=== PATIENT | male | born 1955 | race Caucasian/White ===

== ENCOUNTER → 2016-08-31 | Outpatient (CLI) | payer BC ==
[~2016-08-31] MED LIST: ACT15 PO; ASPEC81 PO; FLM4 PO; FLUO20CA35 PO; GLC850 PO; LISI40TA PO; SIMV40TA2 PO
[2016-08-31 13:03] LABS: ALT/SGPT 42 U/L (12-78); BLOOD UREA NITROGEN 18 mg/dl (7-18); CALCIUM 9.5 mg/dl (8.5-10.1); CARBON DIOXIDE 30 mmol/L (21-32); CHLORIDE 103 mmol/L (98-107); GLUCOSE 135 mg/dl (70-99); POTASSIUM 4.4 mmol/L (3.5-5.1); SODIUM 139 mmol/L (136-145)
[2016-08-31 13:05] LABS: ESTIMATED AVERAGE GLUCOSE 223 mg/dl; HA1C FLAG Normal (Normal)
[2016-08-31 13:06] LABS: ALB/GLOB RATIO 0.7 (0.9-2); ALKALINE PHOSPHATASE 69 U/L (45-117); AST/SGOT 23 U/L (15-37); CHOLESTEROL 158 mg/dl (0-200); CHOLESTEROL/HDL RATIO 3.7; HDL CHOLESTEROL 43 mg/dl; TRIGLYCERIDES 167 mg/dl (0-150); VERY LOW DENSITY LIPOPROT CALC 33 mg/dl
== END | disposition home or self-care (01) ==
LOC: C.LABSPEC 12:13
PROVIDERS: ATTEND Internal Medicine
DX: E66.09 Other obesity due to excess calories (principal); E11.65 Type 2 diabetes mellitus with hyperglycemia; I10 Essential (primary) hypertension; E78.5 Hyperlipidemia, unspecified

== ENCOUNTER → 2017-02-26 | Outpatient (CLI) | payer BC | END | disposition home or self-care (01) | LOC: C.LABSPEC 12:32 | PROVIDERS: ATTEND Internal Medicine | DX: Z12.11 Encounter for screening for malignant neoplasm of colon (principal) ==

== ENCOUNTER 2018-06-30 12:56 | Observation (INO) ==
[2018-06-30 15:01] LABS: Albumin Level 3.2 gm/dl (3.4-5.0); BUN Creatinine Ratio 12.8 (10-20); Creatinine Clr Calc Pharmacy 86.1 ml/min; Est GFR (African American) 74.1; Potassium 4.2 mmol/L (3.5-5.1)
[2018-06-30 15:04] LABS: Albumin Globulin Ratio 0.7 (0.9-2); Bilirubin,Total 0.5 mg/dl (0.2-1); Globulin 4.4 gm/dl (2.5-4.0); Total Protein 7.6 gm/dl (6.4-8.2)
--- NOTE | 2018-06-30 15:04 | XRay Report ---
XR chest 1V portable HISTORY: 62 years-old Male Chest Pain acute atypical chest pain COMPARISON: Chest radiograph 02/17/2018 TECHNIQUE: Portable AP view of the chest FINDINGS: Cardiac silhouette is mildly enlarged, unchanged. Mild right hemidiaphragm elevation. There is no pne umothorax, pleural effusion, focal airspace consolidation or overt pulmonary edema. The bones of the chest appear grossly intact. IMPRESSION: Cardiomegaly without acute process. The above report was generated using voice recognition software. It may contain grammatical, syntax o r spelling errors. Electronically signed by: Miko Cramer M.D. 06/30/2018 3:03 PM
[2018-06-30] MEDS ORDERED: TRIAMTERENE/HCTZ 37.5/25MG CAP PO STA (15:10)
[2018-06-30 15:19] LABS: Basophils # (auto) 0.08 K/uL (0-0.2); Basophils % (auto) 0.6 %; Eosinophils # (auto) 0.34 K/uL (0-0.5); Eosinophils % (auto) 2.6 %; Hematocrit (blood only) 36.5 % (42-52); Hemoglobin 11.5 g/dL (14.0-18.0); Immature Granulocytes # (auto) 0.06 K/uL (0.00-0.02); Immature Granulocytes % (auto) 0.5 %; Lymphocytes # (auto) 2.53 K/uL (1.2-3.4); Lymphocytes % (auto) 19.4 %; Mean Corpuscular Hgb Conc 31.5 g/dL (32-36); Mean Corpuscular Volume 82.2 fL (80-100); Mean Platelet Volume 9.5 fL (7.4-10.4); Monocytes # (auto) 0.81 K/uL (0.11-0.59); Monocytes % (auto) 6.2 %; Neutrophils # (auto) 9.24 K/uL (1.4-6.5); Neutrophils % (auto) 70.7 %; Platelet Count 353 K/uL (130-400); RDW Coefficient of Variation 14.8 % (11.5-14.5); RDW Standard Deviation 44.3 fL (36.4-46.3); Red Blood Count 4.44 M/uL (4.7-6.1); White Blood Count 13.06 K/uL (4.8-10.8)
--- NOTE | 2018-06-30 16:32 | History & Physical Report ---
Date of Service June 30, 2018 Assessment & Plan (1) Exertional chest pain: - Admit to tele for observation for r/o - Trend cardiac biomarkers, initial set was negative - EKG reviewed as above - Check 2 D echo - If negative enzymes can consider a stress test tomorrow morning. Pt will likely need a dobutamine stress test due to inability to walk as fast to reach max HR. - PT/OT consulted (2) Benign essential HTN: - Elevated upon admission at 192/85 - Continue metoprolol succ 50 mg daily, lisinopril 40 mg daily - Continue triamterene HCTZ 37.5/25 mg daily -- pt has been out of this x 3 weeks, given dose in the ER. - Will order lasix IV x 1 - for fluid retention in BLE and shortness of breath. 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 (6) History of radiofrequency ablation procedure for cardiac arrhythmia: - As above (7) HLD (hyperlipidemia): - Cont statin therapy (8) Cough: - Possibly secondary to touch of pulmonary edema or secondary to CRISTY- inhibitor? Pt reports sx started same time as exertional chest pain, no other viral like symptoms, lungs sound clear on exam. (9) DVT prophylaxis: - lovenox subq History of Present Illness Chief Complaint: Shortness of breath with exertion Primary Care Provider: Jeet Chapman MD This is a 62 yo M with PMHx of DM II on insulin therapy, HTN, HLD, obesity with BMI of 49.2, BPH, who presents with exertional chest pain. Pt notes this started about 5 days ago when he was shoveling snow. His chest pain is substernal, nonradiating, and "carson" when it is at it's worst during activity. He notes a dry cough within the past 5 days as well and thought this was due to the cold air. He has had smaller episodes of chest pain with walking about his house which are still substernal but not as severe. Pt notes he has been out of triamterene/HCTZ and atorvastatin for 3 weeks due to pharmacy not sending it/ the mail lost the Rx. He has been taking his other antihypertensives including lisinopril and metoprolol as directed. Pt reports swelling in the left leg more recently, where he normally does not have this. Pt denies lightheadedness, dizziness, palpitations, flutter or syncopal episodes. Initial troponin is negative. EKG is negative for acute ischemia. Allergies Allergy/AdvReac Type Severity Reaction Status Date / Time No Known Allergies Allergy Unverified 06/30/18 14:17 Home Medications Home Medications Medication Instructions Recorded Confirmed Type aspirin 325 mg PO DAILY 06/30/18 06/30/18 History atorvastatin 0 mg PO DAILY 06/30/18 06/30/18 History finasteride 5 mg PO DAILY 06/30/18 06/30/18 History insulin NPH and regular human 95 unit SUBCUT QPM 06/30/18 06/30/18 History [Novolin 70/30 U-100 Insulin] insulin NPH and regular human 120 unit SUBCUT QAM 06/30/18 06/30/18 History [Novolin 70/30 U-100 Insulin] liraglutide [Victoza 2-Edil] 1.2 mg SUBCUT DAILY 06/30/18 06/30/18 History lisinopril 0 mg PO DAILY 06/30/18 06/30/18 History metformin 1,700 mg PO DAILY 06/30/18 06/30/18 History metoprolol succinate 50 mg PO DAILY 06/30/18 06/30/18 History mirabegron [Myrbetriq] 25 mg PO DAILY 06/30/18 06/30/18 History triamterene-hydrochlorothiazid 0 tab PO DAILY 06/30/18 06/30/18 History Past Med/Surg History Medical History HLD (hyperlipidemia) History of Xrsqc-Oyatfflpf-Ydkvr (WPW) syndrome Morbid obesity DM II (diabetes mellitus, type II), controlled Benign essential HTN Exertional chest pain Surgical History History of radiofrequency ablation procedure for cardiac arrhythmia Social History Current Living Situation: Spouse and Family Other Information That Helps Us Care for You: No Feels Safe at Home: Yes Safety Concerns: Feels Safe At This Time Smoking Status: Never smoker Do You Dip or Chew Tobacco: No Hx Alcohol Use: No Hx Substance Use: No Beliefs That Will Affect Care: None Preferred Language: Italian Communication Ability: Effective Flight Manager Required: No Review of Systems Constitutional: no fever, no chills, no sweats and no fatigue Eyes: no diplopia and no worsening vision Ear, Nose, Mouth, Throat: no dizziness, no nasal discharge, no facial pain and no sore throat Respiratory: + cough; no dyspnea, no hemoptysis, no sputum production and no wheezing Cardiovascular: as per Subjective / HPI Gastrointestinal: no nausea, no vomiting and no constipation no diarrhea Genitourinary (Male): no dysuria, no urinary frequency, no urinary hesitancy and no hematuria Musculoskeletal: no back pain, no joint pain, no swelling and no muscle weakness Integumentary: no rash, no lesions and no wounds Neurologic: no gait abnormality, no falls, no numbness, no dizziness and no syncope Psychiatric: no depression and no anxiety Endocrine: no fatigue Physical Exam 2 Vital Signs (Past 24 Hours): Last Vital Signs Temp 36.7 C 06/30/18 13:08 Pulse 69 06/30/18 15:57 Resp 17 06/30/18 15:57 BP 181/96 H 06/30/18 15:57 Pulse Ox 95 06/30/18 15:57 Physical Exam: General: awake, alert, no apparent distress, + morbidly obese Head: Normocephalic, atraumatic ENT: PERRL, EOMI, no pharyngeal exudate, mucous membranes moist Chest: nontender to palpation, Clear to auscultation, on room air, no adventitious breath sounds Cardiac: Regular rate and rhythm, no murmur, no JVD, normal peripheral pulses, good capillary refill Abdominal: NABS x 4 quadrants, +small midline abdominal hernia, soft, nontender to palpation, no rebound, guarding or tenderness Extremities: Normal inspection, + 1+ pitting peripheral edema bilaterally, no erythema, calfs nontender to palpation Psych: Normal mood and affect Neuro: AAO x 3, strength intact bilaterally and related 5/5, no motor deficits, speech is clear, no peripheral sensory deficits Results & Data Diagnostic Findings XR chest 1V portable HISTORY: 62 years-old Male Chest Pain acute atypical chest pain COMPARISON: Chest radiograph 02/17/2018 TECHNIQUE: Portable AP view of the chest FINDINGS: Cardiac silhouette is mildly enlarged, unchanged. Mild right hemidiaphragm elevation. There is no pneumothorax, pleural effusion, focal airspace consolidation or overt pulmonary edema. The bones of the chest appear grossly intact. IMPRESSION: Cardiomegaly without acute process. ECG Additional Comments: 30-JUN-2018 13:08:02 [facility] Normal sinus rhythm Left axis deviation Abnormal ECG When compared with ECG of 02-FEB-2011 23:13, No significant change was found Vent. rate 85 BPM CA interval 150 ms QRS duration 94 ms QT/QTc 380/452 ms P-R-T axes 66 -37 72 Code Status & VTE Plan Code Status FULL Supervising Physician Co-Signing Physician Notes PA Physician Supervision Note: I interviewed and examined the patient. Discussed with Мария BULLOCK and agree with findings and plan as documented in the note. Any exceptions or clarifications are listed here: None And apparently is on exam the patient in the ER in the presence of his family. The patient has no distress at this current time. He notes that he has been having exertional chest pain for some time. Patient also has a significant weight gain over the last 6 or 7 years. Patient cannot recall the reason he had his last stress test or heart catheterization whether that he had similar symptoms to now. Vitals are noted his cardiac exam is distant but regular there are no rubs or murmurs his lungs are diminished but with air movement equal bilaterally he is 1 + edema bilateral legs Patient be brought in our facility serial troponins and EKGs be undertaken consideration for stress testing. At least an echocardiogram to evaluate for pulmonary hypertension. I did discuss reinforcement of use of CPAP. Documented By: David Jenknis
[2018-06-30] MEDS ORDERED: ACETAMINOPHEN 325 MG TAB PO PRN (17:51)
[2018-06-30] MEDS ORDERED: CARBOHYDRATES FOR HYPOGLYCEMIA PO PRN (17:51)
[2018-06-30] MEDS ORDERED: ONDANSETRON INJ 2 MG/ML 2 ML VIAL IV PRN (17:51)
[2018-06-30] MEDS ORDERED: DEXTROSE 50% 50 ML SYRINGE IV PRN (17:51)
[2018-06-30] MEDS ORDERED: GLUCOSE 10 TABS/TUBE PO PRN (17:51)
[2018-06-30] MEDS ORDERED: FUROSEMIDE 40 MG/4 ML VIAL IV STA (17:51)
[2018-06-30] MEDS ORDERED: GLUCOSE 40% GEL 15 GM TUBE PO PRN (17:51)
[2018-06-30] MEDS ORDERED: GLUCAGON FOR INJ 1 MG VIAL SQ PRN (17:51)
[2018-06-30] MEDS ORDERED: FUROSEMIDE 40 MG/4 ML VIAL IV ONE (17:58)
[2018-06-30] MEDS ORDERED: HydrALAZINE HCL 20 MG/ML VIAL IV STA (18:44)
[2018-06-30] MEDS ORDERED: HydrALAZINE HCL 20 MG/ML VIAL IV PRN (18:44)
[2018-06-30] MEDS ORDERED: METOPROLOL TARTRATE 1 MG/ML VIAL IV PRN (18:44)
[2018-06-30] MEDS ORDERED: HydrALAZINE HCL 20 MG/ML VIAL ONE (18:45)
--- NOTE | 2018-06-30 19:49 | Emergency Department Note ---
Entered by [place] Funez acting as a scribe for History of Present Illness General Chief complaint: Chest Pain Stated complaint: CHEST PAIN,SOB,HTN Source: patient and family () History of Present Illness Provider complaint: chest pain Onset (ago): day(s) 5 Location: chest Pain Consistency: + other (sudden) Maximum Pain Intensity: 2 Quality: + burning and + other (tightness) Exacerbated By: + movement and + other (cold air) Associated symptoms: + cough (clear sputum) and + shortness of breath; no fever/ chills (- fevers) Treatments prior to arrival: aspirin The patient is a 62 year old male who presents to the Emergency Room with complaints of chest pain that started suddenly about 5 days ago when he was shoveling snow. The patient reports he typically experiences chest tightness and a burning sensation upon exertion as well as while in the cold. He admits to also experiencing shortness of breath and having a chronic cough with clear sputum. The patient states the last time he experienced his pain was when he was walking back to his room in the emergency department. He denies any recent fevers. He reports a history of a cardiac catheterization in 2010 and reports that he gained approximately 40 to 50 pounds since then. The patient reports a history of heart problems and states that he is on three different medications for his blood pressure. He states he ran out of his prescription of Triamterene HCTZ for about 3 weeks. He reports to taking aspirin today. The patient denies any tobacco use. states: cant lay flat down. Home Medications Home Medications Medication Instructions Recorded Confirmed Type aspirin 325 mg PO DAILY 06/30/18 06/30/18 History atorvastatin 0 mg PO DAILY 06/30/18 06/30/18 History finasteride 5 mg PO DAILY 06/30/18 06/30/18 History insulin NPH and regular human 95 unit SUBCUT QPM 06/30/18 06/30/18 History [Novolin 70/30 U-100 Insulin] insulin NPH and regular human 120 unit SUBCUT QAM 06/30/18 06/30/18 History [Novolin 70/30 U-100 Insulin] liraglutide [Victoza 2-Edil] 1.2 mg SUBCUT DAILY 06/30/18 06/30/18 History lisinopril 0 mg PO DAILY 06/30/18 06/30/18 History metformin 1,700 mg PO DAILY 06/30/18 06/30/18 History metoprolol succinate 50 mg PO DAILY 06/30/18 06/30/18 History mirabegron [Myrbetriq] 25 mg PO DAILY 06/30/18 06/30/18 History triamterene-hydrochlorothiazid 0 tab PO DAILY 06/30/18 06/30/18 History Allergies Allergy/AdvReac Type Severity Reaction Status Date / Time No Known Allergies Allergy Unverified 06/30/18 14:17 Past Med/Surg History Medical History HLD (hyperlipidemia) History of Nxiyf-Esagnbapv-Kknzl (WPW) syndrome Morbid obesity DM II (diabetes mellitus, type II), controlled Benign essential HTN Exertional chest pain (Acute) Surgical History History of radiofrequency ablation procedure for cardiac arrhythmia Social History Current Living Situation: Spouse and Family Other Information That Helps Us Care for You: No Feels Safe at Home: Yes Safety Concerns: Feels Safe At This Time Smoking Status: Never smoker Do You Dip or Chew Tobacco: No Hx Alcohol Use: No Hx Substance Use: No Beliefs That Will Affect Care: None Preferred Language: Nicaraguan Communication Ability: Effective Cyber Security Instructor Required: No Review of Systems See HPI for pertinent positives & negatives. and A total of 10 systems reviewed and were otherwise negative Physical Exam Vital Signs Vital Signs - 24 hr 06/30/18 13:08 06/30/18 14:52 06/30/18 15:01 Temperature 36.7 C Temperature Source Oral Sepsis Recent Fever Within 48 Hours No Sepsis New/Unexplained Change in Mental Status No Sepsis Action Taken by Nursing No Action Required Pulse Rate 83 74 Pulse Rate [Apical] 75 Pulse Rhythm Regular Pulse Rhythm [Apical] Pulse Strength Normal Pulse Strength [Apical] Respiratory Rate 20 14 19 Respiratory Effort / Characteristics Non-Labored Spontaneous Respiratory Depth Normal Respiratory Pattern Regular Blood Pressure 190/102 H 193/87 H Blood Pressure [Left Arm] Blood Pressure [Right Arm] 204/90 H Blood Pressure Mean 131 122 Blood Pressure Mean [Left Arm] Blood Pressure Mean [Right Arm] 128 Blood Pressure Position Sitting Blood Pressure Position [Left Arm] Pulse Oximetry 95 94 93 Oxygen Delivery Method Room Air Room Air 06/30/18 15:15 06/30/18 15:30 06/30/18 15:31 Temperature Temperature Source Sepsis Recent Fever Within 48 Hours Sepsis New/Unexplained Change in Mental Status Sepsis Action Taken by Nursing Pulse Rate 71 65 70 Pulse Rate [Apical] Pulse Rhythm Pulse Rhythm [Apical] Pulse Strength Pulse Strength [Apical] Respiratory Rate 20 15 Respiratory Effort / Characteristics Respiratory Depth Respiratory Pattern Blood Pressure 181/96 H Blood Pressure [Left Arm] Blood Pressure [Right Arm] Blood Pressure Mean 124 Blood Pressure Mean [Left Arm] Blood Pressure Mean [Right Arm] Blood Pressure Position Blood Pressure Position [Left Arm] Pulse Oximetry 95 96 95 Oxygen Delivery Method 06/30/18 15:57 06/30/18 16:00 06/30/18 16:01 Temperature Temperature Source Sepsis Recent Fever Within 48 Hours Sepsis New/Unexplained Change in Mental Status Sepsis Action Taken by Nursing Pulse Rate 63 63 Pulse Rate [Apical] 69 Pulse Rhythm Pulse Rhythm [Apical] Pulse Strength Pulse Strength [Apical] Respiratory Rate 17 19 18 Respiratory Effort / Characteristics Respiratory Depth Respiratory Pattern Blood Pressure 197/81 H Blood Pressure [Left Arm] Blood Pressure [Right Arm] 181/96 H Blood Pressure Mean 119 Blood Pressure Mean [Left Arm] Blood Pressure Mean [Right Arm] 124 Blood Pressure Position Blood Pressure Position [Left Arm] Pulse Oximetry 95 95 94 Oxygen Delivery Method Room Air 06/30/18 16:30 06/30/18 16:31 06/30/18 17:00 Temperature Temperature Source Sepsis Recent Fever Within 48 Hours Sepsis New/Unexplained Change in Mental Status Sepsis Action Taken by Nursing Pulse Rate 61 64 64 Pulse Rate [Apical] Pulse Rhythm Pulse Rhythm [Apical] Pulse Strength Pulse Strength [Apical] Respiratory Rate 14 17 20 Respiratory Effort / Characteristics Respiratory Depth Respiratory Pattern Blood Pressure 192/85 H Blood Pressure [Left Arm] Blood Pressure [Right Arm] Blood Pressure Mean 120 Blood Pressure Mean [Left Arm] Blood Pressure Mean [Right Arm] Blood Pressure Position Blood Pressure Position [Left Arm] Pulse Oximetry 94 95 95 Oxygen Delivery Method 06/30/18 17:01 06/30/18 17:31 06/30/18 18:36 Temperature 36.8 C Temperature Source Oral Sepsis Recent Fever Within 48 Hours Sepsis New/Unexplained Change in Mental Status Sepsis Action Taken by Nursing Pulse Rate 68 Pulse Rate [Apical] 73 Pulse Rhythm Pulse Rhythm [Apical] Regular Pulse Strength Pulse Strength [Apical] Normal Respiratory Rate 19 18 Respiratory Effort / Characteristics Non-Labored Spontaneous Respiratory Depth Normal Respiratory Pattern Blood Pressure 196/96 H Blood Pressure [Left Arm] 222/101 H Blood Pressure [Right Arm] Blood Pressure Mean 129 Blood Pressure Mean [Left Arm] 141 Blood Pressure Mean [Right Arm] Blood Pressure Position Blood Pressure Position [Left Arm] Sitting Pulse Oximetry 96 94 Oxygen Delivery Method Room Air Room Air 06/30/18 19:10 Temperature Temperature Source Sepsis Recent Fever Within 48 Hours Sepsis New/Unexplained Change in Mental Status Sepsis Action Taken by Nursing Pulse Rate Pulse Rate [Apical] 80 Pulse Rhythm Pulse Rhythm [Apical] Pulse Strength Pulse Strength [Apical] Respiratory Rate 18 Respiratory Effort / Characteristics Respiratory Depth Respiratory Pattern Blood Pressure Blood Pressure [Left Arm] 165/82 H Blood Pressure [Right Arm] Blood Pressure Mean Blood Pressure Mean [Left Arm] 109 Blood Pressure Mean [Right Arm] Blood Pressure Position Blood Pressure Position [Left Arm] Pulse Oximetry 94 Oxygen Delivery Method Room Air Constitutional: Vital signs reviewed. Eyes: Pupils are equal round reactive to light. Conjunctiva are noninjected. ENT: Pharynx is clear without erythema or exudate. Mucous membranes are moist. Neck supple without meningeal signs. Respiratory: Clear to auscultation bilaterally. Breath sounds are equal bilaterally. Cardiovascular: Regular rate and rhythm. No rubs or gallops. GI: Soft, nondistended and nontender. Bowel sounds are present. Musculoskeletal: Mild pitting edema to the bilateral lower extremities. No lower extremity tenderness. Integumentary: No cyanosis. Neurological: The patient is awake and alert. No focal deficits. Psychiatric: Normal affect. Course 1413: Past medical records reviewed. The patient was evaluated in room B11, and a complete history and physical examination were performed. 1546: I reviewed the patient's case with Facundo Neri. He will evaluate the patient for further management. 1547: I spoke with the patient and discussed his test results. He denies any current chest pain. He is agreeable with the treatment plan. Consultations Consultation #1: Facundo Neri Time: 15:46 Administered Medications Discontinued Medications Furosemide (Lasix) 40 mg IV NOW STA Stop: 06/30/18 17:52 Last Admin: 06/30/18 18:18 Dose: Not Given Furosemide (Lasix) Confirm Administered Dose 40 mg IV .STK-MED ONE Stop: 06/30/18 17:59 Last Admin: 06/30/18 17:59 Dose: 40 mg Hydralazine HCl (Hydralazine Hcl) 10 mg IV NOW STA Stop: 06/30/18 18:45 Last Admin: 06/30/18 19:09 Dose: Not Given Hydralazine HCl (Hydralazine Hcl) Confirm Administered Dose 20 mg .ROUTE .STK- MED ONE Stop: 06/30/18 18:46 Last Increment: 06/30/18 18:47 Dose: 10 mg Triamterene/HCTZ (Dyazide 37.5/25mg) 1 cap PO NOW STA Stop: 06/30/18 15:11 Last Admin: 06/30/18 15:55 Dose: 1 cap Medical Decision Making Differential Diagnosis Differential: Unstable angina, CO, GERD, pneumonia, pleurisy Medical Records Attestation: I reviewed the patient's medical records. Home Medications Current Medication List: was personally reviewed by me Laboratory Data Attestation: I reviewed the patient's lab results. Result diagrams: 06/30/18 14:30 06/30/18 14:30 Lab Results 06/30/18 06/30/18 06/30/18 Range/Units 14:30 14:30 14:53 WBC 13.06 H (4.8-10.8) K/uL RBC 4.44 L (4.7-6.1) M/uL Hgb 11.5 L (14.0-18.0) g/dL Hct 36.5 L (42-52) % MCV 82.2 (80-100) fL MCH 25.9 (25-34) pg MCHC 31.5 L (32-36) g/dL RDW Std Deviation 44.3 (36.4-46.3) fL RDW Coeff of Henrry 14.8 H (11.5-14.5) % Plt Count 353 (130-400) K/uL MPV 9.5 (7.4-10.4) fL Immature Gran % (Auto) 0.5 % Neut % (Auto) 70.7 % Lymph % (Auto) 19.4 % [place] % (Auto) 6.2 % Eos % (Auto) 2.6 % Baso % (Auto) 0.6 % Immature Gran # (Auto) 0.06 H (0.00-0.02) K/uL Neut # (Auto) 9.24 H (1.4-6.5) K/uL Lymph # (Auto) 2.53 (1.2-3.4) K/uL [place] # (Auto) 0.81 H (0.11-0.59) K/uL Eos # (Auto) 0.34 (0-0.5) K/uL Baso # (Auto) 0.08 (0-0.2) K/uL Sodium 136 (136-145) mmol/L Potassium 4.2 (3.5-5.1) mmol/L Chloride 106 (98-107) mmol/L Carbon Dioxide 25 (21-32) mmol/L Anion Gap 5.0 (3-11) BUN 15 (7-18) mg/dl Creatinine 1.20 (0.6-1.4) mg/dl Est Cr Clr Drug Dosing 86.1 ml/min Est GFR ( Amer) 74.1 Est GFR (Non-Af Amer) 64.0 BUN/Creatinine Ratio 12.8 (10-20) Glucose 173 H (70-99) mg/dl Calcium 9.0 (8.5-10.1) mg/dl Total Bilirubin 0.5 (0.2-1) mg/dl AST 26 (15-37) U/L ALT 41 (12-78) U/L Alkaline Phosphatase 62 (45-117) U/L POC Troponin I < 0.03 (0-0.045) ng/ml Total Protein 7.6 (6.4-8.2) gm/dl Albumin 3.2 L (3.4-5.0) gm/dl Globulin 4.4 H (2.5-4.0) gm/dl Albumin/Globulin Ratio 0.7 L (0.9-2) Imaging Data Radiologist's Impression: Radiology results as stated below per my review and the radiologist's interpretation: XR chest 1V portable HISTORY: 62 years-old Male Chest Pain acute atypical chest pain COMPARISON: Chest radiograph 02/17/2018 TECHNIQUE: Portable AP view of the chest FINDINGS: Cardiac silhouette is mildly enlarged, unchanged. Mild right hemidiaphragm elevation. There is no pneumothorax, pleural effusion, focal airspace consolidation or overt pulmonary edema. The bones of the chest appear grossly intact. IMPRESSION: Cardiomegaly without acute process. The above report was generated using voice recognition software. It may contain grammatical, syntax or spelling errors. Electronically signed by: Miko Cramer M.D. 06/30/2018 3:03 PM ECG Data Attestation: I personally reviewed and interpreted this ECG as follows: Indication: chest pain Rate (beats per minute): 85 Rhythm: normal sinus Findings: no PVC and no ST elevation Blood Pressure Blood Pressure Findings: Elevated blood pressure Blood Pressure Disposition: Referred to patients primary care provider MDM Narrative I did perform a limited focused review of portions of the patient's old chart on the electronic medical record. The patient has had a cardiac catheterization in 2010 which showed no significant atherosclerosis lesion requiring intervention or revascularization. I did evaluate the patient as noted above. The patient is presenting with exertional chest pain. He also had an episode at rest today and while walking from the waiting room to his ED bed he became short of breath and developed some chest tightness. He denies having any chest tightness at this time. He did have an aspirin today. He does state that he has not been taking his high blood pressure medicine and so he was given a dose here. IV access was established. The patient was placed on a continuous threat monitoring analyst. I did order and personally review the patient's 12-lead EKG and chest x-ray as described above. Twelve-lead EKG does not show any acute ischemia. Chest x- ray is unremarkable. I did order and review the patient's blood work as noted in the electronic medical record. Troponin is negative. I did discuss the test results with the patient. He is not having any chest pain currently. His blood pressure did improve. I did recommend hospitalization for further evaluation of his exertional chest pain. He was agreeable with this plan. I did discuss the case with the hospitalist and child support case officer. Impression & Plan Exertional chest pain, Noncompliance with medication regimen Discharge Plan Visit Data *Final* Discharge Date/Time: 06/30/18 17:22 Chief Complaint: Chest Pain Stated Complaint: CHEST PAIN,SOB,HTN ED Provider: David Castro Discharge Problem: Exertional chest pain, Noncompliance with medication regimen Patient Disposition: Admitted As Inpatient Discharge Instructions Interventions: ED Discharge Assessment Last Done: 06/30/18 17:22 The scribe's documentation has been prepared under my direction and personally reviewed by me in its entirety. I confirm that the note above accurately reflects all work, treatment, procedures, and medical decision making performed by me.
[2018-06-30] MEDS: INSULIN ASPART 100 UNITS/ML 3 ML PEN SC SCH (21:00)
[2018-06-30] MEDS: INSULIN HUMAN 70% NPH/30% REGULAR SQ SCH (21:00)
[2018-07-01 04:18] LABS: Hematocrit (blood only) 36.2 % (42-52); Hemoglobin 11.6 g/dL (14.0-18.0); Mean Corpuscular Volume 81.5 fL (80-100); Mean Platelet Volume 9.5 fL (7.4-10.4); Platelet Count 347 K/uL (130-400); RDW Coefficient of Variation 14.7 % (11.5-14.5); RDW Standard Deviation 43.1 fL (36.4-46.3); Red Blood Count 4.44 M/uL (4.7-6.1); White Blood Count 10.43 K/uL (4.8-10.8)
[2018-07-01 04:36] LABS: Albumin Level 3.2 gm/dl (3.4-5.0); BUN Creatinine Ratio 13.5 (10-20); Calcium 9.5 mg/dl (8.5-10.1); Est GFR (Non-African American) 62.1; Magnesium 1.9 mg/dl (1.8-2.4); Potassium 3.9 mmol/L (3.5-5.1)
[2018-07-01 04:38] LABS: Albumin Globulin Ratio 0.7 (0.9-2); Bilirubin,Total 0.6 mg/dl (0.2-1); Globulin 4.6 gm/dl (2.5-4.0); Phosphorus 4.3 mg/dl (2.5-4.9); Total Protein 7.8 gm/dl (6.4-8.2); Troponin I 0.04 ng/ml (0-0.045)
[2018-07-01 05:43] LABS: Estimated Average Glucose 217 mg/dl; Hemoglobin A1C 9.2 % (4.5-5.6)
[2018-07-01] MEDS ORDERED: INSULIN HUMAN 70% NPH/30% REGULAR SQ SCH (07:30)
[2018-07-01 07:36] VITALS: TEMP 97.9
[2018-07-01] MEDS: INSULIN ASPART 100 UNITS/ML 3 ML PEN SC SCH ×3 (08:32→16:53)
[2018-07-01] MEDS ORDERED: ATORVASTATIN 40 MG TAB PO SCH (09:00)
[2018-07-01] MEDS ORDERED: MIRABEGRON ER 25 MG TAB PO SCH (09:00)
[2018-07-01] MEDS ORDERED: TRIAMTERENE/HCTZ 37.5/25MG TAB PO SCH (09:00)
[2018-07-01] MEDS ORDERED: FINASTERIDE 5 MG TAB PO SCH (09:00)
[2018-07-01] MEDS ORDERED: METOPROLOL SUCC 50MG EXT REL TAB PO SCH (09:00)
[2018-07-01] MEDS ORDERED: LISINOPRIL 40 MG TAB PO SCH (09:00)
[2018-07-01] MEDS ORDERED: ASPIRIN 325 MG ECTAB PO SCH (09:00)
[2018-07-01] MEDS ORDERED: ATROPINE SULFATE 0.1 MG/ML 10ML SYR IV ONE ×2 (14:26→14:27)
[2018-07-01] MEDS ORDERED: METOPROLOL TARTRATE 1 MG/ML VIAL IV ONE (14:26)
[2018-07-01] MEDS ORDERED: DOBUTamine HCL 12.5 MG/ML 20 ML VIAL IV ONE (14:26)
[2018-07-01] MEDS ORDERED: PERFLUTREN LIPID MICROSPHERE (DEFINITY) IV ONE (14:57)
[2018-07-01 16:01] VITALS: O2SAT 96
[2018-07-01 16:40] VITALS: BP 199/101; PULSE 83
[2018-07-01] MEDS: INSULIN HUMAN 70% NPH/30% REGULAR SQ SCH (16:55)
--- NOTE | 2018-07-01 18:28 | Discharge Summary ---
Date of Service July 01, 2018 Admission HPI Per Admitting Provider This is a 62 yo M with PMHx of DM II on insulin therapy, HTN, HLD, obesity with BMI of 49.2, BPH, who presents with exertional chest pain. Pt notes this started about 5 days ago when he was shoveling snow. His chest pain is substernal, nonradiating, and "carson" when it is at it's worst during activity. He notes a dry cough within the past 5 days as well and thought this was due to the cold air. He has had smaller episodes of chest pain with walking about his house which are still substernal but not as severe. Pt notes he has been out of triamterene/HCTZ and atorvastatin for 3 weeks due to pharmacy not sending it/ the mail lost the Rx. He has been taking his other antihypertensives including lisinopril and metoprolol as directed. Pt reports swelling in the left leg more recently, where he normally does not have this. Pt denies lightheadedness, dizziness, palpitations, flutter or syncopal episodes. Initial troponin is negative. EKG is negative for acute ischemia. Principal Diagnosis Atypical chest pain hypertensive urgency Discharge Exam Constitutional well developed and + obese Eyes no conjunctival abnormality and no scleral abnormality Neck normal visual inspection and trachea midline Respiratory normal respiratory effort; no respiratory distress Auscultation: lungs clear to auscultation bilaterally Cardiovascular Rate/Rhythm: regular rate and regular rhythm Extremities: + edema Gastrointestinal (Abdomen) normal bowel sounds, soft, nontender, no hepatosplenomegaly Musculoskeletal no cyanosis or clubbing, extremities motor strength 5/5 Discharge Data Allergies Allergy/AdvReac Type Severity Reaction Status Date / Time No Known Allergies Allergy Unverified 06/30/18 14:17 Consultations 06/30/18 15:49 ED Decision to Admit Stat 06/30/18 17:51 Consult Case Management - Discharge Planning Routine Hospital Course (1) Exertional chest pain: cardiac biomarkers negative -Patient had a to be mean stress test which was unremarkable according to Dr. Sabillon. He did have good diuresis with a dose of Lasix he feels some of his problems are related to medical indiscretion from delivery of his medicines being delayed by the [place] mail. The patient wishes to return his primary care provider to discuss his health care with him, I phoned his primary care doctor' s office and they will see him for blood pressure check this week and a follow- up visit on Saturday (2) Benign essential HTN: Likely had hypertensive urgency on presentation we will return to his metoprolol succ 50 mg daily, lisinopril 40 mg daily triamterene HCTZ 37.5/25 mg daily (3) DM II (diabetes mellitus, type II), controlled: - Continue insulin NPH 70/30 120 U subcu QAM, and 95 U QPM His A1c is elevated and he does have some challenges paying for his medications Case management is working for more affordable solutions (4) Morbid obesity: - BMI of 49.2, diet and exercise encouraged - DM type II/heart healthy diet cost adherence to CPAP (5) History of Nwpvk-Zzgpfshat-Hzzbk (WPW) syndrome: - S/p ablation 24 years ago which was completed at [facility]. (6) History of radiofrequency ablation procedure for cardiac arrhythmia: - As above (7) HLD (hyperlipidemia): - Cont statin therapy (8) Cough: Improved 1 dose diuretics Total Time Total Time Spent Total Time Spent (In Minutes): greater than 30 minutes were required to prepare discharge Discharge Plan Discharge Items Patient Disposition: Home - Self-Care Reason For Visit: EXERTIONAL CHEST PAIN Discharge Diagnosis: chest pain-- negative stress test Discharge Goals: Decrease discomfort Activity: Resume your previous activity Non-emergency contact: Primary Care Provider Call non-emergency contact if: you have any medication questions Follow-up/Referrals: Jeet Chapman MD [Primary Care Provider] - 07/07/18 3:00 pm (Please, follow up with Dr. Alisha Schmidt on SaturdayJuly 07 at 3:00 pm. *If you need to change this appointment, call the office at [phone].) Diet: Carb Consistent or DM2 Addtl Provider Instructions: Please stop in Dr Ailsha schmidt office for blood pressure check this saturday any time please see Dr Alisha Schmidt for follow up on saturday Prescriptions: Continue atorvastatin 40 mg Tablet PO DAILY RF: 0 aspirin 325 mg Tablet 325 mg PO DAILY RF: 0 metoprolol succinate 50 mg Tablet Extended Release 24 Hr 50 mg PO DAILY RF: 0 metformin 850 mg Tablet 1,700 mg PO DAILY RF: 0 insulin NPH and regular human [Novolin 70/30 U-100 Insulin] 100 unit/mL (70-30 ) Suspension 120 unit SUBCUT QAM RF: 0 insulin NPH and regular human [Novolin 70/30 U-100 Insulin] 100 unit/mL (70-30 ) Suspension 95 unit SUBCUT QPM RF: 0 triamterene-hydrochlorothiazid 37.5-25 mg Tablet PO DAILY RF: 0 lisinopril 40 mg Tablet PO DAILY RF: 0 finasteride 5 mg Tablet 5 mg PO DAILY RF: 0 liraglutide 0.6 mg/0.1 mL (18 mg/3 mL) pen injector 1.2 mg subcut DAILY RF: 0 mirabegron [Myrbetriq] 25 mg Tablet Extended Release 24 Hr 25 mg PO DAILY RF: 0 Stand-Alone Forms: [facility] Discharge Orders: Discharge Order (Routine); Ordered 07/01/18 Ordered By: David Jenkins Admission Data Admit Date/Time: 06/30/18 16:39 Attending Provider: David Jenkins Admit Provider: Elder Hernandez Primary Care Provider: Jeet Chapman Other Providers: Elder Hernandez Service: Telemetry Other Interventions: Discharge Summary Assessment (RN) Last Done: 07/01/18 16:38 Pending Studies at Discharge: No DC Date/Time DO NOT enter until pt leaves facility: 07/01/18 17:31
== END 2018-07-01 17:31 | disposition home or self-care (01) ==
LOC: ED 12:56 → 2E 12:56 → SUATTDRO 16:39 → 2E 17:22

== ENCOUNTER 2021-04-13 12:37 | Observation (INO) ==
[2021-04-13 13:21] LABS: Basophils # (auto) 0.06 K/uL (0-0.2); Basophils % (auto) 0.5 %; Eosinophils # (auto) 0.22 K/uL (0-0.5); Eosinophils % (auto) 1.8 %; Immature Granulocytes # (auto) 0.05 K/uL (0.00-0.02); Immature Granulocytes % (auto) 0.4 %; Lymphocytes # (auto) 2.06 K/uL (1.2-3.4); Lymphocytes % (auto) 16.9 %; Mean Corpuscular Hemoglobin 26.7 pg (25-34); Mean Corpuscular Hgb Conc 32.4 g/dL (32-36); Mean Corpuscular Volume 82.4 fL (80-100); Mean Platelet Volume 9.8 fL (7.4-10.4); Monocytes # (auto) 0.83 K/uL (0.11-0.59); Monocytes % (auto) 6.8 %; Neutrophils # (auto) 8.98 K/uL (1.4-6.5); Neutrophils % (auto) 73.6 %; Platelet Count 387 K/uL (130-400); RDW Coefficient of Variation 14.3 % (11.5-14.5); Red Blood Count 4.49 M/uL (4.7-6.1)
[2021-04-13 13:31] LABS: INR 1.1 (0.9-1.1); Partial Thromboplastin Time 25.6 Seconds (21.0-31.0); Prothrombin Time 10.7 Seconds (9.0-12.0)
[2021-04-13 13:35] LABS: Alanine Aminotransferase 28 U/L (12-78); Albumin Level 3.1 gm/dl (3.4-5.0); Aspartate Aminotransferase 15 U/L (15-37); BUN Creatinine Ratio 18.1 (10-20); Blood Urea Nitrogen 22 mg/dl (7-18); Calcium 9.5 mg/dl (8.5-10.1); Carbon Dioxide 24 mmol/L (21-32); Chloride 105 mmol/L (98-107); Est GFR (African American) 73.3 ml/min; Est GFR (Non-African American) 63.3 ml/min; Glucose 238 mg/dl (70-99); Sodium 135 mmol/L (136-145)
[2021-04-13 13:40] LABS: Albumin Globulin Ratio 0.7 (0.9-2); Alkaline Phosphatase 77 U/L (45-117); Bilirubin,Total 0.4 mg/dl (0.2-1); Globulin 4.4 gm/dl (2.5-4.0); Total Protein 7.5 gm/dl (6.4-8.2); Troponin I < 0.015 ng/ml (0-0.045)
--- NOTE | 2021-04-13 14:03 | XRay Report ---
XR chest 2V PA/lateral CLINICAL HISTORY: chest pain. COMPARISON STUDY: 01/04/2021 TECHNIQUE: 2 views of the chest FINDINGS: Frontal and lateral radiographs of the chest demonstrate the cardiomediastinal silhouette to be withi n normal limits. The lungs are clear of alveolar opacities. There is no evidence for effusion bilater ally. There is no evidence for vascular congestion. There is no acute osseous pathology. IMPRESSION: No acute cardiopulmonary disease. ACT 112: Negative or not required by law. Electronically signed by: Justin Sanchez M.D. 04/13/2021 2:02 PM
--- NOTE | 2021-04-13 14:34 | Electrocardiogram Report ---
Test Reason : Blood Pressure : / mmHG Vent. Rate : 073 BPM Atrial Rate : 073 BPM P-R Int : 162 ms QRS Dur : 092 ms QT Int : 370 ms P-R-T Axes : 049 -45 062 degrees QTc Int : 407 ms Normal sinus rhythm with sinus arrhythmia Left axis deviation Poor R wave progression, consider anterior NM vs. lead placement vs. LVH Abnormal ECG When compared with ECG of 04-JAN-2021 11:51, QT has shortened Confirmed by Jigar Jackson ([id number]) on 04/13/2021 2:33:27 PM Referred By: Confirmed By:Adán Jackson
[2021-04-13] MEDS ORDERED: ASPIRIN 81 MG CHEW PO STA (20:40)
--- NOTE | 2021-04-13 21:32 | History & Physical Report ---
Date of Service April 13, 2021 Assessment & Plan (1) Substernal chest pain: Plan: 65yo male with history of DM, HTN, HLP presenting with 4-5 days of intermittent substernal chest discomfort. Troponin x 2 negative. EKG with no acute ischemic findings. Do not strongly suspect cardiac origin at this time. Patient, however is high risk due to underlying medical comorbidities -Observation to medical with telemetry -Trend troponin x 3 -EKG PRN chest pain -Recent dobutamine stress echo from 06/2020 unremarkable for inducible ischemia -Continue ASA, Atorvastatin, Lisinopril -Reports of palpitations with occasional dizziness. Ventricular ectopy noted on Dobutamine stress test from 06/2020 - may consider outpatient cardiac monitoring (2) DMII (diabetes mellitus, type 2): Plan: Elevated blood sugar. Last PsdN1u=3.6 in December 2020. Patient is on Metformin, Liraglutide as well as Novolin 70/30. He reports feeling symptomatic when his sugar gets below 80 -Glycemic management consultation appreciated -YOUNG Santiago. Will set target blood sugar slightly higher to avoid symptoms of hypoglycemia -Continue Lisinopril -Check HgbA1C (3) Hypertension: Plan: Blood pressure mildly elevated, 177/83 -Continue Triamterine/HCTZ as well as Lisinopril (4) Dyslipidemia: Plan: Chronic -Continue Atorvastatin (5) BPH (benign prostatic hyperplasia): Plan: Chronic -Continue Flomax Plan: F/E/N - Heplock. Electrolytes WNL. AHA/CC diet as tolerated Ppx - Lovenox Code - Full per discussion with patient Dispo - Observation to medical with telemetry for CP rule out NE History of Present Illness Chief Complaint: chest pain Primary Care Provider: Jeet Chapman MD Sang Guevara is a pleasant 65yo male with history of DM, HTN and HLP presenting with episodic substernal chest discomfort. Patient has been having intermittent discomfort over the last 4-5 days -substernal pressure, 6/10 in severity. Discomfort typically lasts several minutes then resolves on its own. He can get several episodes over the course of an hour. Can occur with exertion or at rest. He reports sharp discomfort in his head on occasion that occurs with the chest discomfort. Denies SOB, abdominal pain, nausea, vomiting He has occasional palpitations and lightheadedness Has remote history of WPW s/p ablation Dobutamine Stress Echo performed on 06/22/20 which was normal with no ec hocardiographic or EKG evidence of myocardial ischemia. Study was technically difficult with suboptimal imaging. Frequent ventricular ectopy noted - had 5 beat run of VT during peak pharmacologic stress. Presently without chest discomfort. In the ER patient remained afebrile, HD stable, chest pain free. Patients Covid-19 test NEGATIVE. Patient is vaccinated + booster 10 days ago. Allergies Allergy/AdvReac Type Severity Reaction Status Date / Time No Known Allergies Allergy Verified 04/13/21 21:25 Home Medications Medication Instructions Recorded Confirmed Type atorvastatin 40 mg tablet 40 mg PO HS 06/30/18 04/13/21 History insulin human U-100 NPH-regulr 0 unit SUBCUT QPM PRN 06/30/18 04/13/21 History 70-30 mix 100 unit/mL subcutaneous susp (Novolin 70/30 U-100 Insulin) insulin human U-100 NPH-regulr 125 unit SUBCUT QAM 06/30/18 04/13/21 History 70-30 mix 100 unit/mL subcutaneous susp (Novolin 70/30 U-100 Insulin) liraglutide 0.6 mg/0.1 mL (18 mg/3 1.8 mg SUBCUT QAM 06/30/18 04/13/21 History mL) subcutaneous pen injector metformin 850 mg tablet 850 mg PO BID 06/30/18 04/13/21 History triamterene 37.5 1 tab PO HS 06/30/18 04/13/21 History mg-hydrochlorothiazide 25 mg tablet metoprolol succinate 50 mg 50 mg PO QAM 01/22/20 04/13/21 History tablet,extended release 24 hr ibuprofen 200 mg capsule 800 mg PO Q6H PRN 12/29/20 04/13/21 History tamsulosin 0.4 mg capsule 0.4 mg PO HS #30 cap 03/15/21 04/13/21 Rx aspirin 81 mg capsule 81 mg PO QAM 03/29/21 04/13/21 History finasteride 5 mg tablet 5 mg PO QAM 04/13/21 04/13/21 History lisinopril 40 mg tablet 20 mg PO QDL 04/13/21 04/13/21 History Past Med/Surg History Medical History (Updated 12/02/21 @ 22:41 by Gab Castellanos MD) Abdominal hernia Stable Arthritis BPH (benign prostatic hyperplasia) Chronic back pain Claustrophobia "DOESN'T LIKE SLEEPING ON HIS BACK" DM II (diabetes mellitus, type II), controlled Glucose fluctuates Dry mouth Chronic Gallstones Found incidentally - no current issues GERD (gastroesophageal reflux disease) UNDER CONTROL History of asthma A CHILD History of Judtt-Eekhxjrso-Nvkpa (WPW) syndrome S/p ablation- no issues Follows with cardio PRN HLD (hyperlipidemia) Hypertension Lumbar spinal stenosis Morbid obesity with BMI of 45.0-49.9, adult IGOR (obstructive sleep apnea) Cannot tolerate device SOB (shortness of breath) on exertion OVERWEIGHT- CHRONIC AND STABLE Surgical History History of cataract surgery RT History of colonoscopy 2020 History of radiofrequency ablation procedure for cardiac arrhythmia AT AGE 29 History of tonsillectomy History of tooth extraction S/P TURP Family History Other No family history of adverse response to anesthesia Social History Smoking Status: Former smoker Second Hand Exposure: No; Hx Alcohol Use: No Hx Substance Use: No Preferred Language: Tanzanian Communication Ability: Effective Dry Chain Operator Required: No Beliefs That Will Affect Care: None Current Living Situation: Spouse Current Living Situation Comment: and youngest daughter current occupational status: retired Feels Safe at Home: Yes Safety Concerns: Feels Safe At This Time Assistive Devices: Cane and Glasses Review of Systems Review of Systems: All systems reviewed & are unremarkable except as noted in HPI & below Physical Exam Physical Exam: General: patient resting comfortably, NAD, non-toxic in appearance, AA&O x 4 Skin: warm, dry, intact, no rashes or lesions HEENT: NC/AT, PERRL, EOMI, anicteric sclera, conjunctiva without injection, external ear normal to inspection and nontender, nares patent, moist mucus membranes, dentition intact, no oropharyngeal lesions, neck supple, trachea midline, no LAD, no thyromegaly, no JVD Heart: +S1/S2, regular, no m/r/g Lungs: equal air entry bilaterally, no rales/rhonchi/wheezes Abd: +BS, soft, NT/ND, no masses/organomegaly/ascites Ext: warm, 2+ pulses in UE/LE bilaterally, no clubbing/cyanosis or edema Neuro: nonfocal, patient AA&O x 4, speech intact, no facial droop, moving all extremities on command with equal strength 5/5 Results & Data Results & Data ([facility]) Vital Signs (Past 12 Hours) Vital Signs Temp Pulse Resp BP Pulse Ox 04/13/21 12:40 37.1 C 81 18 197/93 H 95 Laboratory Results Laboratory Results WBC 12.20 K/uL (4.8-10.8) H 04/13/21 13:00 RBC 4.49 M/uL (4.7-6.1) L 04/13/21 13:00 Hgb 12.0 g/dL (14.0-18.0) L 04/13/21 13:00 Hct 37.0 % (42-52) L 04/13/21 13:00 MCV 82.4 fL (80-100) 04/13/21 13:00 MCH 26.7 pg (25-34) 04/13/21 13:00 MCHC 32.4 g/dL (32-36) 04/13/21 13:00 RDW Std Deviation 43.0 fL (36.4-46.3) 04/13/21 13:00 RDW Coeff of Henrry 14.3 % (11.5-14.5) 04/13/21 13:00 Plt Count 387 K/uL (130-400) 04/13/21 13:00 MPV 9.8 fL (7.4-10.4) 04/13/21 13:00 Immature Gran % (Auto) 0.4 % 04/13/21 13:00 Neut % (Auto) 73.6 % 04/13/21 13:00 Lymph % (Auto) 16.9 % 04/13/21 13:00 [place] % (Auto) 6.8 % 04/13/21 13:00 Eos % (Auto) 1.8 % 04/13/21 13:00 Baso % (Auto) 0.5 % 04/13/21 13:00 Neut # (Auto) 8.98 K/uL (1.4-6.5) H 04/13/21 13:00 Lymph # (Auto) 2.06 K/uL (1.2-3.4) 04/13/21 13:00 [place] # (Auto) 0.83 K/uL (0.11-0.59) H 04/13/21 13:00 Eos # (Auto) 0.22 K/uL (0-0.5) 04/13/21 13:00 Baso # (Auto) 0.06 K/uL (0-0.2) 04/13/21 13:00 Immature Gran # (Auto) 0.05 K/uL (0.00-0.02) H 04/13/21 13:00 PT 10.7 Seconds (9.0-12.0) 04/13/21 13:00 INR 1.1 (0.9-1.1) 04/13/21 13:00 APTT 25.6 Seconds (21.0-31.0) 04/13/21 13:00 PTT Ratio 1.0 04/13/21 13:00 Sodium 135 mmol/L (136-145) L 04/13/21 13:00 Potassium 4.0 mmol/L (3.5-5.1) 04/13/21 13:00 Chloride 105 mmol/L (98-107) 04/13/21 13:00 Carbon Dioxide 24 mmol/L (21-32) 04/13/21 13:00 Anion Gap 6.0 (3-11) 04/13/21 13:00 BUN 22 mg/dl (7-18) H 04/13/21 13:00 Creatinine 1.19 mg/dl (0.6-1.4) 04/13/21 13:00 Est Cr Clr Drug Dosing 79.0 ml/min 04/13/21 13:00 Est GFR ( Amer) 73.3 ml/min 04/13/21 13:00 Est GFR (Non-Af Amer) 63.3 ml/min 04/13/21 13:00 BUN/Creatinine Ratio 18.1 (10-20) 04/13/21 13:00 Glucose 238 mg/dl (70-99) H 04/13/21 13:00 POC Glucose 143 mg/dl (70-99) H 04/14/21 01:19 Calcium 9.5 mg/dl (8.5-10.1) 04/13/21 13:00 Phosphorus 3.1 mg/dl (2.5-4.9) 04/13/21 22:25 Magnesium 1.9 mg/dl (1.8-2.4) 04/13/21 22:25 Total Bilirubin 0.4 mg/dl (0.2-1) 04/13/21 13:00 AST 15 U/L (15-37) 04/13/21 13:00 ALT 28 U/L (12-78) 04/13/21 13:00 Alkaline Phosphatase 77 U/L (45-117) 04/13/21 13:00 Troponin I < 0.015 ng/ml (0-0.045) 04/13/21 22:25 Total Protein 7.5 gm/dl (6.4-8.2) 04/13/21 13:00 Albumin 3.1 gm/dl (3.4-5.0) L 04/13/21 13:00 Globulin 4.4 gm/dl (2.5-4.0) H 04/13/21 13:00 Albumin/Globulin Ratio 0.7 (0.9-2) L 04/13/21 13:00 Hepatitis C Ab Screen Neg (Neg) 04/14/21 00:17 SARS-CoV-2, RNA, NAAT NEGATIVE (NEGATIVE) 04/13/21 22:20 Impressions Chest X-Ray 04/13/21 13:36 XR chest 2V PA/lateral CLINICAL HISTORY: chest pain. COMPARISON STUDY: 01/04/2021 TECHNIQUE: 2 views of the chest FINDINGS: Frontal and lateral radiographs of the chest demonstrate the cardiomediastinal silhouette to be within normal limits. The lungs are clear of alveolar opacities. There is no evidence for effusion bilaterally. There is no evidence for vascular congestion. There is no acute osseous pathology. IMPRESSION: No acute cardiopulmonary disease. ACT 112: Negative or not required by law. Electronically signed by: Justin Sanchez M.D. 04/13/2021 2:02 PM ECG Additional Comments: DICTATED BY:Jigar Jackson MD Test Reason : Blood Pressure : / mmHG Vent. Rate : 073 BPM Atrial Rate : 073 BPM P-R Int : 162 ms QRS Dur : 092 ms QT Int : 370 ms P-R-T Axes : 049 -45 062 degrees QTc Int : 407 ms Normal sinus rhythm with sinus arrhythmia Left axis deviation Poor R wave progression, consider anterior NE vs. lead placement vs. LVH Abnormal ECG When compared with ECG of 04-JAN-2021 11:51, QT has shortened Confirmed by Jigar Jackson ([id number]) on 04/13/2021 2:33:27 PM Referred By: Confirmed By:Adán Jackson Code Status & VTE Plan VTE Prophylaxis Plan VTE Prophylaxis will be ordered: Yes PG Care Time/CCT Total # of Minutes Spent Total Time Spent with Patient: Total time spent is greater than 50% in coordination of care (as documented) at patient's floor/unit and/or counseling patient: Coding Level of Care Code INT OBSERVATION CARE 49M LVL 2 Diagnoses Substernal chest pain R07.2 DMII (diabetes mellitus, type 2) E11.9; Z79.4 Diabetes mellitus complication status: without complication Diabetes mellitus termite treater insulin use: with senior care use Hypertension I10 Hypertension type: primary hypertension Dyslipidemia E78.5 BPH (benign prostatic hyperplasia) N40.0 (1) DMII (diabetes mellitus, type 2) Diabetes mellitus complication status: without complication Diabetes mellitus senior care insulin use: with termite treater use Qualified Code(s): E11.9 - Type 2 diabetes mellitus without complications; Z79.4 - manager long term care (current) use of insulin (2) Hypertension Hypertension type: primary hypertension Qualified Code(s): I10 - Essential (primary) hypertension
--- NOTE | 2021-04-13 22:41 | Emergency Department Note ---
Impression & Plan Substernal chest pain, DMII (diabetes mellitus, type 2), Hypertension, Dyslipidemia ED Provider Note Name: OMI MILAN Age: 65 Sex: M Arrives Via: Walk-In Informant: Patient ED Provider: Gab Castellanos MD Chief Complaint: Chest pain Impression: As per impressions above Medical Decision Making: This is a 65-year-old gentleman with a history of hypertension dyslipidemia type 2 diabetes on insulin. Patient arrives for evaluation of substernal chest pain. Of note patient arrived during the pandemic and this critical pathways were started by nursing staff patient was placed in waiting room. By my evaluation of patient labs have already been obtained and returned. Patient evaluated in waiting room with understanding that there were multiple other patients around him and he agreed to allow examination to continue. He was aware this was being done because there were no available beds or rooms anywhere in the ER for evaluation at that time. I discussed the case with Dr. Jackson of cardiology who agrees with the need for hospitalization given the patient's multiple risk factors and symptoms. Currently patient has negative troponin of the concern is he may be having unstable angina. Patient was given 324 mg p.o. aspirin and is agreeable to monitoring in the hospital overnight. Unfortunately this does mean he continued to be in the waiting room for several more hours before a bed in the ER was available. I do not believe patient has PE dissection nor intra- abdominal issue at this time given his history and evaluation. Prior Medical Record and Triage/Nursing Notes reviewed by Me Additional history obtained from chart Differentials:Cardiac ischemia, aortic dissection, pulmonary embolism, pneumothorax, pneumonia, pericarditis, myocarditis, esophageal rupture, GERD, cholecystitis, pancreatitis, musculoskeletal, as well as other pathologies. Vital Signs: reviewed and remarkable for HTN Interventions: Asa 324mg PO Labs:Reviewed and remarkable for no significant abnormalities Imaging:X ray results are stated below per my interpretation: Chest: 1 view: No infiltrate, no effusion, normal cardiac border. EKG:Per My Interpretation: Indication chest pain: Sinus with sinus arrhythmia 73 bpm, qtc 407. No Ectopy. No Ischemia. Compared to EKG 01/04/21, no significant changes. Consults:Dr Jackson Cardiology, Dr Phan [place] Hospitalist Plan: Disposition:Hospitalization. Condition: Good History of Present Illness:65-year-old gentleman arrives for evaluation of chest pains. Patient notes for the last 4 to 5 days he has been having increasing substernal chest pressure. Primarily symptoms are with exertion and can last several minutes. However at times he notes shorter sharper substernal chest pains while even at rest. He admits that he has had several episodes while waiting in the waiting room. He denies current chest pain. He does not have any shortness of breath, palpitations, nausea, vomiting, syncope, and lightheaded, fevers, chills, headache, neck pain, leg swelling, calf pain, back pain, abdominal pain or other symptoms. He has taken no medications for this. Exertion makes worse. Rest does seem to make symptoms slightly better. Patient has no CAD history. 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 Patient states he had a stress test roughly 4 years ago. Patient notes a history of hypertension dyslipidemia diabetes with family history of CAD and heart failure. ROS: See above HPI for pertinent positives & negatives. A total of 10 systems reviewed and were otherwise negative. Past Medical History:Hypertension, dyslipidemia, diabetes, BPH Past Surgical History:Heart catheterization with ablation Family History:See Below Social History:See Below Home Medications:See Below Allergies:No known allergy Vitals:Blood Pressure: 197/93, Pulse 57, RR 14, T 37.1C, O2 98% on RA Physical Exam: GENERAL: Patient is tired appearing and in minimal distress. EYES: No scleral icterus, unremarkable pupils. ENT: Mucous membranes moist, no nasal congestion. NECK: No masses appreciated, nomeningismus, trachea is midline. RESPIRATORY: No dyspnea. Clear to auscultation and equal bilaterally. No wheeze, no rhonchi. CARDIOVASCULAR: Regular rate and rhythm.No murmurs, rubs, gallops appreciated. GASTROINTESTINAL: Abdomen soft, non-tender, no peritonitis.Bowel sounds positive.No masses appreciated. BACK: No midline tenderness, no CVA tenderness EXTREMITIES: Normal motion all extremities, no cyanosis, no edema. NEUROLOGIC: Alert and oriented, no acute motor or sensory deficits, no focal weakness, cranial nerves grossly intact. SKIN: No rash, no jaundice, no diaphoresis. PSYCH: Appropriate GCS: 15 ED Course: Times/Reassessments: Stable, no discomfort Gab Castellanos MD Past Med/Surg History Medical History (Updated 04/13/21 @ 22:41 by Gab Castellanos MD) Abdominal hernia Stable Arthritis BPH (benign prostatic hyperplasia) Chronic back pain Claustrophobia "DOESN'T LIKE SLEEPING ON HIS BACK" DM II (diabetes mellitus, type II), controlled Glucose fluctuates Dry mouth Chronic Gallstones Found incidentally - no current issues GERD (gastroesophageal reflux disease) UNDER CONTROL History of asthma A CHILD History of Jkqct-Yccihuwyk-Obqsi (WPW) syndrome S/p ablation- no issues Follows with cardio PRN HLD (hyperlipidemia) Hypertension Lumbar spinal stenosis Morbid obesity with BMI of 45.0-49.9, adult IGOR (obstructive sleep apnea) Cannot tolerate device SOB (shortness of breath) on exertion OVERWEIGHT- CHRONIC AND STABLE Surgical History History of cataract surgery RT History of colonoscopy 2020 History of radiofrequency ablation procedure for cardiac arrhythmia AT AGE 29 History of tonsillectomy History of tooth extraction S/P TURP Family History Other No family history of adverse response to anesthesia Social History Smoking Status: Never smoker Second Hand Exposure: No; Hx Alcohol Use: No Hx Substance Use: No Preferred Language: Slovenian Communication Ability: Effective Division 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 [employer]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 [employer] Required: No Beliefs That Will Affect Care: None Current Living Situation: Spouse and Family Current Living Situation Comment: AND DAUGHTER current occupational status: retired Feels Safe at Home: Yes Assistive Devices: Cane and Glasses Allergies Allergies Allergy/AdvReac Type Severity Reaction Status Date / Time No Known Allergies Allergy Verified 04/13/21 21:25 Home Meds Home Medications Medication Instructions Recorded Confirmed atorvastatin 40 mg tablet 40 mg PO HS 06/30/18 04/13/21 insulin human U-100 NPH-regulr 0 unit SUBCUT QPM PRN 06/30/18 04/13/21 70-30 mix 100 unit/mL subcutaneous susp (Novolin 70/30 U-100 Insulin) insulin human U-100 NPH-regulr 125 unit SUBCUT QAM 06/30/18 04/13/21 70-30 mix 100 unit/mL subcutaneous susp (Novolin 70/30 U-100 Insulin) liraglutide 0.6 mg/0.1 mL (18 mg/3 1.8 mg SUBCUT QAM 06/30/18 04/13/21 mL) subcutaneous pen injector metformin 850 mg tablet 850 mg PO BID 06/30/18 04/13/21 triamterene 37.5 1 tab PO HS 06/30/18 04/13/21 mg-hydrochlorothiazide 25 mg tablet metoprolol succinate 50 mg 50 mg PO QAM 01/22/20 04/13/21 tablet,extended release 24 hr ibuprofen 200 mg capsule 800 mg PO Q6H PRN 12/29/20 04/13/21 aspirin 81 mg capsule 81 mg PO QAM 03/29/21 04/13/21 finasteride 5 mg tablet 5 mg PO QAM 04/13/21 04/13/21 lisinopril 40 mg tablet 20 mg PO QDL 04/13/21 04/13/21 Previous Rx's Medication Instructions Recorded tamsulosin 0.4 mg capsule 0.4 mg PO HS #30 cap 03/15/21 Results & Data (ED) Vital Signs Vital Signs - 24 hr 04/13/21 12:40 04/13/21 22:14 Temperature 37.1 C Temperature Source Oral Pulse Rate 81 60 Pulse Rate [Radial] 57 L Pulse Rhythm Regular Pulse Rhythm [Radial] Regular Respiratory Rate 18 14 Respiratory Effort / Characteristics Non-Labored Respiratory Depth Normal Blood Pressure 197/93 H Blood Pressure Mean 127 Pulse Oximetry 95 98 Oxygen Delivery Method Room Air Room Air Sepsis Recent Fever Within 48 Hours No Sepsis New/Unexplained Change in Mental Status No Sepsis Action Taken by Nursing No Action Required Laboratory Data Result diagrams: 04/13/21 13:00 04/13/21 13:00 Lab Results 04/13/21 04/13/21 04/13/21 Range/Units 13:00 13:00 13:00 WBC 12.20 H (4.8-10.8) K/uL RBC 4.49 L (4.7-6.1) M/uL Hgb 12.0 L (14.0-18.0) g/dL Hct 37.0 L (42-52) % MCV 82.4 (80-100) fL MCH 26.7 (25-34) pg MCHC 32.4 (32-36) g/dL RDW Std Deviation 43.0 (36.4-46.3) fL RDW Coeff of Henrry 14.3 (11.5-14.5) % Plt Count 387 (130-400) K/uL MPV 9.8 (7.4-10.4) fL Immature Gran % (Auto) 0.4 % Neut % (Auto) 73.6 % Lymph % (Auto) 16.9 % [place] % (Auto) 6.8 % Eos % (Auto) 1.8 % Baso % (Auto) 0.5 % Neut # (Auto) 8.98 H (1.4-6.5) K/uL Lymph # (Auto) 2.06 (1.2-3.4) K/uL [place] # (Auto) 0.83 H (0.11-0.59) K/uL Eos # (Auto) 0.22 (0-0.5) K/uL Baso # (Auto) 0.06 (0-0.2) K/uL Immature Gran # (Auto) 0.05 H (0.00-0.02) K/uL PT 10.7 (9.0-12.0) Seconds INR 1.1 (0.9-1.1) APTT 25.6 (21.0-31.0) Seconds PTT Ratio 1.0 Sodium 135 L (136-145) mmol/L Potassium 4.0 (3.5-5.1) mmol/L Chloride 105 (98-107) mmol/L Carbon Dioxide 24 (21-32) mmol/L Anion Gap 6.0 (3-11) BUN 22 H (7-18) mg/dl Creatinine 1.19 (0.6-1.4) mg/dl Est Cr Clr Drug Dosing 79.0 ml/min Est GFR ( Amer) 73.3 ml/min Est GFR (Non-Af Amer) 63.3 ml/min BUN/Creatinine Ratio 18.1 (10-20) Glucose 238 H (70-99) mg/dl Calcium 9.5 (8.5-10.1) mg/dl Total Bilirubin 0.4 (0.2-1) mg/dl AST 15 (15-37) U/L ALT 28 (12-78) U/L Alkaline Phosphatase 77 (45-117) U/L Troponin I < 0.015 (0-0.045) ng/ml Total Protein 7.5 (6.4-8.2) gm/dl Albumin 3.1 L (3.4-5.0) gm/dl Globulin 4.4 H (2.5-4.0) gm/dl Albumin/Globulin Ratio 0.7 L (0.9-2) Administered Medications Discontinued Medications Aspirin (Aspirin 81 Mg Chew) 324 mg PO NOW STA Stop: 04/13/21 20:41 Last Admin: 04/13/21 22:18 Dose: 324 mg Documented by: [id number] Imaging Data Radiologist's Impression: Chest X-Ray 04/13/21 13:36 XR chest 2V PA/lateral CLINICAL HISTORY: chest pain. COMPARISON STUDY: 01/04/2021 TECHNIQUE: 2 views of the chest FINDINGS: Frontal and lateral radiographs of the chest demonstrate the cardiomediastinal silhouette to be within normal limits. The lungs are clear of alveolar opacitie s. There is no evidence for effusion bilaterally. There is no evidence for vascular congestion. There is no acute osseous pathology. IMPRESSION: No acute cardiopulmonary disease. ACT 112: Negative or not required by law. Electronically signed by: Justin Sanchez M.D. 04/13/2021 2:02 PM Discharge Plan Visit Data Chief Complaint: Chest Pain Stated Complaint: CHEST PAIN ED Provider: Gab Castellanos Discharge Problem: Substernal chest pain, DMII (diabetes mellitus, type 2), Hypertension, Dyslipidemia Forms Stand Alone Forms: My [facility] [employer] [facility] Prescriptions Prescriptions: No Action tamsulosin 0.4 mg capsule 0.4 mg PO HS Qty: 30 RF: 2 atorvastatin 40 mg Tablet 40 mg PO HS RF: 0 metformin 850 mg Tablet 850 mg PO BID RF: 0 Novolin 70/30 U-100 Insulin 100 unit/mL (70-30) Suspension 125 unit SUBCUT QAM RF: 0 Novolin 70/30 U-100 Insulin 100 unit/mL (70-30) Suspension 0 unit SUBCUT QPM PRN (Reason: DEPENDS ON BSG.) RF: 0 triamterene-hydrochlorothiazid 37.5-25 mg Tablet 1 tab PO HS RF: 0 liraglutide 0.6 mg/0.1 mL (18 mg/3 mL) pen injector 1.8 mg subcut QAM RF: 0 metoprolol succinate 50 mg Tablet Extended Release 24 Hr 50 mg PO QAM RF: 0 ibuprofen 200 mg Capsule 800 mg PO Q6H PRN (Reason: Pain) RF: 0 lisinopril 40 mg Tablet 20 mg PO QDL RF: 0 finasteride 5 mg Tablet 5 mg PO QAM RF: 0 aspirin 81 mg Capsule 81 mg PO QAM RF: 0 Referrals Referrals: Jeet Chapman MD [Primary Care Provider] - Discharge Problem: DMII (diabetes mellitus, type 2) Qualifiers: 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
[2021-04-13 22:56] LABS: Troponin I < 0.015 ng/ml (0-0.045)
[2021-04-13] MEDS ORDERED: GLUCOSE 10 TABS/TUBE PO PRN (23:41)
[2021-04-13] MEDS ORDERED: DEXTROSE 50% 50 ML SYRINGE IV PRN (23:41)
[2021-04-13] MEDS ORDERED: CARBOHYDRATES FOR HYPOGLYCEMIA PO PRN (23:41)
[2021-04-13] MEDS ORDERED: GLUCOSE 40% GEL 15 GM TUBE PO PRN (23:41)
[2021-04-13] MEDS ORDERED: PHARMACY GLYCEMIC MGMT CONSULT SCH (23:41)
[2021-04-13] MEDS ORDERED: GLUCAGON FOR INJ 1 MG VIAL SQ PRN (23:41)
[2021-04-14 00:05] LABS: Magnesium 1.9 mg/dl (1.8-2.4); Phosphorus 3.1 mg/dl (2.5-4.9)
[2021-04-14] MEDS ORDERED: PNEUMOCOCCAL POLYSACCHARIDES 25 MCG/0.5 ML VIAL/SYR IM ONE (00:13)
[2021-04-14] MEDS ORDERED: INSULIN ASPART 100 UNITS/ML 3 ML PEN SC SCH ×3 (00:15→06:00)
[2021-04-14] MEDS ORDERED: INSULIN GLARGINE SOLOSTAR 100 UNITS/ML 3 ML PEN SC ONE ×2 (01:15→01:30)
[2021-04-14] MEDS: ENOXAPARIN INJ 40 MG/0.4 ML SYR SQ SCH ×2 (01:30→10:49)
[2021-04-14] MEDS: ACETAMINOPHEN 325 MG TAB PO PRN ×2 (01:38→12:21)
[2021-04-14] MEDS ORDERED: Nursing to Pharmacy Communication SCH (06:30)
[2021-04-14 08:17] LABS: Basophils # (auto) 0.06 K/uL (0-0.2); Basophils % (auto) 0.5 %; Eosinophils # (auto) 0.27 K/uL (0-0.5); Eosinophils % (auto) 2.4 %; Hematocrit (blood only) 38.3 % (42-52); Hemoglobin 12.3 g/dL (14.0-18.0); Immature Granulocytes # (auto) 0.03 K/uL (0.00-0.02); Immature Granulocytes % (auto) 0.3 %; Lymphocytes # (auto) 2.35 K/uL (1.2-3.4); Lymphocytes % (auto) 20.9 %; Mean Corpuscular Hemoglobin 26.5 pg (25-34); Mean Corpuscular Hgb Conc 32.1 g/dL (32-36); Mean Corpuscular Volume 82.4 fL (80-100); Mean Platelet Volume 9.9 fL (7.4-10.4); Monocytes # (auto) 0.77 K/uL (0.11-0.59); Monocytes % (auto) 6.8 %; Neutrophils # (auto) 7.77 K/uL (1.4-6.5); Neutrophils % (auto) 69.1 %; Platelet Count 356 K/uL (130-400); RDW Coefficient of Variation 14.4 % (11.5-14.5); RDW Standard Deviation 43.5 fL (36.4-46.3); Red Blood Count 4.65 M/uL (4.7-6.1); White Blood Count 11.25 K/uL (4.8-10.8)
[2021-04-14 08:27] LABS: Estimated Average Glucose 192 mg/dl; Hemoglobin A1C 8.3 % (4.5-5.6)
[2021-04-14] MEDS: INSULIN ASPART 100 UNITS/ML 3 ML PEN SC SCH ×2 (08:27→12:22)
[2021-04-14] MEDS ORDERED: NON-FORMULARY MEDICATION (Liraglutide 0.6 mg/0.1 mL (18 mg/3 mL) pen injector) SQ SCH (09:00)
[2021-04-14] MEDS ORDERED: FINASTERIDE 5 MG TAB PO SCH (09:00)
[2021-04-14] MEDS ORDERED: ASPIRIN 81 MG ECTAB PO SCH (09:00)
[2021-04-14 09:16] LABS: BUN Creatinine Ratio 18.6 (10-20); Blood Urea Nitrogen 16 mg/dl (7-18); Calcium 9.6 mg/dl (8.5-10.1); Carbon Dioxide 25 mmol/L (21-32); Chloride 107 mmol/L (98-107); Creatinine Clr Calc Pharmacy 106.3 ml/min; Est GFR (African American) 103.7 ml/min; Est GFR (Non-African American) 89.5 ml/min; Glucose 112 mg/dl (70-99); Sodium 139 mmol/L (136-145); Troponin I < 0.015 ng/ml (0-0.045)
--- NOTE | 2021-04-14 10:00 | Hospitalist Progress Note ---
Date of Service April 14, 2021 Assessment & Plan Admission and Anticipated Discharge Date Admission Date: April 13, 2021 Results & Data Results & Data ([place]) Vital Signs (Past 12 Hours) Vital Signs Temp Pulse Pulse Resp BP Pulse Ox 04/14/21 07:58 36.3 C L 56 L 20 152/68 H 95 04/14/21 04:08 36.8 C 57 L 18 125/56 L 93 04/14/21 04:05 51 L 04/13/21 23:53 36.5 C 60 20 177/83 H 97 04/13/21 23:24 96 04/13/21 23:10 94 04/13/21 22:14 60 57 L 14 98 Laboratory Results 04/14/21 04/14/21 04/14/21 Range/Units 07:57 07:57 07:57 WBC 11.25 H (4.8-10.8) K/uL RBC 4.65 L (4.7-6.1) M/uL Hgb 12.3 L (14.0-18.0) g/dL Hct 38.3 L (42-52) % MCV 82.4 (80-100) fL MCH 26.5 (25-34) pg MCHC 32.1 (32-36) g/dL RDW Std Deviation 43.5 (36.4-46.3) fL RDW Coeff of Henrry 14.4 (11.5-14.5) % Plt Count 356 (130-400) K/uL MPV 9.9 (7.4-10.4) fL Immature Gran % (Auto) 0.3 % Neut % (Auto) 69.1 % Lymph % (Auto) 20.9 % [place] % (Auto) 6.8 % Eos % (Auto) 2.4 % Baso % (Auto) 0.5 % Neut # (Auto) 7.77 H (1.4-6.5) K/uL Lymph # (Auto) 2.35 (1.2-3.4) K/uL [place] # (Auto) 0.77 H (0.11-0.59) K/uL Eos # (Auto) 0.27 (0-0.5) K/uL Baso # (Auto) 0.06 (0-0.2) K/uL Immature Gran # (Auto) 0.03 H (0.00-0.02) K/uL PT (9.0-12.0) Seconds INR (0.9-1.1) APTT (21.0-31.0) Seconds PTT Ratio Sodium 139 (136-145) mmol/L Potassium 4.0 (3.5-5.1) mmol/L Chloride 107 (98-107) mmol/L Carbon Dioxide 25 (21-32) mmol/L Anion Gap 7.0 (3-11) BUN 16 (7-18) mg/dl Creatinine 0.88 D (0.6-1.4) mg/dl Est Cr Clr Drug Dosing 106.3 ml/min Est GFR ( Amer) 103.7 ml/min Est GFR (Non-Af Amer) 89.5 ml/min BUN/Creatinine Ratio 18.6 (10-20) Glucose 112 H (70-99) mg/dl POC Glucose (70-99) mg/dl Estimat Average Glucose 192 mg/dl Hemoglobin A1c 8.3 H (4.5-5.6) % Calcium 9.6 (8.5-10.1) mg/dl Phosphorus (2.5-4.9) mg/dl Magnesium (1.8-2.4) mg/dl Total Bilirubin (0.2-1) mg/dl AST (15-37) U/L ALT (12-78) U/L Alkaline Phosphatase (45-117) U/L Troponin I < 0.015 (0-0.045) ng/ml Total Protein (6.4-8.2) gm/dl Albumin (3.4-5.0) gm/dl Globulin (2.5-4.0) gm/dl Albumin/Globulin Ratio (0.9-2) Hepatitis C Ab Screen (Neg) SARS-CoV-2, RNA, NAAT (NEGATIVE) 04/14/21 04/14/21 04/14/21 Range/Units 07:29 06:13 02:59 WBC (4.8-10.8) K/uL RBC (4.7-6.1) M/uL Hgb (14.0-18.0) g/dL Hct (42-52) % MCV (80-100) fL MCH (25-34) pg MCHC (32-36) g/dL RDW Std Deviation (36.4-46.3) fL RDW Coeff of Henrry (11.5-14.5) % Plt Count (130-400) K/uL MPV (7.4-10.4) fL Immature Gran % (Auto) % Neut % (Auto) % Lymph % (Auto) % [place] % (Auto) % Eos % (Auto) % Baso % (Auto) % Neut # (Auto) (1.4-6.5) K/uL Lymph # (Auto) (1.2-3.4) K/uL [place] # (Auto) (0.11-0.59) K/uL Eos # (Auto) (0-0.5) K/uL Baso # (Auto) (0-0.2) K/uL Immature Gran # (Auto) (0.00-0.02) K/uL PT (9.0-12.0) Seconds INR (0.9-1.1) APTT (21.0-31.0) Seconds PTT Ratio Sodium (136-145) mmol/L Potassium (3.5-5.1) mmol/L Chloride (98-107) mmol/L Carbon Dioxide (21-32) mmol/L Anion Gap (3-11) BUN (7-18) mg/dl Creatinine (0.6-1.4) mg/dl Est Cr Clr Drug Dosing ml/min Est GFR ( Amer) ml/min Est GFR (Non-Af Amer) ml/min BUN/Creatinine Ratio (10-20) Glucose (70-99) mg/dl POC Glucose 105 H 112 H 133 H (70-99) mg/dl Estimat Average Glucose mg/dl Hemoglobin A1c (4.5-5.6) % Calcium (8.5-10.1) mg/dl Phosphorus (2.5-4.9) mg/dl Magnesium (1.8-2.4) mg/dl Total Bilirubin (0.2-1) mg/dl AST (15-37) U/L ALT (12-78) U/L Alkaline Phosphatase (45-117) U/L Troponin I (0-0.045) ng/ml Total Protein (6.4-8.2) gm/dl Albumin (3.4-5.0) gm/dl Globulin (2.5-4.0) gm/dl Albumin/Globulin Ratio (0.9-2) Hepatitis C Ab Screen (Neg) SARS-CoV-2, RNA, NAAT (NEGATIVE) 04/14/21 04/14/21 04/14/21 Range/Units 01:19 00:22 00:17 WBC (4.8-10.8) K/uL RBC (4.7-6.1) M/uL Hgb (14.0-18.0) g/dL Hct (42-52) % MCV (80-100) fL MCH (25-34) pg MCHC (32-36) g/dL RDW Std Deviation (36.4-46.3) fL RDW Coeff of Henrry (11.5-14.5) % Plt Count (130-400) K/uL MPV (7.4-10.4) fL Immature Gran % (Auto) % Neut % (Auto) % Lymph % (Auto) % [place] % (Auto) % Eos % (Auto) % Baso % (Auto) % Neut # (Auto) (1.4-6.5) K/uL Lymph # (Auto) (1.2-3.4) K/uL [place] # (Auto) (0.11-0.59) K/uL Eos # (Auto) (0-0.5) K/uL Baso # (Auto) (0-0.2) K/uL Immature Gran # (Auto) (0.00-0.02) K/uL PT (9.0-12.0) Seconds INR (0.9-1.1) APTT (21.0-31.0) Seconds PTT Ratio Sodium (136-145) mmol/L Potassium (3.5-5.1) mmol/L Chloride (98-107) mmol/L Carbon Dioxide (21-32) mmol/L Anion Gap (3-11) BUN (7-18) mg/dl Creatinine (0.6-1.4) mg/dl Est Cr Clr Drug Dosing ml/min Est GFR ( Amer) ml/min Est GFR (Non-Af Amer) ml/min BUN/Creatinine Ratio (10-20) Glucose (70-99) mg/dl POC Glucose 143 H 142 H (70-99) mg/dl Estimat Average Glucose mg/dl Hemoglobin A1c (4.5-5.6) % Calcium (8.5-10.1) mg/dl Phosphorus (2.5-4.9) mg/dl Magnesium (1.8-2.4) mg/dl Total Bilirubin (0.2-1) mg/dl AST (15-37) U/L ALT (12-78) U/L Alkaline Phosphatase (45-117) U/L Troponin I (0-0.045) ng/ml Total Protein (6.4-8.2) gm/dl Albumin (3.4-5.0) gm/dl Globulin (2.5-4.0) gm/dl Albumin/Globulin Ratio (0.9-2) Hepatitis C Ab Screen Neg (Neg) SARS-CoV-2, RNA, NAAT (NEGATIVE) 04/13/21 04/13/21 04/13/21 Range/Units 22:25 22:20 13:00 WBC (4.8-10.8) K/uL RBC (4.7-6.1) M/uL Hgb (14.0-18.0) g/dL Hct (42-52) % MCV (80-100) fL MCH (25-34) pg MCHC (32-36) g/dL RDW Std Deviation (36.4-46.3) fL RDW Coeff of Henrry (11.5-14.5) % Plt Count (130-400) K/uL MPV (7.4-10.4) fL Immature Gran % (Auto) % Neut % (Auto) % Lymph % (Auto) % [place] % (Auto) % Eos % (Auto) % Baso % (Auto) % Neut # (Auto) (1.4-6.5) K/uL Lymph # (Auto) (1.2-3.4) K/uL [place] # (Auto) (0.11-0.59) K/uL Eos # (Auto) (0-0.5) K/uL Baso # (Auto) (0-0.2) K/uL Immature Gran # (Auto) (0.00-0.02) K/uL PT (9.0-12.0) Seconds INR (0.9-1.1) APTT (21.0-31.0) Seconds PTT Ratio Sodium 135 L (136-145) mmol/L Potassium 4.0 (3.5-5.1) mmol/L Chloride 105 (98-107) mmol/L Carbon Dioxide 24 (21-32) mmol/L Anion Gap 6.0 (3-11) BUN 22 H (7-18) mg/dl Creatinine 1.19 (0.6-1.4) mg/dl Est Cr Clr Drug Dosing 79.0 ml/min Est GFR ( Amer) 73.3 ml/min Est GFR (Non-Af Amer) 63.3 ml/min BUN/Creatinine Ratio 18.1 (10-20) Glucose 238 H (70-99) mg/dl POC Glucose (70-99) mg/dl Estimat Average Glucose mg/dl Hemoglobin A1c (4.5-5.6) % Calcium 9.5 (8.5-10.1) mg/dl Phosphorus 3.1 (2.5-4.9) mg/dl Magnesium 1.9 (1.8-2.4) mg/dl Total Bilirubin 0.4 (0.2-1) mg/dl AST 15 (15-37) U/L ALT 28 (12-78) U/L Alkaline Phosphatase 77 (45-117) U/L Troponin I < 0.015 < 0.015 (0-0.045) ng/ml Total Protein 7.5 (6.4-8.2) gm/dl Albumin 3.1 L (3.4-5.0) gm/dl Globulin 4.4 H (2.5-4.0) gm/dl Albumin/Globulin Ratio 0.7 L (0.9-2) Hepatitis C Ab Screen (Neg) SARS-CoV-2, RNA, NAAT NEGATIVE (NEGATIVE) 04/13/21 04/13/21 Range/Units 13:00 13:00 WBC 12.20 H (4.8-10.8) K/uL RBC 4.49 L (4.7-6.1) M/uL Hgb 12.0 L (14.0-18.0) g/dL Hct 37.0 L (42-52) % MCV 82.4 (80-100) fL MCH 26.7 (25-34) pg MCHC 32.4 (32-36) g/dL RDW Std Deviation 43.0 (36.4-46.3) fL RDW Coeff of Henrry 14.3 (11.5-14.5) % Plt Count 387 (130-400) K/uL MPV 9.8 (7.4-10.4) fL Immature Gran % (Auto) 0.4 % Neut % (Auto) 73.6 % Lymph % (Auto) 16.9 % [place] % (Auto) 6.8 % Eos % (Auto) 1.8 % Baso % (Auto) 0.5 % Neut # (Auto) 8.98 H (1.4-6.5) K/uL Lymph # (Auto) 2.06 (1.2-3.4) K/uL [place] # (Auto) 0.83 H (0.11-0.59) K/uL Eos # (Auto) 0.22 (0-0.5) K/uL Baso # (Auto) 0.06 (0-0.2) K/uL Immature Gran # (Auto) 0.05 H (0.00-0.02) K/uL PT 10.7 (9.0-12.0) Seconds INR 1.1 (0.9-1.1) APTT 25.6 (21.0-31.0) Seconds PTT Ratio 1.0 Sodium (136-145) mmol/L Potassium (3.5-5.1) mmol/L Chloride (98-107) mmol/L Carbon Dioxide (21-32) mmol/L Anion Gap (3-11) BUN (7-18) mg/dl Creatinine (0.6-1.4) mg/dl Est Cr Clr Drug Dosing ml/min Est GFR ( Amer) ml/min Est GFR (Non-Af Amer) ml/min BUN/Creatinine Ratio (10-20) Glucose (70-99) mg/dl POC Glucose (70-99) mg/dl Estimat Average Glucose mg/dl Hemoglobin A1c (4.5-5.6) % Calcium (8.5-10.1) mg/dl Phosphorus (2.5-4.9) mg/dl Magnesium (1.8-2.4) mg/dl Total Bilirubin (0.2-1) mg/dl AST (15-37) U/L ALT (12-78) U/L Alkaline Phosphatase (45-117) U/L Troponin I (0-0.045) ng/ml Total Protein (6.4-8.2) gm/dl Albumin (3.4-5.0) gm/dl Globulin (2.5-4.0) gm/dl Albumin/Globulin Ratio (0.9-2) Hepatitis C Ab Screen (Neg) SARS-CoV-2, RNA, NAAT (NEGATIVE) PG Care Time/CCT Total # of Minutes Spent Total Time Spent with Patient: Total time spent is greater than 50% in coordination of care (as documented) at patient's floor/unit and/or counseling patient: Coding
[2021-04-14] MEDS ORDERED: PANTOprazole 40 MG TAB PO SCH (10:15)
[2021-04-14 10:53] LABS: Ferritin 38.7 ng/ml (8-388)
[2021-04-14] MEDS ORDERED: FERROUS SULFATE 325 MG TAB PO SCH (11:15)
[2021-04-14] MEDS ORDERED: lisinopril 20 MG TAB PO SCH (11:30)
--- NOTE | 2021-04-14 12:49 | Cardiology Consultation ---
Date of Consultation April 14, 2021 Assessment & Plan (1) Atypical chest pain: 1. Chest pain: I do not believe his chest pain is suggestive of coronary disease. The symptoms are fairly fleeting and not exertional. He also had a noninvasive coronary evaluation done earlier in the year for similar symptoms. That did not demonstrate any significant abnormality. No biomarker elevation. If there is a cardiac etiology for symptoms that could be fleeting a arrhythmias. He does have some ventricular and atrial ectopy on his telemetry. Perhaps a better understanding of the relationship between his symptoms and arrhythmia could be obtained with outpatient monitoring. He has had to dobutamine echocardiogram performed over the past 2 years. Neither demonstrated significant ischemia. On 1 study there was a suggestion that his chest pain correlated with PVCs. I do not believe he requires any additional coronary evaluation. 2. WPW: Status post ablation. No pre-excitation on current EKG. No symptoms suggestive of sustained tachycardia. History of Present Illness Reason for Consultation: chest pain Requesting Physician: Piper Attending Physician: Elise Harden MD History of Present Illness the patient is a 65-year-old gentleman without any known history of coronary disease with previously suffered from SVT associated with pre-excitation. Presented to the emergency room yesterday due to frequent fleeting chest pains. Patient states that for years he has suffered from random fleeting chest pains. These occur in the precordium and are "jabbing" or "sharp" in nature. They do not tend to occur with any specific motion or activity. They are not reproducible with activity. Over the last few days he has had more frequent episodes. States that he is now having a few per hour where normally would have few per week. Rarely the patient will have a sense of palpitation that starts in the chest. It lasts for a few seconds and then produces a sense of dizziness lasting for a few seconds. These episodes occur a few times per year. He has not lost consciousness. He can only recall 1 episode of syncope many years ago when he was choking. He has not had symptoms of sustained tachycardia. He does not report exertional chest pain. He is somewhat limited with respect to activity due to back and leg discomfort. When he does some exertion he will have some dyspnea on occasion. Allergies Allergy/AdvReac Type Severity Reaction Status Date / Time No Known Allergies Allergy Verified 04/13/21 21:25 Home Medications Medication Instructions Recorded Confirmed Type atorvastatin 40 mg tablet 40 mg PO HS 06/30/18 04/13/21 History insulin human U-100 NPH-regulr 0 unit SUBCUT QPM PRN 06/30/18 04/13/21 History 70-30 mix 100 unit/mL subcutaneous susp (Novolin 70/30 U-100 Insulin) insulin human U-100 NPH-regulr 125 unit SUBCUT QAM 06/30/18 04/13/21 History 70-30 mix 100 unit/mL subcutaneous susp (Novolin 70/30 U-100 Insulin) liraglutide 0.6 mg/0.1 mL (18 mg/3 1.8 mg SUBCUT QAM 06/30/18 04/13/21 History mL) subcutaneous pen injector metformin 850 mg tablet 850 mg PO BID 06/30/18 04/13/21 History triamterene 37.5 1 tab PO HS 06/30/18 04/13/21 History mg-hydrochlorothiazide 25 mg tablet metoprolol succinate 50 mg 50 mg PO QAM 01/22/20 04/13/21 History tablet,extended release 24 hr ibuprofen 200 mg capsule 800 mg PO Q6H PRN 12/29/20 04/13/21 History tamsulosin 0.4 mg capsule 0.4 mg PO HS #30 cap 03/15/21 04/13/21 Rx aspirin 81 mg capsule 81 mg PO QAM 03/29/21 04/13/21 History finasteride 5 mg tablet 5 mg PO QAM 04/13/21 04/13/21 History lisinopril 40 mg tablet 20 mg PO QDL 04/13/21 04/13/21 History ferrous sulfate 325 mg (65 mg 325 mg PO QAM #30 tab 04/14/21 Rx iron) tablet,delayed release pantoprazole 40 mg tablet,delayed 40 mg PO QAM #30 tab 04/14/21 Rx release Patient History Medical History (Updated 04/14/21 @ 12:48 by Maycol Jackson MD) Abdominal hernia Stable Arthritis BPH (benign prostatic hyperplasia) Chronic back pain Claustrophobia "DOESN'T LIKE SLEEPING ON HIS BACK" DM II (diabetes mellitus, type II), controlled Glucose fluctuates Dry mouth Chronic Gallstones Found incidentally - no current issues GERD (gastroesophageal reflux disease) UNDER CONTROL History of asthma A CHILD History of Ghvvv-Lneumwzdn-Hdtuc (WPW) syndrome S/p ablation- no issues Follows with cardio PRN HLD (hyperlipidemia) Hypertension Lumbar spinal stenosis Morbid obesity with BMI of 45.0-49.9, adult IGOR (obstructive sleep apnea) Cannot tolerate device SOB (shortness of breath) on exertion OVERWEIGHT- CHRONIC AND STABLE Surgical History History of cataract surgery RT History of colonoscopy 2020 History of radiofrequency ablation procedure for cardiac arrhythmia AT AGE 29 History of tonsillectomy History of tooth extraction S/P TURP Family History Other No family history of adverse response to anesthesia Social History Smoking Status: Former smoker Second Hand Exposure: No; Hx Alcohol Use: No Hx Substance Use: No Preferred Language: Belarusian Communication Ability: Effective [employer] Required: No Beliefs That Will Affect Care: None Current Living Situation: Spouse Current Living Situation Comment: and youngest daughter current occupational status: retired Feels Safe at Home: Yes Safety Concerns: Feels Safe At This Time Assistive Devices: Cane Review of Systems Review of Systems: Per HPI. no recent fevers or chills. He has had a headache for 5 days. This is a frontal headache with some axillary discomfort. No coughing. No sick contacts. Physical Exam Physical Exam: The patient is alert and oriented. Mood and affect appeared normal. He answered all questions appropriately. HEENT: Pupils are equal and reactive to light and accommodation. Extraocular movements are intact. The sclerae are anicteric. Neuro: Cranial nerves intact Neck: Patient's neck is supple. He has palpable carotid pulses bilaterally without bruits on auscultation. There is no evidence of jugular venous distention. The thyroid is not enlarged. Lungs: Clear to auscultation bilaterally. He has good air movement without use of accessory muscles. No rales wheezes or rhonchi. Cardiac: Heart demonstrates a regular rate and rhythm. Normal S1 and S2. No murmurs on examination. Pulses: The patient has palpable radial pulses bilaterally that are equal in intensity Extremities: There was no evidence of hypoperfusion. There is no cyanosis or clubbing. Mild lower extremity edema Skin: I did not appreciate any rashes on examination today. Results & Data ([facility]) Vital Signs (Past 12 Hours) Vital Signs Temp Pulse Pulse Resp BP Pulse Ox 04/14/21 12:04 36.4 C L 56 L 20 173/84 H 95 04/14/21 07:58 36.3 C L 56 L 20 152/68 H 95 04/14/21 04:08 36.8 C 57 L 18 125/56 L 93 04/14/21 04:05 51 L Laboratory Results Abnormal Lab Results 04/13/21 04/13/21 04/13/21 13:00 13:00 13:00 WBC 12.20 H RBC 4.49 L Hgb 12.0 L Hct 37.0 L MCV 82.4 MCH 26.7 MCHC 32.4 RDW Std Deviation 43.0 RDW Coeff of Henrry 14.3 Plt Count 387 MPV 9.8 Immature Gran % (Auto) 0.4 Neut % (Auto) 73.6 Lymph % (Auto) 16.9 Overton % (Auto) 6.8 Eos % (Auto) 1.8 Baso % (Auto) 0.5 Neut # (Auto) 8.98 H Lymph # (Auto) 2.06 Overton # (Auto) 0.83 H Eos # (Auto) 0.22 Baso # (Auto) 0.06 Immature Gran # (Auto) 0.05 H PT 10.7 INR 1.1 APTT 25.6 PTT Ratio 1.0 Sodium 135 L Potassium 4.0 Chloride 105 Carbon Dioxide 24 Anion Gap 6.0 BUN 22 H Creatinine 1.19 Est Cr Clr Drug Dosing 79.0 Est GFR ( Amer) 73.3 Est GFR (Non-Af Amer) 63.3 BUN/Creatinine Ratio 18.1 Glucose 238 H POC Glucose Estimat Average Glucose Hemoglobin A1c Calcium 9.5 Phosphorus Magnesium Iron TIBC Transferrin Transferrin % Sat Total Bilirubin 0.4 Ferritin AST 15 ALT 28 Alkaline Phosphatase 77 Troponin I < 0.015 Total Protein 7.5 Albumin 3.1 L Globulin 4.4 H Albumin/Globulin Ratio 0.7 L Hepatitis C Ab Screen SARS-CoV-2, RNA, NAAT 04/13/21 04/13/21 04/14/21 22:20 22:25 00:17 WBC RBC Hgb Hct MCV MCH MCHC RDW Std Deviation RDW Coeff of Henrry Plt Count MPV Immature Gran % (Auto) Neut % (Auto) Lymph % (Auto) Overton % (Auto) Eos % (Auto) Baso % (Auto) Neut # (Auto) Lymph # (Auto) Overton # (Auto) Eos # (Auto) Baso # (Auto) Immature Gran # (Auto) PT INR APTT PTT Ratio Sodium Potassium Chloride Carbon Dioxide Anion Gap BUN Creatinine Est Cr Clr Drug Dosing Est GFR ( Amer) Est GFR (Non-Af Amer) BUN/Creatinine Ratio Glucose POC Glucose Estimat Average Glucose Hemoglobin A1c Calcium Phosphorus 3.1 Magnesium 1.9 Iron TIBC Transferrin Transferrin % Sat Total Bilirubin Ferritin AST ALT Alkaline Phosphatase Troponin I < 0.015 Total Protein Albumin Globulin Albumin/Globulin Ratio Hepatitis C Ab Screen Neg SARS-CoV-2, RNA, NAAT NEGATIVE 04/14/21 04/14/21 04/14/21 00:22 01:19 02:59 WBC RBC Hgb Hct MCV MCH MCHC RDW Std Deviation RDW Coeff of Henrry Plt Count MPV Immature Gran % (Auto) Neut % (Auto) Lymph % (Auto) Overton % (Auto) Eos % (Auto) Baso % (Auto) Neut # (Auto) Lymph # (Auto) Overton # (Auto) Eos # (Auto) Baso # (Auto) Immature Gran # (Auto) PT INR APTT PTT Ratio Sodium Potassium Chloride Carbon Dioxide Anion Gap BUN Creatinine Est Cr Clr Drug Dosing Est GFR ( Amer) Est GFR (Non-Af Amer) BUN/Creatinine Ratio Glucose POC Glucose 142 H 143 H 133 H Estimat Average Glucose Hemoglobin A1c Calcium Phosphorus Magnesium Iron TIBC Transferrin Transferrin % Sat Total Bilirubin Ferritin AST ALT Alkaline Phosphatase Troponin I Total Protein Albumin Globulin Albumin/Globulin Ratio Hepatitis C Ab Screen SARS-CoV-2, RNA, NAAT 04/14/21 04/14/21 04/14/21 06:13 07:29 07:57 WBC 11.25 H RBC 4.65 L Hgb 12.3 L Hct 38.3 L MCV 82.4 MCH 26.5 MCHC 32.1 RDW Std Deviation 43.5 RDW Coeff of Henrry 14.4 Plt Count 356 MPV 9.9 Immature Gran % (Auto) 0.3 Neut % (Auto) 69.1 Lymph % (Auto) 20.9 Overton % (Auto) 6.8 Eos % (Auto) 2.4 Baso % (Auto) 0.5 Neut # (Auto) 7.77 H Lymph # (Auto) 2.35 Overton # (Auto) 0.77 H Eos # (Auto) 0.27 Baso # (Auto) 0.06 Immature Gran # (Auto) 0.03 H PT INR APTT PTT Ratio Sodium Potassium Chloride Carbon Dioxide Anion Gap BUN Creatinine Est Cr Clr Drug Dosing Est GFR ( Amer) Est GFR (Non-Af Amer) BUN/Creatinine Ratio Glucose POC Glucose 112 H 105 H Estimat Average Glucose Hemoglobin A1c Calcium Phosphorus Magnesium Iron TIBC Transferrin Transferrin % Sat Total Bilirubin Ferritin AST ALT Alkaline Phosphatase Troponin I Total Protein Albumin Globulin Albumin/Globulin Ratio Hepatitis C Ab Screen SARS-CoV-2, RNA, NAAT 04/14/21 04/14/21 04/14/21 07:57 07:57 07:57 WBC RBC Hgb Hct MCV MCH MCHC RDW Std Deviation RDW Coeff of Henrry Plt Count MPV Immature Gran % (Auto) Neut % (Auto) Lymph % (Auto) Overton % (Auto) Eos % (Auto) Baso % (Auto) Neut # (Auto) Lymph # (Auto) Overton # (Auto) Eos # (Auto) Baso # (Auto) Immature Gran # (Auto) PT INR APTT PTT Ratio Sodium 139 Potassium 4.0 Chloride 107 Carbon Dioxide 25 Anion Gap 7.0 BUN 16 Creatinine 0.88 D Est Cr Clr Drug Dosing 106.3 Est GFR ( Amer) 103.7 Est GFR (Non-Af Amer) 89.5 BUN/Creatinine Ratio 18.6 Glucose 112 H POC Glucose Estimat Average Glucose 192 Hemoglobin A1c 8.3 H Calcium 9.6 Phosphorus Magnesium Iron 49 TIBC 353 Transferrin 276 Transferrin % Sat 13 L Total Bilirubin Ferritin 38.7 AST ALT Alkaline Phosphatase Troponin I < 0.015 Total Protein Albumin Globulin Albumin/Globulin Ratio Hepatitis C Ab Screen SARS-CoV-2, RNA, NAAT 04/14/21 11:22 WBC RBC Hgb Hct MCV MCH MCHC RDW Std Deviation RDW Coeff of Henrry Plt Count MPV Immature Gran % (Auto) Neut % (Auto) Lymph % (Auto) Overton % (Auto) Eos % (Auto) Baso % (Auto) Neut # (Auto) Lymph # (Auto) Overton # (Auto) Eos # (Auto) Baso # (Auto) Immature Gran # (Auto) PT INR APTT PTT Ratio Sodium Potassium Chloride Carbon Dioxide Anion Gap BUN Creatinine Est Cr Clr Drug Dosing Est GFR ( Amer) Est GFR (Non-Af Amer) BUN/Creatinine Ratio Glucose POC Glucose 111 H Estimat Average Glucose Hemoglobin A1c Calcium Phosphorus Magnesium Iron TIBC Transferrin Transferrin % Sat Total Bilirubin Ferritin AST ALT Alkaline Phosphatase Troponin I Total Protein Albumin Globulin Albumin/Globulin Ratio Hepatitis C Ab Screen SARS-CoV-2, RNA, NAAT Diagnostic Findings dobutamine echocardiogram performed 06/2020: No evidence of inducible ischemia. Occasional ventricular ectopy. PG Care Time/CCT Total # of Minutes Spent Total Time Spent with Patient: Total time spent is greater than 50% in coordination of care (as documented) at patient's floor/unit and/or counseling patient: Coding Level of Care Code 80918 Initial Inpt Care Lvl 3 Diagnoses Atypical chest pain R07.89
--- NOTE | 2021-04-14 13:02 | Pharmacy Report ---
Pharmacy Glycemic Short Note 2 - Date of Service April 14, 2021 - Glycemic Short BSG Results (Last 24 hours): 04/13/21 04/14/21 04/14/21 13:00 00:22 01:19 Glucose 238 H POC Glucose 142 H 143 H 04/14/21 04/14/21 04/14/21 02:59 06:13 07:29 Glucose POC Glucose 133 H 112 H 105 H 04/14/21 04/14/21 07:57 11:22 Glucose 112 H POC Glucose 111 H OUTPATIENT ANTIDIABETIC REGIMEN: * Novolin 70/30- 125 units qAM ASSESSMENT: * Mr Guevara is a 65 y/o M with a PMH of insulin dependent T2DM who presents with chest pain. Cardiac origin ruled out. * BSG this morning was 112 mg/dL. * Patient received Lantus 30 units at 0130. * For Lantus will continue with 30 units daily unless BSG > 160 mg/dL then provide a 25% increase to 40 units. * Novolog weight-based stress 2-3. PLAN FOR INPATIENT GLYCEMIC CONTROL: * Hold outpatient oral diabetes medications * Basal insulin * Lantus 30 units SQ qAM (40 units if BSG >160 mg/dL) * Bolus insulin * NovoLog per scale ACHS or Q6hrs while NPO * Goal Range: Low 110 mg/dL - High 140 mg/dL * Correction Factor: 15 mg/dL/unit * Nutritional / Prandial insulin per carb ratio of 1 unit per 5 grams CHO consumed PLAN FOR DISCHARGE: * HbA1C ordered
--- NOTE | 2021-04-14 13:32 | Discharge Summary ---
Date of Service April 14, 2021 Admission HPI Per Admitting Provider Sang Guevara is a pleasant 65yo male with history of DM, HTN and HLP presenting with episodic substernal chest discomfort. Patient has been having intermittent discomfort over the last 4-5 days -substernal pressure, 6/10 in severity. Discomfort typically lasts several minutes then resolves on its own. He can get several episodes over the course of an hour. Can occur with exertion or at rest. He reports sharp discomfort in his head on occasion that occurs with the chest discomfort. Denies SOB, abdominal pain, nausea, vomiting He has occasional palpitations and lightheadedness Has remote history of WPW s/p ablation Dobutamine Stress Echo performed on 06/22/20 which was normal with no echocardiographic or EKG evidence of myocardial ischemia. Study was technically difficult with suboptimal imaging. Frequent ventricular ectopy noted - had 5 beat run of VT during peak pharmacologic stress. Presently without chest discomfort. In the ER patient remained afebrile, HD stable, chest pain free. Patients Covid-19 test NEGATIVE. Patient is vaccinated + booster 10 days ago. Admission Exam Per Admitting Provider General: patient resting comfortably, NAD, non-toxic in appearance, AA&O x 4 Skin: warm, dry, intact, no rashes or lesions HEENT: NC/AT, PERRL, EOMI, anicteric sclera, conjunctiva without injection, external ear normal to inspection and nontender, nares patent, moist mucus membranes, dentition intact, no oropharyngeal lesions, neck supple, trachea midline, no LAD, no thyromegaly, no JVD Heart: +S1/S2, regular, no m/r/g Lungs: equal air entry bilaterally, no rales/rhonchi/wheezes Abd: +BS, soft, NT/ND, no masses/organomegaly/ascites Ext: warm, 2+ pulses in UE/LE bilaterally, no clubbing/cyanosis or edema Neuro: nonfocal, patient AA&O x 4, speech intact, no facial droop, moving all extremities on command with equal strength 5/5 Principal Diagnosis Chest Pain Discharge Exam WN, WD male sitting up in bed, no acute distress eyes anicteric, pupils equal and reactive neck: no lymphadenopathy, trachea midline without deviation, NO bruit resp: CTAB, no w/c/r, on room air chest: non-tender to palpation cv: RRR, no m/r/g, no calf edema gi: +BS throughout, non-tender gu: no pollock psych: alert, oriented x 3 msk/neuro: moves all extremities, no focal deficits, ambulates with a cane Discharge Data Allergies Allergy/AdvReac Type Severity Reaction Status Date / Time No Known Allergies Allergy Verified 04/13/21 21:25 Consultations 04/13/21 20:40 ED Decision to Admit Stat 04/14/21 09:10 Consult Cardiology Routine Ordered Studies Chest X-Ray 04/13/21 13:36 XR chest 2V PA/lateral CLINICAL HISTORY: chest pain. COMPARISON STUDY: 01/04/2021 TECHNIQUE: 2 views of the chest FINDINGS: Frontal and lateral radiographs of the chest demonstrate the cardiomediastinal silhouette to be within normal limits. The lungs are clear of alveolar opacities. There is no evidence for effusion bilaterally. There is no evidence for vascular congestion. There is no acute osseous pathology. IMPRESSION: No acute cardiopulmonary disease. ACT 112: Negative or not required by law. Electronically signed by: Justin Sanchez M.D. 04/13/2021 2:02 PM Hospital Course (1) Substernal chest pain: 65yo male with history of DM, HTN, HLP presenting with 4-5 days of intermittent substernal chest discomfort. Troponin x 2 negative. EKG with no acute ischemic findings. Do not strongly suspect cardiac origin at this time. Patient, however is high risk due to underlying medical comorbidities and was admitted for observation Recent dobutamine stress echo from 06/2020 unremarkable for inducible ischemia Continued ASA, Atorvastatin, Lisinopril Reported palpitations with occasional dizziness. Ventricular ectopy noted on Dobutamine stress test from 06/2020 - may consider outpatient cardiac monitoring Cardiology consulted given hx WPW, not noted during admit. no arrhythmia on monitor --> Dr Jackson arranging for outpatient holter Trop negative x3 TAKING IBUPROFEN "TWICE A WEEK 800MG AT A TIME BUT DID ENDORSE WHEN WITH HEADACHES TAKES MORE FREQUENTLY) --> Placed on protonix and NO FURTHER EPISODES OF DISCOMFORT --> recent steroid injection for back as well -- sent rx at d/c and to discuss with PCP for continued use Also checked iron stores given anemia (chronic), which did have low sat % -- oral supp at d/c w bowel regimen. 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 Last [id number]=3.6 in December 2020--> repeat 8.3 Continue home medications at d/c and f/u with PCP for improved control and weight loss (3) Hypertension: Continue Triamterene/HCTZ as well as Lisinopril (4) Dyslipidemia: Continue Atorvastatin (5) BPH (benign prostatic hyperplasia): Continue Flomax no issues reported Ppx - Lovenox SQ while inpatient Discharged home Total Time Total Time Spent Total Time Spent (In Minutes): 35 Discharge Plan Discharge Items Patient Disposition: Home - Self-Care Reason For Visit: CHEST PAIN Discharge Diagnosis: Chest Pain rule out, possible reflux, anemia Goals: You have been hospitalized for an acute medical problem. During your stay at [facility], we have made an effort to correct the problem that brought you to the hospital while keeping you as comfortable as possible. Medications were used to bring your condition under control and your discharge instructions will include directions for any medications you should take after leaving the hospital. Please make sure you see your Primary Care Provider as part of your follow up plan. Activity: Resume your previous activity Non-emergency contact: Primary Care Provider Call non-emergency contact if: you have any medication questions and your symptoms worsen Follow-up/Referrals: Jeet Chapman MD [Primary Care Provider] - 04/17/21 2:00 pm Diet: Carb Consistent or DM2 and Heart Healthy Addtl Attending Provider Instructions: You have been hospitalized for chest pain. Your troponins have been negative on three separate draws, indicating no damage to heart. Cardiology saw you and will be arranging a monitor as an outpatient to see if your symptoms correlate with an arrhythmia which was not noted while inpatient. You were started on protonix for possible reflux and have had resolution of symptoms. It is possible that this could have been worsened by recent steroid injection and ibuprofen use, which you should limit. Your hemoglobin technically is low and you are anemic, which can cause palpitations, but this has been stable compared to prior values. You have been started on oral iron supplementation and should be mindful this can cause stools to be darker in color and cause constipation. You should use a bowel regimen with miralax and colace over the counter if you experience this. You should follow up with your PCP after discharge to monitor your progress. You did not have any carotid bruit on examination and should follow up with your PCP if visual symptoms continue to occur. You should also follow up with annual eye exams given your diabetes as this can cause vision issues, but not transient. You should also reconsider utilizing CPAP given reports of headache when waking up and inability to tolerate in the past, as they have new masks and tubing and this may be more comfortable if an appropriate fit was found. Please return to the ER with any worsening chest pain, shortness of breath or any other symptoms concerning for you. It has been a pleasure taking care of you while in the hospital. Take care! Pending Studies at Discharge: No Stand-Alone Forms: My [facility] Medications and DC Order Prescriptions: New pantoprazole 40 mg Tablet,Delayed Release (Dr/Ec) 40 mg PO QAM Qty: 30 RF: 0 ferrous sulfate 325 mg (65 mg iron) Tablet,Delayed Release (Dr/Ec) 325 mg PO QAM Qty: 30 RF: 0 Continued tamsulosin 0.4 mg capsule 0.4 mg PO HS Qty: 30 RF: 2 atorvastatin 40 mg Tablet 40 mg PO HS RF: 0 metformin 850 mg Tablet 850 mg PO BID RF: 0 Novolin 70/30 U-100 Insulin 100 unit/mL (70-30) Suspension 125 unit SUBCUT QAM RF: 0 Novolin 70/30 U-100 Insulin 100 unit/mL (70-30) Suspension 0 unit SUBCUT QPM PRN (Reason: DEPENDS ON BSG.) RF: 0 triamterene-hydrochlorothiazid 37.5-25 mg Tablet 1 tab PO HS RF: 0 liraglutide 0.6 mg/0.1 mL (18 mg/3 mL) pen injector 1.8 mg subcut QAM RF: 0 metoprolol succinate 50 mg Tablet Extended Release 24 Hr 50 mg PO QAM RF: 0 ibuprofen 200 mg Capsule 800 mg PO Q6H PRN (Reason: Pain) RF: 0 lisinopril 40 mg Tablet 20 mg PO QDL RF: 0 finasteride 5 mg Tablet 5 mg PO QAM RF: 0 aspirin 81 mg Capsule 81 mg PO QAM RF: 0 Discharge Orders: Discharge Order (Routine); Ordered 04/14/21 Ordered By: Elisa Barrow/Other Patient Handouts: Managing Type 2 Diabetes, 5 Steps for Eating Healthier, Diabetes: Meal Planning Admission Data Admit Date/Time: 04/13/21 21:31 Attending Provider: Elise Harden Admit Provider: Kim Phan Primary Care Provider: Jeet Chapman Other Providers: Kim Phan ; Italo Galeano Other Interventions: Discharge Summary Assessment (RN) Last Done: 04/14/21 13:52 Supervising Physician Co-Signing Physician Notes PA Supervision Note: I personally saw and examined the patient. I verified all parish points and agree with PATTI Saldaña with the following exceptions and/or additions: S-Pt here with atypical CP, ruled out for ACS. Did receive COVID booster 10 days prior but his symptoms, ECG, and negative troponin do not seem consistent with tony or myocarditis. Symptoms were completely gone after starting PPI-continue such after discharge. F/u with Cardiology as outpt for cardiac event monitoring O- Vitals reviewed Gen: [AAOx3, NAD, obese] HEENT: [anicteric sclerae, EOMI] CV: [RRR no mgr nl S1S2] Pulm: [CTAB no wcr] Abd: [+BS soft NT ND no masses or hernias] Ext: [no edema, 2+ DP pulses] Skin: [no rashes, warm/dry] Neuro: [full strength throughout] A/P-65 yo male here with atypical chest pain, stable for dc to home as above Coding Level of Care Code 32615 OBS Care - Discharge Diagnoses Substernal chest pain R07.2 DMII (diabetes mellitus, type 2) E11.9; Z79.4 Diabetes mellitus complication status: without complication Diabetes mellitus care home insulin use: with long term care administrator use Hypertension I10 Hypertension type: primary hypertension Dyslipidemia E78.5 BPH (benign prostatic hyperplasia) N40.0
[2021-04-14] MEDS ORDERED: TRIAMTERENE/HCTZ 37.5/25MG TAB PO SCH (21:00)
[2021-04-14] MEDS ORDERED: TAMSULOSIN HCL 0.4 MG CAP PO SCH (21:00)
[2021-04-14] MEDS ORDERED: ATORVASTATIN 40 MG TAB PO SCH (21:00)
--- NOTE | 2021-04-15 12:05 | Electrocardiogram Report ---
Test Reason : Blood Pressure : / mmHG Vent. Rate : 056 BPM Atrial Rate : 056 BPM P-R Int : 158 ms QRS Dur : 092 ms QT Int : 430 ms P-R-T Axes : 037 -26 015 degrees QTc Int : 414 ms Sinus bradycardia Inferior infarct , age undetermined Abnormal ECG When compared with ECG of 13-APR-2021 12:59, No significant change was found Confirmed by Italo Galeano ([id number]) on 04/15/2021 12:05:07 PM Referred By: REFERRED SELF Confirmed By:Italo Galeano
== END 2021-04-14 15:45 | disposition home or self-care (01) ==
LOC: ED 12:37 → 2N 12:37 → SUATTDRO 21:31 → 2N 23:25

== ENCOUNTER 2022-07-30 13:18 | Inpatient (IN) ==
[2022-07-30] MEDS ORDERED: OPTIRAY 320 500ml IV ONE (13:46)
--- NOTE | 2022-07-30 14:09 | CT Scan Report ---
CT angio neck with con, CT head/brain wo con, CT angio head w con CLINICAL HISTORY: neuro deficit, acute stroke suspected left hand and wrist numbness, facial numbness and tingling. TECHNIQUE: Contiguous axial CT images of the head were acquired from the base of the skull to the bell yasmin without intravenous contrast administration. CT angiography of the head and neck was performed f ollowing intravenous administration of iodinated contrast. Coronal and sagittal MIPS were obtained fr om the axial data set and were submitted for review. Automated dose lowering techniques and/or adjus tment according to patient size were utilized for this examination. All measurements were calculated based on NASCET criteria. CT DOSE: 1361.74 mGy.cm Comparison: None available at the time of this dictation. FINDINGS: CT head: There is no acute intracranial hemorrhage or evidence of acute territorial infarction. No sh ift of the midline structures, mass effect, or extra-axial abnormalities are shown. Lungs and soft tissues are unremarkable. CTA Neck: A 3 vessel aortic arch is shown. There is no significant atherosclerotic plaque in the aor tic arch or the origins of the innominate, left common carotid, and left subclavian arteries. There is atherosclerotic narrowing of the common carotid artery on the left which does not appear to be hem odynamically significant although greater than 50% stenosis is noted. Nonhemodynamically significant stenosis is noted in the bilateral vertebral arteries. Vertebral arteries appear codominant. CTA Head: The anterior and posterior cerebral circulations are patent. No hemodynamically significan t stenosis, aneurysm, dissection, or arteriovenous malformation is shown. IMPRESSION: 1. No acute intracranial hemorrhage, evidence of acute territorial infarction, or other acute intrac ranial disease process. 2. Nonhemodynamically significant stenosis is seen in the left common carotid artery in bilateral ve rtebral arteries. 3. No occlusion, hemodynamically significant stenosis, aneurysm, dissection, or arteriovenous malfor mation in the major intracranial arteries. Assessment of stenosis of the internal carotid arteries is based on NASCET criteria. ACT 112: Negative or not required by law. Electronically signed by: Elder Francis M.D. 07/30/2022 2:08 PM
[2022-07-30 14:20] LABS: Basophils # (auto) 0.09 K/uL (0-0.2); Basophils % (auto) 0.8 %; Eosinophils # (auto) 0.28 K/uL (0-0.50); Eosinophils % (auto) 2.5 %; Hematocrit (blood only) 38.3 % (42.0-52.0); Hemoglobin 12.4 g/dl (14.0-18.0); Immature Granulocytes # (auto) 0.05 K/uL (0.01-0.20); Immature Granulocytes % (auto) 0.5 %; Lymphocytes # (auto) 2.49 K/uL (1.2-3.4); Lymphocytes % (auto) 22.5 %; Mean Corpuscular Hemoglobin 27.4 pg (25.0-34.0); Mean Corpuscular Hgb Conc 32.4 g/dL (32.0-36.0); Mean Corpuscular Volume 84.5 fL (80.0-100.0); Mean Platelet Volume 10.5 fL (9.4-12.4); Monocytes # (auto) 0.71 K/uL (0.11-0.59); Monocytes % (auto) 6.4 %; Neutrophils # (auto) 7.47 K/uL (1.40-6.50); Neutrophils % (auto) 67.3 %; Platelet Count 324 K/uL (130-400); RDW Coefficient of Variation 13.6 % (11.5-14.5); RDW Standard Deviation 41.7 fL (36.4-46.3); Red Blood Count 4.53 M/uL (4.70-6.10); White Blood Count 11.09 K/ul (4.8-10.8)
--- NOTE | 2022-07-30 14:24 | XRay Report ---
XR chest 1V portable HISTORY: 66 years-old Male neuro deficit, acute stroke suspected acute strokelike symptoms COMPARISON: 04/13/2021 TECHNIQUE: AP view of the chest FINDINGS: Cardiac mediastinal and hilar silhouettes are within normal limits. No pneumothorax, pleural effusion , airspace consolidation or overt pulmonary edema. Unchanged mild right diaphragmatic elevation. Bone s appear grossly intact. IMPRESSION: No acute process. ACT 112: Negative or not required by law. The above report was generated using voice recognition software. It may contain grammatical, syntax o r spelling errors. Electronically signed by: Tom Cramer M.D. 07/30/2022 2:23 PM
[2022-07-30 14:55] LABS: INR 1.1 (0.9-1.1); Partial Thromboplastin Time 26.5 Seconds (21.0-31.0); Prothrombin Time 11.8 Seconds (9.0-12.0)
--- NOTE | 2022-07-30 14:57 | Emergency Department Note ---
Impression & Plan Stroke-like symptoms, DMII (diabetes mellitus, type 2), Hypertension ED Provider Note INFORMANT: Patient and daughter ED PROVIDER(S): Asael Ahumada MD CHIEF COMPLAINT: Strokelike symptoms PLAN: Disposition: Admitted Condition: Good Outpatient prescription management: none Referral: None MEDICAL DECISION MAKING: Patient presented and I was contacted by triage due to the symptoms. Nursing noted that the symptoms were going on for 24 hours. I instructed them to make t he patient a stroke alert in order to expedite the work-up given the complaints of the symptoms which included headache and his blood pressure was very high. Patient underwent CT angiography and CT imaging of the head which did not reveal any acute significant abnormalities. His blood pressure improved without direct intervention. Patient's CBC and blood chemistries were unremarkable. Patient has a subtle leukocytosis but this is similar to his prior values. The patient was given gentle saline hydration and oral aspirin. I did consult with Dr. Price of neurology. The patient was not made a stroke alert given the duration of symptoms and negative CT imaging. He is not within the window for thrombolytics. Dr. Price agreed. We discussed the findings and inpatient stroke evaluation was recommended. Consultation was made with the [facility] service. Patient was evaluated in the ER and admitted for further management. Case was discussed with the staff development manager. After review of the information above and other included data, I feel the patient requires inpatient management. Triage Nursing notes reviewed and agree them. Vital Signs: reviewed and remarkable for hypertension Prior /Outside records reviewed: none Differential diagnosis: CVA, TIA, hypertensive emergency, infection, dehydration, metabolic abnormality, hypo/hyperglycemia, electrolyte disturbance, anemia, hypoxia, cardiac sources, intracerebral event, toxicologic, neurologic, as well as other pathologies. Diagnostics, as interpreted by me: ECG: Twelve-lead ECG reveals a normal sinus rhythm at 65 bpm. Left anterior fascicular block. Inferior Q waves. When compared to 04/14/2021 there is no significant change Cardiac Monitoring: Cardiac monitoring ordered by me: The patient was placed on continuous cardiac monitoring and observed. It revealed a normal sinus rhythm at 73 beats per minute without ectopy or evidence of dysrhythmia. Medical decision rules: none Imaging studies: Chest x-ray. Findings: A chest x-ray was performed and revealed no pneumothorax, effusion, infiltrate, pulmonary edema, free air under the diaphragm, or wide mediastinum. Impression: No acute disease. Head CT: A noncontrast CT scan of the head was performed and was negative for tumor, fracture, intracranial hemorrhage, or other acute pathology. HPI: The patient is a 66year old male who presents to the Emergency Room with co mplaints of strokelike symptoms. This started yesterday and is persisting today. Patient noted left hand and forearm numbness. He developed numbness in the left side of his face as well.. The patient also notes the following associated symptoms, left retro-orbital headache. The patient has taken no medication for relieving factors. Current pain is rated as 6/10. No prior history of the same. Pt denies LOC, fevers, chills, diaphoresis, visual changes, neck pain, chest pain, breathing difficulties, nausea, vomiting, abdominal pain, back pain, melena, hematochezia, urinary symptoms, weakness, lymphadenopathy, rash, or other complaints. PAST MEDICAL HISTORY: See Below, diabetes, hypertension PAST SURGICAL HISTORY: See Below, SOCIAL HISTORY: See Below, non-smoker HOME MEDICATIONS: See Below ALLERGIES: See Below VITALS: See Below PHYSICAL EXAMINATION: GENERAL: Awake, alert, well-appearing, in no distress HENT: Normocephalic, atraumatic. Oropharynx unremarkable. EYES: Normal conjunctiva. Sclera non-icteric. PERRLA. EOMI. NECK: Inspection normal. Non-tender. Supple. No nuchal rigidity. FROM. No masses. RESPIRATORY: Clear to auscultation. No wheezes. No rales. Normal respiratory effort. CARDIAC: Normal rate. Normal rhythm. No murmurs. No rubs. Extremities warm and well perfused. Pulses equal. No JVD. GI: Soft, non-distended. No tenderness to palpation. No rebound or guarding. No masses. RECTAL: Deferred. MUSCULOSKELETAL: Atraumatic. Chest examination reveals no tenderness. The back is symmetrical on inspection without obvious abnormality. There is no CVA tenderness to palpation. No joint edema. LOWER EXTREMITIES: Calves are equal size bilaterally and non-tender. No edema. No discoloration. NEURO: Normal sensorium. No sensory or motor deficits noted. Speech normal. No drift. Slight left facial droop noted. Subjective tingling in the left side of the face and left hand. SKIN: No rash or jaundice noted. 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 Follows with cardio PRN HLD (hyperlipidemia) Hypertension Lumbar spinal stenosis Morbid obesity with BMI of 45.0-49.9, adult IGOR (obstructive sleep apnea) Cannot tolerate device SOB (shortness of breath) on exertion OVERWEIGHT- CHRONIC AND STABLE Surgical History History of cataract surgery RT History of colonoscopy 2020 History of radiofrequency ablation procedure for cardiac arrhythmia AT AGE 29 History of tonsillectomy History of tooth extraction S/P TURP Family History Other No family history of adverse response to anesthesia Social History Smoking Status: Never smoker Second Hand Exposure: No; Hx Alcohol Use: No Hx Substance Use: No Preferred Language: Belarusian Communication Ability: Effective [employer]way Worker Required: No Beliefs That Will Affect Care: None Current Living Situation: Spouse Current Living Situation Comment: and youngest daughter current occupational status: retired Feels Safe at Home: Yes Assistive Devices: Cane Allergies Allergies Allergy/AdvReac Type Severity Reaction Status Date / Time No Known Allergies Allergy Verified 06/19/22 13:58 Home Meds Home Medications Medication Instructions Recorded Confirmed atorvastatin 40 mg tablet 40 mg PO HS 06/30/18 07/30/22 insulin human U-100 NPH-regulr 120 unit subcut QPM PRN DEPENDS ON 06/30/18 07/30/22 70-30 mix 100 unit/mL subcutaneous BSG. susp (Novolin 70/30 U-100 Insulin) metformin 850 mg tablet 850 mg PO BID 06/30/18 07/30/22 triamterene 37.5 1 tab PO HS 06/30/18 07/30/22 mg-hydrochlorothiazide 25 mg tablet metoprolol succinate 50 mg 50 mg PO QAM 01/22/20 07/30/22 tablet,extended release 24 hr ibuprofen 200 mg capsule 800 mg PO Q6H PRN Pain 12/29/20 07/30/22 aspirin 81 mg capsule 81 mg PO QAM 03/29/21 07/30/22 tizanidine 2 mg tablet 2 mg PO HS PRN Muscle Spasm 06/19/22 07/30/22 dulaglutide 1.5 mg/0.5 mL 1.5 mg subcut WK 07/30/22 07/30/22 subcutaneous pen injector (Trulicity) Previous Rx's Medication Instructions Recorded finasteride 5 mg tablet 5 mg PO QAM #90 tabs 04/27/21 Results & Data (ED) Vital Signs Vital Signs - 24 hr 07/30/22 13:25 07/30/22 13:55 07/30/22 14:05 Temperature 36 C L Temperature Source Temporal Artery Scan Pulse Rate 73 79 Pulse Rate from SpO2 Sensor 78 Respiratory Rate 20 25 H Blood Pressure 216/93 H 214/103 H Blood Pressure Mean 134 140 Blood Pressure Position Sitting Pulse Oximetry 98 98 97 Oxygen Delivery Method Room Air Room Air Room Air Sepsis Recent Fever Within 48 Hours No Sepsis New/Unexplained Change in Mental Status No Sepsis Action Taken by Nursing No Action Required 07/30/22 14:14 07/30/22 14:09 07/30/22 14:16 Temperature Temperature Source Pulse Rate 82 74 73 Pulse Rate from SpO2 Sensor 74 71 Respiratory Rate 20 25 H Blood Pressure 178/95 H 167/94 H Blood Pressure Mean 122 118 Blood Pressure Position Pulse Oximetry 97 96 Oxygen Delivery Method Room Air Room Air Sepsis Recent Fever Within 48 Hours Sepsis New/Unexplained Change in Mental Status Sepsis Action Taken by Nursing Laboratory Data 07/30/22 13:59 07/30/22 13:59 Lab Results 07/30/22 07/30/22 07/30/22 Range/Units 13:59 13:59 13:59 WBC 11.09 H (4.8-10.8) K/ul RBC 4.53 L (4.70-6.10) M/uL Hgb 12.4 L (14.0-18.0) g/dl Hct 38.3 L (42.0-52.0) % MCV 84.5 (80.0-100.0) fL MCH 27.4 (25.0-34.0) pg MCHC 32.4 (32.0-36.0) g/dL RDW Std Deviation 41.7 (36.4-46.3) fL RDW Coeff of Henrry 13.6 (11.5-14.5) % Plt Count 324 (130-400) K/uL MPV 10.5 (9.4-12.4) fL Immature Gran % (Auto) 0.5 % Neut % (Auto) 67.3 % Lymph % (Auto) 22.5 % Mesa % (Auto) 6.4 % Eos % (Auto) 2.5 % Baso % (Auto) 0.8 % Neut # (Auto) 7.47 H (1.40-6.50) K/uL Lymph # (Auto) 2.49 (1.2-3.4) K/uL Mesa # (Auto) 0.71 H (0.11-0.59) K/uL Eos # (Auto) 0.28 (0-0.50) K/uL Baso # (Auto) 0.09 (0-0.2) K/uL Immature Gran # (Auto) 0.05 (0.01-0.20) K/uL PT 11.8 (9.0-12.0) Seconds INR 1.1 (0.9-1.1) APTT 26.5 (21.0-31.0) Seconds PTT Ratio 1.0 Sodium 134 L (136-145) mmol/L Potassium 4.0 (3.5-5.1) mmol/L Chloride 100 (98-107) mmol/L Carbon Dioxide 27 (21-32) mmol/L Anion Gap 7 (3-11) BUN 22 (6-23) mg/dl Creatinine 1.03 (0.6-1.4) mg/dl Est Cr Clr Drug Dosing 95.8 ml/min Est GFR ( Amer) 86.7 ml/min Est GFR (Non-Af Amer) 74.8 ml/min BUN/Creatinine Ratio 21.4 H (10-20) Glucose 272 H (70-99(Fasting)) mg/dl Calcium 9.2 (8.5-10.1) mg/dl Magnesium 1.6 L (1.7-2.4) mg/dl Total Bilirubin 0.5 (0.2-1.0) mg/dl AST 16 (13-39) U/L ALT 18 (7-52) U/L Alkaline Phosphatase 55 (34-104) U/L Troponin I High Sens 20.4 H (0-20) pg/ml Total Protein 6.8 (6.0-8.3) gm/dl Albumin 3.6 (3.4-5.0) gm/dl Globulin 3.2 (2.5-4.0) gm/dl Albumin/Globulin Ratio 1.1 (0.9-2) Urine Color Urine Appearance (Clear) Urine pH (4.5-7.5) Ur Specific Darrington (1.000-1.030) Urine Protein (Negative) Urine Glucose (UA) (Negative) Urine Ketones (Negative) Urine Blood (Negative) Urine Nitrite (Negative) Urine Bilirubin (Negative) Urine Urobilinogen (Negative) Ur Leukocyte Esterase (Negative) 07/30/22 Range/Units 15:51 WBC (4.8-10.8) K/ul RBC (4.70-6.10) M/uL Hgb (14.0-18.0) g/dl Hct (42.0-52.0) % MCV (80.0-100.0) fL MCH (25.0-34.0) pg MCHC (32.0-36.0) g/dL RDW Std Deviation (36.4-46.3) fL RDW Coeff of Henrry (11.5-14.5) % Plt Count (130-400) K/uL MPV (9.4-12.4) fL Immature Gran % (Auto) % Neut % (Auto) % Lymph % (Auto) % Mesa % (Auto) % Eos % (Auto) % Baso % (Auto) % Neut # (Auto) (1.40-6.50) K/uL Lymph # (Auto) (1.2-3.4) K/uL Mesa # (Auto) (0.11-0.59) K/uL Eos # (Auto) (0-0.50) K/uL Baso # (Auto) (0-0.2) K/uL Immature Gran # (Auto) (0.01-0.20) K/uL PT (9.0-12.0) Seconds INR (0.9-1.1) APTT (21.0-31.0) Seconds PTT Ratio Sodium (136-145) mmol/L Potassium (3.5-5.1) mmol/L Chloride (98-107) mmol/L Carbon Dioxide (21-32) mmol/L Anion Gap (3-11) BUN (6-23) mg/dl Creatinine (0.6-1.4) mg/dl Est Cr Clr Drug Dosing ml/min Est GFR ( Amer) ml/min Est GFR (Non-Af Amer) ml/min BUN/Creatinine Ratio (10-20) Glucose (70-99(Fasting)) mg/dl Calcium (8.5-10.1) mg/dl Magnesium (1.7-2.4) mg/dl Total Bilirubin (0.2-1.0) mg/dl AST (13-39) U/L ALT (7-52) U/L Alkaline Phosphatase (34-104) U/L Troponin I High Sens (0-20) pg/ml Total Protein (6.0-8.3) gm/dl Albumin (3.4-5.0) gm/dl Globulin (2.5-4.0) gm/dl Albumin/Globulin Ratio (0.9-2) Urine Color Yellow Urine Appearance Clear (Clear) Urine pH 5.5 (4.5-7.5) Ur Specific Darrington > 1.045 H (1.000-1.030) Urine Protein Negative (Negative) Urine Glucose (UA) 1+ H (Negative) Urine Ketones Negative (Negative) Urine Blood Negative (Negative) Urine Nitrite Negative (Negative) Urine Bilirubin Negative (Negative) Urine Urobilinogen Negative (Negative) Ur Leukocyte Esterase Negative (Negative) Administered Medications Sodium Chloride (Nss) 500 mls @ 80 mls/hr IV .Q6H15M ADRIA Stop: 08/29/22 15:14 Last Admin: 07/30/22 15:28 Dose: 80 mls/hr Documented By: Discontinued Medications Aspirin (Aspirin Chew 324 Mg) 243 mg PO NOW STA Stop: 07/30/22 15:09 Last Admin: 07/30/22 15:27 Dose: 243 mg Documented By: Ioversol (Optiray 320 500ml) 120 ml IV ONCE ONE Stop: 07/30/22 13:47 Last Admin: 07/30/22 13:46 Dose: 120 ml Documented By: HUMPHREY Imaging Data Radiologist's Impression: Chest X-Ray 07/30/22 13:34 XR chest 1V portable HISTORY: 66 years-old Male neuro deficit, acute stroke suspected acute strokelike symptoms COMPARISON: 04/13/2021 TECHNIQUE: AP view of the chest FINDINGS: Cardiac mediastinal and hilar silhouettes are within normal limits. No pneumothorax, pleural effusion, airspace consolidation or overt pulmonary edema. Unchanged mild right diaphragmatic elevation. Bones appear grossly intact. IMPRESSION: No acute process. ACT 112: Negative or not required by law. The above report was generated using voice recognition software. It may contain grammatical, syntax or spelling errors. Electronically signed by: Tom Cramer M.D. 07/30/2022 2:[address] 07/30/22 13:34 CT angio neck with con, CT head/brain wo con, CT angio head w con CLINICAL HISTORY: neuro deficit, acute stroke suspected left hand and wrist numbness, facial numbness and tingling. TECHNIQUE: Contiguous axial CT images of the head were acquired from the base of the skull to the vertex without intravenous contrast administration. CT angiography of the head and neck was performed following intravenous administration of iodinated contrast. Coronal and sagittal MIPS were obtained from the axial data set and were submitted for review. Automated dose lowering techniques and/or adjustment according to patient size were utilized for this examination. All measurements were calculated based on NASCET criteria. CT DOSE: 1361.74 mGy.cm Comparison: None available at the time of this dictation. FINDINGS: CT head: There is no acute intracranial hemorrhage or evidence of acute territorial infarction. No shift of the midline structures, mass effect, or extra-axial abnormalities are shown. Lungs and soft tissues are unremarkable. CTA Neck: A 3 vessel aortic arch is shown. There is no significant atherosclerotic plaque in the aortic arch or the origins of the innominate, left common carotid, and left subclavian arteries. There is atherosclerotic narrowing of the common carotid artery on the left which does not appear to be hemodynamically significant although greater than 50% stenosis is noted. Nonhemodynamically significant stenosis is noted in the bilateral vertebral arteries. Vertebral arteries appear codominant. CTA Head: The anterior and posterior cerebral circulations are patent. No hemodynamically significant stenosis, aneurysm, dissection, or arteriovenous malformation is shown. IMPRESSION: 1. No acute intracranial hemorrhage, evidence of acute territorial infarction, or other acute intracranial disease process. 2. Nonhemodynamically significant stenosis is seen in the left common carotid artery in bilateral vertebral arteries. 3. No occlusion, hemodynamically significant stenosis, aneurysm, dissection, or arteriovenous malformation in the major intracranial arteries. Assessment of stenosis of the internal carotid arteries is based on NASCET criteria. ACT 112: Negative or not required by law. Electronically signed by: Elder Francis M.D. 07/30/2022 2:08 PM Head CTA 07/30/22 13:34 CT angio neck with con, CT head/brain wo con, CT angio head w con CLINICAL HISTORY: neuro deficit, acute stroke suspected left hand and wrist numbness, facial numbness and tingling. TECHNIQUE: Contiguous axial CT images of the head were acquired from the base of the skull to the vertex without intravenous contrast administration. CT angiography of the head and neck was performed following intravenous administration of iodinated contrast. Coronal and sagittal MIPS were obtained from the axial data set and were submitted for review. Automated dose lowering techniques and/or adjustment according to patient size were utilized for this examination. All measurements were calculated based on NASCET criteria. CT DOSE: 1361.74 mGy.cm Comparison: None available at the time of this dictation. FINDINGS: CT head: There is no acute intracranial hemorrhage or evidence of acute territorial infarction. No shift of the midline structures, mass effect, or extra-axial abnormalities are shown. Lungs and soft tissues are unremarkable. CTA Neck: A 3 vessel aortic arch is shown. There is no significant atherosclerotic plaque in the aortic arch or the origins of the innominate, left common carotid, and left subclavian arteries. There is atherosclerotic narrowing of the common carotid artery on the left which does not appear to be hemodynamically significant although greater than 50% stenosis is noted. Nonhemodynamically significant stenosis is noted in the bilateral vertebral arteries. Vertebral arteries appear codominant. CTA Head: The anterior and posterior cerebral circulations are patent. No hemodynamically significant stenosis, aneurysm, dissection, or arteriovenous malformation is shown. IMPRESSION: 1. No acute intracranial hemorrhage, evidence of acute territorial infarction, or other acute intracranial disease process. 2. Nonhemodynamically significant stenosis is seen in the left common carotid artery in bilateral vertebral arteries. 3. No occlusion, hemodynamically significant stenosis, aneurysm, dissection, or arteriovenous malformation in the major intracranial arteries. Assessment of stenosis of the internal carotid arteries is based on NASCET criteria. ACT 112: Negative or not required by law. Electronically signed by: Elder Francis M.D. 07/30/2022 2:08 PM Neck CTA 07/30/22 13:34 CT angio neck with con, CT head/brain wo con, CT angio head w con CLINICAL HISTORY: neuro deficit, acute stroke suspected left hand and wrist numbness, facial numbness and tingling. TECHNIQUE: Contiguous axial CT images of the head were acquired from the base of the skull to the vertex without intravenous contrast administration. CT angiography of the head and neck was performed following intravenous administration of iodinated contrast. Coronal and sagittal MIPS were obtained from the axial data set and were submitted for review. Automated dose lowering techniques and/or adjustment according to patient size were utilized for this examination. All measurements were calculated based on NASCET criteria. CT DOSE: 1361.74 mGy.cm Comparison: None available at the time of this dictation. FINDINGS: CT head: There is no acute intracranial hemorrhage or evidence of acute territorial infarction. No shift of the midline structures, mass effect, or extra-axial abnormalities are shown. Lungs and soft tissues are unremarkable. CTA Neck: A 3 vessel aortic arch is shown. There is no significant atherosclerotic plaque in the aortic arch or the origins of the innominate, left common carotid, and left subclavian arteries. There is atherosclerotic narrowing of the common carotid artery on the left which does not appear to be hemodynamically significant although greater than 50% stenosis is noted. Nonhemodynamically significant stenosis is noted in the bilateral vertebral arteries. Vertebral arteries appear codominant. CTA Head: The anterior and posterior cerebral circulations are patent. No hemodynamically significant stenosis, aneurysm, dissection, or arteriovenous malformation is shown. IMPRESSION: 1. No acute intracranial hemorrhage, evidence of acute territorial infarction, or other acute intracranial disease process. 2. Nonhemodynamically significant stenosis is seen in the left common carotid artery in bilateral vertebral arteries. 3. No occlusion, hemodynamically significant stenosis, aneurysm, dissection, or arteriovenous malformation in the major intracranial arteries. Assessment of stenosis of the internal carotid arteries is based on NASCET criteria. ACT 112: Negative or not required by law. Electronically signed by: Elder Francis M.D. 07/30/2022 2:08 PM Discharge Plan Visit Data Chief Complaint: Headache Stated Complaint: NUMBMESS ON ARM/ FACE, CHECK OUT FOR TIA, HEADACHE ED Provider: Asael Ahumada Discharge Problem: Stroke-like symptoms, DMII (diabetes mellitus, type 2), Hypertension Forms Stand Alone Forms: My [facility] [employer] Prescriptions Prescriptions: No Action finasteride 5 mg tablet 5 mg PO QAM Qty: 90 3RF tizanidine 2 mg tablet 2 mg PO HS PRN (Reason: Muscle Spasm) atorvastatin 40 mg Tablet 40 mg PO HS metformin 850 mg Tablet 850 mg PO BID Novolin 70/30 U-100 Insulin 100 unit/mL (70-30) Suspension 120 unit SUBCUT QPM PRN (Reason: DEPENDS ON BSG.) Rx Instructions: DEPENDS IF BSG < 130 triamterene-hydrochlorothiazid 37.5-25 mg Tablet 1 tab PO HS metoprolol succinate 50 mg Tablet Extended Release 24 Hr 50 mg PO QAM ibuprofen 200 mg Capsule 800 mg PO Q6H PRN (Reason: Pain) aspirin 81 mg Capsule 81 mg PO QAM Trulicity 1.5 mg/0.5 mL pen injector 1.5 mg SUBCUT WK Referrals Referrals: Huey Alexandra MD [Primary Care Provider] -
[2022-07-30 15:05] LABS: Albumin Globulin Ratio 1.1 (0.9-2); Albumin Level 3.6 gm/dl (3.4-5.0); BUN Creatinine Ratio 21.4 (10-20); Bilirubin,Total 0.5 mg/dl (0.2-1.0); Calcium 9.2 mg/dl (8.5-10.1); Creatinine Clr Calc Pharmacy 95.8 ml/min; Est GFR (African American) 86.7 ml/min; Est GFR (Non-African American) 74.8 ml/min; Globulin 3.2 gm/dl (2.5-4.0); Magnesium 1.6 mg/dl (1.7-2.4); Total Protein 6.8 gm/dl (6.0-8.3)
[2022-07-30] MEDS ORDERED: ASPIRIN CHEW 324 MG PO STA (15:08)
[2022-07-30 15:09] LABS: Troponin I High Sensitivity 20.4 pg/ml (0-20)
--- NOTE | 2022-07-30 15:23 | Electrocardiogram Report ---
Test Reason : Blood Pressure : / mmHG Vent. Rate : 065 BPM Atrial Rate : 065 BPM P-R Int : 160 ms QRS Dur : 102 ms QT Int : 414 ms P-R-T Axes : 047 -51 053 degrees QTc Int : 430 ms Normal sinus rhythm Low voltage QRS Left anterior fascicular block Poor R wave progression, consider anterior DE vs. lead placement vs. LVH Abnormal ECG When compared with ECG of 14-APR-2021 10:55, No significant change was found Confirmed by Jigar Jackson ([id number]) on 07/30/2022 3:22:47 PM Referred By: Confirmed By:Adán Jackson
[2022-07-30] MEDS: SODIUM CHLORIDE 0.9% 500 ML IV SCH (15:28)
[2022-07-30 16:07] LABS: Appearance Urine Clear (Clear); Bilirubin Urine Negative (Negative); Blood Urine Negative (Negative); Color Urine Yellow; Glucose Urine UA 1+ (Negative); Ketones Urine Negative (Negative); Leukocyte Esterase Urine Negative (Negative); Nitrite Urine Negative (Negative); Protein Urine Negative (Negative); Specific Gravity Urine > 1.045 (1.000-1.030); Urobilinogen Urine Negative (Negative); pH Urine 5.5 (4.5-7.5)
--- NOTE | 2022-07-30 16:15 | History & Physical Report ---
Date of Service July 30, 2022 Assessment & Plan (1) Stroke-like symptoms: (2) DMII (diabetes mellitus, type 2): (3) Hypertension: (4) Dyslipidemia: (5) Chest pain syndrome: (6) BPH (benign prostatic hyperplasia): (7) Lumbar spinal stenosis: Plan This is a 66-year-old male with PMH of uncontrolled type 2 diabetes, dyslipidemia, hypertension, BPH, history of Vrofw-Xsuauovof-Nmxnd syndrome and other medical problems listed below who presents with headache and strokelike symptoms since yesterday. Left facial droop LUE sensory changes Headache Strokelike sx for >[address], CTA head/neck with 1. No acute intracranial hemorrhage, evidence of acute territorial infarction, or other acute intracranial disease process. 2. Non hemodynamically significant stenosis is seen in the left common carotid artery in bilateral vertebral arteries. 3. No occlusion, hemodynamically significant stenosis, aneurysm, dissection, or arteriovenous malformation in the major intracranial arteries. Tpa contraindicated. global marketing specialist neurologist recommending admission for further stroke work up given symptoms and risk factors Given aspirin in ED. Continue statin, IV fluids. Routine neurology consult in AM, consider addition of plavix for dual antiplatelet therapy Brain MRI w/wo, echo with bubble study, PT/OT evaluations, telemetry monitoring DM II Poorly controlled and labile BSGs per chart review and patient A1c 9.3 in Jun 2022 Trilicity dose recently increased, 70/30 insulin decreased to 100u daily - did not take insulin today Currently NPO and awaiting dysphasia screen Glycemic consult placed given h/o variability, currently NPO - discussed with pharmacist BSG HS HTN BP 152/85. 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 Underwent dobutamine stress test last month in preparation for upcoming back surgery at [facility] [place] and stress test was negative BPH Continue tamsulosin, finasteride Lumbar spine stenosis, chronic back pain Planning for upcoming back surgery. Cont home regimen of PRN tylenol, ibuprofen, tizanidine DVT Ppx: SQ heparin Code status: FULL PCP: Ibrahima Dispo: Admitted to PCU Patient seen in collaboration with Dr. Brito. Please see addendum. A total of 80 minutes were spent with greater than 50% of that time face to face with the patient, personally reviewing all current laboratories, imaging studies, past medication reconciliation, outpatient chart review, and discussion with specialists to collaborate care for the patient with attending and utilization of translation services. Please see attending documentation for corrections and/or additions. History of Present Illness Chief Complaint: Strokelike symptoms Primary Care Provider: Huey Alexandra MD This is a 66-year-old male with PMH of uncontrolled type 2 diabetes, dyslipidemia, hypertension, BPH, history of Hyxyr-Gklwsxtcc-Cldfv syndrome and other medical problems listed below who presents with headache and strokelike symptoms since yesterday. History obtained primarily from patient as well as review of notes from PCP, [facility] clinic and cardiology. Patient was in normal state of health and watching TV around 1030 yesterday morning when he noted numbness in his left arm moving down to his hand that felt like "Novocain". Then also developed the same feeling in his face on the left side with associated headache behind his left eye. No weakness of LUE. Symptoms persisted throughout the day but patient did not want to come in for evaluation. Slept overnight but awakened with the same type of headache and some pain in right hand, and family brought him in for further evaluation. Headache improved somewhat after aspirin but is still present. Does not usually have headaches at baseline. Denies any difficulty speaking or swallowing. Daughter states that most of facial droop has resolved. No difficulty with ambulation or notable weakness or sensory changes in lower extremity. Denies any personal known history of stroke. Is due for back surgery in a few weeks at [facility] and just underwent cardiac evaluation with negative dobutamine stress test a few weeks prior. No fever, chills, lightheadedness, shortness of breath, nausea, vomit, abdominal pain, dysuria, diarrhea or constipation. Does endorse some chest discomfort, which he mainly notices with cold air outside. Did not take morning medications today including insulin. ED physician discussed with on-call neurologist but due to patient having symptoms for over 24 hours, did not feel need for stroke alert because tPA is contraindicated. Received aspirin and gentle fluids and admission for remainder of stroke evaluation was recommended per Dr. Price. Allergies Allergy/AdvReac Type Severity Reaction Status Date / Time No Known Allergies Allergy Verified 06/19/22 13:58 Home Medications Medication Instructions Recorded Confirmed Type atorvastatin 40 mg tablet 40 mg PO HS 06/30/18 07/30/22 History insulin human U-100 NPH-regulr 100 unit subcut QPM PRN DEPENDS ON 06/30/18 07/30/22 History 70-30 mix 100 unit/mL subcutaneous BSG. susp (Novolin 70/30 U-100 Insulin) metformin 850 mg tablet 850 mg PO BID 06/30/18 07/30/22 History triamterene 37.5 1 tab PO HS 06/30/18 07/30/22 History mg-hydrochlorothiazide 25 mg tablet metoprolol succinate 50 mg 50 mg PO QAM 01/22/20 07/30/22 History tablet,extended release 24 hr ibuprofen 200 mg capsule 800 mg PO Q6H PRN Pain 12/29/20 07/30/22 History aspirin 81 mg capsule 81 mg PO QAM 03/29/21 07/30/22 History finasteride 5 mg tablet 5 mg PO QAM #90 tabs 04/27/21 07/30/22 Rx tizanidine 2 mg tablet 2 mg PO HS PRN Muscle Spasm 06/19/22 07/30/22 History dulaglutide 1.5 mg/0.5 mL 1.5 mg subcut WK 07/30/22 07/30/22 History subcutaneous pen injector (Trulicity) tamsulosin 0.4 mg capsule 0.4 mg PO HS 07/30/22 07/30/22 History Past Med/Surg History Medical History Abdominal hernia Stable Arthritis Atypical chest pain BPH (benign prostatic hyperplasia) Chronic back pain Claustrophobia "DOESN'T LIKE SLEEPING ON HIS BACK" DM II (diabetes mellitus, type II), controlled Glucose fluctuates Dry mouth Chronic Gallstones Found incidentally - no current issues GERD (gastroesophageal reflux disease) UNDER CONTROL History of asthma A CHILD History of Iioqc-Hnjiwzxdd-Dzmlj (WPW) syndrome S/p ablation- no issues Follows with cardio PRN HLD (hyperlipidemia) Hypertension Lumbar spinal stenosis Morbid obesity with BMI of 45.0-49.9, adult IGOR (obstructive sleep apnea) Cannot tolerate device SOB (shortness of breath) on exertion OVERWEIGHT- CHRONIC AND STABLE Surgical History History of cataract surgery RT History of colonoscopy 2020 History of radiofrequency ablation procedure for cardiac arrhythmia AT AGE 29 History of tonsillectomy History of tooth extraction S/P TURP Family History Other Diabetes Hypertension No family history of adverse response to anesthesia Social History Smoking Status: Never smoker Second Hand Exposure: No; Do You Dip or Chew Tobacco: No; Hx Alcohol Use: No Hx Substance Use: No Preferred Language: Syriac Communication Ability: Effective Fly Worker Required: No Beliefs That Will Affect Care: None Current Living Situation: Spouse and Family Current Living Situation Comment: and youngest daughter current occupational status: retired Other Information That Helps Us Care for You: No Feels Safe at Home: Yes Safety Concerns: Feels Safe At This Time Assistive Devices: Cane and Glasses Review of Systems Review of Systems: At least ten systems reviewed and negative except as noted in the HPI. Physical Exam Physical Exam: General Appearance: WD/WN, vitals as above, NAD, sitting up in bed, pleasant, conversing easily, +obese Head: normocephalic, atraumatic Eyes: normal inspection, PERRL, conjunctivae normal, anicteric sclerae ENT: external ear and nose normal, oropharynx normal Neck: normal visual inspection, trachea midline, no thyromegaly Respiratory: normal respiratory effort, lungs clear to auscultation, no wheeze, rales, rhonchi. No accessory muscle use Cardiovascular: regular rate, rhythm, no murmur, normal peripheral pulses, no BLE edema. Vessels: no JVD Chest: normal inspection of chest Abdomen/GI: normal bowel sounds, soft, nontender, no hepatosplenomegaly Extremities/Musculoskeletal: no cyanosis or clubbing, extremities motor strength 5/5 Neurologic: PERRL, EOMI, accommodation nl, + slight L facial droop noted, no dysarthria, CN's II-XI intact bilaterally and moves all extremities Psychiatric: A+Ox3, euthymic affect Skin: no rashes, normal color, warm/dry Results & Data Results & Data Vital Signs (Past 12 Hours) Vital Signs Temp Pulse Resp BP Pulse Ox O2 Del Method 07/30/22 14:16 73 25 H 167/94 H 96 Room Air 07/30/22 14:09 74 20 178/95 H 97 Room Air 07/30/22 14:14 82 07/30/22 14:05 79 25 H 214/103 H 97 Room Air 07/30/22 13:55 98 Room Air 07/30/22 13:25 36 C L 73 20 216/93 H 98 Room Air Laboratory Results Short CBC 07/30/22 Range/Units 13:59 WBC 11.09 H (4.8-10.8) K/ul Hgb 12.4 L (14.0-18.0) g/dl Hct 38.3 L (42.0-52.0) % Plt Count 324 (130-400) K/uL BMP 07/30/22 13:59 Sodium 134 L Potassium 4.0 Chloride 100 Carbon Dioxide 27 BUN 22 Creatinine 1.03 Glucose 272 H Calcium 9.2 Liver Function 07/30/22 Range/Units 13:59 Total Bilirubin 0.5 (0.2-1.0) mg/dl AST 16 (13-39) U/L ALT 18 (7-52) U/L Alkaline Phosphatase 55 (34-104) U/L Albumin 3.6 (3.4-5.0) gm/dl Urine 07/30/22 Range/Units 15:51 Urine Color Yellow Urine Appearance Clear (Clear) Urine pH 5.5 (4.5-7.5) Ur Specific Gay[place] > 1.045 H (1.000-1.030) Urine Protein Negative (Negative) Urine Glucose (UA) 1+ H (Negative) Diagnostic Findings Chest X-Ray 07/30/22 13:34 XR chest 1V portable HISTORY: 66 years-old Male neuro deficit, acute stroke suspected acute strokelike symptoms COMPARISON: 04/13/2021 TECHNIQUE: AP view of the chest FINDINGS: Cardiac mediastinal and hilar silhouettes are within normal limits. No pneumothorax, pleural effusion, airspace consolidation or overt pulmonary edema. Unchanged mild right diaphragmatic elevation. Bones appear grossly intact. IMPRESSION: No acute process. ACT 112: Negative or not required by law. The above report was generated using voice recognition software. It may contain grammatical, syntax or spelling errors. Electronically signed by: Tom Cramer M.D. 07/30/2022 2:[address] 07/30/22 13:34 CT angio neck with con, CT head/brain wo con, CT angio head w con CLINICAL HISTORY: neuro deficit, acute stroke suspected left hand and wrist numbness, facial numbness and tingling. TECHNIQUE: Contiguous axial CT images of the head were acquired from the base of the skull to the vertex without intravenous contrast administration. CT angiography of the head and neck was performed following intravenous administration of iodinated contrast. Coronal and sagittal MIPS were obtained from the axial data set and were submitted for review. Automated dose lowering techniques and/or adjustment according to patient size were utilized for this examination. All measurements were calculated based on NASCET criteria. CT DOSE: 1361.74 mGy.cm Comparison: None available at the time of this dictation. FINDINGS: CT head: There is no acute intracranial hemorrhage or evidence of acute territorial infarction. No shift of the midline structures, mass effect, or extra-axial abnormalities are shown. Lungs and soft tissues are unremarkable. CTA Neck: A 3 vessel aortic arch is shown. There is no significant atherosclerotic plaque in the aortic arch or the origins of the innominate, left common carotid, and left subclavian arteries. There is atherosclerotic narrowing of the common carotid artery on the left which does not appear to be hemodynamically significant although greater than 50% stenosis is noted. Nonhemodynamically significant stenosis is noted in the bilateral vertebral arteries. Vertebral arteries appear codominant. CTA Head: The anterior and posterior cerebral circulations are patent. No hemodynamically significant stenosis, aneurysm, dissection, or arteriovenous malformation is shown. IMPRESSION: 1. No acute intracranial hemorrhage, evidence of acute territorial infarction, or other acute intracranial disease process. 2. Nonhemodynamically significant stenosis is seen in the left common carotid artery in bilateral vertebral arteries. 3. No occlusion, hemodynamically significant stenosis, aneurysm, dissection, or arteriovenous malformation in the major intracranial arteries. Assessment of stenosis of the internal carotid arteries is based on NASCET criteria. ACT 112: Negative or not required by law. Electronically signed by: Elder Francis M.D. 07/30/2022 2:08 PM Head CTA 07/30/22 13:34 CT angio neck with con, CT head/brain wo con, CT angio head w con CLINICAL HISTORY: neuro deficit, acute stroke suspected left hand and wrist numbness, facial numbness and tingling. TECHNIQUE: Contiguous axial CT images of the head were acquired from the base of the skull to the vertex without intravenous contrast administration. CT angiography of the head and neck was performed following intravenous administration of iodinated contrast. Coronal and sagittal MIPS were obtained from the axial data set and were submitted for review. Automated dose lowering techniques and/or adjustment according to patient size were utilized for this examination. All measurements were calculated based on NASCET criteria. CT DOSE: 1361.74 mGy.cm Comparison: None available at the time of this dictation. FINDINGS: CT head: There is no acute intracranial hemorrhage or evidence of acute territorial infarction. No shift of the midline structures, mass effect, or extra-axial abnormalities are shown. Lungs and soft tissues are unremarkable. CTA Neck: A 3 vessel aortic arch is shown. There is no significant atherosclerotic plaque in the aortic arch or the origins of the innominate, left common carotid, and left subclavian arteries. There is atherosclerotic narrowing of the common carotid artery on the left which does not appear to be hemodynamically significant although greater than 50% stenosis is noted. Nonhemodynamically significant stenosis is noted in the bilateral vertebral arteries. Vertebral arteries appear codominant. CTA Head: The anterior and posterior cerebral circulations are patent. No hemodynamically significant stenosis, aneurysm, dissection, or arteriovenous malformation is shown. IMPRESSION: 1. No acute intracranial hemorrhage, evidence of acute territorial infarction, or other acute intracranial disease process. 2. Nonhemodynamically significant stenosis is seen in the left common carotid artery in bilateral vertebral arteries. 3. No occlusion, hemodynamically significant stenosis, aneurysm, dissection, or arteriovenous malformation in the major intracranial arteries. Assessment of stenosis of the internal carotid arteries is based on NASCET criteria. ACT 112: Negative or not required by law. Electronically signed by: Elder Francis M.D. 07/30/2022 2:08 PM Neck CTA 07/30/22 13:34 CT angio neck with con, CT head/brain wo con, CT angio head w con CLINICAL HISTORY: neuro deficit, acute stroke suspected left hand and wrist numbness, facial numbness and tingling. TECHNIQUE: Contiguous axial CT images of the head were acquired from the base of the skull to the vertex without intravenous contrast administration. CT angiography of the head and neck was performed following intravenous administrat ion of iodinated contrast. Coronal and sagittal MIPS were obtained from the axial data set and were submitted for review. Automated dose lowering techniques and/or adjustment according to patient size were utilized for this examination. All measurements were calculated based on NASCET criteria. CT DOSE: 1361.74 mGy.cm Comparison: None available at the time of this dictation. FINDINGS: CT head: There is no acute intracranial hemorrhage or evidence of acute territorial infarction. No shift of the midline structures, mass effect, or extra-axial abnormalities are shown. Lungs and soft tissues are unremarkable. CTA Neck: A 3 vessel aortic arch is shown. There is no significant atherosclerotic plaque in the aortic arch or the origins of the innominate, left common carotid, and left subclavian arteries. There is atherosclerotic narrowing of the common carotid artery on the left which does not appear to be hemodynamically significant although greater than 50% stenosis is noted. Nonhemodynamically significant stenosis is noted in the bilateral vertebral arteries. Vertebral arteries appear codominant. CTA Head: The anterior and posterior cerebral circulations are patent. No hemodynamically significant stenosis, aneurysm, dissection, or arteriovenous malformation is shown. IMPRESSION: 1. No acute intracranial hemorrhage, evidence of acute territorial infarction, or other acute intracranial disease process. 2. Nonhemodynamically significant stenosis is seen in the left common carotid artery in bilateral vertebral arteries. 3. No occlusion, hemodynamically significant stenosis, aneurysm, dissection, or arteriovenous malformation in the major intracranial arteries. Assessment of stenosis of the internal carotid arteries is based on NASCET criteria. ACT 112: Negative or not required by law. Electronically signed by: Elder Francis M.D. 07/30/2022 2:08 PM ECG Additional Comments: ECG reviewed- NSR at 65bpm, LAFB. No significant changes from previous Code Status & VTE Plan VTE Prophylaxis Plan VTE Prophylaxis will be ordered: Yes Supervising Physician Co-Signing Physician Notes I have seen and examined the patient and have discussed the case with the provider above. I agree with the assessment and plan as stated. 66 yo M with left hand/ulnar distal left extremity tingling and left facial tingling that is associated with a headache, improved but not fully gone. He otherwise denies other stroke symptoms, recent viral illnesses, headaches in the past that are significant. Intermittent atypical chest pain reported with breathing cold air which is being worked up as outpatient and is curently not present. CT studies, labs, EKG reviewed. My exam reflects that listed above. Patient is ambulating and mentating at baseline. Discussed plan for MRI overnight with patient and daughter. 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 Verbalized understanding with plan for close PCP followup to discuss further. DO Daryl
[2022-07-30] MEDS ORDERED: tiZANidine HCL 4 MG TABLET PO PRN (17:33)
[2022-07-30] MEDS ORDERED: PHARMACY GLYCEMIC MGMT CONSULT PRN (18:23)
[2022-07-30] MEDS ORDERED: CARBOHYDRATES FOR HYPOGLYCEMIA PO PRN ×2 (19:49→21:15)
[2022-07-30] MEDS ORDERED: PHARMACIST DISCHARGE MED REC CONSULT PRN (19:49)
[2022-07-30] MEDS ORDERED: POLYETHYLENE (MIRALAX) 17 GM PACK PO PRN (19:49)
[2022-07-30] MEDS ORDERED: GLUCOSE 40% GEL 15 GM TUBE PO PRN ×2 (19:49→21:15)
[2022-07-30] MEDS ORDERED: ONDANSETRON INJ 2 MG/ML 2 ML VIAL IV PRN (19:49)
[2022-07-30] MEDS ORDERED: GLUCAGON FOR INJ 1 MG VIAL SQ PRN (19:49)
[2022-07-30] MEDS ORDERED: GLUCOSE 10 TAB/TUBE PO PRN ×2 (19:49→21:15)
[2022-07-30] MEDS ORDERED: DEXTROSE 50% 50 ML SYRINGE IV PRN ×2 (19:49→21:15)
[2022-07-30] MEDS ORDERED: GLUCAGON FOR INJ 1 MG VIAL IM PRN (21:15)
[2022-07-30] MEDS ORDERED: LANTUS PER UNIT CHARGE SQ ONE (21:15)
[2022-07-30] MEDS ORDERED: LANTUS PER UNIT CHARGE SQ SCH (21:15)
[2022-07-30] MEDS: MAGNESIUM SULFATE / D5W 1 GM/100 ML BAG IV SCH (21:52)
[2022-07-30] MEDS: ATORVASTATIN 40 MG TAB PO SCH (21:55)
[2022-07-30] MEDS: TAMSULOSIN HCL 0.4 MG CAP PO SCH (21:55)
[2022-07-30] MEDS: HEPARIN SOD 5,000 UNIT/0.5 ML VIAL SQ SCH (21:55)
[2022-07-30] MEDS: INSULIN ASPART PER UNIT CHARGE SC SCH (23:27)
[2022-07-31] MEDS ORDERED: GADOBUTROL 65ML VIAL IV ONE (00:09)
[2022-07-31] MEDS: MAGNESIUM SULFATE / D5W 1 GM/100 ML BAG IV SCH (01:03)
[2022-07-31 02:38] LABS: Hematocrit (blood only) 36.5 % (42.0-52.0); Hemoglobin 12.1 g/dl (14.0-18.0); Mean Corpuscular Hemoglobin 27.1 pg (25.0-34.0); Mean Corpuscular Hgb Conc 33.2 g/dL (32.0-36.0); Mean Corpuscular Volume 81.7 fL (80.0-100.0); Mean Platelet Volume 10.7 fL (9.4-12.4); Platelet Count 294 K/uL (130-400); RDW Coefficient of Variation 13.5 % (11.5-14.5); RDW Standard Deviation 39.9 fL (36.4-46.3); Red Blood Count 4.47 M/uL (4.70-6.10)
[2022-07-31 02:48] LABS: BUN Creatinine Ratio 20.8 (10-20); Calcium 9.1 mg/dl (8.5-10.1); Chol HDL Ratio 3.5 (0-5); Creatinine Clr Calc Pharmacy 97.7 ml/min; Est GFR (African American) 88.8 ml/min; Est GFR (Non-African American) 76.6 ml/min; Potassium 3.7 mmol/L (3.5-5.1)
--- NOTE | 2022-07-31 03:45 | Magnetic Resonance Report ---
Exam(s): MRI HEAD W/WO Contrast IV Amt: 13cc gadavist EXAM: MR Head Without and With Intravenous Contrast CLINICAL HISTORY: Reason for exam: L facial droop and LUE numbness. TECHNIQUE: Magnetic resonance images of the head/brain without and with intravenous contrast in multiple planes. CONTRAST: Patient received 13cc gadavist of IV contrast COMPARISON: No relevant prior studies available. FINDINGS: Brain: Abnormal patchy and confluent T2 signal in the deep cerebral white matter is consistent with small vessel ischemic/degenerative changes. The cerebral and cerebellar sulci are prominent consistent with brain atrophy. No hemorrhage. No evidence of restricted diffusion to suggest an acute ischemic process. Ventricles: Unremarkable. No ventriculomegaly. Bones/joints: No abnormal enhancement. If there is further concern for metastatic disease, consider postcontrast volumetric T1-weighted imaging. Sinuses: Paranasal sinus mucosal thickening. Mastoid air cells: Unremarkable as visualized. No mastoid effusion. Orbits: Right lens replacement. IMPRESSION: 1. No evidence of restricted diffusion to suggest an acute ischemic process. 2. No abnormal enhancement. If there is further concern for metastatic disease, consider postcontrast volumetric T1-weighted imaging. 3. Small vessel ischemic/degenerative changes. 4. Cerebral and cerebellar atrophy. Electronically signed by: Nilson Banks MD 07/31/22 03:44 AM
[2022-07-31] MEDS: ACETAMINOPHEN 325 MG TAB PO PRN ×2 (03:47→17:27)
[2022-07-31] MEDS: INSULIN ASPART PER UNIT CHARGE SC SCH ×5 (04:11→20:58)
[2022-07-31] MEDS: SODIUM CHLORIDE 0.9% 500 ML IV SCH ×4 (04:47→16:37)
[2022-07-31] MEDS: HEPARIN SOD 5,000 UNIT/0.5 ML VIAL SQ SCH ×3 (06:21→21:06)
[2022-07-31 07:40] LABS: Estimated Average Glucose 220 mg/dl; Hemoglobin A1C 9.3 % (4.5-5.6)
[2022-07-31] MEDS: FINASTERIDE 5 MG TAB PO SCH (08:28)
[2022-07-31] MEDS: ASPIRIN 81 MG ECTAB PO SCH (08:28)
[2022-07-31] MEDS: METOPROLOL SUCC 50MG EXT REL TAB PO SCH (08:29)
[2022-07-31] MEDS: LANTUS PER UNIT CHARGE SQ SCH ×2 (09:33→21:30)
--- NOTE | 2022-07-31 10:08 | Neurology Consultation ---
Date of Consultation July 31, 2022 Assessment & Plan (1) TIA (transient ischemic attack): Plan 66-year-old male with a history of poorly controlled diabetes mellitus, hypertension, dyslipidemia, presenting with transient left face and arm numbness potentially consistent with TIA localizing to the right cerebral hemisphere. No associated weakness or hemiparesis. Symptoms are resolved at this morning. No evidence of significant vascular lesion on CT angiography of the head and neck. No evidence of acute or subacute stroke on MRI although does have fairly extensive chronic small vessel ischemic disease as well as a few chronic lacunar infarcts within the right cerebral hemisphere. Note the patient also has some distal sensory loss and diminished deep tendon reflexes on neurologic examination probably consistent with a diabetic peripheral neuropathy. He does not have significant neuropathic pain, however. Given that this patient probably had a TIA, I would recommend adding Plavix to his medication regimen for 3 weeks, dual antiplatelet therapy, aspirin 81 mg/day , Plavix 75 mg/day. Afterwards, however, would transition to Plavix monotherapy, 75 mg/day. Permissive hypertension appropriate acutely, systolic blood pressure goal 140 to 160 mmHg. Further gradual reduction of blood pressure to be done as outpatient, per PCP. Patient's lipids appear to be well controlled, LDL 53 (goal less than 70), would continue with atorvastatin at the current dosage, 40 mg/day. Patient's insulin-dependent diabetes mellitus appears to be suboptimally controlled with a recent hemoglobin A1c of 9.3. He will need ongoing management and monitoring of this chronic problem. Consider obtaining a 30-day mobile cardiac outpatient telemetry. No further immediate recommendations. History of Present Illness Reason for Consultation: stroke? Requesting Physician: Claire Phan PA-C Attending Physician: Madeleine Rosa MD History of Present Illness The patient is a 66-year old male who presented to the emergency department yesterday with a 1 day history of persistent numbness and tingling, primarily affecting the left upper limb, medial aspect, extending to the fourth and fifth digits, but also involving the left side of the face. Also complained of associated headache, no significant neck pain or history of radiculopathy. He denied experiencing any associated weakness, vision disturbance, or change in speech. His symptoms are resolved this morning. He has never had a similar episode previously. He has been hypertensive. History also notable for poorly controlled diabetes mellitus with a recent hemoglobin A1c of 9.3. He takes d aily low-dose aspirin and atorvastatin. A CTA of the head and neck including CT of the head was negative for hemorrhage or acute process or significant vascular lesion. A brain MRI was negative for acute or subacute stroke but did reveal chronic small vessel ischemic disease as well as a few chronic lacunar infarcts within the right cerebral hemisphere per my independent review of the images. A n electrocardiogram revealed a normal sinus rhythm. No known history of atrial fibrillation. Allergies Allergy/AdvReac Type Severity Reaction Status Date / Time No Known Allergies Allergy Verified 06/19/22 13:58 Home Medications Medication Instructions Recorded Confirmed Type atorvastatin 40 mg tablet 40 mg PO HS 06/30/18 07/30/22 History insulin human U-100 NPH-regulr 100 unit subcut QPM PRN DEPENDS ON 06/30/18 07/30/22 History 70-30 mix 100 unit/mL subcutaneous BSG. susp (Novolin 70/30 U-100 Insulin) metformin 850 mg tablet 850 mg PO BID 06/30/18 07/30/22 History triamterene 37.5 1 tab PO HS 06/30/18 07/30/22 History mg-hydrochlorothiazide 25 mg tablet metoprolol succinate 50 mg 50 mg PO QAM 01/22/20 07/30/22 History tablet,extended release 24 hr ibuprofen 200 mg capsule 800 mg PO Q6H PRN Pain 12/29/20 07/30/22 History aspirin 81 mg capsule 81 mg PO QAM 03/29/21 07/30/22 History finasteride 5 mg tablet 5 mg PO QAM #90 tabs 04/27/21 07/30/22 Rx tizanidine 2 mg tablet 2 mg PO HS PRN Muscle Spasm 06/19/22 07/30/22 History dulaglutide 1.5 mg/0.5 mL 1.5 mg subcut WK 07/30/22 07/30/22 History subcutaneous pen injector (Trulicity) tamsulosin 0.4 mg capsule 0.4 mg PO HS 07/30/22 07/30/22 History Patient History Medical History Abdominal hernia Stable Arthritis Atypical chest pain BPH (benign prostatic hyperplasia) Chronic back pain Claustrophobia "DOESN'T LIKE SLEEPING ON HIS BACK" DM II (diabetes mellitus, type II), controlled Glucose fluctuates Dry mouth Chronic Gallstones Found incidentally - no current issues GERD (gastroesophageal reflux disease) UNDER CONTROL History of asthma A CHILD 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 Follows with cardio PRN HLD (hyperlipidemia) Hypertension Lumbar spinal stenosis Morbid obesity with BMI of 45.0-49.9, adult IGOR (obstructive sleep apnea) Cannot tolerate device SOB (shortness of breath) on exertion OVERWEIGHT- CHRONIC AND STABLE Surgical History History of cataract surgery RT History of colonoscopy 2020 History of radiofrequency ablation procedure for cardiac arrhythmia AT AGE 29 History of tonsillectomy History of tooth extraction S/P TURP Family History Other Diabetes Hypertension No family history of adverse response to anesthesia Social History Smoking Status: Never smoker Second Hand Exposure: No; Do You Dip or Chew Tobacco: No; Hx Alcohol Use: No Hx Substance Use: No Preferred Language: Japanese Communication Ability: Effective Dental Financial Coordinator Required: No Beliefs That Will Affect Care: None Current Living Situation: Spouse and Family Current Living Situation Comment: and youngest daughter current occupational status: retired Other Information That Helps Us Care for You: No Feels Safe at Home: Yes Safety Concerns: Feels Safe At This Time Assistive Devices: Cane and Glasses Review of Systems Constitutional: no fever and no chills Eyes: no blind spots and no diplopia Ear, Nose, Mouth, Throat: no hearing loss Respiratory: no cough and no dyspnea Cardiovascular: no chest pain and no palpitations Gastrointestinal: no nausea and no vomiting Genitourinary: no dysuria Musculoskeletal: no neck pain and no myalgia Integumentary: no rash and no lesions Neurologic: as per Subjective / HPI, + paresthesia and + headache(s); no localized weakness, no tremor(s), no seizure-like activity and no syncope Psychiatric: no depression and no anxiety Hematologic / Lymphatic: no easy bleeding and no easy bruising Exam (Neuro) Constitutional: well developed and well nourished; no acute distress Eyes: normal visual montes by confrontation, PERRL, normal accommodation and EOM intact bilaterally; no fundoscopic abnormality, no nystagmus and no papilledema Cardiovascular: Vessels: normal carotid upstroke; no carotid bruit Neurologic: Oriented to:: Person, Place and Time Memory: Short Term Intact and Remote Intact Attention: Span Intact and Concentration Intact Language: Naming Objects and Repeating Phrases Speech Fluency: negative Dysarthria Speech Aphasia: negative Aphasia Fund of Knowledge: Current Events, Past History and Vocabulary Cranial Nerves: Normal II (Visual montes full to confrontation, visual acuity normal), III, IV, (Pupils equal round reactive to light and accommodation, eye movements normal), V (Facial sensation intact), VII (There is no facial droop or weakness), VIII (Hearing intact), IX, X (Palate elevates to midline), XI (Shoulder shrug intact) and XII (Tongue protrudes to midline) Motor Strength: Normal Lower Extremities and Normal Upper Extremities; negative Pronator Drift Motor Tone: Normal Lower Extremities and Normal Upper Extremities Muscle Bulk/Involuntary Movements: No Involuntary Movements; negative Muscle Atrophy Sensation: Light Touch Intact and Proprioception Intact; negative Pain/Temperature Intact or Vibration Intact Coordination: Normal; negative Limited Balance, Dysdiadochokinesia, Finger-Nose Abnormal or Heel-Herbert Abnormal Deep Tendon Reflexes: Rt Triceps: 1+, Lt Triceps: 1+, Rt Biceps: 1+, Lt Biceps: 1+, Rt Brachioradialis: 1+, Lt Brachioradialis: 1+, Rt Patellar: 1+, Lt Patellar: 1+, Rt Ankle: 0 and Lt Ankle: 0 Special Tests: negative Babinski Present Details: Gait not tested at this time. Results & Data Vital Signs (Past 12 Hours) Vital Signs Temp Pulse Pulse Resp BP Pulse Ox O2 Del Method 07/31/22 07:18 60 07/31/22 08:26 81 184/85 H 07/31/22 07:11 36.4 C L 65 16 161/88 H 97 Room Air 07/31/22 03:26 53 L 19 145/78 H 97 Room Air 07/30/22 21:57 62 07/30/22 23:00 64 20 173/84 H 95 Room Air Laboratory Results WBC 10.40, hemoglobin 12.1, hematocrit 36.5, platelet count 294, sodium 137, potassium 3.7, BUN 21, creatinine 1.01, glucose 193, hemoglobin A1c 9.3, magnesium 1.6, AST 16, ALT 18, triglycerides 165, cholesterol 121, LDL 53, VLDL 33, HDL [address] of the head, CT angiography of the head and neck, and brain MRI are as described in the history of present illness, I independently reviewed these images. Electrocardiogram revealed a normal sinus rhythm, 65 bpm. PG Care Time/CCT Total # of Minutes Spent Total Time Spent with Patient: Total time spent is greater than 50% in coordination of care (as documented) at patient's floor/unit and/or counseling patient: Coding Level of Care Code 18172 INT INP/OBS CARE 2/55MIN Diagnoses TIA (transient ischemic attack) G45.9
--- NOTE | 2022-07-31 10:19 | XCELERA ---
[id number]
--- NOTE | 2022-07-31 10:58 | Pharmacy Report ---
- Date of Service July 31, 2022 - Pharmacy CVA/TIA Medication Review Medications to Prevent Stroke handout has been added to the patients discharge packet. Antiplatelet(s) * Aspirin 81 mg PO daily + clopidogrel 75 mg PO daily x 3 weeks, then clopidogrel monotherapy Cholesterol * High intensity statin: atorvastatin 40 mg daily DVT Prophylaxis * Heparin SQ Therapeutic Anticoagulation * No history of Afib/Aflutter noted Type 2 Diabetes * Patient has T2DM and patient is prescribed dulaglutide
--- NOTE | 2022-07-31 11:24 | Hospitalist Progress Note ---
Date of Service July 31, 2022 Assessment & Plan (1) Stroke-like symptoms: (2) DMII (diabetes mellitus, type 2): (3) Hypertension: (4) Dyslipidemia: (5) Chest pain syndrome: (6) BPH (benign prostatic hyperplasia): (7) Lumbar spinal stenosis: Plan This is a 66-year-old male with PMH of uncontrolled type 2 diabetes, dyslipidemia, hypertension, BPH, history of Svjzx-Fwtmyrggc-Xuohf syndrome and other medical problems listed below who presents with headache and strokelike symptoms since yesterday. Transient ischemic attack-no stroke identified Left facial droop LUE sensory changes Headache Strokelike sx for >24 hrs -resolved completely Head CT, CTA head/neck with 1. No acute intracranial hemorrhage, evidence of acute territorial infarction, or other acute intracranial disease process. 2. Non hemodynamically significant stenosis is seen in the left common carotid artery in bilateral vertebral arteries. 3. No occlusion, hemodynamically significant stenosis, aneurysm, dissection, or arteriovenous malformation in the major intracranial arteries. Tpa contraindicated. on call pharmacy technician neurologist recommending admission for further stroke work up given symptoms and risk factors Given aspirin in ED. Continue statin, IV fluids. Routine neurology consult in AM, consider addition of plavix for dual antiplatelet therapy MRI did show small vessel disease and possible lacunar infarct in the right cerebral hemisphere Echo of the heart-showed left ventricular systolic function is normal there is no interatrial shunt with mild mitral annular calcification Lipid profile unremarkable but will continue with atorvastatin Appreciate neurology input and recommendation for aspirin and Plavix for 21 days followed by Plavix alone and continue statin Will have outpatient Holter for 30 days Has been ambulating in the room without any difficulties in moving around He will be discharged home this afternoon DM II Poorly controlled and labile BSGs per chart review and patient A1c 9.3 in Jun 2022 Trilicity dose recently increased, 70/30 insulin decreased to 100u daily - did not take insulin today Currently NPO and awaiting dysphasia screen Glycemic consult placed given h/o variability, currently NPO - discussed with ankita LUND AC HS Diabetes management as per primary care provider as an outpatient HTN BP 152/85. 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 Underwent dobutamine stress test last month in preparation for upcoming back surgery at [facility] and stress test was negative Denies any cardiac symptoms BPH Continue tamsulosin, finasteride Lumbar spine stenosis, chronic back pain Planning for upcoming back surgery. Cont home regimen of PRN tylenol, ibuprofen, tizanidine DVT Ppx: SQ heparin Code status: FULL PCP: Oestermauricio Dispo: Will be discharged home this afternoon Admission and Anticipated Discharge Date Admission Date: July 30, 2022 Subjective 07/31/2022 The patient was seen and examined in telemetry unit He has had strokelike symptoms which have resolved completely He has been ambulating in the room without any difficulties Denies any significant symptoms Review of Systems Review of Systems: All systems reviewed and are unremarkable except as noted below Neurologic: No neurological deficit Physical Exam Physical Exam: Sitting on a chair without any acute distress Constitutional: well developed, well nourished and + obese; not ill appearing Eyes: PERRL, conjunctivae normal, anicteric sclerae ENMT: external ear and nose normal, oropharynx normal Neck: trachea midline, no thyromegaly Respiratory: no respiratory distress Auscultation: lungs clear to auscultation bilaterally Cardiovascular: Rate/Rhythm: regular rate and regular rhythm; not tachycardic Heart Sounds: normal S1 and normal S2; no murmur Extremities: + edema (Trace edema bilaterally) Gastrointestinal (Abdomen): Inspection/Auscultation: normal bowel sounds; a bdomen not distended Percussion/Palpation: abdomen soft; abdomen nontender Musculoskeletal: No acute arthritis involving any joint Neurologic: normal touch/pain/proprioception and moves all extremities; no focal motor deficits No facial asymmetry no problem with speech and/or swallowing Psychiatric: A+Ox3, euthymic affect Lymphatic: no cervical or axillary lymphadenopathy Results & Data Results & Data Vital Signs (Past 12 Hours) Vital Signs Temp Pulse Pulse Resp BP Pulse Ox O2 Del Method 07/31/22 07:18 60 07/31/22 08:26 81 184/85 H 07/31/22 07:11 36.4 C L 65 16 161/88 H 97 Room Air 07/31/22 03:26 53 L 19 145/78 H 97 Room Air Laboratory Results Short CBC 07/30/22 07/31/22 Range/Units 13:59 02:17 WBC 11.09 H 10.40 (4.8-10.8) K/ul Hgb 12.4 L 12.1 L (14.0-18.0) g/dl Hct 38.3 L 36.5 L (42.0-52.0) % Plt Count 324 294 (130-400) K/uL BMP 07/30/22 07/31/22 13:59 02:17 Sodium 134 L 137 Potassium 4.0 3.7 Chloride 100 103 Carbon Dioxide 27 25 BUN 22 21 Creatinine 1.03 1.01 Glucose 272 H 193 H Calcium 9.2 9.1 Liver Function 07/30/22 Range/Units 13:59 Total Bilirubin 0.5 (0.2-1.0) mg/dl AST 16 (13-39) U/L ALT 18 (7-52) U/L Alkaline Phosphatase 55 (34-104) U/L Albumin 3.6 (3.4-5.0) gm/dl Urine 07/30/22 Range/Units 15:51 Urine Color Yellow Urine Appearance Clear (Clear) Urine pH 5.5 (4.5-7.5) Ur Specific Kellogg > 1.045 H (1.000-1.030) Urine Protein Negative (Negative) Urine Glucose (UA) 1+ H (Negative) Diagnostic Findings Laboratory Results WBC 10.40 K/ul (4.8-10.8) 07/31/22 02:17 RBC 4.47 M/uL (4.70-6.10) L 07/31/22 02:17 Hgb 12.1 g/dl (14.0-18.0) L 07/31/22 02:17 Hct 36.5 % (42.0-52.0) L 07/31/22 02:17 MCV 81.7 fL (80.0-100.0) 07/31/22 02:17 MCH 27.1 pg (25.0-34.0) 07/31/22 02:17 MCHC 33.2 g/dL (32.0-36.0) 07/31/22 02:17 RDW Std Deviation 39.9 fL (36.4-46.3) 07/31/22 02:17 RDW Coeff of Henrry 13.5 % (11.5-14.5) 07/31/22 02:17 Plt Count 294 K/uL (130-400) 07/31/22 02:17 MPV 10.7 fL (9.4-12.4) 07/31/22 02:17 Immature Gran % (Auto) 0.5 % 07/30/22 13:59 Neut % (Auto) 67.3 % 07/30/22 13:59 Lymph % (Auto) 22.5 % 07/30/22 13:59 Shelby % (Auto) 6.4 % 07/30/22 13:59 Eos % (Auto) 2.5 % 07/30/22 13:59 Baso % (Auto) 0.8 % 07/30/22 13:59 Neut # (Auto) 7.47 K/uL (1.40-6.50) H 07/30/22 13:59 Lymph # (Auto) 2.49 K/uL (1.2-3.4) 07/30/22 13:59 Shelby # (Auto) 0.71 K/uL (0.11-0.59) H 07/30/22 13:59 Eos # (Auto) 0.28 K/uL (0-0.50) 07/30/22 13:59 Baso # (Auto) 0.09 K/uL (0-0.2) 07/30/22 13:59 Immature Gran # (Auto) 0.05 K/uL (0.01-0.20) 07/30/22 13:59 PT 11.8 Seconds (9.0-12.0) 07/30/22 13:59 INR 1.1 (0.9-1.1) 07/30/22 13:59 APTT 26.5 Seconds (21.0-31.0) 07/30/22 13:59 PTT Ratio 1.0 07/30/22 13:59 Sodium 137 mmol/L (136-145) 07/31/22 02:17 Potassium 3.7 mmol/L (3.5-5.1) 07/31/22 02:17 Chloride 103 mmol/L (98-107) 07/31/22 02:17 Carbon Dioxide 25 mmol/L (21-32) 07/31/22 02:17 Anion Gap 9 (3-11) 07/31/22 02:17 BUN 21 mg/dl (6-23) 07/31/22 02:17 Creatinine 1.01 mg/dl (0.6-1.4) 07/31/22 02:17 Est Cr Clr Drug Dosing 97.7 ml/min 07/31/22 02:17 Est GFR ( Amer) 88.8 ml/min 07/31/22 02:17 Est GFR (Non-Af Amer) 76.6 ml/min 07/31/22 02:17 BUN/Creatinine Ratio 20.8 (10-20) H 07/31/22 02:17 Glucose 193 mg/dl (70-99(Fasting)) H 07/31/22 02:17 POC Glucose 174 mg/dl (70-99) H 07/31/22 07:32 Estimat Average Glucose 220 mg/dl 07/31/22 02:17 Hemoglobin A1c 9.3 % (4.5-5.6) H 07/31/22 02:17 Calcium 9.1 mg/dl (8.5-10.1) 07/31/22 02:17 Magnesium 1.6 mg/dl (1.7-2.4) L 07/30/22 13:59 Total Bilirubin 0.5 mg/dl (0.2-1.0) 07/30/22 13:59 AST 16 U/L (13-39) 07/30/22 13:59 ALT 18 U/L (7-52) 07/30/22 13:59 Alkaline Phosphatase 55 U/L (34-104) 07/30/22 13:59 Troponin I High Sens 31.5 pg/ml (0-20) H 07/31/22 02:17 Total Protein 6.8 gm/dl (6.0-8.3) 07/30/22 13:59 Albumin 3.6 gm/dl (3.4-5.0) 07/30/22 13:59 Globulin 3.2 gm/dl (2.5-4.0) 07/30/22 13:59 Albumin/Globulin Ratio 1.1 (0.9-2) 07/30/22 13:59 Triglycerides 165 mg/dl (0-150) H 07/31/22 02:17 Cholesterol 121 mg/dl (0-200) 07/31/22 02:17 LDL Cholesterol, Calc 53 mg/dl 07/31/22 02:17 VLDL Cholesterol, Calc 33 mg/dl (0-30) H 07/31/22 02:17 HDL Cholesterol 35 mg/dl 07/31/22 02:17 Cholesterol/HDL Ratio 3.5 (0-5) 07/31/22 02:17 Urine Color Yellow 07/30/22 15:51 Urine Appearance Clear (Clear) 07/30/22 15:51 Urine pH 5.5 (4.5-7.5) 07/30/22 15:51 Ur Specific Kellogg > 1.045 (1.000-1.030) H 07/30/22 15:51 Urine Protein Negative (Negative) 07/30/22 15:51 Urine Glucose (UA) 1+ (Negative) H 07/30/22 15:51 Urine Ketones Negative (Negative) 07/30/22 15:51 Urine Blood Negative (Negative) 07/30/22 15:51 Urine Nitrite Negative (Negative) 07/30/22 15:51 Urine Bilirubin Negative (Negative) 07/30/22 15:51 Urine Urobilinogen Negative (Negative) 07/30/22 15:51 Ur Leukocyte Esterase Negative (Negative) 07/30/22 15:51 SARS-CoV-2, RNA, NAAT NEGATIVE (NEGATIVE) 07/30/22 15:50 Impressions Chest X-Ray 07/30/22 13:34 XR chest 1V portable HISTORY: 66 years-old Male neuro deficit, acute stroke suspected acute strokelike symptoms COMPARISON: 04/13/2021 TECHNIQUE: AP view of the chest FINDINGS: Cardiac mediastinal and hilar silhouettes are within normal limits. No pneumothorax, pleural effusion, airspace consolidation or overt pulmonary edema. Unchanged mild right diaphragmatic elevation. Bones appear grossly intact. IMPRESSION: No acute process. ACT 112: Negative or not required by law. The above report was generated using voice recognition software. It may contain grammatical, syntax or spelling errors. Electronically signed by: Tom Cramer M.D. 07/30/2022 2:[address] 07/30/22 13:34 CT angio neck with con, CT head/brain wo con, CT angio head w con CLINICAL HISTORY: neuro deficit, acute stroke suspected left hand and wrist numbness, facial numbness and tingling. TECHNIQUE: Contiguous axial CT images of the head were acquired from the base of the skull to the vertex without intravenous contrast administration. CT angiography of the head and neck was performed following intravenous administration of iodinated contrast. Coronal and sagittal MIPS were obtained from the axial data set and were submitted for review. Automated dose lowering techniques and/or adjustment according to patient size were utilized for this examination. All measurements were calculated based on NASCET criteria. CT DOSE: 1361.74 mGy.cm Comparison: None available at the time of this dictation. FINDINGS: CT head: There is no acute intracranial hemorrhage or evidence of acute territorial infarction. No shift of the midline structures, mass effect, or extra-axial abnormalities are shown. Lungs and soft tissues are unremarkable. CTA Neck: A 3 vessel aortic arch is shown. There is no significant atherosclerotic plaque in the aortic arch or the origins of the innominate, left common carotid, and left subclavian arteries. There is atherosclerotic narrowing of the common carotid artery on the left which does not appear to be hemodynamically significant although greater than 50% stenosis is noted. N onhemodynamically significant stenosis is noted in the bilateral vertebral arteries. Vertebral arteries appear codominant. CTA Head: The anterior and posterior cerebral circulations are patent. No hemodynamically significant stenosis, aneurysm, dissection, or arteriovenous malformation is shown. IMPRESSION: 1. No acute intracranial hemorrhage, evidence of acute territorial infarction, or other acute intracranial disease process. 2. Nonhemodynamically significant stenosis is seen in the left common carotid artery in bilateral vertebral arteries. 3. No occlusion, hemodynamically significant stenosis, aneurysm, dissection, or arteriovenous malformation in the major intracranial arteries. Assessment of stenosis of the internal carotid arteries is based on NASCET criteria. ACT 112: Negative or not required by law. Electronically signed by: Elder Francis M.D. 07/30/2022 2:08 PM Head CTA 07/30/22 13:34 CT angio neck with con, CT head/brain wo con, CT angio head w con CLINICAL HISTORY: neuro deficit, acute stroke suspected left hand and wrist numbness, facial numbness and tingling. TECHNIQUE: Contiguous axial CT images of the head were acquired from the base of the skull to the vertex without intravenous contrast administration. CT angiography of the head and neck was performed following intravenous administration of iodinated contrast. Coronal and sagittal MIPS were obtained from the axial data set and were submitted for review. Automated dose lowering techniques and/or adjustment according to patient size were utilized for this examination. All measurements were calculated based on NASCET criteria. CT DOSE: 1361.74 mGy.cm Comparison: None available at the time of this dictation. FINDINGS: CT head: There is no acute intracranial hemorrhage or evidence of acute territorial infarction. No shift of the midline structures, mass effect, or extra-axial abnormalities are shown. Lungs and soft tissues are unremarkable. CTA Neck: A 3 vessel aortic arch is shown. There is no significant atherosclerotic plaque in the aortic arch or the origins of the innominate, left common carotid, and left subclavian arteries. There is atherosclerotic narrowing of the common carotid artery on the left which does not appear to be hemodynamically significant although greater than 50% stenosis is noted. Nonhemodynamically significant stenosis is noted in the bilateral vertebral arteries. Vertebral arteries appear codominant. CTA Head: The anterior and posterior cerebral circulations are patent. No hemodynamically significant stenosis, aneurysm, dissection, or arteriovenous malformation is shown. IMPRESSION: 1. No acute intracranial hemorrhage, evidence of acute territorial infarction, or other acute intracranial disease process. 2. Nonhemodynamically significant stenosis is seen in the left common carotid artery in bilateral vertebral arteries. 3. No occlusion, hemodynamically significant stenosis, aneurysm, dissection, or arteriovenous malformation in the major intracranial arteries. Assessment of stenosis of the internal carotid arteries is based on NASCET criteria. ACT 112: Negative or not required by law. Electronically signed by: Elder Francis M.D. 07/30/2022 2:08 PM Neck CTA 07/30/22 13:34 CT angio neck with con, CT head/brain wo con, CT angio head w con CLINICAL HISTORY: neuro deficit, acute stroke suspected left hand and wrist numbness, facial numbness and tingling. TECHNIQUE: Contiguous axial CT images of the head were acquired from the base of the skull to the vertex without intravenous contrast administration. CT angiography of the head and neck was performed following intravenous administration of iodinated contrast. Coronal and sagittal MIPS were obtained from the axial data set and were submitted for review. Automated dose lowering techniques and/or adjustment according to patient size were utilized for this examination. All measurements were calculated based on NASCET criteria. CT DOSE: 1361.74 mGy.cm Comparison: None available at the time of this dictation. FINDINGS: CT head: There is no acute intracranial hemorrhage or evidence of acute territorial infarction. No shift of the midline structures, mass effect, or extra-axial abnormalities are shown. Lungs and soft tissues are unremarkable. CTA Neck: A 3 vessel aortic arch is shown. There is no significant atherosclerotic plaque in the aortic arch or the origins of the innominate, left common carotid, and left subclavian arteries. There is atherosclerotic narrowing of the common carotid artery on the left which does not appear to be hemodynamically significant although greater than 50% stenosis is noted. Nonhemodynamically significant stenosis is noted in the bilateral vertebral arteries. Vertebral arteries appear codominant. CTA Head: The anterior and posterior cerebral circulations are patent. No hemodynamically significant stenosis, aneurysm, dissection, or arteriovenous malformation is shown. IMPRESSION: 1. No acute intracranial hemorrhage, evidence of acute territorial infarction, or other acute intracranial disease process. 2. Nonhemodynamically significant stenosis is seen in the left common carotid artery in bilateral vertebral arteries. 3. No occlusion, hemodynamically significant stenosis, aneurysm, dissection, or arteriovenous malformation in the major intracranial arteries. Assessment of stenosis of the internal carotid arteries is based on NASCET criteria. ACT 112: Negative or not required by law. Electronically signed by: Elder Francis M.D. 07/30/2022 2:08 PM Brain MRI 07/30/22 16:04 Exam(s): MRI HEAD W/WO Contrast IV Amt: 13cc gadavist EXAM: MR Head Without and With Intravenous Contrast CLINICAL HISTORY: Reason for exam: L facial droop and LUE numbness. TECHNIQUE: Magnetic resonance images of the head/brain without and with intravenous contrast in multiple planes. CONTRAST: Patient received 13cc gadavist of IV contrast COMPARISON: No relevant prior studies available. FINDINGS: Brain: Abnormal patchy and confluent T2 signal in the deep cerebral white matter is consistent with small vessel ischemic/degenerative changes. The cerebral and cerebellar sulci are prominent consistent with brain atrophy. No hemorrhage. No evidence of restricted diffusion to suggest an acute ischemic process. Ventricles: Unremarkable. No ventriculomegaly. Bones/joints: No abnormal enhancement. If there is further concern for metastatic disease, consider postcontrast volumetric T1-weighted imaging. Sinuses: Paranasal sinus mucosal thickening. Mastoid air cells: Unremarkable as visualized. No mastoid effusion. Orbits: Right lens replacement. IMPRESSION: 1. No evidence of restricted diffusion to suggest an acute ischemic process. 2. No abnormal enhancement. If there is further concern for metastatic disease, consider postcontrast volumetric T1-weighted imaging. 3. Small vessel ischemic/degenerative changes. 4. Cerebral and cerebellar atrophy. Electronically signed by: Nilson Banks MD 07/31/22 03:44 AM Medications Administered Current Inpatient Medications Acetaminophen (Acetaminophen 325 Mg Tab) 650 mg PO Q4H PRN PRN Reason: Pain or Fever Stop: 08/29/22 19:48 Last Admin: 07/31/22 03:47 Dose: 650 mg Aspirin (Aspirin 81 Mg Ectab) 81 mg PO QAM [facility] Stop: 08/30/22 08:59 Last Admin: 07/31/22 08:28 Dose: 81 mg Atorvastatin Calcium (Atorvastatin 40 Mg Tab) 40 mg PO HS [facility] Stop: 08/29/22 20:59 Last Admin: 07/30/22 21:55 Dose: 40 mg Clopidogrel Bisulfate (Clopidogrel Bisulfate 75 Mg Tab) 75 mg PO DAILY [facility] Stop: 08/30/22 11:14 Dextrose (Dextrose 50% 50 Ml Syringe) 25 - 50 ml IV UD PRN; Protocol PRN Reason: Hypoglycemia Protocol Stop: 08/29/22 19:48 Finasteride (Finasteride 5 Mg Tab) 5 mg PO QAM [facility] Stop: 08/30/22 08:59 Last Admin: 07/31/22 08:28 Dose: 5 mg Glucagon (Glucagon For Inj 1 Mg Vial) 1 mg SQ UD PRN; Protocol PRN Reason: Hypoglycemia Protocol Stop: 08/29/22 19:48 Glucose (Glucose 10 Tab/Tube) 4 - 8 tab PO UD PRN; Protocol PRN Reason: Hypoglycemia Treatment Stop: 08/29/22 19:48 Glucose (Glucose 40% Gel 15 Gm Tube) 15 - 30 gm PO UD PRN; Protocol PRN Reason: Hypoglycemia Protocol Stop: 08/29/22 19:48 Heparin Sodium (Porcine) (Heparin Sod 5,000 Unit/0.5 Ml Vial) 5,000 units SQ Q8 [facility] Stop: 08/29/22 21:59 Last Admin: 07/31/22 06:21 Dose: 5,000 units Sodium Chloride (Nss) 500 mls @ 80 mls/hr IV .[id number] [facility] Stop: 08/29/22 15:14 Last Admin: 07/31/22 11:03 Dose: Not Given Insulin Aspart (Insulin Aspart Per Unit) 0 units SC Q4 [facility] Stop: 08/30/22 00:00 Last Admin: 07/31/22 08:20 Dose: 9 units Insulin Glargine (Lantus Per Unit Charge) 15 units SQ BID [facility] Stop: 08/30/22 08:59 Last Admin: 07/31/22 09:33 Dose: 15 units Metoprolol Succinate (Metoprolol Succ 50mg Ext Rel Tab) 50 mg PO QAM [facility] Stop: 08/30/22 08:59 Last Admin: 07/31/22 08:29 Dose: 50 mg Miscellaneous (Carbohydrates For Hypoglycemia ) 15 - 30 gm PO UD PRN PRN Reason: Hypoglycemia Protocol Stop: 08/29/22 19:48 Miscellaneous Information (Pharmacy Glycemic Mgmt Consult) 1 each N/A UD PRN; Protocol PRN Reason: Consult Stop: 08/29/22 18:22 Miscellaneous Information (Pharmacist Discharge Med Rec Consult) 1 each N/A UD PRN PRN Reason: Consult Stop: 08/29/22 19:48 Ondansetron HCl (Ondansetron Inj 2 Mg/Ml 2 Ml Vial) 4 mg IV Q6H PRN PRN Reason: Nausea Stop: 08/29/22 19:48 Polyethylene Glycol (Polyethylene (Miralax) 17 Gm Pack) 17 gm PO DAILY PRN PRN Reason: Constipation Stop: 08/29/22 19:48 Tamsulosin HCl (Tamsulosin Hcl 0.4 Mg Cap) 0.4 mg PO HS [facility] Stop: 08/29/22 20:59 Last Admin: 07/30/22 21:55 Dose: 0.4 mg Tizanidine HCl (Tizanidine Hcl 4 Mg Tablet) 2 mg PO HS PRN PRN Reason: Muscle Spasm Stop: 08/29/22 17:32 Triamterene/Hydrochlorothiazide (Triamterene/Hctz 37.5/25mg Tab) 1 tab PO HS [facility] Stop: 08/30/22 20:59
[2022-07-31] MEDS: CLOPIDOGREL BISULFATE 75 MG TAB PO SCH (12:02)
[2022-07-31] MEDS: amLODIPine BESYLATE 5 MG TAB PO SCH (13:22)
--- NOTE | 2022-07-31 14:00 | Pharmacy Report ---
Pharmacy Glycemic Short Note 2 - Date of Service July 31, 2022 - Glycemic Short BSG Results (Last 24 hours): 07/30/22 07/30/22 07/30/22 13:59 18:03 20:51 Glucose 272 H POC Glucose 139 H 180 H 07/31/22 07/31/22 07/31/22 02:17 04:03 06:12 Glucose 193 H POC Glucose 143 H 150 H 07/31/22 07/31/22 07:32 11:43 Glucose POC Glucose 174 H 188 H OUTPATIENT ANTIDIABETIC REGIMEN: * Novolin 70/30, 100 units daily * Metformin 850 mg PO BID * Trulicity 1.5mg SQ weekly ASSESSMENT: * Mr Guevara is a 66 year old male with type 2 diabetes who presented to [facility] ED 07/30/22 for stroke workup. Pharmacy has been consulted to manage the glycemic control of this patient. Per provider, the patient did not take any insulin prior to presentation. * Patient was given 20 units of Lantus at bedtime on 07/30. Fasting BSG 150 today, with diet ordered (formerly NPO). Will increase total daily dose to 30 units daily. * Patient was started on NovoLog with weight-based stress of 2 parameters, will continue to trend and make changes as appropriate. PLAN FOR INPATIENT GLYCEMIC CONTROL: * Hold outpatient diabetes medications * Basal insulin * Lantus 15 units SQ BID * Bolus insulin * NovoLog per scale ACHS or Q6hrs while NPO * Goal Range: Low 110 mg/dL - High 140 mg/dL * Correction Factor: 15 mg/dL/unit * Nutritional / Prandial insulin per carb ratio of 1 unit per 5 grams CHO consumed
[2022-07-31] MEDS ORDERED: hydrALAZINE HCL 20 MG/ML VIAL IV STA (16:17)
[2022-07-31] MEDS ORDERED: ZOLPIDEM TARTRATE 5 MG TAB PO PRN (17:21)
[2022-07-31] MEDS ORDERED: TRIAMTERENE/HCTZ 37.5/25MG TAB PO SCH (21:00)
[2022-07-31] MEDS: ATORVASTATIN 40 MG TAB PO SCH (21:03)
[2022-07-31] MEDS: TAMSULOSIN HCL 0.4 MG CAP PO SCH (21:04)
[2022-08-01] MEDS: HEPARIN SOD 5,000 UNIT/0.5 ML VIAL SQ SCH ×2 (06:41→13:18)
[2022-08-01 07:45] LABS: BUN Creatinine Ratio 16.8 (10-20); Calcium 9.6 mg/dl (8.5-10.1); Creatinine Clr Calc Pharmacy 92.2 ml/min; Est GFR (African American) 88.8 ml/min; Est GFR (Non-African American) 76.6 ml/min; Potassium 4.4 mmol/L (3.5-5.1)
[2022-08-01] MEDS: INSULIN ASPART PER UNIT CHARGE SC SCH ×2 (08:28→12:27)
[2022-08-01] MEDS: ACETAMINOPHEN 325 MG TAB PO PRN (08:30)
[2022-08-01] MEDS: METOPROLOL SUCC 50MG EXT REL TAB PO SCH (08:32)
[2022-08-01] MEDS: amLODIPine BESYLATE 5 MG TAB PO SCH (08:32)
[2022-08-01] MEDS: ASPIRIN 81 MG ECTAB PO SCH (08:32)
[2022-08-01] MEDS: FINASTERIDE 5 MG TAB PO SCH (08:33)
[2022-08-01] MEDS: CLOPIDOGREL BISULFATE 75 MG TAB PO SCH (08:33)
[2022-08-01 08:55] LABS: Hematocrit (blood only) 39.1 % (42.0-52.0); Hemoglobin 12.9 g/dl (14.0-18.0); Mean Corpuscular Hemoglobin 27.3 pg (25.0-34.0); Mean Corpuscular Volume 82.7 fL (80.0-100.0); Mean Platelet Volume 10.2 fL (9.4-12.4); Platelet Count 326 K/uL (130-400); RDW Coefficient of Variation 13.6 % (11.5-14.5); RDW Standard Deviation 40.5 fL (36.4-46.3); Red Blood Count 4.73 M/uL (4.70-6.10); White Blood Count 9.54 K/ul (4.8-10.8)
[2022-08-01] MEDS ORDERED: LANTUS PER UNIT CHARGE SQ SCH (09:00)
--- NOTE | 2022-08-01 10:08 | Pharmacy Report ---
Pharmacy Glycemic Short Note 2 - Date of Service August 01, 2022 - Glycemic Short BSG Results (Last 24 hours): 07/31/22 07/31/22 07/31/22 11:43 16:25 20:10 Glucose POC Glucose 188 H 94 186 H 08/01/22 08/01/22 06:57 07:30 Glucose 181 H POC Glucose 174 H OUTPATIENT ANTIDIABETIC REGIMEN: * Novolin 70/30, 100 units daily * Metformin 850 mg PO BID * Trulicity 1.5mg SQ weekly HbA1c: 9.3% (07/31/22) ASSESSMENT: 08/01/22: * BSGs ranging 94-188 mg/dL yesterday * Received 54 units of insulin yesterday (25 units of basal and 29 units of prandial/correctional bolus) * Fasting BSG of 174 mg/dL this morning, patient was ordered to receive 30 units of basal yesterday, but patient requested reduced basal dose in evening so only received 10 units instead of 15 units at that time. * Will increase AM dose to 20 units with likely scale this evening * Patient to be discharged today 07/31/22: * Mr Guevara is a 66 year old male with type 2 diabetes who presented to [facility] ED 07/30/22 for stroke workup. Pharmacy has been consulted to manage the glycemic control of this patient. Per provider, the patient did not take any insulin prior to presentation. * Patient was given 20 units of Lantus at bedtime on 07/30. Fasting BSG 150 today, with diet ordered (formerly NPO). Will increase total daily dose to 30 units daily. * Patient was started on NovoLog with weight-based stress of 2 parameters, will continue to trend and make changes as appropriate. PLAN FOR INPATIENT GLYCEMIC CONTROL: * Hold outpatient diabetes medications * Basal insulin * Lantus 20 units SC daily * Patient to be discharged this afternoon * Bolus insulin * NovoLog per scale ACHS or Q6hrs while NPO * Goal Range: Low 110 mg/dL - High 140 mg/dL * Correction Factor: 15 mg/dL/unit * Nutritional / Prandial insulin per carb ratio of 1 unit per 5 grams CHO consumed
--- NOTE | 2022-08-01 11:30 | Hospitalist Progress Note ---
Date of Service August 01, 2022 Assessment & Plan (1) Stroke-like symptoms: (2) DMII (diabetes mellitus, type 2): (3) Hypertension: (4) Dyslipidemia: (5) Chest pain syndrome: (6) BPH (benign prostatic hyperplasia): (7) Lumbar spinal stenosis: Plan This is a 66-year-old male with PMH of uncontrolled type 2 diabetes, dyslipidemia, hypertension, BPH, history of Lyjxr-Hoybloqnh-Iiqqu syndrome and other medical problems listed below who presents with headache and strokelike symptoms since yesterday. Transient ischemic attack-no stroke identified Left facial droop LUE sensory changes Headache Strokelike sx for >24 hrs -resolved completely Head CT, CTA head/neck with 1. No acute intracranial hemorrhage, evidence of acute territorial infarction, or other acute intracranial disease process. 2. Non hemodynamically significant stenosis is seen in the left common carotid artery in bilateral vertebral arteries. 3. No occlusion, hemodynamically significant stenosis, aneurysm, dissection, or arteriovenous malformation in the major intracranial arteries. Tpa contraindicated. 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 Continue statin, IV fluids. Routine neurology consult in AM, consider addition of plavix for dual antiplatelet therapy MRI did show small vessel disease and possible lacunar infarct in the right cerebral hemisphere Echo of the heart-showed left ventricular systolic function is normal there is no interatrial shunt with mild mitral annular calcification Lipid profile unremarkable but will continue with atorvastatin Appreciate neurology input and recommendation for aspirin and Plavix for 21 days followed by Plavix alone and continue statin Will have outpatient Holter for 30 days Has been ambulating in the room without any difficulties in moving around Blood pressure was elevated yesterday afternoon and the patient did not leave the hospital No more neuro symptoms this morning BP is reasonably controlled and will be sent home this afternoon DM II Poorly controlled and labile BSGs per chart review and patient A1c 9.3 in Jun 2022 Trilicity dose recently increased, 70/30 insulin decreased to 100u daily - did not take insulin today Currently NPO and awaiting dysphasia screen Glycemic consult placed given h/o variability, currently NPO - discussed with pharmacist BSJessa MOSLEY HS Diabetes management as per primary care provider as an outpatient HTN BP 152/85. 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 Underwent dobutamine stress test last month in preparation for upcoming back surgery at [facility] [place] and stress test was negative Denies any cardiac symptoms BPH Continue tamsulosin, finasteride Lumbar spine stenosis, chronic back pain Planning for upcoming back surgery. Cont home regimen of PRN tylenol, ibuprofen, tizanidine DVT Ppx: SQ heparin Code status: FULL PCP: Ibrahima Dispo: Will be discharged home this afternoon Admission and Anticipated Discharge Date Admission Date: July 30, 2022 Subjective 07/31/2022 The patient was seen and examined in telemetry unit He has had strokelike symptoms which have resolved completely He has been ambulating in the room without any difficulties Denies any significant symptoms 08/01/2022 The patient was seen and examined in telemetry unit He does not have any more TIA symptoms Blood pressure is controlled now No more headache and no problem with ambulation Will be discharged home this afternoon Review of Systems Review of Systems: All systems reviewed and are unremarkable except as noted below Neurologic: No neurological deficit Physical Exam Physical Exam: Sitting on a chair without any acute distress Constitutional: well developed, well nourished and + obese; not ill appearing Eyes: PERRL, conjunctivae normal, anicteric sclerae ENMT: external ear and nose normal, oropharynx normal Neck: trachea midline, no thyromegaly Respiratory: no respiratory distress Auscultation: lungs clear to auscultation bilaterally Cardiovascular: Rate/Rhythm: regular rate and regular rhythm; not tachycardic Heart Sounds: normal S1 and normal S2; no murmur Extremities: + edema (Trace edema bilaterally) Gastrointestinal (Abdomen): Inspection/Auscultation: normal bowel sounds; abdomen not distended Percussion/Palpation: abdomen soft; abdomen nontender Musculoskeletal: No acute arthritis involving any joint Neurologic: normal touch/pain/proprioception and moves all extremities; no focal motor deficits Psychiatric: A+Ox3, euthymic affect Lymphatic: no cervical or axillary lymphadenopathy Results & Data Results & Data Vital Signs (Past 12 Hours) Vital Signs Temp Pulse Pulse Resp BP BP Pulse Ox 08/01/22 09:29 58 L 08/01/22 07:49 36.6 C 89 20 163/80 H 94 08/01/22 03:29 36.7 C 72 20 141/85 H 96 O2 Del Method 08/01/22 09:29 08/01/22 07:49 Room Air 08/01/22 03:29 Room Air Laboratory Results Short CBC 08/01/22 Range/Units 08:36 WBC 9.54 (4.8-10.8) K/ul Hgb 12.9 L (14.0-18.0) g/dl Hct 39.1 L (42.0-52.0) % Plt Count 326 (130-400) K/uL BMP 08/01/22 06:57 Sodium 139 Potassium 4.4 Chloride 105 Carbon Dioxide 26 BUN 17 Creatinine 1.01 Glucose 181 H Calcium 9.6 Medications Administered Current Inpatient Medications Acetaminophen (Acetaminophen 325 Mg Tab) 650 mg PO Q4H PRN PRN Reason: Pain or Fever Stop: 08/29/22 19:48 Last Admin: 08/01/22 08:30 Dose: 650 mg Amlodipine Besylate (Amlodipine Besylate 5 Mg Tab) 5 mg PO QAM ADRIA Stop: 08/30/22 12:59 Last Admin: 08/01/22 08:32 Dose: 5 mg Aspirin (Aspirin 81 Mg Ectab) 81 mg PO QAM ADRIA Stop: 08/30/22 08:59 Last Admin: 08/01/22 08:32 Dose: 81 mg Atorvastatin Calcium (Atorvastatin 40 Mg Tab) 40 mg PO HS ADRIA Stop: 08/29/22 20:59 Last Admin: 07/31/22 21:03 Dose: 40 mg Clopidogrel Bisulfate (Clopidogrel Bisulfate 75 Mg Tab) 75 mg PO DAILY ADRIA Stop: 08/30/22 11:14 Last Admin: 08/01/22 08:33 Dose: 75 mg Dextrose (Dextrose 50% 50 Ml Syringe) 25 - 50 ml IV UD PRN; Protocol PRN Reason: Hypoglycemia Protocol Stop: 08/29/22 19:48 Finasteride (Finasteride 5 Mg Tab) 5 mg PO QAM ADRIA Stop: 08/30/22 08:59 Last Admin: 08/01/22 08:33 Dose: 5 mg Glucagon (Glucagon For Inj 1 Mg Vial) 1 mg SQ UD PRN; Protocol PRN Reason: Hypoglycemia Protocol Stop: 08/29/22 19:48 Glucose (Glucose 10 Tab/Tube) 4 - 8 tab PO UD PRN; Protocol PRN Reason: Hypoglycemia Treatment Stop: 08/29/22 19:48 Glucose (Glucose 40% Gel 15 Gm Tube) 15 - 30 gm PO UD PRN; Protocol PRN Reason: Hypoglycemia Protocol Stop: 08/29/22 19:48 Heparin Sodium (Porcine) (Heparin Sod 5,000 Unit/0.5 Ml Vial) 5,000 units SQ Q8 ADRIA Stop: 08/29/22 21:59 Last Admin: 08/01/22 06:41 Dose: 5,000 units Insulin Aspart (Insulin Aspart Per Unit) 0 units SC ACHS [facility] Stop: 08/30/22 00:00 Last Admin: 08/01/22 08:28 Dose: 12 units Insulin Glargine (Lantus Per Unit Charge) 20 units SQ BID [facility] Stop: 08/30/22 08:59 Last Admin: 08/01/22 08:30 Dose: 20 units Metoprolol Succinate (Metoprolol Succ 50mg Ext Rel Tab) 50 mg PO QAM [facility] Stop: 08/30/22 08:59 Last Admin: 08/01/22 08:32 Dose: 50 mg Miscellaneous (Carbohydrates For Hypoglycemia ) 15 - 30 gm PO UD PRN PRN Reason: Hypoglycemia Protocol Stop: 08/29/22 19:48 Miscellaneous Information (Pharmacy Glycemic Mgmt Consult) 1 each N/A UD PRN; Protocol PRN Reason: Consult Stop: 08/29/22 18:22 Miscellaneous Information (Pharmacist Discharge Med Rec Consult) 1 each N/A UD PRN PRN Reason: Consult Stop: 08/29/22 19:48 Ondansetron HCl (Ondansetron Inj 2 Mg/Ml 2 Ml Vial) 4 mg IV Q6H PRN PRN Reason: Nausea Stop: 08/29/22 19:48 Polyethylene Glycol (Polyethylene (Miralax) 17 Gm Pack) 17 gm PO DAILY PRN PRN Reason: Constipation Stop: 08/29/22 19:48 Tamsulosin HCl (Tamsulosin Hcl 0.4 Mg Cap) 0.4 mg PO HS [facility] Stop: 08/29/22 20:59 Last Admin: 07/31/22 21:04 Dose: 0.4 mg Tizanidine HCl (Tizanidine Hcl 4 Mg Tablet) 2 mg PO HS PRN PRN Reason: Muscle Spasm Stop: 08/29/22 17:32 Triamterene/Hydrochlorothiazide (Triamterene/Hctz 37.5/25mg Tab) 1 tab PO HS ADRIA Stop: 08/30/22 20:59 Last Admin: 07/31/22 21:05 Dose: 1 tab Zolpidem Tartrate (Zolpidem Tartrate 5 Mg Tab) 5 mg PO HS PRN PRN Reason: Sleep Stop: 08/30/22 17:20 Last Admin: 07/31/22 21:30 Dose: 5 mg
[2022-08-01] MEDS ORDERED: STROKE PATIENT DISCHARGE STA (12:34)
--- NOTE | 2022-08-01 17:36 | Discharge Summary ---
Date of Service August 01, 2022 Admission HPI Per Admitting Provider This is a 66-year-old male with PMH of uncontrolled type 2 diabetes, dyslipidemia, hypertension, BPH, history of Xjvrm-Gxcmdgiqe-Wkybg syndrome and other medical problems listed below who presents with headache and strokelike symptoms since yesterday. History obtained primarily from patient as well as review of notes from PCP, [facility] clinic and cardiology. Patient was in normal state of health and watching TV around 1030 yesterday morning when he noted numbness in his left arm moving down to his hand that felt like "Novocain". Then also developed the same feeling in his face on the left side with associated headache behind his left eye. No weakness of LUE. Symptoms persisted throughout the day but patient did not want to come in for evaluation. Slept overnight but awakened with the same type of headache and some pain in right hand, and family brought him in for further evaluation. Headache improved somewhat after aspirin but is still present. Does not usually have headaches at baseline. Denies any difficulty speaking or swallowing. Daughter states that most of facial droop has resolved. No difficulty with ambulation or notable weakness or sensory changes in lower extremity. Denies any personal known history of stroke. Is due for back surgery in a few weeks at [facility] and just underwent cardiac evaluation with negative dobutamine stress test a few weeks prior. No fever, chills, lightheadedness, shortness of breath, nausea, vomit, abdominal pain, dysuria, diarrhea or constipation. Does endorse some chest discomfort, which he mainly notices with cold air outside. Did not take morning medications today including insulin. ED physician discussed with on-call neurologist but due to patient having symptoms for over 24 hours, did not feel need for stroke alert because tPA is contraindicated. Received aspirin and gentle fluids and admission for remainder of stroke evaluation was recommended per Dr. Price. Admission Exam Per Admitting Provider Physical Exam: General Appearance:WD/WN, vitals as above, NAD, sitting up in bed, pleasant, conversing easily, +obese Head: normocephalic, atraumatic Eyes:normal inspection, PERRL, conjunctivae normal, anicteric sclerae ENT: external ear and nose normal, oropharynx normal Neck: normal visual inspection, trachea midline, no thyromegaly Respiratory:normal respiratory effort, lungs clear to auscultation, no wheeze, rales, rhonchi. No accessory muscle use Cardiovascular: regular rate, rhythm, no murmur, normal peripheral pulses, no BLE edema. Vessels: no JVD Chest: normal inspection of chest Abdomen/GI: normal bowel sounds, soft, nontender, no hepatosplenomegaly Extremities/Musculoskeletal: no cyanosis or clubbing, extremities motor strength 5/5 Neurologic: PERRL, EOMI, accommodation nl, + slight L facial droop noted, no dysarthria, CN's II-XI intact bilaterally and moves all extremities Psychiatric:A+Ox3, euthymic affect Skin: no rashes, normal color, warm/dry Principal Diagnosis Transient ischemic attack, hypertension, type 2 diabetes Discharge Exam Sitting on a chair without any acute distress Constitutional well developed, well nourished and + obese; not ill appearing Eyes PERRL, conjunctivae normal, anicteric sclerae ENMT external ear and nose normal, oropharynx normal Neck trachea midline, no thyromegaly Respiratory no respiratory distress Auscultation: lungs clear to auscultation bilaterally Cardiovascular Rate/Rhythm: regular rate and regular rhythm; not tachycardic Heart Sounds: normal S1 and normal S2; no murmur Extremities: + edema (Trace edema bilaterally) Gastrointestinal (Abdomen) Inspection/Auscultation: normal bowel sounds; abdomen not distended Percussion/Palpation: abdomen soft; abdomen nontender Neurologic normal touch/pain/proprioception and moves all extremities; no focal motor deficits Psychiatric A+Ox3, euthymic affect Lymphatic no cervical or axillary lymphadenopathy Discharge Data Allergies Allergy/AdvReac Type Severity Reaction Status Date / Time No Known Allergies Allergy Verified 06/19/22 13:58 Consultations 07/30/22 15:29 ED Decision to Admit Stat 07/30/22 19:49 Consult Neurology Routine Ordered Studies 07/30/22 13:34 CT angio head w con Stat CT angio neck with con Stat CT head/brain wo con Stat 07/30/22 16:04 MR brain wo/w con Routine Diabetes Follow up Diabetes Follow-up Needed for HgbA1c >9% Hospital Course (1) Stroke-like symptoms: (2) DMII (diabetes mellitus, type 2): (3) Hypertension: (4) Dyslipidemia: (5) Chest pain syndrome: (6) BPH (benign prostatic hyperplasia): (7) Lumbar spinal stenosis: Plan This is a 66-year-old male with PMH of uncontrolled type 2 diabetes, dyslipidemia, hypertension, BPH, history of Jsfez-Uhrzlmvin-Lppbg syndrome and other medical problems listed below who presents with headache and strokelike symptoms since yesterday. Transient ischemic attack-no stroke identified Left facial droop LUE sensory changes Headache Strokelike sx for >24 hrs -resolved completely Head CT, CTA head/neck with 1. No acute intracranial hemorrhage, evidence of acute territorial infarction, or other acute intracranial disease process. 2. Non hemodynamically significant stenosis is seen in the left common carotid artery in bilateral vertebral arteries. 3. No occlusion, hemodynamically significant stenosis, aneurysm, dissection, or arteriovenous malformation in the major intracranial arteries. Tpa contraindicated. 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 Continue statin, IV fluids. Routine neurology consult in AM, consider addition of plavix for dual antiplatelet therapy MRI did show small vessel disease and possible lacunar infarct in the right cerebral hemisphere Echo of the heart-showed left ventricular systolic function is normal there is no interatrial shunt with mild mitral annular calcification Lipid profile unremarkable but will continue with atorvastatin Appreciate neurology input and recommendation for aspirin and Plavix for 21 days followed by Plavix alone and continue statin Will have outpatient Holter for 30 days Has been ambulating in the room without any difficulties in moving around Blood pressure was elevated yesterday afternoon and the patient did not leave the hospital No more neuro symptoms this morning BP is reasonably controlled and will be sent home this afternoon DM II Poorly controlled and labile BSGs per chart review and patient A1c 9.3 in Jun 2022 Trilicity dose recently increased, 70/30 insulin decreased to 100u daily - did not take insulin today Currently NPO and awaiting dysphasia screen Glycemic consult placed given h/o variability, currently NPO - discussed with pharmacist BSG AC HS Diabetes management as per primary care provider as an outpatient HTN BP 152/85. 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 Underwent dobutamine stress test last month in preparation for upcoming back surgery at [facility] [place] and stress test was negative Denies any cardiac symptoms BPH Continue tamsulosin, finasteride Lumbar spine stenosis, chronic back pain Planning for upcoming back surgery. Cont home regimen of PRN tylenol, ibuprofen, tizanidine DVT Ppx: SQ heparin Code status: FULL PCP: Ibrahima Dispo: Will be discharged home this afternoon Total Time Total Time Spent Total Time Spent (In Minutes): 35 minutes Discharge Plan Discharge Items Patient Disposition: Home - Self-Care Reason For Visit: STROKE EVAL Discharge Diagnosis: Transient ischemic attack, hypertension, type 2 diabetes Condition on Discharge: Good Activity: Resume your previous activity Non-emergency contact: Primary Care Provider Call non-emergency contact if: you have any medication questions and your symptoms worsen Follow-up/Referrals: Huey Alexandra MD [Primary Care Provider] - (Date & Time 08/08/2022 2:00 PM Provider Pro Martinez MD [facility] ) Diet: Carb Consistent or DM2 Addtl Attending Provider Instructions: Please take precautions to avoid falls Take your medications as advised Take aspirin and Plavix for a total of 21 days and then only Plavix to continue and stop aspirin Continue with statin and amlodipine has been added for better control of blood pressure Please a follow-up appointments with your healthcare providers Pending Studies at Discharge: No Stand-Alone Forms: My Rule., Smoking Cessation, Medications to Prevent Stroke Medications and DC Order Prescriptions: New clopidogrel 75 mg Tablet 75 mg PO DAILY 30 Days Qty: 30 0RF amlodipine [Norvasc] 5 mg Tablet 5 mg PO QAM 30 Days Qty: 30 0RF Continued finasteride 5 mg tablet 5 mg PO QAM Qty: 90 3RF tizanidine 2 mg tablet 2 mg PO HS PRN (Reason: Muscle Spasm) atorvastatin 40 mg Tablet 40 mg PO HS metformin 850 mg Tablet 850 mg PO BID Novolin 70/30 U-100 Insulin 100 unit/mL (70-30) Suspension 100 unit SUBCUT QPM PRN (Reason: DEPENDS ON BSG.) Rx Instructions: DEPENDS IF BSG < 130 triamterene-hydrochlorothiazid 37.5-25 mg Tablet 1 tab PO HS metoprolol succinate 50 mg Tablet Extended Release 24 Hr 50 mg PO QAM aspirin 81 mg Capsule 81 mg PO QAM Trulicity 1.5 mg/0.5 mL pen injector 1.5 mg SUBCUT WK tamsulosin 0.4 mg capsule 0.4 mg PO HS Discontinued ibuprofen 200 mg Capsule 800 mg PO Q6H PRN (Reason: Pain) Discharge Orders: Discharge Order (Routine); Ordered 08/01/22 Ordered By: Madeleine Rosa Admission Data Admit Date/Time: 07/30/22 15:54 Attending Provider: Madeleine Rosa Admit Provider: Angelique Brito Primary Care Provider: Huey Alexandra Other Providers: Angelique Brito ; Sameer Price Other Interventions: Discharge Summary Assessment (RN) Last Done: 08/01/22 12:40
--- NOTE | 2022-08-03 10:43 | Pharmacy Report ---
Pharmacist Stroke Counseling - Date of Service August 03, 2022 - Scope: Pharmacy has been consulted to provide medication discharge counseling for this patient admitted with TIA as per the Pharmacist Discharge Counseling for Stroke Patients Protocol. - Medications on Discharge: Home Medications Medication Instructions Recorded Confirmed atorvastatin 40 mg tablet 40 mg PO HS 06/30/18 07/30/22 insulin human U-100 NPH-regulr 100 unit subcut QPM PRN DEPENDS ON 06/30/18 07/30/22 70-30 mix 100 unit/mL subcutaneous BSG. susp (Novolin 70/30 U-100 Insulin) metformin 850 mg tablet 850 mg PO BID 06/30/18 07/30/22 triamterene 37.5 1 tab PO HS 06/30/18 07/30/22 mg-hydrochlorothiazide 25 mg tablet metoprolol succinate 50 mg 50 mg PO QAM 01/22/20 07/30/22 tablet,extended release 24 hr aspirin 81 mg capsule 81 mg PO QAM 03/29/21 07/30/22 tizanidine 2 mg tablet 2 mg PO HS PRN Muscle Spasm 06/19/22 07/30/22 dulaglutide 1.5 mg/0.5 mL 1.5 mg subcut WK 07/30/22 07/30/22 subcutaneous pen injector (Trulicity) tamsulosin 0.4 mg capsule 0.4 mg PO HS 07/30/22 07/30/22 New Rx's Medication Instructions Recorded finasteride 5 mg tablet 5 mg PO QAM #90 tabs 04/27/21 amlodipine 5 mg tablet (Norvasc) 5 mg PO QAM 30 days #30 tabs 07/31/22 clopidogrel 75 mg tablet 75 mg PO DAILY 30 days #30 tabs 07/31/22 - Action: The above medications, specifically ones for stroke treatment/prophylaxis, have been reviewed in detail with the patient and/or patient independent sales representative(s) prior to discharge. This includes indication, common adverse reactions, drug interac tions, and medication administration. Medication counseling has been employed using the teach-back method to ensure understanding. - Outcome: The patient and/or patient independent sales representative(s) have demonstrated understanding of the medications. Additional comments: Spoke with Mr. Guevara today, he reports he spoke with [facility] and has restarted his metformin. New medications amlodipine and plavix discussed with patient, he verbalized understanding to stop the aspirin after 21 days and continue with the plavix. He had no further questions. Did inform him he could reach out to us at phone number provided if he had any further questions. Thank you for allowing pharmacy to be involved in the care of this patient. Please call [phone] with any additional questions
--- NOTE | 2022-08-06 09:58 | Coding Query ---
CODING QUERY FOR UNCONTROLLED DIABETES To promote full compliance with coding requirements relating to patient care, provider participation is requested in all cases of multi skilled operator uncertainty. Please assist us with the question(s) below: Coding Question: The term uncontrolled Diabetes was used throughout the record. To be able to code this diagnosis properly, could you please clarify the diagnosis below: ( ) Uncontrolled Diabetes meaning hypoglycemia ( ) Uncontrolled Diabetes meaning hyperglycemia (+ ) Other (please specify) Poorly controlled and labile BSGs per chart review and patient.HBA1c >9 Principal Diagnosis: "that condition established after study, to be chiefly responsible for occasioning the admission of the patient to the hospital for care." Co-Existing Principal Diagnosis: "when two or more diagnoses equally meet the criteria for principal diagnosis as determined by the circumstances of admission, diagnostic work up, and/or therapy provided, and the Alphabetic Index, Tabular List, or another coding guideline does not provide sequencing direction, any one of the diagnoses may be sequenced first." "When the physician has documented what appears to be a current diagnosis in the body of the record, but has not included the diagnosis in the final diagnostic statement, the physician should be asked whether the diagnosis should be added." (Source [facility] 2 QTR90. p3-4) YARIEL
== END 2022-08-01 13:30 | disposition home or self-care (01) | DRG 69 ==
LOC: ED 13:18 → SUATTDRO 15:54 → 2S 15:54

== ENCOUNTER 2023-03-07 19:35 | Inpatient (IN) ==
[2023-03-07 22:01] LABS: Basophils % (auto) 0.6 %; Eosinophils # (auto) 0.11 K/uL (0.00-0.50); Eosinophils % (auto) 0.6 %; Hematocrit (blood only) 37.2 % (42.0-52.0); Hemoglobin 12.3 g/dl (14.0-18.0); Immature Granulocytes % (auto) 0.6 %; Lymphocytes # (auto) 1.98 K/uL (1.20-3.40); Lymphocytes % (auto) 11.1 %; Mean Corpuscular Hemoglobin 27.6 pg (25.0-34.0); Mean Corpuscular Hgb Conc 33.1 g/dL (32.0-36.0); Mean Corpuscular Volume 83.4 fL (80.0-100.0); Mean Platelet Volume 10.6 fL (9.4-12.4); Monocytes # (auto) 1.04 K/uL (0.11-0.59); Monocytes % (auto) 5.8 %; Neutrophils % (auto) 81.3 %; Platelet Count 332 K/uL (130-400); RDW Coefficient of Variation 13.3 % (11.5-14.5); RDW Standard Deviation 40.6 fL (36.4-46.3); Red Blood Count 4.46 M/uL (4.70-6.10); White Blood Count 17.83 K/ul (4.8-10.8)
[2023-03-07 22:16] LABS: Albumin Globulin Ratio 1.2 (0.9-2); Albumin Level 4.1 gm/dl (3.4-5.0); BUN Creatinine Ratio 21.9 (10-20); Bilirubin,Total 0.6 mg/dl (0.2-1.0); Calcium 9.7 mg/dl (8.6-10.3); Creatinine Clr Calc Pharmacy 80.4 ml/min; Est GFR (African American) 84.1 ml/min; Est GFR (Non-African American) 72.6 ml/min; Globulin 3.3 gm/dl (2.5-4.0); Potassium 4.1 mmol/L (3.5-5.1); Total Protein 7.4 gm/dl (6.0-8.3)
[2023-03-07 22:28] LABS: INR 1.1 (0.9-1.1); Partial Thromboplastin Time 27.6 Seconds (21.0-31.0); Prothrombin Time 11.7 Seconds (9.0-12.0)
[2023-03-08] MEDS ORDERED: VANCOMYCIN CONSULT ACTIVE PRN (04:18)
[2023-03-08] MEDS ORDERED: VANCOMYCIN HCL 2,250 MG in SODIUM CHLORIDE 0.9% 500 ML IV ONE (04:18)
[2023-03-08] MEDS ORDERED: DOXYCYCLINE HYCLATE 100 MG CAP PO STA (04:27)
[2023-03-08] MEDS ORDERED: ACETAMINOPHEN 500 MG TAB PO STA (05:08)
[2023-03-08] MEDS ORDERED: ACETAMINOPHEN 500 MG TAB ONE (05:09)
--- NOTE | 2023-03-08 06:06 | History & Physical Report ---
Date of Service March 08, 2023 Assessment & Plan (1) Right foot infection: Plan: 67-year-old male with past medical history significant for type 2 diabetes, dyslipidemia, hypertension, BPH, history of goldberg Parkinson- White syndrome presents with infected right foot callus and cellulitis. Right foot infection Infected callus Cellulitis Empiric IV Vanco and Zosyn Consult orthopedics N.p.o. until seen by Ortho Pain control Diabetes Hold home medications Lantus and sliding scale Glycemic pharmacy consult Monitor blood sugars Follow HbA1c levels Hypertension On amlodipine and metoprolol succinate We will monitor History of TIA On statin and Plavix BPH On Flomax and finasteride DVT prophylaxis Can Place on Lovenox if no procedures planned SCDs Disposition med/surg Full code History of Present Illness Chief Complaint: Right foot infection Primary Care Provider: Huey Alexandra MD 67-year-old male with past medical history significant for type 2 diabetes, dyslipidemia, hypertension, BPH, history of goldberg Parkinson's White syndrome presents with infected right foot callus and cellulitis. Patient says for last 5 days the callus on right foot lateral aspect got infected and erythema spreading. Having a lot of pain while ambulating. Denies any fevers. No headaches. No blurred visions. No earache or runny nose or sore throat. No cough. Appetite is okay. Denies any chest pain or shortness of breath. No nausea or vomiting. No abdominal pain. Normal bowel and bladder movements. Currently resting comfortably and hemodynamically stable. Past medical history. As mentioned above Past surgical history. Lumbosacral nerve imaging. Social history. . No smoking. No vaping. Family history. No family history on file Allergies Allergy/AdvReac Type Severity Reaction Status Date / Time No Known Allergies Allergy Verified 06/19/22 13:58 Home Medications Medication Instructions Recorded Confirmed Type amlodipine 5 mg tablet 5 mg PO DAILY 03/08/23 03/08/23 History atorvastatin 40 mg tablet 40 mg PO DAILY 03/08/23 03/08/23 History clopidogrel 75 mg tablet 75 mg PO DAILY 03/08/23 03/08/23 History dulaglutide 4.5 mg/0.5 mL 4.5 mg subcut WK 03/08/23 03/08/23 History subcutaneous pen injector (Trulicity) finasteride 5 mg tablet 5 mg PO DAILY 03/08/23 03/08/23 History insulin human U-100 NPH-regulr 44 unit subcut BID 03/08/23 03/08/23 History 70-30 mix 100 unit/mL subcutaneous susp (Novolin 70/30 U-100 Insulin) metformin 850 mg tablet 850 mg PO BID 03/08/23 03/08/23 History metoprolol succinate 50 mg 50 mg PO DAILY 03/08/23 03/08/23 History tablet,extended release 24 hr tamsulosin 0.4 mg capsule 0.8 mg PO DAILY 03/08/23 03/08/23 History tizanidine 2 mg capsule 2 mg PO HS PRN Muscle Spasm 03/08/23 03/08/23 History triamterene 37.5 1 tab PO DAILY 03/08/23 03/08/23 History mg-hydrochlorothiazide 25 mg tablet Past Med/Surg History Medical History Abdominal hernia Stable Arthritis Atypical chest pain BPH (benign prostatic hyperplasia) Chronic back pain Claustrophobia "DOESN'T LIKE SLEEPING ON HIS BACK" DM II (diabetes mellitus, type II), controlled Glucose fluctuates Dry mouth Chronic Gallstones Found incidentally - no current issues GERD (gastroesophageal reflux disease) UNDER CONTROL History of asthma A CHILD History of Dkuux-Pcvwfgcvf-Fascv (WPW) syndrome S/p ablation- no issues Follows with cardio PRN HLD (hyperlipidemia) Hypertension Lumbar spinal stenosis Morbid obesity with BMI of 45.0-49.9, adult IGOR (obstructive sleep apnea) Cannot tolerate device SOB (shortness of breath) on exertion OVERWEIGHT- CHRONIC AND STABLE Surgical History History of cataract surgery RT History of colonoscopy 2020 History of radiofrequency ablation procedure for cardiac arrhythmia AT AGE 29 History of tonsillectomy History of tooth extraction S/P TURP Family History Other Diabetes Hypertension No family history of adverse response to anesthesia Social History Smoking Status: Never smoker Second Hand Exposure: No; Do You Dip or Chew Tobacco: No; Hx Alcohol Use: No Hx Substance Use: No Preferred Language: Grenadian Communication Ability: Effective Cloud Consultant Required: No Beliefs That Will Affect Care: None Current Living Situation: Spouse and Family Current Living Situation Comment: and youngest daughter current occupational status: retired Feels Safe at Home: Yes Assistive Devices: Cane and Glasses Review of Systems Review of Systems: All systems reviewed & are unremarkable except as noted in HPI & below Physical Exam Physical Exam: General-Not in distress Head- atraumatic Eyes-EOMI ENT- oropharynx clear Neck- supple, no JVD. Lungs- clear to auscultation no wheezing or crackles. Heart- regular rate and rhythm; no murmur, no gallop. Abdomen- normal bowel sounds, soft, nontender, no distension. Extremities- right foot callus on lateral aspect erythematous and tender . Neuro- alert, oriented x 3; EOMI; no facial palsy; no dysarthria; moves extremities. Results & Data Results & Data Vital Signs (Past 12 Hours) Vital Signs Temp Pulse Pulse Resp BP BP Pulse Ox 03/08/23 04:52 73 19 161/84 H 99 03/08/23 02:22 60 22 152/78 H 98 03/07/23 20:11 36.3 C L 96 H 18 139/82 96 O2 Del Method 03/08/23 04:52 03/08/23 02:22 03/07/23 20:11 Room Air Diagnostic Findings Laboratory Results WBC 17.83 K/ul (4.8-10.8) H 03/07/23 21:30 RBC 4.46 M/uL (4.70-6.10) L 03/07/23 21:30 Hgb 12.3 g/dl (14.0-18.0) L 03/07/23 21:30 Hct 37.2 % (42.0-52.0) L 03/07/23 21:30 MCV 83.4 fL (80.0-100.0) 03/07/23 21:30 MCH 27.6 pg (25.0-34.0) 03/07/23 21:30 MCHC 33.1 g/dL (32.0-36.0) 03/07/23 21:30 RDW Std Deviation 40.6 fL (36.4-46.3) 03/07/23 21:30 RDW Coeff of Henrry 13.3 % (11.5-14.5) 03/07/23 21: Plt Count 332 K/uL (130-400) 03/07/23 21:30 MPV 10.6 fL (9.4-12.4) 03/07/23 21: Immature Gran % (Auto) 0.6 % 03/07/23 21: Neut % (Auto) 81.3 % 03/07/23: Lymph % (Auto) 11.1 % 03/07/23: [place] % (Auto) 5.8 % 03/07/23: Eos % (Auto) 0.6 % 03/07/23: Baso % (Auto) 0.6 % 03/07/23: Neut # (Auto) 14.50 K/uL (1.40-6.50) H 03/07/23: Lymph # (Auto) 1.98 K/uL (1.20-3.40) 03/07/23: [place] # (Auto) 1.04 K/uL (0.11-0.59) H 03/07/23 21:30 Eos # (Auto) 0.11 K/uL (0.00-0.50) 03/07/23: Baso # (Auto) 0.10 K/uL (0.00-0.20) 03/07/23: Immature Gran # (Auto) 0.10 K/uL (0.01-0.20) 03/07/23 21:30 PT 11.7 Seconds (9.0-12.0) 03/07/23: INR 1.1 (0.9-1.1) 03/07/23:30 APTT 27.6 Seconds (21.0-31.0) 03/07/23: PTT Ratio 1.0 03/07/23: Sodium 134 mmol/L (136-145) L 03/07/23: Potassium 4.1 mmol/L (3.5-5.1) 03/07/23 21: Chloride 104 mmol/L (98-107) 03/07/23 21: Carbon Dioxide 22 mmol/L (21-32) 03/07/23 21: Anion Gap 8 (3-11) 03/07/23 21:30 BUN 23 mg/dl (6-23) 03/07/23 21:30 Creatinine 1.05 mg/dl (0.6-1.4) 03/07/23 21:30 Est Cr Clr Drug Dosing 80.4 ml/min 03/07/23 21:30 Est GFR ( Amer) 84.1 ml/min 03/07/23 21:30 Est GFR (Non-Af Amer) 72.6 ml/min 03/07/23 21:30 BUN/Creatinine Ratio 21.9 (10-20) H 03/07/23 21:30 Glucose 239 mg/dl (70-99(Fasting)) H 03/07/23 21:30 POC Glucose 151 mg/dl (70-99) H 03/08/23 03:28 Lactate 1.1 mmol/L (0.4-2.0) 03/08/23 02:22 Calcium 9.7 mg/dl (8.6-10.3) 03/07/23 21:30 Total Bilirubin 0.6 mg/dl (0.2-1.0) 03/07/23 21:30 AST 17 U/L (13-39) 03/07/23 21:30 ALT 18 U/L (7-52) 03/07/23 21:30 Alkaline Phosphatase 56 U/L (34-104) 03/07/23 21:30 Total Protein 7.4 gm/dl (6.0-8.3) 03/07/23 21:30 Albumin 4.1 gm/dl (3.4-5.0) 03/07/23 21: Globulin 3.3 gm/dl (2.5-4.0) 03/07/23 21:30 Albumin/Globulin Ratio 1.2 (0.9-2) 03/07/23 21:30 Procalcitonin < 0.05 ng/ml (0-0.5) 03/08/23 02:22 Code Status & VTE Plan VTE Prophylaxis Plan VTE Prophylaxis will be ordered: Yes
[2023-03-08] MEDS ORDERED: GLUCOSE 40% GEL 15 GM TUBE PO PRN (07:17)
[2023-03-08] MEDS ORDERED: DEXTROSE 50% 50 ML SYRINGE IV PRN (07:17)
[2023-03-08] MEDS ORDERED: SODIUM CHLORIDE 0.9% 1,000 ML IV SCH (07:17)
[2023-03-08] MEDS ORDERED: GLUCAGON FOR INJ 1 MG VIAL SQ PRN (07:17)
[2023-03-08] MEDS ORDERED: PHARMACY GLYCEMIC MGMT CONSULT PRN (07:17)
[2023-03-08] MEDS ORDERED: tiZANidine HCL 4 MG TABLET PO PRN (07:17)
[2023-03-08] MEDS ORDERED: POLYETHYLENE (MIRALAX) 17 GM PACK PO PRN (07:17)
[2023-03-08] MEDS ORDERED: CARBOHYDRATES FOR HYPOGLYCEMIA PO PRN (07:17)
[2023-03-08] MEDS ORDERED: GLUCOSE 10 TAB/TUBE PO PRN (07:17)
[2023-03-08] MEDS ORDERED: PIPER/TAZO 4.5g in D5W MINI-B 100 ML IV ONE (08:00)
--- NOTE | 2023-03-08 08:30 | Pharmacy Report ---
Pharmacy Glycemic Short Note 2 - Date of Service March 08, 2023 - Glycemic Short BSG Results (Last 24 hours): 03/07/23 03/08/23 03/08/23 21:30 03:28 07:56 Glucose 239 H POC Glucose 151 H 184 H OUTPATIENT ANTIDIABETIC REGIMEN (per med rec): * 70/30 insulin, 44units BID * Trulicity 4.5mg SQ weekly * Metformin 850mg BID * A1c = 8.7% 02/21/23 ASSESSMENT: * Type 2 diabetic admitted for R diabetic foot infxn * Patient is known to glycemic control service from past admits, most recently 07/2022 * Of note, patient's insulin requirement inpatient tends to be less than reported outpt needs * Will initiate a basal/bolus regimen based upon prior admission data while keeping in mind current NPO status PLAN FOR INPATIENT GLYCEMIC CONTROL: * Hold outpatient diabetes medications (metformin, Trulicity) * Basal insulin * Lantus 15 units SQ x 1 this AM, then scaled dosing this PM: 0 units if BSG less than 120, 10units if BSG 120-200, 15 units if BSG above 200 * Reeval basal needs 03/09 based upon diet * Bolus insulin * NovoLog per scale ACHS or Q6hrs while NPO * Goal Range: Low 110 mg/dL - High 140 mg/dL * Correction Factor: 15 mg/dL/unit * Nutritional / Prandial insulin per carb ratio of 1 unit per 5 grams CHO consumed
--- NOTE | 2023-03-08 08:32 | XRay Report ---
XR foot RT min 3V routine HISTORY: 67 years-old Male eval osteo fifth toe chronic right foot pain with reported ostial myeliti s COMPARISON: None TECHNIQUE: 3 views of the right foot FINDINGS: There is a 1.2 cm ulcer of the lateral forefoot adjacent to the proximal aspect of the fifth metatars al. Moderate associated soft tissue swelling. There is cortical thickening and irregularity involving the proximal metaphyseal, proximal to mid diaphyseal fifth metatarsal without definite acute osseous erosion. There are few subcentimeter metallic density foreign bodies projecting over the great toe a nd lateral forefoot. Mild to moderate osteoarthritis with degenerative spurring of the calcaneus. Art erial calcifications. IMPRESSION: 1. Ulcer of the lateral forefoot with moderate soft tissue swelling and findings suggestive of chroni c fifth metatarsal osteomyelitis. 2. No acute fracture or dislocation. 3. Subcentimeter metallic density foreign bodies of the lateral forefoot and great toe. ACT 112: Negative or not required by law. The above report was generated using voice recognition software. It may contain grammatical, syntax o r spelling errors. Electronically signed by: Tom Cramer M.D. 03/08/2023 8:30 AM
[2023-03-08] MEDS ORDERED: LANTUS PER UNIT CHARGE SQ ONE ×2 (09:00→21:00)
[2023-03-08] MEDS: amLODIPine BESYLATE 5 MG TAB PO SCH (09:22)
[2023-03-08] MEDS: ATORVASTATIN 40 MG TAB PO SCH (09:22)
[2023-03-08] MEDS: CLOPIDOGREL BISULFATE 75 MG TAB PO SCH (09:22)
[2023-03-08] MEDS: FINASTERIDE 5 MG TAB PO SCH (09:22)
[2023-03-08] MEDS: METOPROLOL SUCC 50MG EXT REL TAB PO SCH (09:23)
[2023-03-08] MEDS: TRIAMTERENE/HCTZ 37.5/25MG TAB PO SCH (09:23)
[2023-03-08] MEDS: TAMSULOSIN HCL 0.4 MG CAP PO SCH (09:23)
[2023-03-08] MEDS: INSULIN ASPART PER UNIT CHARGE SC SCH ×3 (09:40→18:43)
--- NOTE | 2023-03-08 10:33 | Pharmacy Report ---
Pharmacy PK ABX Note - Date of Service March 08, 2023 - Assessment and Plan Assessment 67 year old M receiving vancomycin/zosyn for treatment of right food infection/cellulitis. Pertinent microbiologic data includes: blood cultures pending. Leukocytosis, afebrile, procal <0.05. Plan Vancomycin * Loading dose: 2250 mg IV x 1 * Maintenance dose: 1000 mg IV every 12 hours * Regimen is predicted to achieve target AUC/AGUILA of 400-600 mg/L.hr * Random level ordered for 03/10 @ 1000 Pharmacy will continue to follow and will adjust dose/frequency as necessary. Thank you. Pharmacy has transitioned to AUC monitoring for vancomycin. AUC/AGUILA is the pr eferred PK/PD target and is associated with decreased risk of nephrotoxicity compared to traditional trough targets.
[2023-03-08] MEDS: VANCOMYCIN HCL 1,000 MG in SODIUM CHLORIDE 0.9% 250 ML IV SCH (12:46)
[2023-03-08] MEDS: oxyCODONE HCL IR 5 MG TAB (IMMEDIATE RELEASE) PO PRN (12:50)
[2023-03-08] MEDS: PIPERACILLIN/TAZOBACTAM 4.5 GM in DEXTROSE 5% MINI-B 100 ML IV SCH ×2 (14:31→21:37)
--- NOTE | 2023-03-08 15:44 | Communication Note ---
Date of Service: March 08, 2023 Patient is a 67-year-old male with past medical history of type 2 diabetes mellitus who presents to the hospital with infected right foot callus and asso ciated cellulitis. Started on IV vancomycin and Zosyn; patient reports improvement in the symptoms. Podiatry consulted for comanagement and for possible debridement. Plan is to continue antibiotics; possible intervention as per podiatry. On physical examination; Constitutional: WD/WN, vitals as above, NAD, sitting up in bed, pleasant, conversing easily Respiratory: normal respiratory effort, lungs clear to auscultation, no wheeze, rales, rhonchi. Normal insp/exp effort, no accessory muscle use Cardiovascular: RRR, no murmur, no edema Vessels: no JVD or carotid bruit Chest: normal inspection of chest Abdomen: normal bowel sounds, soft, nontender, no hepatosplenomegaly Musculoskeletal: right foot callus on the lateral aspect with surrounding erythema, swelling and tenderness. Skin: no rashes, warm and dry normal turgor Neurologic: PERRL, EOMI, accommodation nl, no face palsy, no dysarthria CN's II- XI intact bilaterally and moves all extremities Psychiatric: A+Ox3, euthymic affect
[2023-03-08] MEDS: ACETAMINOPHEN 325 MG TAB PO PRN ×2 (16:08→21:42)
--- NOTE | 2023-03-08 21:17 | Orthopedic Consultation ---
Date of Consultation March 08, 2023 Assessment & Plan (1) Right foot infection: Patient seen and evaluated at bedside. Reviewed x-rays and x-ray findings. Reviewed leukocytosis. WBC 17.83 Reviewed osteomyelitis of fifth metatarsal. Discussed partial excision of fifth metatarsal for culture and sensitivities. Patient made NPO. Surgical intervention planned 03/09/23 7:30am. Thank you for allowing me to participate in the care of this Patient. History of Present Illness Attending Physician: Willie Edwards MD History of Present Illness Patient is a 67-year-old male seen at bedside for right foot fifth metatarsal osteomyelitis. Patient has a past medical history significant for type 2 diabetes, dyslipidemia, hypertension, BPH, history of goldberg Parkinson's White syndrome. He presented to the [facility] ED today with right foot cellulitis and plantar lateral diabetic foot ulcer.WBC 17.83. Patient is resting comfortably. Allergies Allergy/AdvReac Type Severity Reaction Status Date / Time No Known Allergies Allergy Verified 06/19/22 13:58 Home Medications Medication Instructions Recorded Confirmed Type amlodipine 5 mg tablet 5 mg PO DAILY 03/08/23 03/08/23 History atorvastatin 40 mg tablet 40 mg PO DAILY 03/08/23 03/08/23 History clopidogrel 75 mg tablet 75 mg PO DAILY 03/08/23 03/08/23 History dulaglutide 4.5 mg/0.5 mL 4.5 mg subcut WK 03/08/23 03/08/23 History subcutaneous pen injector (Trulicity) finasteride 5 mg tablet 5 mg PO DAILY 03/08/23 03/08/23 History insulin human U-100 NPH-regulr 44 unit subcut BID 03/08/23 03/08/23 History 70-30 mix 100 unit/mL subcutaneous susp (Novolin 70/30 U-100 Insulin) metformin 850 mg tablet 850 mg PO BID 03/08/23 03/08/23 History metoprolol succinate 50 mg 50 mg PO DAILY 03/08/23 03/08/23 History tablet,extended release 24 hr tamsulosin 0.4 mg capsule 0.8 mg PO DAILY 03/08/23 03/08/23 History tizanidine 2 mg capsule 2 mg PO HS PRN Muscle Spasm 03/08/23 03/08/23 History triamterene 37.5 1 tab PO DAILY 03/08/23 03/08/23 History mg-hydrochlorothiazide 25 mg tablet Patient History Medical History Abdominal hernia Stable Arthritis Atypical chest pain BPH (benign prostatic hyperplasia) Chronic back pain Claustrophobia "DOESN'T LIKE SLEEPING ON HIS BACK" DM II (diabetes mellitus, type II), controlled Glucose fluctuates Dry mouth Chronic Gallstones Found incidentally - no current issues GERD (gastroesophageal reflux disease) UNDER CONTROL History of asthma A CHILD History of Zvflh-Tyltvzzfl-Aidmm (WPW) syndrome S/p ablation- no issues Follows with cardio PRN HLD (hyperlipidemia) Hypertension Lumbar spinal stenosis Morbid obesity with BMI of 45.0-49.9, adult IGOR (obstructive sleep apnea) Cannot tolerate device SOB (shortness of breath) on exertion OVERWEIGHT- CHRONIC AND STABLE Surgical History History of cataract surgery RT History of colonoscopy 2020 History of radiofrequency ablation procedure for cardiac arrhythmia AT AGE 29 History of tonsillectomy History of tooth extraction S/P TURP Family History Other Diabetes Hypertension No family history of adverse response to anesthesia Social History Smoking Status: Never smoker Second Hand Exposure: No; Do You Dip or Chew Tobacco: No; Hx Alcohol Use: No Hx Substance Use: No Preferred Language: Montenegrin Communication Ability: Effective Contact Printer Dry Film Required: No Beliefs That Will Affect Care: None Current Living Situation: Spouse and Other Current Living Situation Comment: and youngest daughter current occupational status: retired Other Information That Helps Us Care for You: No Feels Safe at Home: Yes Safety Concerns: Feels Safe At This Time Assistive Devices: Cane and Glasses Review of Systems Review of Systems: All systems reviewed & are unremarkable except as noted in HPI & below Physical Exam Constitutional: cooperative and comfortable Eyes: normal visual montes by confrontation Neck: normal visual inspection Respiratory: normal respiratory effort Cardiovascular: Vessels: posterior tibial pulses present and dorsalis pedis pulses present Musculoskeletal: Extremities: extremities normal to inspection Skin: + ulcer (Right plantar lateral fifth metatarsal base) Neurologic: moves all extremities (Absent epicritic sensation) Psychiatric: Orientation: alert and oriented x 3 Results & Data Vital Signs (Past 12 Hours) Vital Signs Temp Pulse Pulse Resp BP Pulse Ox O2 Del Method 03/08/23 19:40 36.4 C L 88 20 161/72 H 97 Room Air 03/08/23 16:00 36.8 C 75 18 143/87 H 96 Room Air 03/08/23 12:18 36.6 C 63 18 135/76 97 Room Air 03/08/23 12:00 36.7 C 64 18 135/76 97 Room Air Diagnostic Findings [place], [place] [phone] XRay Report Patient:OMI MILAN Admit Date:03/08/23 MR#:[id number] Address1:[address] Acct ID:[id number] Address2: Date:1955 [facility] Zip:[place] [address] Age:67 Location:[facility] Sex:M Room/Bed:[place] [address]-9 Att Phy:Willie Edwards MD Diagnosis:RIGHT FOOT INFECTION AND CELLULITIS Stephani Phy:Huey Alexandra MD Service Date:03/08/23 Fam Phy: Interpreting Phy:Tom CramerAdmit Phy:Son Tian MD Ordering Phy:Myah Hutton D.O. cc: ~ XR foot RT min 3V routine HISTORY: 67 years-old Male eval osteo fifth toe chronic right foot pain with reported ostial myelitis COMPARISON: None TECHNIQUE: 3 views of the right foot FINDINGS: There is a 1.2 cm ulcer of the lateral forefoot adjacent to the proximal aspect of the fifth metatarsal. Moderate associated soft tissue swelling. There is cortical thickening and irregularity involving the proximal metaphyseal, proximal to mid diaphyseal fifth metatarsal without definite acute osseous erosion. There are few subcentimeter metallic density foreign bodies projecting over the great toe and lateral forefoot. Mild to moderate osteoarthritis with degenerative spurring of the calcaneus. Arterial calcifications. IMPRESSION: 1. Ulcer of the lateral forefoot with moderate soft tissue swelling and findings suggestive of chronic fifth metatarsal osteomyelitis. 2. No acute fracture or dislocation. 3. Subcentimeter metallic density foreign bodies of the lateral forefoot and great toe. ACT 112: Negative or not required by law. The above report was generated using voice recognition software. It may contain grammatical, syntax or spelling errors. Electronically signed by: Tom Cramer M.D. 03/08/2023 8:30 AM Dictated:03/08/23814 Transcribed: 03/08/23814
[2023-03-08] MEDS ORDERED: Nursing to Pharmacy Communication SCH (23:45)
[2023-03-09] MEDS: INSULIN ASPART PER UNIT CHARGE SC SCH ×5 (00:54→20:14)
[2023-03-09] MEDS: VANCOMYCIN HCL 1,000 MG in SODIUM CHLORIDE 0.9% 250 ML IV SCH ×2 (01:14→12:04)
[2023-03-09] MEDS: PIPERACILLIN/TAZOBACTAM 4.5 GM in DEXTROSE 5% MINI-B 100 ML IV SCH ×3 (05:02→20:14)
[2023-03-09 06:54] LABS: Basophils # (auto) 0.12 K/uL (0.00-0.20); Basophils % (auto) 0.9 %; Eosinophils # (auto) 0.35 K/uL (0.00-0.50); Eosinophils % (auto) 2.7 %; Hematocrit (blood only) 39.2 % (42.0-52.0); Hemoglobin 12.6 g/dl (14.0-18.0); Immature Granulocytes # (auto) 0.06 K/uL (0.01-0.20); Immature Granulocytes % (auto) 0.5 %; Lymphocytes # (auto) 2.28 K/uL (1.20-3.40); Lymphocytes % (auto) 17.7 %; Mean Corpuscular Hemoglobin 26.8 pg (25.0-34.0); Mean Corpuscular Hgb Conc 32.1 g/dL (32.0-36.0); Mean Corpuscular Volume 83.4 fL (80.0-100.0); Mean Platelet Volume 10.5 fL (9.4-12.4); Monocytes # (auto) 0.89 K/uL (0.11-0.59); Monocytes % (auto) 6.9 %; Neutrophils # (auto) 9.19 K/uL (1.40-6.50); Neutrophils % (auto) 71.3 %; Platelet Count 330 K/uL (130-400); RDW Coefficient of Variation 13.2 % (11.5-14.5); White Blood Count 12.89 K/ul (4.8-10.8)
[2023-03-09 07:09] LABS: Calcium 9.5 mg/dl (8.6-10.3); Creatinine Clr Calc Pharmacy 81.4 ml/min; Est GFR (African American) 82.2 ml/min; Magnesium 1.7 mg/dl (1.7-2.4); Potassium 3.9 mmol/L (3.5-5.1)
[2023-03-09] MEDS ORDERED: MIDAZOLAM HCL 1 MG/ML 2ML VIAL ONE (07:11)
[2023-03-09] MEDS ORDERED: ONDANSETRON INJ 2 MG/ML 2 ML VIAL ONE (07:11)
[2023-03-09] MEDS ORDERED: PROPOFOL IV EMULSION 10 MG/ML 20 ML VIAL IV ONE ×4 (07:11→07:55)
[2023-03-09] MEDS ORDERED: fentaNYL citrate PF 100 MCG/2 ML VIAL ONE ×2 (07:11→09:09)
--- NOTE | 2023-03-09 07:40 | Anesthesiology Consultation ---
Date of Service March 09, 2023 Assessment & Plan Chart Review Chart Review: Acceptable Risk for Surgery and Patient NOT seen in Pre Admission Testing Consults Requested none ASA ASA4 Proposed Anesthesia Anesthesia Type: MAC Risk / Benefits Reviewed With: PT / POA / Parent / Guardian, Accepts Plan and Informed Consent Obtained History Surgery Operation Date: 03/09/23 08:30 Proposed Procedures p Amputation Transmetatarsal - Asael Quinones, GABRIELE, [place] Height/Weight Height: 5 ft 7 in Weight: 118.5 kg Allergies Allergy/AdvReac Type Severity Reaction Status Date / Time No Known Allergies Allergy Verified 06/19/22 13:58 Medications Home Medications Medication Instructions Recorded Confirmed Last Taken amlodipine 5 mg tablet 5 mg PO DAILY 03/08/23 03/08/23 Unknown atorvastatin 40 mg tablet 40 mg PO DAILY 03/08/23 03/08/23 Unknown clopidogrel 75 mg tablet 75 mg PO DAILY 03/08/23 03/08/23 Unknown dulaglutide 4.5 mg/0.5 mL 4.5 mg subcut WK 03/08/23 03/08/23 Unknown subcutaneous pen injector (Trulicity) finasteride 5 mg tablet 5 mg PO DAILY 03/08/23 03/08/23 Unknown insulin human U-100 NPH-regulr 44 unit subcut BID 03/08/23 03/08/23 Unknown 70-30 mix 100 unit/mL subcutaneous susp (Novolin 70/30 U-100 Insulin) metformin 850 mg tablet 850 mg PO BID 03/08/23 03/08/23 Unknown metoprolol succinate 50 mg 50 mg PO DAILY 03/08/23 03/08/23 Unknown tablet,extended release 24 hr tamsulosin 0.4 mg capsule 0.8 mg PO DAILY 03/08/23 03/08/23 Unknown tizanidine 2 mg capsule 2 mg PO HS PRN Muscle Spasm 03/08/23 03/08/23 Unknown triamterene 37.5 1 tab PO DAILY 03/08/23 03/08/23 Unknown mg-hydrochlorothiazide 25 mg tablet Active Medications Generic Name Dose Route Start Last Admin Trade Name Freq PRN Reason Stop Dose Admin Acetaminophen 650 mg 03/08/23 07:17 03/08/23 21:42 Acetaminophen 325 Mg Tab PO 04/07/23 07:16 650 mg Q4H PRN Administration pain/fever Amlodipine Besylate 5 mg 03/08/23 09:00 03/08/23 09:22 Amlodipine Besylate 5 Mg Tab PO 04/07/23 08:59 5 mg DAILY ADRIA Administration Atorvastatin Calcium 40 mg 03/08/23 09:00 03/08/23 09:22 Atorvastatin 40 Mg Tab PO 04/07/23 08:59 40 mg DAILY ADRIA Administration Clopidogrel Bisulfate 75 mg 03/08/23 09:00 03/08/23 09:22 Clopidogrel Bisulfate 75 Mg Tab PO 04/07/23 08:59 75 mg DAILY ADRIA Administration Finasteride 5 mg 03/08/23 09:00 03/08/23 09:22 Finasteride 5 Mg Tab PO 04/07/23 08:59 5 mg DAILY ADRIA Administration Piperacillin Sod/Tazobactam 100 mls @ 25 mls/hr 03/08/23 13:30 03/09/23 05:02 Sod 4.5 gm/ Dextrose IV 03/15/23 13:29 25 mls/hr Q8H ADRIA Administration Protocol Vancomycin HCl 1,000 mg/ 270 mls @ 200 mls/hr 03/08/23 12:00 03/09/23 03:13 Sodium Chloride IV 03/15/23 11:59 Infused Q12H [facility] Infusion Insulin Aspart 0 units 03/08/23 08:00 03/09/23 06:16 Insulin Aspart Per Unit Charge SC 04/07/23 07:59 Not Given Q6 ADRIA Metoprolol Succinate 50 mg 03/08/23 09:00 03/08/23 09:23 Metoprolol Succ 50mg Ext Rel Tab PO 04/07/23 08:59 50 mg DAILY ADRIA Administration Oxycodone HCl 5 mg 03/08/23 07:17 03/08/23 12:50 Oxycodone Hcl Ir 5 Mg Tab (Immediate Release) PO 03/22/23 07:16 5 mg Q6H PRN Administration Mod-Sev Pain (Scale 4-10) Tamsulosin HCl 0.8 mg 03/08/23 09:00 03/08/23 09:23 Tamsulosin Hcl 0.4 Mg Cap PO 04/07/23 08:59 0.8 mg DAILY ADRIA Administration Triamterene/Hydrochlorothiazide 1 tab 03/08/23 09:00 03/08/23 09:23 Triamterene/Hctz 37.5/25mg Tab PO 04/07/23 08:59 1 tab DAILY ADRIA Administration NPO Date Last Intake of Fluids: 03/08/23 Time Last Intake of Fluids: 17:00 Date Last Intake of Solids: 03/08/23 Time Last Intake of Solids: 17:00 Past Medical History Medical History Abdominal hernia Stable Arthritis Atypical chest pain BPH (benign prostatic hyperplasia) Chronic back pain Claustrophobia "DOESN'T LIKE SLEEPING ON HIS BACK" DM II (diabetes mellitus, type II), controlled Glucose fluctuates Dry mouth Chronic Gallstones Found incidentally - no current issues GERD (gastroesophageal reflux disease) UNDER CONTROL History of asthma A CHILD History of Dsunt-Pltcaykmf-Inhcg (WPW) syndrome S/p ablation- no issues Follows with cardio PRN HLD (hyperlipidemia) Hypertension Lumbar spinal stenosis Morbid obesity with BMI of 45.0-49.9, adult IGOR (obstructive sleep apnea) Cannot tolerate device SOB (shortness of breath) on exertion OVERWEIGHT- CHRONIC AND STABLE Exercise / Class Metabolic Activity III < 4 Walking/Shop/Light housework Past Family History Family History Other Diabetes Hypertension No family history of adverse response to anesthesia Past Surgical History Surgical History History of cataract surgery RT History of colonoscopy 2020 History of radiofrequency ablation procedure for cardiac arrhythmia AT AGE 29 History of tonsillectomy History of tooth extraction S/P TURP Past Anesthesia History No Hx of Anesthesia Complications and No Family Hx of Anesthesia Complications History of PONV No Hx of PONV and No Hx of Motion Sickness Social History Smoking Status: Never smoker Do You Dip or Chew Tobacco: No Hx Alcohol Use: No Hx Substance Use: No substance use type: does not use Physical Exam Vital Signs Last Vital Signs Temp 36.5 C 03/09/23 07:11 Pulse 79 03/09/23 07:11 Resp 19 03/09/23 07:11 BP 166/88 H 03/09/23 07:11 Pulse Ox 94 03/09/23 07:11 O2 Del Method Room Air 03/09/23 07:11 Constitutional + morbidly obese; no acute distress ENMT Mouth: + dentition abnormality, + dental caries and + poor dentition Thyromental Distance: > or= 3.5 Finger Breadths Mallampati Class: II Neck normal visual inspection, trachea midline and + facial hair; neck extension not limited Respiratory normal respiratory effort Auscultation: + diminished lung sounds Cardiovascular Rate/Rhythm: regular rate and regular rhythm Heart Sounds: no murmur Vessels: no carotid bruit Musculoskeletal Spine: normal cervical ROM and no pain with cervical ROM Extremities: extremities normal to inspection; full ROM of extremities Neurologic moves all extremities Motor/Sensory: + sensory deficit Psychiatric Orientation: alert and oriented x 3 Testing Laboratory Results 03/09/23 06:31 03/09/23 06:31 PT 11.7 Seconds (9.0-12.0) 03/07/23 21:30 INR 1.1 (0.9-1.1) 03/07/23 21:30 APTT 27.6 Seconds (21.0-31.0) 03/07/23 21:30 03/08/23 02:22 Aerobic Blood Culture - Preliminary Blood No growth in Aerobic bottle after 24 hours. Anaerobic Blood Culture - Preliminary No growth in Anaerobic bottle after 24 hours. 03/07/23 21:30 Aerobic Blood Culture - Preliminary Blood No growth in Aerobic bottle after 24 hours. Anaerobic Blood Culture - Preliminary No growth in Anaerobic bottle after 24 hours. 03/09/23 03/08/23 03/08/23 06:09 23:51 21:53 POC Glucose 146 H 147 H 76
--- NOTE | 2023-03-09 07:42 | History & Physical Bridge Note ---
Date of Service March 09, 2023 History & Physical Bridge Note I have examined the patient, reviewed the History & Physical and in the interval since the performance of the History & Physical I have noted the following changes of clinical significance: no changes noted
[2023-03-09] MEDS ORDERED: ePHEDrine sulfate 50 MG/ML AMP IV PRN (07:44)
[2023-03-09] MEDS ORDERED: ATROPINE SULFATE 0.1 MG/ML 10ML SYR IV PRN (07:44)
--- NOTE | 2023-03-09 07:44 | Communication Note ---
Date of Service: March 09, 2023 07/30/2022-EKG- NSR @ 65;Low voltage QRS;LAFB 07/31/20229165-Apfo-wxl nl LV FXN;EF -55% 07/30/22-Neck CTA-LCCA->/= 50% 04/26/2021-nuclear stress perfusion scan-EF-40% 04/25/2021-Carotid U/S=B/L </= 50%
[2023-03-09] MEDS ORDERED: BUPIVACAINE 0.5 % 5 MG/1 ML MPF 30ML VIAL ONE (07:45)
[2023-03-09] MEDS ORDERED: BUPIVACAINE/EPINEPHRINE 0.5% MPF 1:200,000 30 ML VIAL ONE (07:45)
[2023-03-09 07:58] LABS: Estimated Average Glucose 206 mg/dl; Hemoglobin A1C 8.8 % (4.5-5.6)
--- NOTE | 2023-03-09 08:33 | Post Operative Brief Note ---
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
[2023-03-09] MEDS ORDERED: LANTUS PER UNIT CHARGE SQ SCH (09:00)
--- NOTE | 2023-03-09 09:05 | Anesthesiology Progress Note ---
Date of Service March 09, 2023 Anesthesia Post Procedure Vital Signs Vital Signs: Temp Pulse Pulse Resp BP BP Pulse Ox 03/09/23 08:41 76 16 126/67 97 03/09/23 08:39 36.8 C 79 16 127/60 93 03/09/23 07:11 36.5 C 79 19 166/88 H 94 03/08/23 19:40 36.4 C L 88 20 161/72 H 97 03/08/23 16:00 36.8 C 75 18 143/87 H 96 03/08/23 12:18 36.6 C 63 18 135/76 97 03/08/23 12:00 36.7 C 64 18 135/76 97 O2 Del Method 03/09/23 08:41 Room Air 03/09/23 08:39 Room Air 03/09/23 07:11 Room Air 03/08/23 19:40 Room Air 03/08/23 16:00 Room Air 03/08/23 12:18 Room Air 03/08/23 12:00 Room Air Pain Intensity Head: Pain Intensity: 8 Transfer of Care Handoff Completed per policy Notes Mental Status: alert / awake / arousable Patient Amnestic to Procedure: Yes Nausea / Vomiting: adequately controlled Pain: adequately controlled Airway Patency, RR, SpO2: stable & adequate BP & HR: stable & adequate Hydration State: stable & adequate Anesthetic Complications: no major complications apparent
[2023-03-09] MEDS: fentaNYL citrate PF 100 MCG/2 ML VIAL IV PRN ×3 (09:12→09:56)
[2023-03-09] MEDS ORDERED: Nursing to Pharmacy Communication SCH ×2 (10:45→11:45)
[2023-03-09] MEDS: ACETAMINOPHEN 325 MG TAB PO PRN (11:14)
[2023-03-09] MEDS: oxyCODONE HCL IR 5 MG TAB (IMMEDIATE RELEASE) PO PRN ×2 (11:14→17:53)
[2023-03-09] MEDS: amLODIPine BESYLATE 5 MG TAB PO SCH (11:28)
[2023-03-09] MEDS: TAMSULOSIN HCL 0.4 MG CAP PO SCH (11:28)
[2023-03-09] MEDS: FINASTERIDE 5 MG TAB PO SCH (11:28)
[2023-03-09] MEDS: ATORVASTATIN 40 MG TAB PO SCH (11:30)
[2023-03-09] MEDS: CLOPIDOGREL BISULFATE 75 MG TAB PO SCH (11:31)
[2023-03-09] MEDS: METOPROLOL SUCC 50MG EXT REL TAB PO SCH (11:31)
[2023-03-09] MEDS: TRIAMTERENE/HCTZ 37.5/25MG TAB PO SCH ×2 (12:21→20:08)
--- NOTE | 2023-03-09 12:58 | Hospitalist Progress Note ---
Date of Service March 09, 2023 Assessment & Plan (1) Right foot infection: Plan: 67-year-old male with past medical history significant for type 2 diabetes, dyslipidemia, hypertension, BPH, history of goldberg Parkinson- White syndrome presents with infected right foot callus and cellulitis. Diabetic foot infection Suspected osteomyelitis of fifth metatarsal Status post right fifth metatarsal partial excision on March 09 Patient presented with gradually progressing wound on his lateral aspect of right foot X-ray personally reviewed; not suggestive of osteomyelitis. However, low sensitivity/specificity. Underwent surgery on March 09 Continue on IV vancomycin and Zosyn. Await Intra-Op culture results Antibiotic dose and route dependent on margin of the surgery. Type II diabetes Hold home medications Lantus and sliding scale Glycemic pharmacy consult HbA1c of 8.8% Hypertension On amlodipine and metoprolol succinate We will monitor History of TIA On statin and Plavix BPH On Flomax and finasteride DVT prophylaxis Can Place on Lovenox if no procedures planned SCDs Disposition med/surg Full code Time spent evaluating patient, direct bedside care, chart review, placing orders, interpretation of diagnostic studies, discussion with consultants, patient, and family members, as well as other required patient management activities is 60 minutes. Please note the above document was generated using voice recognition software. It may contain grammatical, syntax or spelling errors. Any formal questions or concerns about the content, text or information contained within the body of this dictation should be directly addressed to the provider for clarification Admission and Anticipated Discharge Date Admission Date: March 08, 2023 Subjective Patient seen after the OR. He reports burning sensation in his fifth toe. No immediate postoperative complications Saturating well on room air; hemodynamic stable. Review of Systems Review of Systems: All systems reviewed & are unremarkable except as noted in Subjective Physical Exam Physical Exam: General-Not in distress Head- atraumatic Eyes-EOMI ENT- oropharynx clear Neck- supple, no JVD. Lungs- clear to auscultation no wheezing or crackles. Heart- regular rate and rhythm; no murmur, no gallop. Abdomen- normal bowel sounds, soft, nontender, no distension. Extremities-bandages over his right foot; clean dry and intact Neuro- alert, oriented x 3; EOMI; no facial palsy; no dysarthria; moves extremities. Results & Data Results & Data Vital Signs (Past 12 Hours) Vital Signs Temp Pulse Pulse Pulse Resp BP BP 10/28/23 11:27 36.3 C L 73 17 137/74 03/09/23 10:10 79 20 152/79 H 03/09/23 10:00 78 12 149/81 H 03/09/23 09:50 71 19 148/78 H 03/09/23 09:30 37 C 76 21 129/91 03/09/23 09:20 73 14 134/79 03/09/23 09:10 74 17 116/79 03/09/23 09:00 78 23 126/80 03/09/23 08:50 80 20 136/75 03/09/23 09:40 73 18 148/78 H 03/09/23 08:40 72 20 128/62 03/09/23 08:41 76 16 126/67 03/09/23 08:39 36.8 C 79 16 127/60 03/09/23 07:11 36.5 C 79 19 166/88 H Pulse Ox O2 Del Method 03/09/23 11:27 94 Room Air 03/09/23 10:10 94 Room Air 03/09/23 10:00 92 Room Air 03/09/23 09:50 96 Room Air 03/09/23 09:30 97 Room Air 03/09/23 09:20 98 Room Air 03/09/23 09:10 99 Room Air 03/09/23 09:00 99 Room Air 03/09/23 08:50 97 Room Air 03/09/23 09:40 98 Room Air 03/09/23 08:40 96 Room Air 03/09/23 08:41 97 Room Air 03/09/23 08:39 93 Room Air 03/09/23 07:11 94 Room Air
--- NOTE | 2023-03-09 17:32 | Emergency Department Note ---
Impression & Plan Cellulitis, Osteomyelitis of foot, right, acute Admit to the [facility] ED Provider Note NAME: OMI MILAN AGE: 67 SEX: Male INFORMANT: Patient ED PROVIDER(S): Myah Hutton DO CHIEF COMPLAINT: Right foot pain and infection PLAN: Disposition: Admit to the [facility] MEDICAL DECISION MAKING: This is a 67-year-old male patient presents to the emergency department with an infection and pain in his right lateral foot. He noted increased redness and streaking from this wound up his leg. Patient is an insulin-dependent diabetic. On laboratory testing here in the emergency department tonight he has not elevated white blood cell count of 17.8. He is significantly hyperglycemic with a blood sugar at 239. X-ray of the foot is concerning for osteomyelitis of the fifth metatarsal. Initially, the patient was unwilling to stay in the hospital for IV antibiotics but after some convincing from his family, he was willing to stay. The patient was started on IV vancomycin here in the emergency department. Care/management discussed with: garden center manager and [facility] Triage Nursing notes: reviewed and agree with them. Vital Signs: reviewed and unremarkable Additional History obtained from: Family members at the bedside Chronic Medical/Social Conditions affecting care: Diabetes Prior/ Outside/ External records reviewed: Previous admissions were reviewed Differential Diagnosis: Infected callus, osteomyelitis, lymphangitis, cellulitis Diagnostics, independently interpreted by me: Imaging studies: Right foot x-ray: Osteomyelitis of the fifth metatarsal as per my independent interpretation HPI: 67 year old Male arrives for evaluation of right foot pain and redness. Patient developed increasing redness surrounding a callus over the right fifth metatarsal approximately 2 days ago. Now there is redness streaking away from this callus extending up the leg. There is increasing pain noted over the lateral aspect of the right foot. PAST MEDICAL HISTORY: See Below, PAST SURGICAL HISTORY: See Below, SOCIAL HISTORY: See Below, see list HOME MEDICATIONS: See list ALLERGIES: None VITALS: See Below PHYSICAL EXAMINATION: HEENT: Head - normocephalic and atraumatic. Pupils are equal, round, and reactive to light. Extraocular eye muscles are intact, and sclera are anicteric. Nose - moist nasal mucosa without discharge. Mouth - moist buccal mucosa. Oropharynx is nonerythematous and there is no tonsillar exudate or edema noted. Neck: Supple; no JVD or cervical lymphadenopathy Heart: Regular rate and rhythm. There is a normal S1 and S2 with no murmurs, clicks, or gallops appreciated. Lungs: Clear to auscultation bilaterally with no wheezes, rales, or rhonchi. Abdomen: Soft, completely nontender, nondistended, with good bowel sounds. There are no palpable pulsatile masses or hepatosplenomegaly. There is no guarding, rigidity, or rebound noted. Extremities: There is a black callus noted over the proximal right fifth metatarsal. There is surrounding edema and erythema. There is erythema that extends proximal from this callus Skin: warm and dry with good turgor and no rashes. Emergency department treatment: IV vancomycin Emergency department course Emergency department course: The patient was evaluated in room A-3. A complete history and physical was performed. An IV lock was initiated and labs were drawn as above. Patient had plain films of the right foot. He was given a dose of IV vancomycin and the case was discussed with the [place] [facility]ist. 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 Follows with cardio PRN HLD (hyperlipidemia) Hypertension Lumbar spinal stenosis Morbid obesity with BMI of 45.0-49.9, adult IGOR (obstructive sleep apnea) Cannot tolerate device SOB (shortness of breath) on exertion OVERWEIGHT- CHRONIC AND STABLE Surgical History History of cataract surgery RT History of colonoscopy 2020 History of radiofrequency ablation procedure for cardiac arrhythmia AT AGE 29 History of tonsillectomy History of tooth extraction S/P TURP Family History Other Diabetes Hypertension No family history of adverse response to anesthesia Social History Smoking Status: Never smoker Second Hand Exposure: No; Do You Dip or Chew Tobacco: No; Hx Alcohol Use: No Hx Substance Use: No Preferred Language: Swedish Communication Ability: Effective Linen Folder Required: No Beliefs That Will Affect Care: None Current Living Situation: Spouse and Other Current Living Situation Comment: and youngest daughter current occupational status: retired Other Information That Helps Us Care for You: No Feels Safe at Home: Yes Safety Concerns: Feels Safe At This Time Assistive Devices: Cane and Glasses Allergies Allergies Allergy/AdvReac Type Severity Reaction Status Date / Time No Known Allergies Allergy Verified 06/19/22 13:58 Home Meds Home Medications Medication Instructions Recorded Confirmed amlodipine 5 mg tablet 5 mg PO DAILY 03/08/23 03/08/23 atorvastatin 40 mg tablet 40 mg PO DAILY 03/08/23 03/08/23 clopidogrel 75 mg tablet 75 mg PO DAILY 03/08/23 03/08/23 dulaglutide 4.5 mg/0.5 mL 4.5 mg subcut WK 03/08/23 03/08/23 subcutaneous pen injector (Trulicity) finasteride 5 mg tablet 5 mg PO DAILY 03/08/23 03/08/23 insulin human U-100 NPH-regulr 44 unit subcut BID 03/08/23 03/08/23 70-30 mix 100 unit/mL subcutaneous susp (Novolin 70/30 U-100 Insulin) metformin 850 mg tablet 850 mg PO BID 03/08/23 03/08/23 metoprolol succinate 50 mg 50 mg PO DAILY 03/08/23 03/08/23 tablet,extended release 24 hr tamsulosin 0.4 mg capsule 0.8 mg PO DAILY 03/08/23 03/08/23 tizanidine 2 mg capsule 2 mg PO HS PRN Muscle Spasm 03/08/23 03/08/23 triamterene 37.5 1 tab PO DAILY 03/08/23 03/08/23 mg-hydrochlorothiazide 25 mg tablet Results & Data (ED) Laboratory Data 03/09/23 06:31 03/09/23 06:31 Lab Results 03/07/23 03/07/23 03/07/23 Range/Units 21:30 21:30 21:30 WBC 17.83 H (4.8-10.8) K/ul RBC 4.46 L (4.70-6.10) M/uL Hgb 12.3 L (14.0-18.0) g/dl Hct 37.2 L (42.0-52.0) % MCV 83.4 (80.0-100.0) fL MCH 27.6 (25.0-34.0) pg MCHC 33.1 (32.0-36.0) g/dL RDW Std Deviation 40.6 (36.4-46.3) fL RDW Coeff of Henrry 13.3 (11.5-14.5) % Plt Count 332 (130-400) K/uL MPV 10.6 (9.4-12.4) fL Immature Gran % (Auto) 0.6 % Neut % (Auto) 81.3 % Lymph % (Auto) 11.1 % [place] % (Auto) 5.8 % Eos % (Auto) 0.6 % Baso % (Auto) 0.6 % Neut # (Auto) 14.50 H (1.40-6.50) K/uL Lymph # (Auto) 1.98 (1.20-3.40) K/uL [place] # (Auto) 1.04 H (0.11-0.59) K/uL Eos # (Auto) 0.11 (0.00-0.50) K/uL Baso # (Auto) 0.10 (0.00-0.20) K/uL Immature Gran # (Auto) 0.10 (0.01-0.20) K/uL PT 11.7 (9.0-12.0) Seconds INR 1.1 (0.9-1.1) APTT 27.6 (21.0-31.0) Seconds PTT Ratio 1.0 Sodium 134 L (136-145) mmol/L Potassium 4.1 (3.5-5.1) mmol/L Chloride 104 (98-107) mmol/L Carbon Dioxide 22 (21-32) mmol/L Anion Gap 8 (3-11) BUN 23 (6-23) mg/dl Creatinine 1.05 (0.6-1.4) mg/dl Est Cr Clr Drug Dosing 80.4 ml/min Est GFR ( Amer) 84.1 ml/min Est GFR (Non-Af Amer) 72.6 ml/min BUN/Creatinine Ratio 21.9 H (10-20) Glucose 239 H (70-99(Fasting)) mg/dl POC Glucose (70-99) mg/dl Lactate (0.4-2.0) mmol/L Calcium 9.7 (8.6-10.3) mg/dl Total Bilirubin 0.6 (0.2-1.0) mg/dl AST 17 (13-39) U/L ALT 18 (7-52) U/L Alkaline Phosphatase 56 (34-104) U/L Total Protein 7.4 (6.0-8.3) gm/dl Albumin 4.1 (3.4-5.0) gm/dl Globulin 3.3 (2.5-4.0) gm/dl Albumin/Globulin Ratio 1.2 (0.9-2) Procalcitonin (0-0.5) ng/ml 03/08/23 03/08/23 03/08/23 Range/Units 02:22 02:22 03:28 WBC (4.8-10.8) K/ul RBC (4.70-6.10) M/uL Hgb (14.0-18.0) g/dl Hct (42.0-52.0) % MCV (80.0-100.0) fL MCH (25.0-34.0) pg MCHC (32.0-36.0) g/dL RDW Std Deviation (36.4-46.3) fL RDW Coeff of Henrry (11.5-14.5) % Plt Count (130-400) K/uL MPV (9.4-12.4) fL Immature Gran % (Auto) % Neut % (Auto) % Lymph % (Auto) % [place] % (Auto) % Eos % (Auto) % Baso % (Auto) % Neut # (Auto) (1.40-6.50) K/uL Lymph # (Auto) (1.20-3.40) K/uL [place] # (Auto) (0.11-0.59) K/uL Eos # (Auto) (0.00-0.50) K/uL Baso # (Auto) (0.00-0.20) K/uL Immature Gran # (Auto) (0.01-0.20) K/uL PT (9.0-12.0) Seconds INR (0.9-1.1) APTT (21.0-31.0) Seconds PTT Ratio Sodium (136-145) mmol/L Potassium (3.5-5.1) mmol/L Chloride (98-107) mmol/L Carbon Dioxide (21-32) mmol/L Anion Gap (3-11) BUN (6-23) mg/dl Creatinine (0.6-1.4) mg/dl Est Cr Clr Drug Dosing ml/min Est GFR ( Amer) ml/min Est GFR (Non-Af Amer) ml/min BUN/Creatinine Ratio (10-20) Glucose (70-99(Fasting)) mg/dl POC Glucose 151 H (70-99) mg/dl Lactate 1.1 (0.4-2.0) mmol/L Calcium (8.6-10.3) mg/dl Total Bilirubin (0.2-1.0) mg/dl AST (13-39) U/L ALT (7-52) U/L Alkaline Phosphatase (34-104) U/L Total Protein (6.0-8.3) gm/dl Albumin (3.4-5.0) gm/dl Globulin (2.5-4.0) gm/dl Albumin/Globulin Ratio (0.9-2) Procalcitonin < 0.05 (0-0.5) ng/ml Administered Medications Acetaminophen (Acetaminophen 325 Mg Tab) 650 mg PO Q4H PRN PRN Reason: pain/fever Stop: 04/07/23 07:16 Last Admin: 03/09/23 11:14 Dose: 650 mg Documented By: Admin: 03/08/23 21:42 Dose: 650 mg Documented By: Admin: 03/08/23 16:08 Dose: 650 mg Documented By: PAVAN Amlodipine Besylate (Amlodipine Besylate 5 Mg Tab) 5 mg PO DAILY [facility] Stop: 04/07/23 08:59 Last Admin: 03/09/23 11:28 Dose: 5 mg Documented By: Admin: 03/08/23 09:22 Dose: 5 mg Documented By: NADIA Atorvastatin Calcium (Atorvastatin 40 Mg Tab) 40 mg PO DAILY [facility] Stop: 04/07/23 08:59 Last Admin: 03/09/23 11:30 Dose: 40 mg Documented By: Admin: 03/08/23 09:22 Dose: 40 mg Documented By: NADIA Clopidogrel Bisulfate (Clopidogrel Bisulfate 75 Mg Tab) 75 mg PO DAILY [facility] Stop: 04/07/23 08:59 Last Admin: 03/09/23 11:31 Dose: Not Given Documented By: Admin: 03/08/23 09:22 Dose: 75 mg Documented By: NADIA Fentanyl Citrate (Fentanyl Citrate Pf 100 Mcg/2 Ml Vial) 25 mcg IV Q15M PRN PRN Reason: pain Stop: 03/23/23 09:14 Last Admin: 03/09/23 09:56 Dose: 25 mcg Documented By: Admin: 03/09/23 09:26 Dose: 25 mcg Documented By: Admin: 03/09/23 09:12 Dose: 25 mcg Documented By: CHRISTIAN Finasteride (Finasteride 5 Mg Tab) 5 mg PO DAILY [facility] Stop: 04/07/23 08:59 Last Admin: 03/09/23 11:28 Dose: 5 mg Documented By: Admin: 03/08/23 09:22 Dose: 5 mg Documented By: NADIA Piperacillin Sod/Tazobactam (Sod 4.5 gm/ Dextrose) 100 mls @ 25 mls/hr IV Q8H [facility]; Protocol Stop: 03/15/23 13:29 Last Admin: 03/09/23 13:46 Dose: 25 mls/hr Documented By: Infusion: 03/09/23 10:35 Dose: 0 mls/hr Documented By: Admin: 03/09/23 05:02 Dose: 25 mls/hr Documented By: Infusion: 03/09/23 01:11 Dose: 0 mls/hr Documented By: Admin: 03/08/23 21:37 Dose: 25 mls/hr Documented By: Infusion: 03/08/23 18:30 Dose: 0 mls/hr Documented By: Infusion: 03/08/23 18:30 Dose: 25 mls/hr Documented By: Admin: 03/08/23 14:31 Dose: 25 mls/hr Documented By: PAVAN Vancomycin HCl 1,000 mg/ (Sodium Chloride) 270 mls @ 200 mls/hr IV Q12H [facility] Stop: 03/15/23 11:59 Last Infusion: 03/09/23 13:36 Dose: 0 mls/hr Documented By: Admin: 03/09/23 12:04 Dose: 200 mls/hr Documented By: Infusion: 03/09/23 03:13 Dose: 0 mls/hr Documented By: Admin: 03/09/23 01:14 Dose: 200 mls/hr Documented By: Infusion: 03/08/23 14:10 Dose: 200 mls/hr Documented By: Admin: 03/08/23 12:46 Dose: 200 mls/hr Documented By: PAVAN Insulin Aspart (Insulin Aspart Per Unit Charge) 0 units SC ACHS [facility] Stop: 04/08/23 11:29 Last Admin: 03/09/23 12:35 Dose: 11 units Documented By: DAVE Co-signed By: FREDERIC Insulin Glargine (Lantus Per Unit Charge) 15 units SQ QAM [facility] Stop: 04/08/23 08:59 Last Admin: 03/09/23 12:09 Dose: 15 units Documented By: DAVE Co-signed By: CHIQUI Metoprolol Succinate (Metoprolol Succ 50mg Ext Rel Tab) 50 mg PO DAILY [facility] Stop: 04/07/23 08:59 Last Admin: 03/09/23 11:31 Dose: 50 mg Documented By: Admin: 03/08/23 09:23 Dose: 50 mg Documented By: NADIA Oxycodone HCl (Oxycodone Hcl Ir 5 Mg Tab (Immediate Release)) 5 mg PO Q6H PRN PRN Reason: Mod-Sev Pain (Scale 4-10) Stop: 03/22/23 07:16 Last Admin: 03/09/23 11:14 Dose: 5 mg Documented By: Admin: 03/08/23 12:50 Dose: 5 mg Documented By: PAVAN Tamsulosin HCl (Tamsulosin Hcl 0.4 Mg Cap) 0.8 mg PO DAILY [facility] Stop: 04/07/23 08:59 Last Admin: 03/09/23 11:28 Dose: 0.8 mg Documented By: Admin: 03/08/23 09:23 Dose: 0.8 mg Documented By: NADIA Discontinued Medications Acetaminophen (Acetaminophen 500 Mg Tab) 1,000 mg PO NOW STA Stop: 03/08/23 05:09 Last Admin: 03/08/23 05:10 Dose: 1,000 mg Documented By: JOSUE Acetaminophen (Acetaminophen 500 Mg Tab) Confirm Administered Dose 1,000 mg . ROUTE .STK-MED ONE Stop: 03/08/23 05:10 Last Admin: 03/08/23 05:11 Dose: Not Given Documented By: JOSUE Bupivacaine HCl (Bupivacaine 0.5 % 5 Mg/1 Ml Mpf 30ml Vial) Confirm Administered Dose 30 ml .ROUTE .STK-MED ONE Stop: 03/09/23 07:46 Last Admin: 03/09/23 08:07 Dose: Not Given Documented By: DAYTON Bupivacaine HCl/Epinephrine Bitart (Bupivacaine/Epinephrine 0.5% Mpf 1:200,000 30 Ml Vial) Confirm Administered Dose 30 ml .ROUTE .STK-MED ONE Stop: 03/09/23 07:46 Last Admin: 03/09/23 08:07 Dose: 30 ml Documented By: [id number] Doxycycline Hyclate (Doxycycline Hyclate 100 Mg Cap) 100 mg PO NOW STA Stop: 03/08/23 04:28 Last Admin: 03/08/23 05:11 Dose: Not Given Documented By: JOSUE Fentanyl Citrate (Fentanyl Citrate Pf 100 Mcg/2 Ml Vial) Confirm Administered Dose 100 mcg .ROUTE .ST-MED ONE Stop: 03/09/23 09:10 Last Admin: 03/09/23 09:12 Dose: Not Given Documented By: CHRISTIAN Vancomycin HCl 2,250 mg/ (Sodium Chloride) 545 mls @ 200 mls/hr IV NOW ONE Stop: 03/08/23 07:01 Last Admin: 03/08/23 04:45 Dose: 200 mls/hr Documented By: JOSUE Sodium Chloride (Nss) 1,000 mls @ 100 mls/hr IV .Q10H [facility] Stop: 03/09/23 03:16 Last Infusion: 03/08/23 15:00 Dose: 100 mls/hr Documented By: Admin: 03/08/23 09:23 Dose: 100 mls/hr Documented By: NADIA Piperacillin Sod/Tazobactam (Sod 4.5 gm/ Dextrose) 100 mls @ 200 mls/hr IV ONE ONE; Protocol Stop: 03/08/23 08:29 Last Infusion: 03/08/23 09:00 Dose: 0 mls/hr Documented By: Admin: 03/08/23 08:28 Dose: 200 mls/hr Documented By: NADIA Insulin Aspart (Insulin Aspart Per Unit Charge) 0 units SC Q6 [facility] Stop: 04/07/23 07:59 Last Admin: 03/09/23 06:16 Dose: Not Given Documented By: Admin: 03/09/23 00:54 Dose: Not Given Documented By: Admin: 03/08/23 18:43 Dose: 16 units Documented By: PAVAN Co-signed By: CARLOS ALBERTO Admin: 03/08/23 13:38 Dose: 10 units Documented By: PAVAN Co-signed By: ARNOLDO Admin: 03/08/23 09:40 Dose: 3 units Documented By: NADIA Co-signed By: AMOS Insulin Glargine (Lantus Per Unit Charge) 15 units SQ ONE ONE Stop: 03/08/23 09:01 Last Admin: 03/08/23 09:40 Dose: 15 units Documented By: NADIA Co-signed By: SLDarien Insulin Glargine (Lantus Per Unit Charge) 0 units SQ HS ONE; Protocol Stop: 03/08/23 21:01 Last Admin: 03/08/23 22:04 Dose: Not Given Documented By: PATTIE Triamterene/Hydrochlorothiazide (Triamterene/Hctz 37.5/25mg Tab) 1 tab PO DAILY [facility] Stop: 04/07/23 08:59 Last Admin: 03/09/23 12:21 Dose: Not Given Documented By: Admin: 03/08/23 09:23 Dose: 1 tab Documented By: NADIA Discharge Plan Visit Data Chief Complaint: Infection Stated Complaint: RT FOOT INFECTION ED Provider: Myah Hutton Discharge Problem: Cellulitis, Osteomyelitis of foot, right, acute Patient Disposition: Admitted As Inpatient Discharge Instructions Interventions: ED Discharge Assessment Last Done: 03/08/23 07:16
--- NOTE | 2023-03-09 20:48 | Operative Report ---
Post Operative Report Pre & Post Diagnosis Operation Date: 03/09/23 08:30 Pre-Op Diagnosis: Osteomyelitis of fifth metatarsal of right foot Post-Op Diagnosis: Osteomyelitis of fifth metatarsal of right foot I identified the patient and participated in the time-out.: Yes Procedure Operation Date: 03/09/23 08:30 Actual Procedures p Right Fifth Metatarsal Partial Excision(Right) - Asael Quinones DPM, [place] Surgeon Asael Quinones DPM, MS Patient Financial Representative none Estimated Blood Loss 5 Findings Consistent with Post-Op Diagnosis Specimens 1.) FIfth metatarsal bone right - microbiology 2.) Fifth metatarsal bone right - pathology 3.) Deep culture right foot Description of Procedure History of present illness: Patient is a type II diabetic, 67 year old male who has a history of Right diabetic foot ulcers is seen for right foot cellulitis. Patient x-ray (+) for chronic osteomyelitis. He is seen today for Right fifth metatarsal partial excis ion. I have reviewed the procedure and post operative recovery with Patient in detail. All questions answered. All potential risks, benefits, complications, alternatives, rehab, potential for incomplete relief of symptoms, need for further surgery, DVT, PE, , persistent pain, swelling, scarring, weakness, neurovascular, wound complications and potential for amputations were discussed with patient. Unwanted outcomes such as, but not limited to were reviewed including under correction, overcorrection, return of deformity, infection. All questions were answered. Patient has decided to proceed with procedure as indicated. Preoperative diagnosis: 1.) Right diabetic foot ulcer 2.) Right fifth metatarsal osteomyelitis Postoperative diagnosis: Same Name of operation: 1.) Right fifth metatarsal partial excision Surgeon: Dr. Quinones Patient Financial Representative: None Anesthesia: General Estimated blood loss: Minimal Procedure in detail: Under mild sedation the patient was brought in the operating room placed on the operating table in supine position. Patient was then converted to prone position. A Pneumatic calf tourniquet was then placed about the patient's right calf. Following sedation, local anesthesia was obtained about the right lateral ray utilizing 20 cc of a 1:1 mixture of 1% lidocaine with epinephrine. The foot and ankle was then prepped, scrubbed, and draped, in the usual aseptic manner. An Esmarch bandage utilized examining the patient's right foot and ankle and the pneumatic calf tourniquet was inflated. Attention was directed to the lateral foot where a large hyperkeratotic lesion was present. After reduction of hyperkeratotic tissue a full thickness ulcer was noted. The wound measured 1 x 2 x 2 cm. Thin granulation tissue was present over exposed bone. Next, utilizing a sharp, sterile, 15 blade the ulcer was excised and placed on the back table. A skin incision was placed proximal and distal to the ulcer. The incision was deepened through subcutaneous tissue. Care was taken to retract all vital neurovascular strutucres. Electro cautery was ulizited to obtain hemostasis. At this time the fifth metatarsal base was exposed over the wound site. Utilizing an oscillating bone saw the exposed fifth metatarsal was resected. The bone was removed and placed on the back table. A portion of the fifth metatarsal bone was sent to Pathology and a portion was sent to microbiology for culture and sensitives. Deep cultures of the wound were then taken. At this time instrumentation was switched and top gloves were removed. 1 Liter of lactate ringer was perfused low flow over the incision site. The incision was dressed with Adaptic followed by sterile compressive dressing consisting of 4 x 4's, ABD and Bart. The pneumatic calf tourniquet was deflated and a prompt hyperemic response was noted to all digits of the right foot. An Demario wrap was then applied. The Patient tolerated the procedure and a nesthesia well. The Patient was transferred to recovery room with vital signs stable and vascular status intact all toes of the right foot. Following a period of Postoperative monitoring the Patient will be readmitted to the floor resuming all preoperative orders. I attest to the content of the Intraoperative Record and any orders documented therein. Any exceptions are noted below.
[2023-03-09] MEDS ORDERED: LANTUS PER UNIT CHARGE SQ ONE (21:00)
[2023-03-10] MEDS: PIPERACILLIN/TAZOBACTAM 4.5 GM in DEXTROSE 5% MINI-B 100 ML IV SCH ×4 (04:45→22:50)
[2023-03-10] MEDS: oxyCODONE HCL IR 5 MG TAB (IMMEDIATE RELEASE) PO PRN ×3 (04:54→17:55)
[2023-03-10] MEDS: ACETAMINOPHEN 325 MG TAB PO PRN ×2 (08:03→20:51)
[2023-03-10] MEDS: METOPROLOL SUCC 50MG EXT REL TAB PO SCH (08:03)
[2023-03-10] MEDS: TAMSULOSIN HCL 0.4 MG CAP PO SCH (08:03)
[2023-03-10] MEDS: CLOPIDOGREL BISULFATE 75 MG TAB PO SCH (08:04)
[2023-03-10] MEDS: amLODIPine BESYLATE 5 MG TAB PO SCH (08:04)
[2023-03-10] MEDS: ATORVASTATIN 40 MG TAB PO SCH (08:04)
[2023-03-10] MEDS: FINASTERIDE 5 MG TAB PO SCH (08:04)
[2023-03-10] MEDS: LANTUS PER UNIT CHARGE SQ SCH ×2 (08:34→20:34)
[2023-03-10] MEDS: INSULIN ASPART PER UNIT CHARGE SC SCH ×4 (08:35→20:34)
[2023-03-10] MEDS ORDERED: VANCOMYCIN LEVEL ONE (10:00)
[2023-03-10 10:19] LABS: Basophils # (auto) 0.09 K/uL (0.00-0.20); Basophils % (auto) 0.8 %; Eosinophils # (auto) 0.26 K/uL (0.00-0.50); Eosinophils % (auto) 2.4 %; Hemoglobin 11.2 g/dl (14.0-18.0); Immature Granulocytes # (auto) 0.05 K/uL (0.01-0.20); Immature Granulocytes % (auto) 0.5 %; Lymphocytes # (auto) 1.63 K/uL (1.20-3.40); Mean Corpuscular Hemoglobin 27.4 pg (25.0-34.0); Mean Corpuscular Hgb Conc 32.9 g/dL (32.0-36.0); Mean Corpuscular Volume 83.1 fL (80.0-100.0); Mean Platelet Volume 10.7 fL (9.4-12.4); Monocytes # (auto) 0.92 K/uL (0.11-0.59); Monocytes % (auto) 8.5 %; Neutrophils # (auto) 7.93 K/uL (1.40-6.50); Neutrophils % (auto) 72.8 %; Platelet Count 283 K/uL (130-400); RDW Coefficient of Variation 13.4 % (11.5-14.5); RDW Standard Deviation 40.3 fL (36.4-46.3); Red Blood Count 4.09 M/uL (4.70-6.10); White Blood Count 10.88 K/ul (4.8-10.8)
[2023-03-10 10:33] LABS: BUN Creatinine Ratio 11.9 (10-20); Creatinine Clr Calc Pharmacy 79.9 ml/min; Est GFR (African American) 80.4 ml/min; Est GFR (Non-African American) 69.4 ml/min; Potassium 3.8 mmol/L (3.5-5.1)
[2023-03-10] MEDS: VANCOMYCIN HCL 1,000 MG in SODIUM CHLORIDE 0.9% 250 ML IV SCH ×2 (12:18)
--- NOTE | 2023-03-10 13:44 | Hospitalist Progress Note ---
Date of Service March 10, 2023 Assessment & Plan (1) Right foot infection: Plan: 67-year-old male with past medical history significant for type 2 diabetes, dyslipidemia, hypertension, BPH, history of goldberg Parkinson- White syndrome presents with infected right foot callus and cellulitis. Diabetic foot infection Osteomyelitis of fifth metatarsal Status post right fifth metatarsal partial excision on March 09 Patient presented with gradually progressing wound on his lateral aspect of right foot X-ray of the foot shows ulcer in lateral forefoot with moderate soft tissue swelling and findings suggestive chronic fifth metatarsal osteomyelitis Underwent surgery on March 09 Continue on IV vancomycin and Zosyn. Intra-Op culture report showed gram- negative bacilli; awaiting final culture and sensitivities. Antibiotic dose and route dependent on margin of the surgery. Type II diabetes Hold home medications Lantus and sliding scale Glycemic pharmacy consult HbA1c of 8.8% Hypertension On amlodipine and metoprolol succinate We will monitor History of TIA On statin and Plavix BPH On Flomax and finasteride DVT prophylaxis Lovenox Disposition med/surg Full code Please note the above document was generated using voice recognition software. It may contain grammatical, syntax or spelling errors. Any formal questions or concerns about the content, text or information contained within the body of this dictation should be directly addressed to the provider for clarification Admission and Anticipated Discharge Date Admission Date: March 08, 2023 Subjective Patient seen and examined at bedside. He is comfortable; not in distress Vital stable Patient is afebrile Review of Systems Review of Systems: All systems reviewed & are unremarkable except as noted in Subjective Physical Exam Physical Exam: General-Not in distress Head- atraumatic Eyes-EOMI ENT- oropharynx clear Neck- supple, no JVD. Lungs- clear to auscultation no wheezing or crackles. Heart- regular rate and rhythm; no murmur, no gallop. Abdomen- normal bowel sounds, soft, nontender, no distension. Extremities-bandages over his right foot; clean dry and intact Neuro- alert, oriented x 3; EOMI; no facial palsy; no dysarthria; moves extremities. Results & Data Results & Data Vital Signs (Past 12 Hours) Vital Signs Temp Pulse Resp BP Pulse Ox O2 Del Method 03/10/23 07:07 36.5 C 76 17 143/69 H 96 Room Air Laboratory Results Laboratory Results WBC 10.88 K/ul (4.8-10.8) H 10/29/23 09:55 RBC 4.09 M/uL (4.70-6.10) L 03/10/23 09:55 Hgb 11.2 g/dl (14.0-18.0) L 03/10/23 09:55 Hct 34.0 % (42.0-52.0) L 03/10/23 09:55 MCV 83.1 fL (80.0-100.0) 03/10/23 09:55 MCH 27.4 pg (25.0-34.0) 03/10/23 09:55 MCHC 32.9 g/dL (32.0-36.0) 03/10/23 09:55 RDW Std Deviation 40.3 fL (36.4-46.3) 03/10/23 09:55 RDW Coeff of Henrry 13.4 % (11.5-14.5) 03/10/23 09:55 Plt Count 283 K/uL (130-400) 03/10/23 09:55 MPV 10.7 fL (9.4-12.4) 03/10/23 09:55 Immature Gran % (Auto) 0.5 % 03/10/23 09:55 Neut % (Auto) 72.8 % 03/10/23 09:55 Lymph % (Auto) 15.0 % 03/10/23 09:55 [place] % (Auto) 8.5 % 03/10/23 09:55 Eos % (Auto) 2.4 % 03/10/23 09:55 Baso % (Auto) 0.8 % 03/10/23 09:55 Neut # (Auto) 7.93 K/uL (1.40-6.50) H 03/10/23 09:55 Lymph # (Auto) 1.63 K/uL (1.20-3.40) 03/10/23 09:55 [place] # (Auto) 0.92 K/uL (0.11-0.59) H 03/10/23 09:55 Eos # (Auto) 0.26 K/uL (0.00-0.50) 03/10/23 09:55 Baso # (Auto) 0.09 K/uL (0.00-0.20) 03/10/23 09:55 Immature Gran # (Auto) 0.05 K/uL (0.01-0.20) 03/10/23 09:55 ESR 65 mm/hr (0-20) H 03/08/23 09:00 PT 11.7 Seconds (9.0-12.0) 03/07/23 21:30 INR 1.1 (0.9-1.1) 03/07/23 21:30 APTT 27.6 Seconds (21.0-31.0) 03/07/23 21:30 PTT Ratio 1.0 03/07/23 21:30 Sodium 136 mmol/L (136-145) 03/10/23 09:55 Potassium 3.8 mmol/L (3.5-5.1) 03/10/23 09:55 Chloride 104 mmol/L (98-107) 03/10/23 09:55 Carbon Dioxide 25 mmol/L (21-32) 03/10/23 09:55 Anion Gap 7 (3-11) 03/10/23 09:55 BUN 13 mg/dl (6-23) 03/10/23 09:55 Creatinine 1.09 mg/dl (0.6-1.4) 03/10/23 09:55 Est Cr Clr Drug Dosing 79.9 ml/min 03/10/23 09:55 Est GFR ( Amer) 80.4 ml/min 03/10/23 09:55 Est GFR (Non-Af Amer) 69.4 ml/min 03/10/23 09:55 BUN/Creatinine Ratio 11.9 (10-20) 03/10/23 09:55 Glucose 242 mg/dl (70-99(Fasting)) H 03/10/23 09:55 POC Glucose 154 mg/dl (70-99) H 03/10/23 11:43 Estimat Average Glucose 206 mg/dl 03/09/23 06:31 Hemoglobin A1c 8.8 % (4.5-5.6) H 03/09/23 06:31 Lactate 1.1 mmol/L (0.4-2.0) 03/08/23 02:22 Calcium 9.0 mg/dl (8.6-10.3) 03/10/23 09:55 Magnesium 1.7 mg/dl (1.7-2.4) 03/09/23 06:31 Total Bilirubin 0.6 mg/dl (0.2-1.0) 03/07/23 21:30 AST 17 U/L (13-39) 03/07/23 21:30 ALT 18 U/L (7-52) 03/07/23 21:30 Alkaline Phosphatase 56 U/L (34-104) 03/07/23 21:30 C-Reactive Protein 3.04 mg/dl (0-0.5) H 03/08/23 09:00 Total Protein 7.4 gm/dl (6.0-8.3) 03/07/23 21:30 Albumin 4.1 gm/dl (3.4-5.0) 03/07/23 21:30 Globulin 3.3 gm/dl (2.5-4.0) 03/07/23 21:30 Albumin/Globulin Ratio 1.2 (0.9-2) 03/07/23 21:30 Procalcitonin < 0.05 ng/ml (0-0.5) 03/08/23 02:22 Random Vancomycin 13.5 mcg/ml (10-20) 03/10/23 09:55 Impressions Foot X-Ray 03/08/23 02:14 XR foot RT min 3V routine HISTORY: 67 years-old Male eval osteo fifth toe chronic right foot pain with reported ostial myelitis COMPARISON: None TECHNIQUE: 3 views of the right foot FINDINGS: There is a 1.2 cm ulcer of the lateral forefoot adjacent to the proximal aspect of the fifth metatarsal. Moderate associated soft tissue swelling. There is cortical thickening and irregularity involving the proximal metaphyseal, proximal to mid diaphyseal fifth metatarsal without definite acute osseous erosion. There are few subcentimeter metallic density foreign bodies projecting over the great toe and lateral forefoot. Mild to moderate osteoarthritis with degenerative spurring of the calcaneus. Arterial calcifications. IMPRESSION: 1. Ulcer of the lateral forefoot with moderate soft tissue swelling and findings suggestive of chronic fifth metatarsal osteomyelitis. 2. No acute fracture or dislocation. 3. Subcentimeter metallic density foreign bodies of the lateral forefoot and great toe. ACT 112: Negative or not required by law. The above report was generated using voice recognition software. It may contain grammatical, syntax or spelling errors. Electronically signed by: Tom Cramer M.D. 03/08/2023 8:30 AM
--- NOTE | 2023-03-10 14:53 | Pharmacy Report ---
Pharmacy Glycemic Short Note 2 - Date of Service March 10, 2023 - Glycemic Short BSG Results (Last 24 hours): 03/09/23 03/09/23 03/10/23 16:29 20:09 07:51 Glucose POC Glucose 140 H 121 H 156 H 03/10/23 03/10/23 09:55 11:43 Glucose 242 H POC Glucose 154 H OUTPATIENT ANTIDIABETIC REGIMEN (per med rec): * 70/30 insulin, 44units BID * Trulicity 4.5mg SQ weekly * Metformin 850mg BID * A1c = 8.7% 02/21/23 ASSESSMENT: 03/10: Sang received 33 units of insulin yesterday (15 units of basal and 18 units of bolus) with decent BSG control. I anticipate increase in insulin needs as diet has advanced. Fasting trending upward. Will continue Lantus dosed per scale (increase to 20-30 units/day). Novolog parameters were loosened on 03/09 PM based on home insulin usage. 03/08: * Type 2 diabetic admitted for R diabetic foot infxn * Patient is known to glycemic control service from past admits, most recently 07/2022 * Of note, patient's insulin requirement inpatient tends to be less than reported outpt needs * Will initiate a basal/bolus regimen based upon prior admission data while keeping in mind current NPO status PLAN FOR INPATIENT GLYCEMIC CONTROL: * Hold outpatient diabetes medications (metformin, Trulicity) * Basal insulin * Lantus 10-15 units SQ BID (15 units for BSG > 160 mg/dL) * Bolus insulin * NovoLog per scale ACHS or Q6hrs while NPO * Goal Range: Low 110 mg/dL - High 140 mg/dL * Correction Factor: 25 mg/dL/unit * Nutritional / Prandial insulin per carb ratio of 1 unit per 8 grams CHO consumed
[2023-03-10] MEDS: ENOXAPARIN INJ 40 MG/0.4 ML SYR SQ SCH (15:17)
--- NOTE | 2023-03-10 16:13 | Pharmacy Report ---
Pharmacy PK ABX Note - Date of Service March 10, 2023 - Assessment and Plan Assessment 67 year old M receiving vancomycin/zosyn for treatment of right food infection/cellulitis w osteomyelitis. S/p partial excision 03/09. Pertinent microbiologic data includes: both foot cultures from 03/09 w GNR. May be able to de-escalate abx in the next 24 hours. Plan Vancomycin * Level of 13.5 mcg/mL associated with a therapeutic AUC/AGUILA * Maintenance dose: 1000 mg IV every 12 hours * Regimen is predicted to achieve target AUC/AGUILA of 400-600 mg/L.hr * Pharmacy will continue to follow and will adjust dose/frequency as necessary. Thank you. Pharmacy has transitioned to AUC monitoring for vancomycin. AUC/AGUILA is the preferred PK/PD target and is associated with decreased risk of nephrotoxicity compared to traditional trough targets.
--- NOTE | 2023-03-10 20:11 | Orthopedic Progress Note ---
Date of Service March 10, 2023 Assessment & Plan (1) Osteomyelitis of foot, right, acute: Plan: Patient seen, evaluated, and treated. Patient status post day #1 right Partial excision of right fifth metatarsal (DOS: 03/09/23) Dry, sterile, dressing changed. Awaiting culture and sensitivities. Awaiting pathology report. Will continue to follow while in house. (2) Right foot infection: (3) Cellulitis: Admission and Anticipated Discharge Date Admission Date: March 08, 2023 Subjective Patient seen and examined at bedside in room 357-2. Patient resting comfortably. He has no complaints. Review of Systems Review of Systems: All systems reviewed & are unremarkable except as noted in Subjective Physical Exam Constitutional: cooperative and comfortable Eyes: normal visual montes by confrontation Neck: normal visual inspection Respiratory: normal respiratory effort Cardiovascular: Vessels: posterior tibial pulses present and dorsalis pedis pulses present Musculoskeletal: Extremities: extremities normal to inspection Skin: + wound (Right foot incision site well co-apted. Sutures intact.) Neurologic: moves all extremities (Absent epicritic sensation) Psychiatric: Orientation: alert and oriented x 3 Results & Data Vital Signs (Past 12 Hours) Vital Signs Temp Pulse Resp BP Pulse Ox O2 Del Method 03/10/23 14:27 36.8 C 80 16 136/66 96 Room [place] [address] / Director: Alex Mathur M.D. Clinical Laboratory Report Name: OMI MILAN Miranda Acct: [id number] Status: ADM IN : 1955 [facility] [place] Date: 03/08/23 Age: 67 Sex: M Dis Date: Loc: Medical/Surgical/Ortho [address] [place] [address]/Bed: [facility] Spec: [id number] Collected: 03/09/23 Received: 03/09/[address]: Willie Edwards MD Copy To: Son Tian MD Source: Foot,Right OV Order: Ordered: Aer/Daniela Cult/Sm Comments: C) right foot deep Procedure Result Verified Site Gram Stain Final 03/09/23 Gram Stain Result Rare WBCs Seen No Organisms Seen Aero/Daniela Cult Preliminary 03/10/23 Organism 1 Gram negative bacilli Quantity Rare Sens No Sensitivities to Follow Please see culture number [id number] for sensitivities. Name: OMI MILAN : 1955 PAGE 1 Printed: 03/10/232013 END OF REPORT
[2023-03-10] MEDS: TRIAMTERENE/HCTZ 37.5/25MG TAB PO SCH (20:51)
[2023-03-11] MEDS: VANCOMYCIN HCL 1,000 MG in SODIUM CHLORIDE 0.9% 250 ML IV SCH (00:09)
[2023-03-11] MEDS: oxyCODONE HCL IR 5 MG TAB (IMMEDIATE RELEASE) PO PRN ×2 (03:00→09:57)
[2023-03-11 07:37] LABS: Basophils # (auto) 0.08 K/uL (0.00-0.20); Basophils % (auto) 0.7 %; Eosinophils # (auto) 0.28 K/uL (0.00-0.50); Eosinophils % (auto) 2.4 %; Hematocrit (blood only) 33.4 % (42.0-52.0); Immature Granulocytes # (auto) 0.16 K/uL (0.01-0.20); Immature Granulocytes % (auto) 1.4 %; Lymphocytes % (auto) 17.8 %; Mean Corpuscular Hemoglobin 27.2 pg (25.0-34.0); Mean Corpuscular Hgb Conc 32.9 g/dL (32.0-36.0); Mean Corpuscular Volume 82.7 fL (80.0-100.0); Mean Platelet Volume 10.9 fL (9.4-12.4); Monocytes # (auto) 1.14 K/uL (0.11-0.59); Monocytes % (auto) 9.7 %; Neutrophils # (auto) 8.02 K/uL (1.40-6.50); Platelet Count 273 K/uL (130-400); RDW Coefficient of Variation 13.3 % (11.5-14.5); RDW Standard Deviation 40.1 fL (36.4-46.3); Red Blood Count 4.04 M/uL (4.70-6.10); White Blood Count 11.78 K/ul (4.8-10.8)
[2023-03-11] MEDS: PIPERACILLIN/TAZOBACTAM 4.5 GM in DEXTROSE 5% MINI-B 100 ML IV SCH (07:52)
[2023-03-11 07:56] LABS: Creatinine Clr Calc Pharmacy 78.4 ml/min; Est GFR (African American) 78.7 ml/min; Est GFR (Non-African American) 67.9 ml/min; Potassium 3.7 mmol/L (3.5-5.1)
[2023-03-11] MEDS: INSULIN ASPART PER UNIT CHARGE SC SCH ×2 (08:30→12:08)
[2023-03-11] MEDS: LANTUS PER UNIT CHARGE SQ SCH (08:31)
[2023-03-11] MEDS: FINASTERIDE 5 MG TAB PO SCH (08:32)
[2023-03-11] MEDS: CLOPIDOGREL BISULFATE 75 MG TAB PO SCH (08:32)
[2023-03-11] MEDS: TAMSULOSIN HCL 0.4 MG CAP PO SCH (08:33)
[2023-03-11] MEDS: amLODIPine BESYLATE 5 MG TAB PO SCH (08:33)
[2023-03-11] MEDS: ATORVASTATIN 40 MG TAB PO SCH (08:33)
[2023-03-11] MEDS: ENOXAPARIN INJ 40 MG/0.4 ML SYR SQ SCH (08:34)
[2023-03-11] MEDS: METOPROLOL SUCC 50MG EXT REL TAB PO SCH (08:34)
--- NOTE | 2023-03-11 10:35 | Pharmacy Report ---
Pharmacy Glycemic Short Note 2 - Date of Service March 11, 2023 - Glycemic Short BSG Results (Last 24 hours): 03/10/23 03/10/23 03/10/23 09:55 11:43 16:46 Glucose 242 H POC Glucose 154 H 208 H 03/10/23 03/10/23 03/11/23 20:20 22:08 07:04 Glucose 155 H POC Glucose 116 H 158 H 03/11/23 07:41 Glucose POC Glucose 146 H OUTPATIENT ANTIDIABETIC REGIMEN (per med rec): * 70/30 insulin, 44units BID * Trulicity 4.5mg SQ weekly * Metformin 850mg BID * A1c = 8.7% 02/21/23 ASSESSMENT: 03/11: * Sang received 41 units of insulin yesterday of which 20 were basal * He is POD #2 after partial excision of right metatarsal and continues on Zosyn for a diabetic foot infection * Fasting BSG elevated slightly, will increase basal insulin dosage by a 10-20% based off of bedtime BSG * Dinnertime BSG elevated significantly, other mealtime BSGs slightly elevated, will tighten carbohydrate ratio 03/10: * Sang received 33 units of insulin yesterday (15 units of basal and 18 units of bolus) with decent BSG control. * I anticipate increase in insulin needs as diet has advanced. Fasting trending upward. Will continue Lantus dosed per scale (increase to 20-30 units/day). * Novolog parameters were loosened on 10 PM based on home insulin usage. 03/08: * Type 2 diabetic admitted for R diabetic foot infxn * Patient is known to glycemic control service from past admits, most recently 07/2022 * Of note, patient's insulin requirement inpatient tends to be less than reported outpt needs * Will initiate a basal/bolus regimen based upon prior admission data while keeping in mind current NPO status PLAN FOR INPATIENT GLYCEMIC CONTROL: * Hold outpatient diabetes medications (metformin, Trulicity) * Basal insulin * Lantus 12-15 units SQ BID (15 units for BSG > 160 mg/dL) * Bolus insulin * NovoLog per scale ACHS or Q6hrs while NPO * Goal Range: Low 110 mg/dL - High 140 mg/dL * Correction Factor: 25 mg/dL/unit * Nutritional / Prandial insulin per carb ratio of 1 unit per 7 grams CHO consumed
--- NOTE | 2023-03-11 16:49 | Discharge Summary ---
Date of Service March 11, 2023 Admission HPI Per Admitting Provider 67-year-old male with past medical history significant for type 2 diabetes, dyslipidemia, hypertension, BPH, history of goldberg Parkinson's White syndrome presents with infected right foot callus and cellulitis. Patient says for last 5 days the callus on right foot lateral aspect got infected and erythema spreading. Having a lot of pain while ambulating. Denies any fevers. No headaches. No blurred visions. No earache or runny nose or sore throat. No cough. Appetite is okay. Denies any chest pain or shortness of breath. No nausea or vomiting. No abdominal pain. Normal bowel and bladder movements. Currently resting comfortably and hemodynamically stable. Past medical history. As mentioned above Past surgical history. Lumbosacral nerve imaging. Social history. . No smoking. No vaping. Family history. No family history on file Admission Exam Per Admitting Provider General-Not in distress Head- atraumatic Eyes-EOMI ENT- oropharynx clear Neck- supple, no JVD. Lungs- clear to auscultation no wheezing or crackles. Heart- regular rate and rhythm; no murmur, no gallop. Abdomen- normal bowel sounds, soft, nontender, no distension. Extremities- right foot callus on lateral aspect erythematous and tender . Neuro- alert, oriented x 3; EOMI; no facial palsy; no dysarthria; moves extremities. Principal Diagnosis Infected Diabetic Foot Ulcer Discharge Exam Constitutional WD/WN, vitals as above Respiratory normal respiratory effort, lungs clear to auscultation Cardiovascular Rate/Rhythm: regular rate and regular rhythm Vessels: normal peripheral pulses Extremities: no edema Gastrointestinal (Abdomen) Percussion/Palpation: abdomen soft; abdomen nontender Skin no rashes, warm and dry Dressing CDI right foot Neurologic no focal motor deficits Psychiatric A+Ox3, euthymic affect Discharge Data Allergies Allergy/AdvReac Type Severity Reaction Status Date / Time No Known Allergies Allergy Verified 06/19/22 13:58 Consultations 03/08/23 12:42 Consult Podiatry Routine Procedures Performed Operation Date: 03/09/23 08:30 Actual Procedures p Right Fifth Metatarsal Partial Excision(Right) - Asael Quinones DPM, MS Hospital Course (1) Right foot infection: 67-year-old male with past medical history significant for type 2 diabetes, dyslipidemia, hypertension, BPH, history of goldberg Parkinson- White syndrome presents with infected right foot callus and cellulitis. Diabetic foot infection Osteomyelitis of fifth metatarsal Patient presented with gradually progressing wound on his lateral aspect of right foot X-ray of the foot shows ulcer in lateral forefoot with moderate soft tissue swelling and findings suggestive chronic fifth metatarsal osteomyelitis 03/09 -s/p right fifth metatarsal partial excision by Dr. Quinones Received IV Vanco and Zosyn Operative culture grew pansensitive Klebsiella, will discharge on p.o. cefdinir to complete 14-day course of antibiotics Type II diabetes Hold home medications Lantus and sliding scale Glycemic pharmacy consult HbA1c of 8.8% Hypertension Continue amlodipine and metoprolol History of TIA On statin and Plavix BPH On Flomax and finasteride Patient requested follow-up with urology, office will reach out to schedule appointment Total Time Total Time Spent Total Time Spent (In Minutes): 40 Discharge Plan Discharge Items Patient Disposition: Home - Self-Care Reason For Visit: Right foot wound and infection Discharge Diagnosis: Right foot wound and osteomyelitis (bone infection) Activity: As commented below Activity Comment: wear surgical shoe Non-emergency contact: Primary Care Provider and Surgeon Call non-emergency contact if: you have any medication questions, your symptoms worsen and your pain is not controlled Follow-up/Referrals: Jigar Morales MD [Physician] - (Office will call you to schedule appointment) Huey Alexandra MD [Primary Care Provider] - (Date & Time 03/15/2023 10:00 AM Provider Huey Alexandra MD [facility] ) Asael Quinones, DPM, MS [Physician] - (please call office for appointment in 7- 14 days) Diet: Carb Consistent or DM2 and Heart Healthy Addtl Attending Provider Instructions: You came to the hospital for evaluation of right foot wound and infection. The infection did involve the bone (osteomyelitis). Dr. Quinones with podiatry performed surgery to clean out the infection and remove the infected part of the bone. You received IV antibiotics while in the hospital, you will be discharged on oral antibiotics to take for the next 11 days - cefdinir 300 mg twice daily You were fitted for a surgical shoe, continue to wear this until your follow-up with Dr. Quinones. Call Dr. Quinones's office to make a follow-up appointment in 7 to 14 days. Dressing change instructions: Change dressing daily with 4 x 4 gauze, Kerlix, gauze wrap Continue to take other medications as prescribed. You requested follow-up with urology for prostate issues -Dr. Morales's office will be in touch to schedule an appointment. It was a pleasure taking care of you. If you need to reach a member of the [facility] hospitalist team at [facility], please call [phone]. VIKRAM Mcclellan Pending Studies at Discharge: No Stand-Alone Forms: My [facility], Smoking Cessation Medications and DC Order Prescriptions: New cefdinir 300 mg capsule 300 mg PO BID 11 Days Qty: 22 0RF Continued atorvastatin 40 mg tablet 40 mg PO DAILY metoprolol succinate 50 mg tablet extended release 24 hr 50 mg PO DAILY metformin 850 mg tablet 850 mg PO BID Novolin 70/30 U-100 Insulin 100 unit/mL (70-30) suspension 44 unit SUBCUT BID clopidogrel 75 mg tablet 75 mg PO DAILY amlodipine 5 mg tablet 5 mg PO DAILY tamsulosin 0.4 mg capsule 0.8 mg PO DAILY triamterene-hydrochlorothiazid 37.5-25 mg tablet 1 tab PO DAILY finasteride 5 mg tablet 5 mg PO DAILY tizanidine 2 mg capsule 2 mg PO HS PRN (Reason: Muscle Spasm) Trulicity 4.5 mg/0.5 mL pen injector 4.5 mg SUBCUT WK Discharge Orders: Discharge Order (Routine); Ordered 03/11/23 Ordered By: Elisa Barrow/Other Patient Handouts: Nutrition for Wound Healing, Managing Type 2 Diabetes, Cellulitis Dc, Osteomyelitis Dc Admission Data Admit Date/Time: 03/08/23 05:26 Attending Provider: Willie Edwards Admit Provider: Son Tian Primary Care Provider: Huey Alexandra Other Providers: Ritika Santo ; Son Tian ; Asael Quinones Other Interventions: Discharge Summary Assessment (RN) Last Done: 03/11/23 12:39 Supervising Physician Co-Signing Physician Notes Patient seen and examined independently. Discussed with the provider Plan discharged to home with oral antibiotics Follow-up with podiatry and wound care clinic.
== END 2023-03-11 13:55 | disposition home or self-care (01) | DRG 571 ==
LOC: ED 19:35 → EDINP 03-08 05:26 → SUATTDRO 03-08 05:26 → 3W 03-08 07:16

== ENCOUNTER 2024-03-05 15:52 | Inpatient (IN) ==
[2024-03-05 17:10] LABS: Basophils # (auto) 0.08 K/uL (0.00-0.20); Basophils % (auto) 0.8 %; Eosinophils # (auto) 0.17 K/uL (0.00-0.50); Eosinophils % (auto) 1.7 %; Hematocrit (blood only) 37.7 % (42.0-52.0); Hemoglobin 12.1 g/dl (14.0-18.0); Immature Granulocytes # (auto) 0.05 K/uL (0.01-0.20); Immature Granulocytes % (auto) 0.5 %; Lymphocytes # (auto) 2.37 K/uL (1.20-3.40); Lymphocytes % (auto) 23.1 %; Mean Corpuscular Hemoglobin 26.9 pg (25.0-34.0); Mean Corpuscular Hgb Conc 32.1 g/dL (32.0-36.0); Mean Platelet Volume 10.4 fL (9.4-12.4); Monocytes % (auto) 6.8 %; Neutrophils % (auto) 67.1 %; Platelet Count 319 K/uL (130-400); RDW Coefficient of Variation 14.4 % (11.5-14.5); RDW Standard Deviation 43.7 fL (36.4-46.3); Red Blood Count 4.49 M/uL (4.70-6.10); White Blood Count 10.27 K/ul (4.8-10.8)
[2024-03-05 17:22] LABS: Albumin Globulin Ratio 1.3 (0.9-2); Albumin Level 3.9 gm/dl (3.4-5.0); BUN Creatinine Ratio 14.6 (10-20); Bilirubin,Total 0.8 mg/dl (0.2-1.0); Calcium 9.3 mg/dl (8.6-10.3); Creatinine Clr Calc Pharmacy 83.9 ml/min; Globulin 3.1 gm/dl (2.5-4.0); Potassium 3.8 mmol/L (3.5-5.1)
[2024-03-05 17:33] LABS: Troponin I High Sensitivity 62.7 pg/ml (0-20)
[2024-03-05 17:34] LABS: INR 1.1 (0.9-1.1); Partial Thromboplastin Time 27 Seconds (21-31); Prothrombin Time 12.1 Seconds (9.0-12.0)
--- NOTE | 2024-03-05 17:41 | XRay Report ---
SINGLE VIEW CHEST CLINICAL HISTORY: Atypical chest pain FINDINGS: A PA chest radiograph is compared to study dated 07/30/2022. The heart is enlarged noting at herosclerotic calcification of the thoracic aorta. The pulmonary vasculature is noncongested. There a re small pleural effusions with dependent atelectasis. No pneumothorax is seen. The skeletal structur es are osteopenic. The bony thorax is grossly intact. Degenerative change is seen in the spine. IMPRESSION: 1. Cardiomegaly without radiographic evidence of congestive failure. 2. Small pleural effusions with dependent atelectasis. ACT 112: Negative or not required by law. Electronically signed by: Mendez Hendrix M.D. 03/05/2024 5:40 PM
[2024-03-05 19:00] LABS: Adenovirus PCR Not Detected (NotDetected); Bordetella parapertussis PCR Not Detected (NotDetected); Bordetella pertussis PCR Not Detected (NotDetected); Chlamydia pneumoniae PCR Not Detected (NotDetected); Coronavirus 229E PCR Not Detected (NotDetected); Coronavirus CoV-2 (COVID19)PCR Not Detected (NotDetected); Coronavirus HKU1 PCR Not Detected (NotDetected); Coronavirus NL63 PCR Not Detected (NotDetected); Coronavirus OC43PCR Not Detected (NotDetected); Human Metapneumovirus PCR Not Detected (NotDetected); Influenza A PCR Not Detected (NotDetected); Influenza B PCR Not Detected (NotDetected); Mycoplasma pneumoniae PCR Not Detected (NotDetected); Parainfluenza Virus 1 PCR Not Detected (NotDetected); Parainfluenza Virus 2 PCR Not Detected (NotDetected); Parainfluenza Virus 3 PCR Not Detected (NotDetected); Parainfluenza Virus 4 PCR Not Detected (NotDetected); Respiratory Syncytial VirusPCR Not Detected (NotDetected); Rhinovirus/Enterovirus PCR Not Detected (NotDetected)
--- NOTE | 2024-03-05 19:26 | Emergency Department Note ---
Impression & Plan Acute exacerbation of CHF (congestive heart failure), PUENTE (dyspnea on exertion), Non-ST elevation VT (NSTEMI), Elevated brain natriuretic peptide (BNP) level ED Provider Note HISTORY OF PRESENT ILLNESS: Patient is a 68-year-old male presenting with shortness of breath. Patient reports that he has been progressively more short of breath over the last 2 weeks. He reports in the last week he has had significant worsening of his shortness of breath and he is unable to lay flat at night secondary to feeling so short of breath. He denies any DVT or PE history. He is on a Plavix daily. He denies any history of heart failure. He does not weigh himself so he is not sure if he has gained weight recently. He does report some slight lower extremity edema. Reports that today he was significantly winded with very minimal exertion, prompting his evaluation today. He does report that over the last week he is only able to take 4-5 steps before he has to stop and try to catch his breath. He denies any history of cardiac stents. He denies any chest pain throughout the last 2 weeks with his shortness of breath. He does not wear any supplemental oxygen at baseline. He is not on any diuretics at baseline. ROS: as above PHYSICAL EXAM: Constitutional: Patient appears in no acute distress. HENT: Head: Normocephalic and atraumatic. Eyes: EOMI, PERRL Mouth/Throat: Mucous membranes moist. Neck: Trachea midline. Neck supple. Cardiovascular: RRR, No murmurs, rubs or gallops. Intact distal pulses. Pulmonary/Chest: No respiratory distress. Breath sounds clear and equal bilaterally. Patient is conversationally dyspneic. Coarse breath sounds throughout all lung montes. Abdominal: Abdomen soft, no tenderness, rebound or guarding. Musculoskeletal: No tenderness or deformity noted. +2 pitting edema of bilateral lower extremities extending to the mid-tibias. Skin: Warm and dry. No rash, erythema, pallor or cyanosis Psychiatric: Appropriate mood and affect for situation. Neurological: Alert and keenly responsive. CN II-XII grossly intact, moving all extremities equally and fully. MDM: - Vitals signs showed hypertension and tachycardia. - History obtained via patient. History as above. - Chronic conditions affecting care: obesity; GERD; HTN; Psock-Wuznmysxi-Zfbke syndrome; DM-2; CVA - Differential diagnoses include, but are not limited to: Congestive heart failure; acute coronary syndrome; COPD/asthma exacerbation; pulmonary edema; pulmonary embolism; pneumonia; pneumothorax; viral syndrome - Order placed for continuous cardiac monitoring. At this time, monitor showed rate of 95 bpm with normal sinus rhythm, per my interpretation. - External medical records reviewed. Discharge summary dated 02/12/2023 was reviewed. Patient was admitted at that time for infected diabetic foot ulcer. Echocardiogram dated 07/31/2022 was reviewed. Patient had an EF at that time of 50-55% - EKG interpreted by myself showed normal sinus rhythm. Rate tachycardic 103 bpm. QT 384. No acute ischemic changes. Noted to have occasional PVCs. Also noted to have a left fascicular block. - Laboratory workup interpreted by myself showed normal WBC; anemia (Hgb 12.1); normal INR; stable electrolytes; hyperglycemia (glucose 154); elevated troponin (62.7); elevated BNP (959) - CXR showed perihilar vascular congestion, per my interpretation. Radiology notes small pleural effusions with dependent atelectasis. - Repeat troponin elevated and rising slightly to 70 - Viral respiratory panel negative - Patient's NSTEMI likely type II in etiology, given his heart failure. Patient will need admission for echocardiogram and further diuresis. He was given 40 mg IV Lasix in the emergency department. - CT PE ordered to rule out PE, given patient's tachycardia and shortness of breath with exertion - Discussion was had with lead case manager about patient's case and need for admission - Hospitalist, Dr. Tian, consulted for admission - [facility] ASSESSMENT AND PLAN: Diagnosis: Dyspnea on exertion; acute CHF exacerbation; NSTEMI; elevated BNP Plan: Admit Past Med/Surg History Problem List (Updated 03/05/24 @ 19:29 by Mirtha Dang MD) Elevated brain natriuretic peptide (BNP) level (Acute) Non-ST elevation VT (NSTEMI) (Acute) PUENTE (dyspnea on exertion) (Acute) Acute exacerbation of CHF (congestive heart failure) (Acute) Cellulitis (Acute) Osteomyelitis of foot, right, acute (Acute) TIA (transient ischemic attack) Stroke-like symptoms (Acute) Chest pain syndrome Prepatellar bursitis S/P TURP Nocturia Substernal chest pain (Acute) DMII (diabetes mellitus, type 2) (Acute) Hypertension (Acute) Dyslipidemia (Acute) Lumbar spinal stenosis DVT prophylaxis Cough Noncompliance with medication regimen (Acute) Greater trochanteric bursitis of right hip Urinary symptom or sign (Acute) Enlarged prostate without lower urinary tract symptoms (luts) (Acute) Osteoarthritis of left knee Osteoarthritis of right hip BPH (benign prostatic hyperplasia) (Acute) Medical History Abdominal hernia Stable Arthritis Atypical chest pain BPH (benign prostatic hyperplasia) Chronic back pain Claustrophobia "DOESN'T LIKE SLEEPING ON HIS BACK" DM II (diabetes mellitus, type II), controlled Glucose fluctuates Dry mouth Chronic Gallstones Found incidentally - no current issues GERD (gastroesophageal reflux disease) UNDER CONTROL History of asthma A CHILD 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 Follows with cardio PRN HLD (hyperlipidemia) Hypertension Lumbar spinal stenosis Morbid obesity with BMI of 45.0-49.9, adult IGOR (obstructive sleep apnea) Cannot tolerate device SOB (shortness of breath) on exertion OVERWEIGHT- CHRONIC AND STABLE Surgical History History of cataract surgery RT History of colonoscopy 2020 History of radiofrequency ablation procedure for cardiac arrhythmia AT AGE 29 History of tonsillectomy History of tooth extraction S/P TURP Family History Other Diabetes Hypertension No family history of adverse response to anesthesia Social History Smoking Status: Never smoker Second Hand Exposure: No; Do You Dip or Chew Tobacco: No; Hx Alcohol Use: No Hx Substance Use: No Preferred Language: Congolese Communication Ability: Effective Embossing Unit Operator Required: No Beliefs That Will Affect Care: None Current Living Situation: Spouse and Other Current Living Situation Comment: and youngest daughter current occupational status: retired Feels Safe at Home: Yes Assistive Devices: Cane and Glasses Allergies Allergies Allergy/AdvReac Type Severity Reaction Status Date / Time No Known Allergies Allergy Verified 08/27/23 13:00 Home Meds Home Medications Medication Instructions Recorded Confirmed amlodipine 5 mg tablet 5 mg PO DAILY 03/08/23 08/27/23 atorvastatin 40 mg tablet 40 mg PO DAILY 03/08/23 08/27/23 clopidogrel 75 mg tablet 75 mg PO DAILY 03/08/23 08/27/23 dulaglutide 4.5 mg/0.5 mL 4.5 mg subcut WK 03/08/23 08/27/23 subcutaneous pen injector (Trulicity) finasteride 5 mg tablet 5 mg PO DAILY 03/08/23 08/27/23 insulin human U-100 NPH-regulr 44 unit subcut BID 03/08/23 08/27/23 70-30 mix 100 unit/mL subcutaneous susp (Novolin 70/30 U-100 Insulin) metformin 850 mg tablet 850 mg PO BID 03/08/23 08/27/23 metoprolol succinate 50 mg 50 mg PO DAILY 03/08/23 08/27/23 tablet,extended release 24 hr tamsulosin 0.4 mg capsule 0.8 mg PO DAILY 03/08/23 08/27/23 tizanidine 2 mg capsule 2 mg PO HS PRN Muscle Spasm 03/08/23 08/27/23 triamterene 37.5 1 tab PO DAILY 03/08/23 08/27/23 mg-hydrochlorothiazide 25 mg tablet Results & Data (ED) Vital Signs Vital Signs - 24 hr 03/05/24 16:03 03/05/24 16:03 03/05/24 17:55 Temperature 36.9 C Temperature Source Temporal Artery Scan Pulse Rate 105 H 96 H Pulse Rate [Apical] Respiratory Rate 22 Respiratory Effort / Characteristics Spontaneous Spontaneous Respiratory Pattern Regular Regular Blood Pressure 179/119 H Blood Pressure [Left Arm] Blood Pressure Mean 139 Blood Pressure Mean [Left Arm] Blood Pressure Position Sitting Pulse Oximetry 95 Oxygen Delivery Method Room Air Room Air Sepsis Recent Fever Within 48 Hours No Sepsis New/Unexplained Change in Mental Status No Sepsis Action Taken by Nursing No Action Required 03/05/24 18:10 03/05/24 18:10 03/05/24 18:11 Temperature Temperature Source Pulse Rate Pulse Rate [Apical] 98 H Respiratory Rate 18 Respiratory Effort / Characteristics Respiratory Pattern Blood Pressure Blood Pressure [Left Arm] 164/104 H Blood Pressure Mean Blood Pressure Mean [Left Arm] 124 Blood Pressure Position Pulse Oximetry 96 96 Oxygen Delivery Method Room Air Room Air Room Air Sepsis Recent Fever Within 48 Hours Sepsis New/Unexplained Change in Mental Status Sepsis Action Taken by Nursing Laboratory Data 03/05/24 16:49 03/05/24 16:49 Lab Results 03/05/24 03/05/24 03/05/24 Range/Units 16:49 18:01 Unknown WBC 10.27 (4.8-10.8) K/ul RBC 4.49 L (4.70-6.10) M/uL Hgb 12.1 L (14.0-18.0) g/dl Hct 37.7 L (42.0-52.0) % MCV 84.0 (80.0-100.0) fL MCH 26.9 (25.0-34.0) pg MCHC 32.1 (32.0-36.0) g/dL RDW Std Deviation 43.7 (36.4-46.3) fL RDW Coeff of Henrry 14.4 (11.5-14.5) % Plt Count 319 (130-400) K/uL MPV 10.4 (9.4-12.4) fL Immature Gran % (Auto) 0.5 % Neut % (Auto) 67.1 % Lymph % (Auto) 23.1 % [place] % (Auto) 6.8 % Eos % (Auto) 1.7 % Baso % (Auto) 0.8 % Neut # (Auto) 6.90 H (1.40-6.50) K/uL Lymph # (Auto) 2.37 (1.20-3.40) K/uL [place] # (Auto) 0.70 H (0.11-0.59) K/uL Eos # (Auto) 0.17 (0.00-0.50) K/uL Baso # (Auto) 0.08 (0.00-0.20) K/uL Immature Gran # (Auto) 0.05 (0.01-0.20) K/uL PT 12.1 H (9.0-12.0) Seconds INR 1.1 (0.9-1.1) APTT 27 (21-31) Seconds PTT Ratio 1.0 Sodium 140 (136-145) mmol/L Potassium 3.8 (3.5-5.1) mmol/L Chloride 107 (98-107) mmol/L Carbon Dioxide 23 (21-32) mmol/L Anion Gap 10 (3-11) BUN 15 (6-23) mg/dl Creatinine 1.03 (0.6-1.4) mg/dl Est Cr Clr Drug Dosing 83.9 ml/min eGFR 78.63 BUN/Creatinine Ratio 14.6 (10-20) Glucose 154 H (70-99(Fasting)) mg/dl Calcium 9.3 (8.6-10.3) mg/dl Total Bilirubin 0.8 (0.2-1.0) mg/dl AST 19 (13-39) U/L ALT 19 (7-52) U/L Alkaline Phosphatase 51 (34-104) U/L Troponin I High Sens 62.7 H* 70.0 H* (0-20) pg/ml B-Natriuretic Peptide 959 H (0-100) pg/ml Total Protein 7.0 (6.0-8.3) gm/dl Albumin 3.9 (3.4-5.0) gm/dl Globulin 3.1 (2.5-4.0) gm/dl Albumin/Globulin Ratio 1.3 (0.9-2) Adenovirus (PCR) Not Detected (NotDetected) B. pertussis DNA (PCR) Not Detected (NotDetected) B.parapertussis DNA PCR Not Detected (NotDetected) C. pneumoniae DNA (PCR) Not Detected (NotDetected) Coronavirus OC43 (PCR) Not Detected (NotDetected) Coronavirus HKU1 (PCR) Not Detected (NotDetected) Coronavirus 229E (PCR) Not Detected (NotDetected) SARS-CoV-2 (PCR) Not Detected (NotDetected) Coronavirus NL63 (PCR) Not Detected (NotDetected) Human Metapneumovir PCR Not Detected (NotDetected) Influenza Type A (PCR) Not Detected (NotDetected) Influenza Type B (PCR) Not Detected (NotDetected) M. pneumoniae (PCR) Not Detected (NotDetected) Parainfluenza 1 (PCR) Not Detected (NotDetected) Parainfluenza 2 (PCR) Not Detected (NotDetected) Parainfluenza 3 (PCR) Not Detected (NotDetected) Parainfluenza 4 (PCR) Not Detected (NotDetected) RSV (PCR) Not Detected (NotDetected) Entero/Rhino (PCR) Not Detected (NotDetected) Imaging Data Radiologist's Impression: Chest X-Ray 03/05/24 16:09 SINGLE VIEW CHEST CLINICAL HISTORY: Atypical chest pain FINDINGS: A PA chest radiograph is compared to study dated 07/30/2022. The heart is enlarged noting atherosclerotic calcification of the thoracic aorta. The pulmonary vasculature is noncongested. There are small pleural effusions with dependent atelectasis. No pneumothorax is seen. The skeletal structures are osteopenic. The bony thorax is grossly intact. Degenerative change is seen in the spine. IMPRESSION: 1. Cardiomegaly without radiographic evidence of congestive failure. 2. Small pleural effusions with dependent atelectasis. ACT 112: Negative or not required by law. Electronically signed by: Mendez Hendrix M.D. 03/05/2024 5:40 PM Discharge Plan Visit Data Chief Complaint: Shortness of Breath/Dyspnea Stated Complaint: SOB, CHEST PAIN, FATIGUED, WEAK ED Provider: Mirtha Dang Discharge Problem: Acute exacerbation of CHF (congestive heart failure), PUENTE (dyspnea on exertion), Non-ST elevation VT (NSTEMI), Elevated brain natriuretic peptide (BNP) level Forms Stand Alone Forms: [employer] Prescriptions Prescriptions: No Action atorvastatin 40 mg tablet 40 mg PO DAILY metoprolol succinate 50 mg tablet extended release 24 hr 50 mg PO DAILY metformin 850 mg tablet 850 mg PO BID Novolin 70/30 U-100 Insulin 100 unit/mL (70-30) suspension 44 unit SUBCUT BID clopidogrel 75 mg tablet 75 mg PO DAILY amlodipine 5 mg tablet 5 mg PO DAILY tamsulosin 0.4 mg capsule 0.8 mg PO DAILY triamterene-hydrochlorothiazid 37.5-25 mg tablet 1 tab PO DAILY finasteride 5 mg tablet 5 mg PO DAILY tizanidine 2 mg capsule 2 mg PO HS PRN (Reason: Muscle Spasm) Trulicity 4.5 mg/0.5 mL pen injector 4.5 mg SUBCUT WK Referrals Referrals: Huey Alexandra MD [Primary Care Provider] -
[2024-03-05] MEDS: FUROSEMIDE 40 MG/4 ML VIAL IV ONE (19:34)
[2024-03-05] MEDS: OPTIRAY 320 125ml IV ONE (19:59)
--- NOTE | 2024-03-05 20:58 | CT Scan Report ---
Exam(s): CTA CHEST EXAM: CT Angiography Chest With Intravenous Contrast CLINICAL HISTORY: Reason for exam: PE. TECHNIQUE: Axial computed tomographic angiography images of the chest with intravenous contrast. CTDI is 28.14 mGy and DLP is 1014.35 mGy-cm. Automated exposure control was utilized for the study. A dose lowering technique was utilized adhering to the principles of ALARA. MIP reconstructed images were created and reviewed. COMPARISON: No relevant prior studies available. FINDINGS: Pulmonary arteries: Unremarkable. No pulmonary embolism. Aorta: No acute findings. No thoracic aortic aneurysm. Lungs: Discoid atelectasis seen in the lower lobes. No mass. Pleural space: There are bilateral small pleural effusions. No pneumothorax. Heart: Unremarkable. No cardiomegaly. No significant pericardial effusion. No evidence of RV dysfunction. Mediastinum: Mild mediastinal lymphadenopathy measuring up to 1.1 cm in short axis diameter. Bones/joints: No acute fracture. No dislocation. IMPRESSION: 1. No acute pulmonary embolism 2. Bilateral small pleural effusions Electronically signed by: Rafael Dahl MD 03/05/24 20:57 PM
--- NOTE | 2024-03-05 21:56 | History & Physical Report ---
Date of Service March 05, 2024 Assessment & Plan (1) Acute CHF: Plan: 68-year-old male with past medical history significant for type 2 diabetes, hyperlipidemia, diabetic nephropathy, hypertension, morbid obesity, BPH, sacroiliitis, history of Guerra Parkinson's White syndrome, history of transmetatarsal amputation of right foot presents with shortness of breath. Patient states has shortness of breath for some time but last 2 weeks getting progressively worse. Last couple of days he could not sleep flat , was getting up and gasping for breath. Walking short distance making him short of breath. When he was gasping for breath he was having chest pressure. Denies any cough. No fevers. Has headaches because he could not sleep well for last few days. No dizziness. Vision is okay. No runny nose or sore throat. Appetite is okay. No nausea. No abdominal pain. Normal bowel and bladder movements. Hemodynamics are okay. Acute CHF Shortness of breath with orthopnea and PND Has some swelling in the lower extremities CT chest no PE, mild bilateral pleural effusions BNP elevated Received dose of IV Lasix 40 mg in the ER Will continue with IV Lasix 40 mg twice daily Daily weights I's and O's Follow echo Telemetry Currently consult in a.m. for further recommendations Morbid obesity Needs counseling Nutrition follow-up sleep study as outpatient Diabetes Continue home Lantus Hold metformin and Trulicity Sliding scale Will monitor Hypertension Continue metoprolol succinate and Maxzide Will monitor Hyperlipidemia On statin BPH Finasteride and Flomax History of both Parkinson's White syndrome DVT prophylaxis Heparin subcu Disposition Telemetry Full code. History of Present Illness Chief Complaint: Shortness of breath Primary Care Provider: Huey Alexandra MD 68-year-old male with past medical history significant for type 2 diabetes, hyperlipidemia, diabetic nephropathy, hypertension, morbid obesity, BPH, sacroiliitis, history of Guerra Parkinson's White syndrome, history of transmetatarsal amputation of right foot presents with shortness of breath. Patient states has shortness of breath for some time but last 2 weeks getting progressively worse. Last couple of days he could not sleep flat , was getting up and gasping for breath. Walking short distance making him short of breath. When he was gasping for breath he was having chest pressure. Denies any cough. No fevers. Has headaches because he could not sleep well for last few days. No dizziness. Vision is okay. No runny nose or sore throat. Appetite is okay. No nausea. No abdominal pain. Normal bowel and bladder movements. Hemodynamics are okay. Past medical history. As mentioned above Past surgical history. Lumbosacral nerve imaging. Social history. . No smoking. No vaping. Family history. No family history on file Allergies Allergy/AdvReac Type Severity Reaction Status Date / Time No Known Allergies Allergy Verified 08/27/23 13:00 Home Medications Medication Instructions Recorded Confirmed Type atorvastatin 40 mg tablet 40 mg PO DAILY 03/05/24 03/05/24 History clopidogrel 75 mg tablet 75 mg PO DAILY 03/05/24 03/05/24 History dulaglutide 4.5 mg/0.5 mL 4.5 mg subcut WK 03/05/24 03/05/24 History subcutaneous pen injector (Trulicity) finasteride 5 mg tablet 5 mg PO DAILY 03/05/24 03/05/24 History insulin glargine 100 unit/mL 50 unit subcut DAILY 03/05/24 03/05/24 History subcutaneous solution (Lantus U-100 Insulin) metformin 850 mg tablet 850 mg PO BID 03/05/24 03/05/24 History metoprolol succinate 50 mg 50 mg PO DAILY 03/05/24 03/05/24 History tablet,extended release 24 hr tamsulosin 0.4 mg capsule 0.4 mg PO DAILY 03/05/24 03/05/24 History tramadol 50 mg tablet 50 mg PO TID PRN Severe Pain 03/05/24 03/05/24 History (Scale Score 7-10) triamterene 37.5 1 tab PO DAILY 03/05/24 03/05/24 History mg-hydrochlorothiazide 25 mg tablet Past Med/Surg History Problem List (Updated 03/05/24 @ 22:13 by Son Tian MD) Acute CHF Elevated brain natriuretic peptide (BNP) level (Acute) Non-ST elevation UT (NSTEMI) (Acute) PUENTE (dyspnea on exertion) (Acute) Acute exacerbation of CHF (congestive heart failure) (Acute) Cellulitis (Acute) Osteomyelitis of foot, right, acute (Acute) TIA (transient ischemic attack) Stroke-like symptoms (Acute) Chest pain syndrome Prepatellar bursitis S/P TURP Nocturia Substernal chest pain (Acute) DMII (diabetes mellitus, type 2) (Acute) Hypertension (Acute) Dyslipidemia (Acute) Lumbar spinal stenosis DVT prophylaxis Cough Noncompliance with medication regimen (Acute) Greater trochanteric bursitis of right hip Urinary symptom or sign (Acute) Enlarged prostate without lower urinary tract symptoms (luts) (Acute) Osteoarthritis of left knee Osteoarthritis of right hip BPH (benign prostatic hyperplasia) (Acute) Medical History Abdominal hernia Stable Arthritis Atypical chest pain BPH (benign prostatic hyperplasia) Chronic back pain Claustrophobia "DOESN'T LIKE SLEEPING ON HIS BACK" DM II (diabetes mellitus, type II), controlled Glucose fluctuates Dry mouth Chronic Gallstones Found incidentally - no current issues GERD (gastroesophageal reflux disease) UNDER CONTROL History of asthma A CHILD History of Aimez-Gcpikojgx-Qmyxp (WPW) syndrome S/p ablation- no issues Follows with cardio PRN HLD (hyperlipidemia) Hypertension Lumbar spinal stenosis Morbid obesity with BMI of 45.0-49.9, adult IGOR (obstructive sleep apnea) Cannot tolerate device SOB (shortness of breath) on exertion OVERWEIGHT- CHRONIC AND STABLE Surgical History History of cataract surgery RT History of colonoscopy 2020 History of radiofrequency ablation procedure for cardiac arrhythmia AT AGE 29 History of tonsillectomy History of tooth extraction S/P TURP Family History Other Diabetes Hypertension No family history of adverse response to anesthesia Social History Smoking Status: Never smoker Tobacco Type: Declines Second Hand Exposure: No; Do You Dip or Chew Tobacco: No; Tobacco Cessation Education Requested by Patient: No Hx Alcohol Use: No Hx Substance Use: No Preferred Language: Serbian Communication Ability: Effective Mosaic Floor Layer Required: No Beliefs That Will Affect Care: None Current Living Situation: Spouse Current Living Situation Comment: and youngest daughter current occupational status: retired Other Information That Helps Us Care for You: No Feels Safe at Home: Yes Safety Concerns: Feels Safe At This Time Assistive Devices: Cane and Glasses Review of Systems Review of Systems: All systems reviewed & are unremarkable except as noted in HPI & below Physical Exam Physical Exam: General- Not in distress Head- atraumatic Eyes- PERRL. ENT- oropharynx clear Neck- supple, no JVD. Lungs- clear to auscultation no wheezing, mild bibasilar crackles Heart- regular rate and rhythm; no murmur, no gallop. Abdomen- normal bowel sounds, soft, nontender, no distension Extremities- b/l lower extremity edema present, no erythema seen Neuro- alert, oriented PERRL, no facial palsy; no dysarthria; moves extremities Results & Data Results & Data Vital Signs (Past 12 Hours) Vital Signs Temp Pulse Pulse Resp BP BP Pulse Ox 03/05/24 20:00 108 H 18 131/103 H 94 03/05/24 19:30 115 H 20 161/127 H 97 03/05/24 18:11 98 H 18 164/104 H 96 03/05/24 18:10 96 03/05/24 18:10 03/05/24 17:55 96 H 03/05/24 16:03 36.9 C 105 H 22 179/119 H 95 03/05/24 16:03 O2 Del Method 03/05/24 20:00 Room Air 03/05/24 19:30 Room Air 03/05/24 18:11 Room Air 03/05/24 18:10 Room Air 03/05/24 18:10 Room Air 03/05/24 17:55 03/05/24 16:03 Room Air 03/05/24 16:03 Room Air Diagnostic Findings Laboratory Results WBC 10.27 K/ul (4.8-10.8) 03/05/24 16:49 RBC 4.49 M/uL (4.70-6.10) L 03/05/24 16:49 Hgb 12.1 g/dl (14.0-18.0) L 03/05/24 16:49 Hct 37.7 % (42.0-52.0) L 03/05/24 16:49 MCV 84.0 fL (80.0-100.0) 03/05/24 16:49 MCH 26.9 pg (25.0-34.0) 03/05/24 16:49 MCHC 32.1 g/dL (32.0-36.0) 03/05/24 16:49 RDW Std Deviation 43.7 fL (36.4-46.3) 03/05/24 16:49 RDW Coeff of Henrry 14.4 % (11.5-14.5) 03/05/24 16:49 Plt Count 319 K/uL (130-400) 03/05/24 16:49 MPV 10.4 fL (9.4-12.4) 03/05/24 16:49 Immature Gran % (Auto) 0.5 % 03/05/24 16:49 Neut % (Auto) 67.1 % 03/05/24 16:49 Lymph % (Auto) 23.1 % 03/05/24 16:49 [place] % (Auto) 6.8 % 03/05/24 16:49 Eos % (Auto) 1.7 % 03/05/24 16:49 Baso % (Auto) 0.8 % 03/05/24 16:49 Neut # (Auto) 6.90 K/uL (1.40-6.50) H 03/05/24 16:49 Lymph # (Auto) 2.37 K/uL (1.20-3.40) 03/05/24 16:49 [place] # (Auto) 0.70 K/uL (0.11-0.59) H 03/05/24 16:49 Eos # (Auto) 0.17 K/uL (0.00-0.50) 03/05/24 16:49 Baso # (Auto) 0.08 K/uL (0.00-0.20) 03/05/24 16:49 Immature Gran # (Auto) 0.05 K/uL (0.01-0.20) 03/05/24 16:49 PT 12.1 Seconds (9.0-12.0) H 03/05/24 16:49 INR 1.1 (0.9-1.1) 03/05/24 16:49 APTT 27 Seconds (21-31) 03/05/24 16:49 PTT Ratio 1.0 03/05/24 16:49 Sodium 140 mmol/L (136-145) 03/05/24 16:49 Potassium 3.8 mmol/L (3.5-5.1) 03/05/24 16:49 Chloride 107 mmol/L (98-107) 03/05/24 16:49 Carbon Dioxide 23 mmol/L (21-32) 03/05/24 16:49 Anion Gap 10 (3-11) 03/05/24 16:49 BUN 15 mg/dl (6-23) 03/05/24 16:49 Creatinine 1.03 mg/dl (0.6-1.4) 03/05/24 16:49 Est Cr Clr Drug Dosing 83.9 ml/min 03/05/24 16:49 eGFR 78.63 03/05/24 16:49 BUN/Creatinine Ratio 14.6 (10-20) 03/05/24 16:49 Glucose 154 mg/dl (70-99(Fasting)) H 03/05/24 16:49 Calcium 9.3 mg/dl (8.6-10.3) 03/05/24 16:49 Total Bilirubin 0.8 mg/dl (0.2-1.0) 03/05/24 16:49 AST 19 U/L (13-39) 03/05/24 16:49 ALT 19 U/L (7-52) 03/05/24 16:49 Alkaline Phosphatase 51 U/L (34-104) 03/05/24 16:49 Troponin I High Sens 70.0 pg/ml (0-20) H* 03/05/24 Unknown B-Natriuretic Peptide 959 pg/ml (0-100) H 03/05/24 Unknown Total Protein 7.0 gm/dl (6.0-8.3) 03/05/24 16:49 Albumin 3.9 gm/dl (3.4-5.0) 03/05/24 16:49 Globulin 3.1 gm/dl (2.5-4.0) 03/05/24 16:49 Albumin/Globulin Ratio 1.3 (0.9-2) 03/05/24 16:49 Adenovirus (PCR) Not Detected (NotDetected) 03/05/24 18:01 B. pertussis DNA (PCR) Not Detected (NotDetected) 03/05/24 18:01 B.parapertussis DNA PCR Not Detected (NotDetected) 03/05/24 18:01 C. pneumoniae DNA (PCR) Not Detected (NotDetected) 03/05/24 18:01 Coronavirus OC43 (PCR) Not Detected (NotDetected) 03/05/24 18:01 Coronavirus HKU1 (PCR) Not Detected (NotDetected) 03/05/24 18:01 Coronavirus 229E (PCR) Not Detected (NotDetected) 03/05/24 18:01 SARS-CoV-2 (PCR) Not Detected (NotDetected) 03/05/24 18:01 Coronavirus NL63 (PCR) Not Detected (NotDetected) 03/05/24 18:01 Human Metapneumovir PCR Not Detected (NotDetected) 03/05/24 18:01 Influenza Type A (PCR) Not Detected (NotDetected) 03/05/24 18:01 Influenza Type B (PCR) Not Detected (NotDetected) 03/05/24 18:01 M. pneumoniae (PCR) Not Detected (NotDetected) 03/05/24 18:01 Parainfluenza 1 (PCR) Not Detected (NotDetected) 03/05/24 18:01 Parainfluenza 2 (PCR) Not Detected (NotDetected) 03/05/24 18:01 Parainfluenza 3 (PCR) Not Detected (NotDetected) 03/05/24 18:01 Parainfluenza 4 (PCR) Not Detected (NotDetected) 03/05/24 18:01 RSV (PCR) Not Detected (NotDetected) 03/05/24 18:01 Entero/Rhino (PCR) Not Detected (NotDetected) 03/05/24 18:01 Impressions Chest X-Ray 03/05/24 16:09 SINGLE VIEW CHEST CLINICAL HISTORY: Atypical chest pain FINDINGS: A PA chest radiograph is compared to study dated 07/30/2022. The heart is enlarged noting atherosclerotic calcification of the thoracic aorta. The pulmonary vasculature is noncongested. There are small pleural effusions with dependent atelectasis. No pneumothorax is seen. The skeletal structures are osteopenic. The bony thorax is grossly intact. Degenerative change is seen in the spine. IMPRESSION: 1. Cardiomegaly without radiographic evidence of congestive failure. 2. Small pleural effusions with dependent atelectasis. ACT 112: Negative or not required by law. Electronically signed by: Mendez Hendrix M.D. 03/05/2024 5:40 PM Chest CTA 03/05/24 19:26 Exam(s): CTA CHEST EXAM: CT Angiography Chest With Intravenous Contrast CLINICAL HISTORY: Reason for exam: PE. TECHNIQUE: Axial computed tomographic angiography images of the chest with intravenous contrast. CTDI is 28.14 mGy and DLP is 1014.35 mGy-cm. Automated exposure control was utilized for the study. A dose lowering technique was utilized adhering to the principles of ALARA. MIP reconstructed images were created and reviewed. COMPARISON: No relevant prior studies available. FINDINGS: Pulmonary arteries: Unremarkable. No pulmonary embolism. Aorta: No acute findings. No thoracic aortic aneurysm. Lungs: Discoid atelectasis seen in the lower lobes. No mass. Pleural space: There are bilateral small pleural effusions. No pneumothorax. Heart: Unremarkable. No cardiomegaly. No significant pericardial effusion. No evidence of RV dysfunction. Mediastinum: Mild mediastinal lymphadenopathy measuring up to 1.1 cm in short axis diameter. Bones/joints: No acute fracture. No dislocation. IMPRESSION: 1. No acute pulmonary embolism 2. Bilateral small pleural effusions Electronically signed by: Rafael Dahl MD 03/05/24 20:57 PM ECG Additional Comments: ECG. Sinus tachycardia with frequent PVCs with rate of 103. Left anterior fascicular block. QTc 503. Code Status & VTE Plan VTE Prophylaxis Plan VTE Prophylaxis will be ordered: Yes
[2024-03-06] MEDS ORDERED: GLUCAGON FOR INJ 1 MG VIAL SQ PRN (00:10)
[2024-03-06] MEDS ORDERED: ACETAMINOPHEN 325 MG TAB PO PRN (00:10)
[2024-03-06] MEDS ORDERED: GLUCOSE 10 TAB/TUBE PO PRN (00:10)
[2024-03-06] MEDS ORDERED: CARBOHYDRATES FOR HYPOGLYCEMIA PO PRN (00:10)
[2024-03-06] MEDS ORDERED: NITROGLYCERIN SL 0.4 MG/TAB TAB SL PRN (00:10)
[2024-03-06] MEDS ORDERED: GLUCOSE 40% GEL 15 GM TUBE PO PRN (00:10)
[2024-03-06] MEDS ORDERED: POLYETHYLENE (MIRALAX) 17 GM PACK PO PRN (00:10)
[2024-03-06] MEDS ORDERED: traMADol HCL 50 MG TABLET PO PRN (00:10)
[2024-03-06] MEDS: LABETALOL HCL IV 5 MG/ML 20ML IV STA (01:30)
[2024-03-06 04:57] LABS: Basophils # (auto) 0.12 K/uL (0.00-0.20); Basophils % (auto) 1.2 %; Eosinophils # (auto) 0.27 K/uL (0.00-0.50); Eosinophils % (auto) 2.7 %; Hemoglobin 11.9 g/dl (14.0-18.0); Immature Granulocytes # (auto) 0.04 K/uL (0.01-0.20); Immature Granulocytes % (auto) 0.4 %; Lymphocytes # (auto) 2.79 K/uL (1.20-3.40); Lymphocytes % (auto) 27.6 %; Mean Corpuscular Hemoglobin 26.7 pg (25.0-34.0); Mean Corpuscular Hgb Conc 32.2 g/dL (32.0-36.0); Mean Corpuscular Volume 83.1 fL (80.0-100.0); Mean Platelet Volume 10.5 fL (9.4-12.4); Monocytes # (auto) 0.84 K/uL (0.11-0.59); Monocytes % (auto) 8.3 %; Neutrophils # (auto) 6.04 K/uL (1.40-6.50); Neutrophils % (auto) 59.8 %; Platelet Count 319 K/uL (130-400); RDW Coefficient of Variation 14.3 % (11.5-14.5); RDW Standard Deviation 43.1 fL (36.4-46.3); Red Blood Count 4.45 M/uL (4.70-6.10)
[2024-03-06 05:08] LABS: BUN Creatinine Ratio 14.8 (10-20); Calcium 9.2 mg/dl (8.6-10.3); Creatinine Clr Calc Pharmacy 79.6 ml/min; Magnesium 1.6 mg/dl (1.7-2.4); Potassium 3.5 mmol/L (3.5-5.1)
[2024-03-06 05:28] LABS: Troponin I High Sensitivity 83.8 pg/ml (0-20)
[2024-03-06] MEDS: MAGNESIUM SULFATE / D5W 1 GM/100 ML BAG IV SCH (05:42)
[2024-03-06 07:01] LABS: Estimated Average Glucose 189 mg/dl; Hemoglobin A1C 8.2 % (4.5-5.6)
[2024-03-06] MEDS: TAMSULOSIN HCL 0.4 MG CAP PO SCH (08:03)
[2024-03-06] MEDS: CLOPIDOGREL BISULFATE 75 MG TAB PO SCH (08:04)
[2024-03-06] MEDS: FINASTERIDE 5 MG TAB PO SCH (08:04)
[2024-03-06] MEDS: TRIAMTERENE/HCTZ 37.5/25MG TAB PO SCH (08:04)
[2024-03-06] MEDS: METOPROLOL SUCC 50MG EXT REL TAB PO SCH (08:04)
[2024-03-06] MEDS: FUROSEMIDE 40 MG/4 ML VIAL IV SCH (08:04)
[2024-03-06] MEDS: ATORVASTATIN 40 MG TAB PO SCH (08:04)
[2024-03-06] MEDS: INSULIN ASPART PER UNIT CHARGE SC SCH (08:07)
[2024-03-06] MEDS: LANTUS PER UNIT CHARGE SQ SCH (08:07)
[2024-03-06] MEDS: HEPARIN SOD 5,000 UNIT/0.5 ML VIAL SQ SCH (08:14)
[2024-03-06] MEDS: NEOMYCIN/POLYMYX/BACITR OINT 15 GM TUBE EXT PRN (11:39)
[2024-03-06] MEDS: POTASSIUM CHLORIDE CRTAB 20 MEQ TABCR PO ONE (11:39)
--- NOTE | 2024-03-06 15:06 | Cardiology Consultation ---
Date of Consultation March 06, 2024 Assessment & Plan (1) Acute heart failure with mildly reduced ejection fraction (HFmrEF, 41-49%): (2) Cardiomyopathy: (3) Substernal chest pain: (4) Elevated troponin: (5) Hypertension: (6) Dyslipidemia: (7) Frequent PVCs: Plan ASSESSMENT/PLAN: 1. Acute heart failure with mildly reduced EF: Seems much improved. Presented with NYHA class IV symptoms. Still appears to be mildly hypervolemic. Likely can reduce diuretic to oral Lasix 40 mg once daily tomorrow. We discussed the importance of a low-sodium diet, less than 2000 mg daily. Recommended daily weights at home and to bring to future appointments. Strict I's and O's while hospitalized. Will initiate Entresto low-dose tonight. Recommend SGLT2 inhibitor prior to discharge if no contraindication. If no contraindication tomorrow, consider initiating spironolactone 25 mg p.o. once daily. Heart failure program referral placed. He has an appointment next week. 2. Chest pain: Exertional chest discomfort. With drop in EF, cannot exclude ischemia however had unremarkable dobutamine stress echo a few months ago. Could consider coronary angiography however the symptoms themselves could be related to heart failure. He does not wish to stay beyond tomorrow for further workup. Can reassess in the outpatient setting if he chooses to leave. 3. Cardiomyopathy: Mildly to moderately reduced LV systolic function noted on echo today, which is new compared to September 2023. Cannot exclude his frequent PVCs as playing a role in the analysis of his systolic function. Increase metoprolol succinate to 100 mg daily prior to discharge. Entresto as above. Other medical therapy as noted. Does not meet criteria for ICD for primary prevention. 4. PVCs: If not done recently, consider outpatient Holter monitor to quantify PVC burden as he has very frequent PVCs here, which could contribute to cardiomyopathy. 5. Hypertension: Blood pressure has been hypertensive. Adjusting medical therapy as above for his heart failure which should also improve his blood pr essure. 6. Dyslipidemia: Continue high intensity statin therapy. 7. Elevated troponin: Chronically has elevated troponin. Likely related to demand ischemia in the setting of heart failure exacerbation but given his exertional symptoms, cannot exclude ischemia. Plan as noted above. 8. Disposition: Patient has been signed out to Dr. Jackson who will be available to assist in his medical care tomorrow if patient remains hospitalized to be seen. We discussed the importance of optimizing his medical care but he is adamant that he will be leaving tomorrow due to family medical issues that he needs to attend to. Follow-up has been scheduled for next week in the heart failure program in case he leaves this weekend. Patient care communicated with primary hospitalist, Dr. Jacinto. Thank you for allowing me to participate in the care of your patient. Please call for any other questions or concerns. Sincerely, Jean Sabillon M.D. History of Present Illness Reason for Consultation: acute CHF Requesting Physician: Dr. Tian Attending Physician: Ashish Jacinto MD History of Present Illness Mr. Guevara is a very pleasant 68-year-old gentleman with a history significant for WPW s/p ablation (1985) hypertension, dyslipidemia, type 2 diabetes, and sleep apnea. 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 His primary formwork carpenter is Dr. Galeano. He was admitted on 03/05/2024 with worsening shortness of breath and orthopnea. He was diagnosed with acute heart failure and administered intravenous diuretics in the form of Lasix 40 mg IV twice daily, with 2 total doses thus far. He has diuresed well and feels back to baseline while at rest. For approximately 2 weeks he has had worsening orthopnea and dyspnea on exertion. He has not noted any significant edema. He does not maintain a low- sodium diet. He also has noted increased frequency of his substernal chest pressure with exertion only. He denies rest symptoms. There is no radiation of the pain. He denies recent fevers, chills, syncope, near syncope, palpitations, melena, hematochezia, or hematuria. He wants to be discharged today but is willing to stay no longer than tomorrow. His needs help at home since her stroke and one of his daughters who typically helps, is hospitalized with sepsis at another facility. Review of systems: As above. Family history: Mother had WPW. Social history: He denies tobacco, alcohol, or drug abuse. He lives at home with his and daughter. He has 2 daughters total. His had a stroke in June and he is the primary caregiver. He was unaccompanied. Allergies Allergy/AdvReac Type Severity Reaction Status Date / Time No Known Allergies Allergy Verified 08/27/23 13:00 Home Medications Medication Instructions Recorded Confirmed Type atorvastatin 40 mg tablet 40 mg PO DAILY 03/05/24 03/05/24 History clopidogrel 75 mg tablet 75 mg PO DAILY 03/05/24 03/05/24 History dulaglutide 4.5 mg/0.5 mL 4.5 mg subcut WK 03/05/24 03/05/24 History subcutaneous pen injector (Trulicity) finasteride 5 mg tablet 5 mg PO DAILY 03/05/24 03/05/24 History insulin glargine 100 unit/mL 50 unit subcut DAILY 03/05/24 03/05/24 History subcutaneous solution (Lantus U-100 Insulin) metformin 850 mg tablet 850 mg PO BID 03/05/24 03/05/24 History metoprolol succinate 50 mg 50 mg PO DAILY 03/05/24 03/05/24 History tablet,extended release 24 hr tamsulosin 0.4 mg capsule 0.4 mg PO DAILY 03/05/24 03/05/24 History tramadol 50 mg tablet 50 mg PO TID PRN Severe Pain 03/05/24 03/05/24 History (Scale Score 7-10) triamterene 37.5 1 tab PO DAILY 03/05/24 03/05/24 History mg-hydrochlorothiazide 25 mg tablet Problem List (Updated 03/06/24 @ 17:30 by Marin Sabillon MD) Frequent PVCs Elevated troponin Cardiomyopathy Acute heart failure with mildly reduced ejection fraction (HFmrEF, 41-49%) Acute CHF Elevated brain natriuretic peptide (BNP) level (Acute) Non-ST elevation KS (NSTEMI) (Acute) PUENTE (dyspnea on exertion) (Acute) Acute exacerbation of CHF (congestive heart failure) (Acute) Cellulitis (Acute) Osteomyelitis of foot, right, acute (Acute) TIA (transient ischemic attack) Stroke-like symptoms (Acute) Chest pain syndrome Prepatellar bursitis S/P TURP Nocturia Substernal chest pain (Acute) DMII (diabetes mellitus, type 2) (Acute) Hypertension (Acute) Dyslipidemia (Acute) Lumbar spinal stenosis DVT prophylaxis Cough Noncompliance with medication regimen (Acute) Greater trochanteric bursitis of right hip Urinary symptom or sign (Acute) Enlarged prostate without lower urinary tract symptoms (luts) (Acute) Osteoarthritis of left knee Osteoarthritis of right hip BPH (benign prostatic hyperplasia) (Acute) Patient History Medical History Atypical chest pain IGOR (obstructive sleep apnea) Cannot tolerate device Dry mouth Chronic Morbid obesity with BMI of 45.0-49.9, adult Chronic back pain SOB (shortness of breath) on exertion OVERWEIGHT- CHRONIC AND STABLE Claustrophobia "DOESN'T LIKE SLEEPING ON HIS BACK" Arthritis Gallstones Found incidentally - no current issues Abdominal hernia Stable GERD (gastroesophageal reflux disease) UNDER CONTROL Hypertension History of asthma A CHILD HLD (hyperlipidemia) History of Rjwfm-Jrbxlfshm-Luqkn (WPW) syndrome S/p ablation- no issues Follows with cardio PRN DM II (diabetes mellitus, type II), controlled Glucose fluctuates Surgical History History of cataract surgery RT History of colonoscopy 2020 History of radiofrequency ablation procedure for cardiac arrhythmia AT AGE 29 History of tonsillectomy History of tooth extraction S/P TURP Family History Other Diabetes Hypertension No family history of adverse response to anesthesia Social History Smoking Status: Never smoker Tobacco Type: Declines Second Hand Exposure: No; Do You Dip or Chew Tobacco: No; Hx Alcohol Use: No Hx Substance Use: No Preferred Language: Bulgarian Communication Ability: Effective Foster Winder Required: No Beliefs That Will Affect Care: None Current Living Situation: Spouse Current Living Situation Comment: and youngest daughter current occupational status: retired Feels Safe at Home: Yes Assistive Devices: Cane and Walker Physical Exam Physical Exam: Gen.: No acute distress. Alert and oriented. HEENT: Anicteric sclera. Neck: Thick neck but no appreciable JVD. No bruits. Normal carotid upstrokes bilaterally. Cardiac: Regular with ectopy. Normal S1-S2. No murmurs, rubs, or gallops. Pulmonary: Clear to auscultation bilaterally without wheezes, rales, or rhonchi. Abdomen: Soft, nontender, nondistended, with normoactive bowel sounds. No bruits noted. Extremities: 2+ radial pulses bilaterally. 2+ posterior tibialis pulses bilaterally. 1+ bilateral lower extremity edema. No cyanosis. Results & Data Vital Signs (Past 12 Hours) Vital Signs Temp Pulse Pulse Resp BP Pulse Ox O2 Del Method 03/06/24 10:40 36.4 C L 94 H 20 161/92 H 95 Room Air 03/06/24 07:30 Room Air 03/06/24 07:22 36.4 C L 81 20 161/104 H 95 Room Air 03/06/24 06:51 84 03/06/24 04:00 36.5 C 77 20 126/86 95 Room Air Intake & Output 03/04/24 03/05/24 03/06/24 03/07/24 06:59 06:59 06:59 06:59 Intake Total 100 / 100 190.833 / 190.833 Output Total 1000 / 1000 2650 / 2650 Balance -900 / -900 -2459.167 / -2459.167 Weight 259 lb 4.218 oz Laboratory Results Laboratory Results - last 24 hr 03/05/24 03/05/24 03/05/24 16:49 18:01 22:10 WBC 10.27 RBC 4.49 L Hgb 12.1 L Hct 37.7 L MCV 84.0 MCH 26.9 MCHC 32.1 RDW Std Deviation 43.7 RDW Coeff of Henrry 14.4 Plt Count 319 MPV 10.4 Immature Gran % (Auto) 0.5 Neut % (Auto) 67.1 Lymph % (Auto) 23.1 [place] % (Auto) 6.8 Eos % (Auto) 1.7 Baso % (Auto) 0.8 Neut # (Auto) 6.90 H Lymph # (Auto) 2.37 [place] # (Auto) 0.70 H Eos # (Auto) 0.17 Baso # (Auto) 0.08 Immature Gran # (Auto) 0.05 PT 12.1 H INR 1.1 APTT 27 PTT Ratio 1.0 Sodium 140 Potassium 3.8 Chloride 107 Carbon Dioxide 23 Anion Gap 10 BUN 15 Creatinine 1.03 Est Cr Clr Drug Dosing 83.9 eGFR 78.63 BUN/Creatinine Ratio 14.6 Glucose 154 H POC Glucose 81 Estimat Average Glucose Hemoglobin A1c Calcium 9.3 Magnesium Total Bilirubin 0.8 AST 19 ALT 19 Alkaline Phosphatase 51 Troponin I High Sens 62.7 H* B-Natriuretic Peptide Total Protein 7.0 Albumin 3.9 Globulin 3.1 Albumin/Globulin Ratio 1.3 Nasal Screen MRSA (PCR) Adenovirus (PCR) Not Detected B. pertussis DNA (PCR) Not Detected B.parapertussis DNA PCR Not Detected C. pneumoniae DNA (PCR) Not Detected Coronavirus OC43 (PCR) Not Detected Coronavirus HKU1 (PCR) Not Detected Coronavirus 229E (PCR) Not Detected SARS-CoV-2 (PCR) Not Detected Coronavirus NL63 (PCR) Not Detected Human Metapneumovir PCR Not Detected Influenza Type A (PCR) Not Detected Influenza Type B (PCR) Not Detected M. pneumoniae (PCR) Not Detected Parainfluenza 1 (PCR) Not Detected Parainfluenza 2 (PCR) Not Detected Parainfluenza 3 (PCR) Not Detected Parainfluenza 4 (PCR) Not Detected RSV (PCR) Not Detected Entero/Rhino (PCR) Not Detected 03/05/24 03/06/24 03/06/24 Unknown 00:16 04:34 WBC 10.10 RBC 4.45 L Hgb 11.9 L Hct 37.0 L MCV 83.1 MCH 26.7 MCHC 32.2 RDW Std Deviation 43.1 RDW Coeff of Henrry 14.3 Plt Count 319 MPV 10.5 Immature Gran % (Auto) 0.4 Neut % (Auto) 59.8 Lymph % (Auto) 27.6 [place] % (Auto) 8.3 Eos % (Auto) 2.7 Baso % (Auto) 1.2 Neut # (Auto) 6.04 Lymph # (Auto) 2.79 [place] # (Auto) 0.84 H Eos # (Auto) 0.27 Baso # (Auto) 0.12 Immature Gran # (Auto) 0.04 PT INR APTT PTT Ratio Sodium 143 Potassium 3.5 Chloride 108 H Carbon Dioxide 27 Anion Gap 8 BUN 16 Creatinine 1.08 Est Cr Clr Drug Dosing 79.6 eGFR 74.28 BUN/Creatinine Ratio 14.8 Glucose 76 POC Glucose 123 H Estimat Average Glucose 189 Hemoglobin A1c 8.2 H Calcium 9.2 Magnesium 1.6 L Total Bilirubin AST ALT Alkaline Phosphatase Troponin I High Sens 70.0 H* 83.8 H* D B-Natriuretic Peptide 959 H Total Protein Albumin Globulin Albumin/Globulin Ratio Nasal Screen MRSA (PCR) Adenovirus (PCR) B. pertussis DNA (PCR) B.parapertussis DNA PCR C. pneumoniae DNA (PCR) Coronavirus OC43 (PCR) Coronavirus HKU1 (PCR) Coronavirus 229E (PCR) SARS-CoV-2 (PCR) Coronavirus NL63 (PCR) Human Metapneumovir PCR Influenza Type A (PCR) Influenza Type B (PCR) M. pneumoniae (PCR) Parainfluenza 1 (PCR) Parainfluenza 2 (PCR) Parainfluenza 3 (PCR) Parainfluenza 4 (PCR) RSV (PCR) Entero/Rhino (PCR) 03/06/24 03/06/24 03/06/24 07:11 10:51 11:23 WBC RBC Hgb Hct MCV MCH MCHC RDW Std Deviation RDW Coeff of Henrry Plt Count MPV Immature Gran % (Auto) Neut % (Auto) Lymph % (Auto) [place] % (Auto) Eos % (Auto) Baso % (Auto) Neut # (Auto) Lymph # (Auto) [place] # (Auto) Eos # (Auto) Baso # (Auto) Immature Gran # (Auto) PT INR APTT PTT Ratio Sodium Potassium Chloride Carbon Dioxide Anion Gap BUN Creatinine Est Cr Clr Drug Dosing eGFR BUN/Creatinine Ratio Glucose POC Glucose 92 105 H Estimat Average Glucose Hemoglobin A1c Calcium Magnesium Total Bilirubin AST ALT Alkaline Phosphatase Troponin I High Sens 75.1 H* B-Natriuretic Peptide Total Protein Albumin Globulin Albumin/Globulin Ratio Nasal Screen MRSA (PCR) Adenovirus (PCR) B. pertussis DNA (PCR) B.parapertussis DNA PCR C. pneumoniae DNA (PCR) Coronavirus OC43 (PCR) Coronavirus HKU1 (PCR) Coronavirus 229E (PCR) SARS-CoV-2 (PCR) Coronavirus NL63 (PCR) Human Metapneumovir PCR Influenza Type A (PCR) Influenza Type B (PCR) M. pneumoniae (PCR) Parainfluenza 1 (PCR) Parainfluenza 2 (PCR) Parainfluenza 3 (PCR) Parainfluenza 4 (PCR) RSV (PCR) Entero/Rhino (PCR) 03/06/24 Unknown WBC RBC Hgb Hct MCV MCH MCHC RDW Std Deviation RDW Coeff of Henrry Plt Count MPV Immature Gran % (Auto) Neut % (Auto) Lymph % (Auto) [place] % (Auto) Eos % (Auto) Baso % (Auto) Neut # (Auto) Lymph # (Auto) [place] # (Auto) Eos # (Auto) Baso # (Auto) Immature Gran # (Auto) PT INR APTT PTT Ratio Sodium Potassium Chloride Carbon Dioxide Anion Gap BUN Creatinine Est Cr Clr Drug Dosing eGFR BUN/Creatinine Ratio Glucose POC Glucose Estimat Average Glucose Hemoglobin A1c Calcium Magnesium Total Bilirubin AST ALT Alkaline Phosphatase Troponin I High Sens B-Natriuretic Peptide Total Protein Albumin Globulin Albumin/Globulin Ratio Nasal Screen MRSA (PCR) Negative Adenovirus (PCR) B. pertussis DNA (PCR) B.parapertussis DNA PCR C. pneumoniae DNA (PCR) Coronavirus OC43 (PCR) Coronavirus HKU1 (PCR) Coronavirus 229E (PCR) SARS-CoV-2 (PCR) Coronavirus NL63 (PCR) Human Metapneumovir PCR Influenza Type A (PCR) Influenza Type B (PCR) M. pneumoniae (PCR) Parainfluenza 1 (PCR) Parainfluenza 2 (PCR) Parainfluenza 3 (PCR) Parainfluenza 4 (PCR) RSV (PCR) Entero/Rhino (PCR) Diagnostic Findings ECG personally reviewed 1020 09/03/1644: Sinus with PACs and PVCs. Poor R wave progression. LAFB. Labs reviewed and notable for mildly elevated high-sensitivity troponin peaking at 83, hypomagnesemia, elevated A1c, stable renal function, normal potassium, elevated BNP, mild but stable anemia. History and physical report reviewed. CTA chest 03/05/2024: No acute PE. Bilateral small pleural effusions. Dobutamine stress echo 09/30/2023 MPG: Negative for ischemia at 90% MPHR. Resting EF 50 to 55%. Normal RV size and systolic function. No significant valvular abnormalities. ECHO 03/06/24: 1. Mildly dilated left ventricle with mildly to moderately reduced systolic function. Estimated EF 40-45%. Global hypokinesis. Moderate concentric left ventricular hypertrophy. Frequent PVCs may affect interpretation of LV systolic function. Type III diastolic dysfunction. 2. Mild left atrial dilation. 3. Sclerotic aortic valve without significant stenosis. 4. Mild mitral regurgitation. 5. Frequent PVCs. 6. Technically difficult study, enhanced with IV Definity. 7. Compared to prior study on 09/30/2023, LV systolic function has declined, however frequent PVCs may be affecting interpretation of LV systolic function. Medications Administered Current Inpatient Medications Acetaminophen (Acetaminophen 325 Mg Tab) 650 mg PO Q4H PRN PRN Reason: Pain or Fever Stop: 04/05/24 00:09 Atorvastatin Calcium (Atorvastatin 40 Mg Tab) 40 mg PO DAILY ADRIA Stop: 04/05/24 08:59 Last Admin: 03/06/24 08:04 Dose: 40 mg Clopidogrel Bisulfate (Clopidogrel Bisulfate 75 Mg Tab) 75 mg PO DAILY ADRIA Stop: 04/05/24 08:59 Last Admin: 03/06/24 08:04 Dose: 75 mg Dextrose (Dextrose 50% 50 Ml Syringe) 25 - 50 ml IV UD PRN; Protocol PRN Reason: Hypoglycemia Protocol Stop: 04/05/24 00:09 Finasteride (Finasteride 5 Mg Tab) 5 mg PO DAILY ADRIA Stop: 04/05/24 08:59 Last Admin: 03/06/24 08:04 Dose: 5 mg Furosemide (Furosemide 40 Mg/4 Ml Vial) 40 mg IV BID ADRIA Stop: 04/05/24 08:59 Last Admin: 03/06/24 08:04 Dose: 40 mg Glucagon (Glucagon For Inj 1 Mg Vial) 1 mg SQ UD PRN; Protocol PRN Reason: Hypoglycemia Protocol Stop: 04/05/24 00:09 Glucose (Glucose 40% Gel 15 Gm Tube) 15 - 30 gm PO UD PRN; Protocol PRN Reason: Hypoglycemia Protocol Stop: 04/05/24 00:09 Glucose (Glucose 10 Tab/Tube) 4 - 8 tab PO UD PRN; Protocol PRN Reason: Hypoglycemia Protocol Stop: 04/05/24 00:09 Heparin Sodium (Porcine) (Heparin Sod 5,000 Unit/0.5 Ml Vial) 7,500 units SQ Q12 ADRIA Stop: 04/05/24 08:59 Last Admin: 03/06/24 08:14 Dose: 7,500 units Insulin Aspart (Insulin Aspart Per Unit Charge) 0 units SC ACHS ADRIA Stop: 04/05/24 07:29 Last Admin: 03/06/24 12:23 Dose: 12 units Insulin Glargine (Lantus Per Unit Charge) 50 units SQ DAILY ADRIA Stop: 04/05/24 08:59 Last Admin: 03/06/24 08:07 Dose: 50 units Metoprolol Succinate (Metoprolol Succ 50mg Ext Rel Tab) 50 mg PO DAILY ADRIA Stop: 04/05/24 08:59 Last Admin: 03/06/24 08:04 Dose: 50 mg Miscellaneous (Carbohydrates For Hypoglycemia ) 15 - 30 gm PO UD PRN PRN Reason: Hypoglycemia Protocol Stop: 04/05/24 00:09 Neomycin/Polymyxin/Bacitracin (Neomycin/Polymyx/Bacitr Oint 15 Gm Tube) 1 appln EXT BID PRN PRN Reason: Abdominal Wound Stop: 04/05/24 10:39 Last Admin: 03/06/24 11:39 Dose: 1 appln Nitroglycerin (Nitroglycerin Sl 0.4 Mg/Tab Tab) 0.4 mg SL Q5M PRN PRN Reason: Chest Pain Stop: 04/05/24 00:09 Polyethylene Glycol (Polyethylene (Miralax) 17 Gm Pack) 17 gm PO DAILY PRN PRN Reason: Constipation Stop: 04/05/24 00:09 Tamsulosin HCl (Tamsulosin Hcl 0.4 Mg Cap) 0.4 mg PO DAILY ADRIA Stop: 04/05/24 08:59 Last Admin: 03/06/24 08:03 Dose: 0.4 mg Tramadol HCl (Tramadol Hcl 50 Mg Tablet) 50 mg PO TID PRN PRN Reason: Severe Pain (Scale Score 7-10) Stop: 04/05/24 00:09 Triamterene/Hydrochlorothiazide (Triamterene/Hctz 37.5/25mg Tab) 1 tab PO DAILY ADRIA Stop: 04/05/24 08:59 Last Admin: 03/06/24 08:04 Dose: 1 tab PG Care Time/CCT Total # of Minutes Spent Total Time Spent with Patient: Total time spent is greater than 50% in coordination of care (as documented) at patient's floor/unit and/or counseling patient: Coding Level of Care Code 07291 INT INP/OBS CARE 3/75MIN Diagnoses Acute heart failure with mildly reduced ejection fraction (HFmrEF, 41-49%) I50.21 Cardiomyopathy I42.9 Substernal chest pain R07.2 Elevated troponin R79.89 Hypertension I10 Dyslipidemia E78.5 Frequent PVCs I49.3
--- NOTE | 2024-03-06 15:14 | Hospitalist Progress Note ---
Date of Service March 06, 2024 Assessment & Plan (1) Acute CHF: Plan: 68-year-old male with past medical history significant for type 2 diabetes, hyperlipidemia, diabetic nephropathy, hypertension, morbid obesity, BPH, sacroiliitis, history of Guerra Parkinson's White syndrome, history of transmetatarsal amputation of right foot presents with shortness of breath. Patient states has shortness of breath for some time but last 2 weeks getting progressively worse. Last couple of days he could not sleep flat , was getting up and gasping for breath. Walking short distance making him short of breath. When he was gasping for breath he was having chest pressure. Denies any cough. No fevers. Has headaches because he could not sleep well for last few days. Acute on chronic diastolic CHF Type II NE Shortness of breath with orthopnea and PND --Chest CTA:No acute pulmonary embolism. Bilateral small pleural effusions --Troponin elevation --BNP elevated --ECHO pending Continue IV Lasix 40 mg twice daily Monitor I's and O's, daily weight, volume status Cardiology consulted PVCs Hypomagnesemia Monitor and replete electrolytes as needed Continue metoprolol Adjust medications as needed Consider sleep study as outpatient Hypertension Continue metoprolol Triamterene/HCTZ held Also on tamsulosin Monitor and adjust medications as needed Morbid obesity BMI 40 Needs counseling DM II HbA1c 8.2 Continue insulin while hospitalized Hold metformin and Trulicity Monitor BGs Hyperlipidemia On statin BPH Continue finasteride and Flomax H/O Guerra Parkinson's White syndrome Monitor DVT Px: Heparin SQ Code Status Full code Admission and Anticipated Discharge Date Admission Date: March 05, 2024 Subjective Patient is seen and examined at bedside Dyspnea much improved Denies any chest pain, nausea, vomiting, dizziness, abdominal pain Eager to get discharged Saturating well on room air Review of Systems Review of Systems: All systems reviewed & are unremarkable except as noted in Subjective Physical Exam Physical Exam: Physical Exam: Vitals signs as noted above General Appearance:Obese, no apparent distress Head: normocephalic, Atraumatic Eyes: normal inspection, EOMI Neck: supple, Trachea midline Respiratory/Chest: Normal breath sounds, CTA, No accessory muscle use Cardiovascular: S1, S2, No murmur Abdomen/GI:Soft, Non tender, Bowel sounds present Extremities/Musculoskeletal:normal inspection, 1+edema Neurologic/Psych:AAOX3, grossly no focal neurological deficits Skin: normal color, warm Results & Data Results & Data Vital Signs (Past 12 Hours) Vital Signs Temp Pulse Pulse Resp BP Pulse Ox O2 Del Method 03/06/24 15:05 36.6 C 82 20 141/97 H 93 Room Air 03/06/24 10:40 36.4 C L 94 H 20 161/92 H 95 Room Air 03/06/24 07:30 Room Air 03/06/24 07:22 36.4 C L 81 20 161/104 H 95 Room Air 03/06/24 06:51 84 03/06/24 04:00 36.5 C 77 20 126/86 95 Room Air Laboratory Results Short CBC 03/05/24 03/06/24 Range/Units 16:49 04:34 WBC 10.27 10.10 (4.8-10.8) K/ul Hgb 12.1 L 11.9 L (14.0-18.0) g/dl Hct 37.7 L 37.0 L (42.0-52.0) % Plt Count 319 319 (130-400) K/uL [facility] 03/05/24 03/06/24 16:49 04:34 Sodium 140 143 Potassium 3.8 3.5 Chloride 107 108 H Carbon Dioxide 23 27 BUN 15 16 Creatinine 1.03 1.08 Glucose 154 H 76 Calcium 9.3 9.2 Liver Function 03/05/24 Range/Units 16:49 Total Bilirubin 0.8 (0.2-1.0) mg/dl AST 19 (13-39) U/L ALT 19 (7-52) U/L Alkaline Phosphatase 51 (34-104) U/L Albumin 3.9 (3.4-5.0) gm/dl
--- NOTE | 2024-03-06 15:31 | XCELERA ---
[id number]
[2024-03-06] MEDS: DEXTROSE 50% 50 ML SYRINGE IV PRN (16:29)
--- NOTE | 2024-03-06 20:26 | Electrocardiogram Report ---
Test Reason : Blood Pressure : */* mmHG Vent. Rate : 103 BPM Atrial Rate : 103 BPM P-R Int : 176 ms QRS Dur : 108 ms QT Int : 384 ms P-R-T Axes : 52 -57 101 degrees QTcB Int : 503 ms Sinus tachycardia with frequent Premature ventricular complexes Premature atrial complexes Left anterior fascicular block Nonspecific T wave abnormality Poor R wave progression, consider anterior ID vs. lead placement vs. LVH Abnormal ECG When compared with ECG of 30-Jul-2022 13:40, Premature ventricular complexes are now Present Premature atrial complexes are now Present Vent. rate has increased by 38 bpm Confirmed by Marin Sabillon ([id number]) on 03/06/2024 8:26:02 PM Referred By: REFERRED SELF Confirmed By: Marin Sabillon
[2024-03-06] MEDS: VALSARTAN/SACUBITRIL 26/24MG TAB PO SCH (23:25)
[2024-03-07 05:10] LABS: Calcium 10.1 mg/dl (8.6-10.3); Creatinine Clr Calc Pharmacy 76.3 ml/min
[2024-03-07] MEDS: METOPROLOL SUCC 50MG EXT REL TAB PO SCH (08:40)
[2024-03-07] MEDS: FUROSEMIDE 40 MG/4 ML VIAL IV SCH (08:41)
--- NOTE | 2024-03-07 09:18 | Cardiology Progress Note ---
Date of Service March 07, 2024 Assessment & Plan (1) Acute heart failure with mildly reduced ejection fraction (HFmrEF, 41-49%): (2) Cardiomyopathy: (3) Substernal chest pain: (4) Elevated troponin: (5) Hypertension: (6) Dyslipidemia: (7) Frequent PVCs: Plan ASSESSMENT/PLAN: 1. Acute heart failure with mildly reduced EF: He affected had tremendous diuresis yesterday. Renal function electrolytes are stable. Symptoms appear to have resolved. Lung examination was clear today. It would seem reasonable to discharge him on a low-dose of diuretic, perhaps 20 mg of Lasix daily. He can follow-up in the outpatient setting to determine if he requires daily dosing or if this can be switched to as needed. He should monitor his weights at home. He was advised to limit sodium. 2. Chest pain: No current symptoms. Patient was advised to consider coronary angiography given his symptoms and reduced LV systolic function. At this time this has been deferred to the outpatient setting. 3. Cardiomyopathy: Mildly to moderately reduced LV systolic function noted on echo today, which is new compared to September 2023. Continue metoprolol succinate. I would recommend starting Jardiance 10 mg daily. 4. PVCs: Frequent PVCs. Very possibly contributing to his reduced LV systolic function. Metoprolol succinate increased. I would agree with outpatient monitoring to quantify the percentage of PVCs. This will also help guide therapy. 5. Hypertension: Normotensive this morning. 6. Dyslipidemia: Continue high intensity statin therapy. 7. Elevated troponin: Chronically has elevated troponin. The patient has some family emergencies to attend to and wishes to leave the hospital today. I think this is reasonable given his clinical improvement. Range will be made to follow-up in the outpatient setting for additional adjustment of his medications and consideration of coronary angiography. Admission and Anticipated Discharge Date Admission Date: March 05, 2024 Subjective This morning the patient clinically feeling well. He states that he has no breathing difficulty. He has been ambulatory around the room without symptoms. No significant dizziness or lightheadedness. No sense of palpitation. No current chest pain. Review of Systems Review of Systems: Per HPI Physical Exam Physical Exam: The patient is alert and oriented. Mood and affect appeared normal. He answered all questions appropriately. HEENT: Pupils are equal and reactive to light and accommodation. Extraocular movements are intact. The sclerae are anicteric. Neuro: Cranial nerves intact Lungs: Clear to auscultation bilaterally. He has good air movement without use of accessory muscles. No rales wheezes or rhonchi. Cardiac: Heart demonstrates a normal rate with an irregular rhythm. Normal S1 and S2. No murmurs on examination. Pulses: The patient has palpable radial pulses bilaterally that are equal in intensity Extremities: There was no evidence of hypoperfusion. There is no cyanosis or clubbing. Skin: I did not appreciate any rashes on examination today. Results & Data Vital Signs (Past 12 Hours) Vital Signs Temp Pulse Resp BP Pulse Ox O2 Del Method 03/07/24 07:13 36.5 C 74 20 133/65 96 Room Air 03/07/24 05:09 36.6 C 80 16 149/76 H 93 Room Air 03/07/24 00:05 36.5 C 58 L 16 144/87 H 91 Room Air Laboratory Results Abnormal Lab Results 03/06/24 03/06/24 03/06/24 10:51 11:23 16:10 Sodium Potassium Chloride Carbon Dioxide Anion Gap BUN Creatinine Est Cr Clr Drug Dosing eGFR BUN/Creatinine Ratio Glucose POC Glucose 105 H 64 L* Calcium Magnesium Troponin I High Sens 75.1 H* 03/06/24 03/06/24 03/06/24 16:10 16:23 16:43 Sodium Potassium Chloride Carbon Dioxide Anion Gap BUN Creatinine Est Cr Clr Drug Dosing eGFR BUN/Creatinine Ratio Glucose POC Glucose 67 L* 62 L* 199 H Calcium Magnesium Troponin I High Sens 03/06/24 03/06/24 03/07/24 17:02 19:58 04:17 Sodium 139 Potassium 4.0 Chloride 102 Carbon Dioxide 29 Anion Gap 8 BUN 19 Creatinine 1.12 Est Cr Clr Drug Dosing 76.3 eGFR 71.11 BUN/Creatinine Ratio 17.0 Glucose 124 H POC Glucose 152 H Calcium 10.1 Magnesium 2.0 Troponin I High Sens 69.3 H* 03/07/24 07:06 Sodium Potassium Chloride Carbon Dioxide Anion Gap BUN Creatinine Est Cr Clr Drug Dosing eGFR BUN/Creatinine Ratio Glucose POC Glucose 116 H Calcium Magnesium Troponin I High Sens Diagnostic Findings Echocardiogram 03/06/2024: Mildly reduced LV systolic function with ejection fraction of 40 to 45%. Global hypokinesis. Mild left atrial dilation. Aortic sclerosis without stenosis. Mild mitral regurgitation. PG Care Time/CCT Total # of Minutes Spent Total Time Spent with Patient: Total time spent is greater than 50% in coordination of care (as documented) at patient's floor/unit and/or counseling patient: Coding Level of Care Code 61575 SUB INP/OBS CARE 2/35MIN Diagnoses Acute heart failure with mildly reduced ejection fraction (HFmrEF, 41-49%) I50.21 Cardiomyopathy I42.9 Substernal chest pain R07.2 Elevated troponin R79.89 Hypertension I10 Dyslipidemia E78.5 Frequent PVCs I49.3
--- NOTE | 2024-03-07 11:11 | Hospitalist Progress Note ---
Date of Service March 07, 2024 Assessment & Plan (1) Acute CHF: Plan: 68-year-old male with past medical history significant for type 2 diabetes, hyperlipidemia, diabetic nephropathy, hypertension, morbid obesity, BPH, sacroiliitis, history of Guerra Parkinson's White syndrome, history of transmetatarsal amputation of right foot presents with shortness of breath. Patient states has shortness of breath for some time but last 2 weeks getting progressively worse. Last couple of days he could not sleep flat , was getting up and gasping for breath. Walking short distance making him short of breath. When he was gasping for breath he was having chest pressure. Denies any cough. No fevers. Has headaches because he could not sleep well for last few days. Acute on chronic diastolic CHF Type II [place] Shortness of breath with orthopnea and PND --Chest CTA:No acute pulmonary embolism. Bilateral small pleural effusions --Troponin elevation --BNP elevated --ECHO: EF 40 to 45%. Global hypokinesis. Moderate concentric LVH. Frequent PVCs may affect interpretation of LV systolic function, type III diastolic dysfunction. Mild left atrial dilatation. Mild mitral regurgitation. Continue IV Lasix 40 mg twice daily>> transition to oral Lasix 20 mg daily Started on Jardiance and Entresto Monitor I's and O's, daily weight, volume status Appreciate cardiology input May need stress test as outpatient Plan to be discharged home today Needs follow-up with cardiology on discharge PVCs Hypomagnesemia Monitor and replete electrolytes as needed Continue metoprolol succinate increased to 100 mg daily Adjust medications as needed Consider sleep study as outpatient Hypertension Continue metoprolol Triamterene/HCTZ discontinued Also on tamsulosin Monitor and adjust medications as needed Morbid obesity BMI 40 Needs counseling DM II HbA1c 8.2 Continue insulin while hospitalized Hold metformin and Trulicity Monitor BGs Hyperlipidemia On statin BPH Continue finasteride and Flomax H/O Guerra Parkinson's White syndrome Monitor DVT Px: Heparin SQ Code Status Full code Disposition Home Admission and Anticipated Discharge Date Admission Date: March 05, 2024 Subjective Patient is seen and examined at bedside States feeling a lot better today Dyspnea resolved Still has some PVCs on monitor Denies any chest pain, dizziness, nausea, vomiting, abdominal pain Prefers to be discharged home today Review of Systems Review of Systems: All systems reviewed & are unremarkable except as noted in Subjective Physical Exam Physical Exam: Physical Exam: Vitals signs as noted above General Appearance:Obese, no apparent distress Head: normocephalic, Atraumatic Eyes: normal inspection, EOMI Neck: supple, Trachea midline Respiratory/Chest: Normal breath sounds, CTA, No accessory muscle use Cardiovascular: S1, S2, No murmur Abdomen/GI:Soft, Non tender, Bowel sounds present Extremities/Musculoskeletal:normal inspection, 1+edema Neurologic/Psych:AAOX3, grossly no focal neurological deficits Skin: normal color, warm Results & Data Results & Data Vital Signs (Past 12 Hours) Vital Signs Temp Pulse Pulse Resp BP Pulse Ox O2 Del Method 03/07/24 08:30 Room Air 03/07/24 07:13 36.5 C 74 20 133/65 96 Room Air 03/07/24 06:49 77 03/07/24 05:09 36.6 C 80 16 149/76 H 93 Room Air 03/07/24 00:05 36.5 C 58 L 16 144/87 H 91 Room Air Laboratory Results [facility] 03/07/24 04:17 Sodium 139 Potassium 4.0 Chloride 102 Carbon Dioxide 29 BUN 19 Creatinine 1.12 Glucose 124 H Calcium 10.1
--- NOTE | 2024-03-07 11:19 | Discharge Summary ---
Date of Service March 07, 2024 Admission HPI Per Admitting Provider 68-year-old male with past medical history significant for type 2 diabetes, hyperlipidemia, diabetic nephropathy, hypertension, morbid obesity, BPH, sacroiliitis, history of Guerra Parkinson's White syndrome, history of transmetatarsal amputation of right foot presents with shortness of breath. Patient states has shortness of breath for some time but last 2 weeks getting progressively worse. Last couple of days he could not sleep flat , was getting up and gasping for breath. Walking short distance making him short of breath. When he was gasping for breath he was having chest pressure. Denies any cough. No fevers. Has headaches because he could not sleep well for last few days. No dizziness. Vision is okay. No runny nose or sore throat. Appetite is okay. No nausea. No abdominal pain. Normal bowel and bladder movements. Hemodynamics are okay. Past medical history. As mentioned above Past surgical history. Lumbosacral nerve imaging. Social history. . No smoking. No vaping. Family history. No family history on file Admission Exam Per Admitting Provider General- Not in distress Head- atraumatic Eyes- PERRL. ENT- oropharynx clear Neck- supple, no JVD. Lungs- clear to auscultation no wheezing, mild bibasilar crackles Heart- regular rate and rhythm; no murmur, no gallop. Abdomen- normal bowel sounds, soft, nontender, no distension Extremities- b/l lower extremity edema present, no erythema seen Neuro- alert, oriented PERRL, no facial palsy; no dysarthria; moves extremities Principal Diagnosis Acute on chronic diastolic CHF Premature ventricular contractions Discharge Data Allergies Allergy/AdvReac Type Severity Reaction Status Date / Time No Known Allergies Allergy Verified 08/27/23 13:00 Consultations 03/05/24 19:21 ED Decision to Admit Stat 03/06/24 08:00 Consult Cardiology Routine 03/06/24 17:33 [facility] Referral Routine Procedures Performed Laboratory Results WBC 10.10 K/ul (4.8-10.8) 03/06/24 04:34 RBC 4.45 M/uL (4.70-6.10) L 03/06/24 04:34 Hgb 11.9 g/dl (14.0-18.0) L 03/06/24 04:34 Hct 37.0 % (42.0-52.0) L 03/06/24 04:34 MCV 83.1 fL (80.0-100.0) 03/06/24 04:34 MCH 26.7 pg (25.0-34.0) 03/06/24 04:34 MCHC 32.2 g/dL (32.0-36.0) 03/06/24 04:34 RDW Std Deviation 43.1 fL (36.4-46.3) 03/06/24 04:34 RDW Coeff of Henrry 14.3 % (11.5-14.5) 03/06/24 04:34 Plt Count 319 K/uL (130-400) 03/06/24 04:34 MPV 10.5 fL (9.4-12.4) 03/06/24 04:34 Immature Gran % (Auto) 0.4 % 03/06/24 04:34 Neut % (Auto) 59.8 % 03/06/24 04:34 Lymph % (Auto) 27.6 % 03/06/24 04:34 Will % (Auto) 8.3 % 03/06/24 04:34 Eos % (Auto) 2.7 % 03/06/24 04:34 Baso % (Auto) 1.2 % 03/06/24 04:34 Neut # (Auto) 6.04 K/uL (1.40-6.50) 03/06/24 04:34 Lymph # (Auto) 2.79 K/uL (1.20-3.40) 03/06/24 04:34 Will # (Auto) 0.84 K/uL (0.11-0.59) H 03/06/24 04:34 Eos # (Auto) 0.27 K/uL (0.00-0.50) 03/06/24 04:34 Baso # (Auto) 0.12 K/uL (0.00-0.20) 03/06/24 04:34 Immature Gran # (Auto) 0.04 K/uL (0.01-0.20) 03/06/24 04:34 PT 12.1 Seconds (9.0-12.0) H 03/05/24 16:49 INR 1.1 (0.9-1.1) 03/05/24 16:49 APTT 27 Seconds (21-31) 03/05/24 16:49 PTT Ratio 1.0 03/05/24 16:49 Sodium 139 mmol/L (136-145) 03/07/24 04:17 Potassium 4.0 mmol/L (3.5-5.1) 03/07/24 04:17 Chloride 102 mmol/L (98-107) 03/07/24 04:17 Carbon Dioxide 29 mmol/L (21-32) 03/07/24 04:17 Anion Gap 8 (3-11) 03/07/24 04:17 BUN 19 mg/dl (6-23) 03/07/24 04:17 Creatinine 1.12 mg/dl (0.6-1.4) 03/07/24 04:17 Est Cr Clr Drug Dosing 76.3 ml/min 03/07/24 04:17 eGFR 71.11 03/07/24 04:17 BUN/Creatinine Ratio 17.0 (10-20) 03/07/24 04:17 Glucose 124 mg/dl (70-99(Fasting)) H 03/07/24 04:17 POC Glucose 130 mg/dl (70-99) H 03/07/24 11:08 Estimat Average Glucose 189 mg/dl 03/06/24 04:34 Hemoglobin A1c 8.2 % (4.5-5.6) H 03/06/24 04:34 Calcium 10.1 mg/dl (8.6-10.3) 03/07/24 04:17 Magnesium 2.0 mg/dl (1.7-2.4) 03/07/24 04:17 Total Bilirubin 0.8 mg/dl (0.2-1.0) 03/05/24 16:49 AST 19 U/L (13-39) 03/05/24 16:49 ALT 19 U/L (7-52) 03/05/24 16:49 Alkaline Phosphatase 51 U/L (34-104) 03/05/24 16:49 Troponin I High Sens 69.3 pg/ml (0-20) H* 03/06/24 17:02 B-Natriuretic Peptide 959 pg/ml (0-100) H 03/05/24 Unknown Total Protein 7.0 gm/dl (6.0-8.3) 03/05/24 16:49 Albumin 3.9 gm/dl (3.4-5.0) 03/05/24 16:49 Globulin 3.1 gm/dl (2.5-4.0) 03/05/24 16:49 Albumin/Globulin Ratio 1.3 (0.9-2) 03/05/24 16:49 Nasal Screen MRSA (PCR) Negative (Negative) 03/06/24 Unknown Adenovirus (PCR) Not Detected (NotDetected) 03/05/24 18:01 B. pertussis DNA (PCR) Not Detected (NotDetected) 03/05/24 18:01 B.parapertussis DNA PCR Not Detected (NotDetected) 03/05/24 18:01 C. pneumoniae DNA (PCR) Not Detected (NotDetected) 03/05/24 18:01 Coronavirus OC43 (PCR) Not Detected (NotDetected) 03/05/24 18:01 Coronavirus HKU1 (PCR) Not Detected (NotDetected) 03/05/24 18:01 Coronavirus 229E (PCR) Not Detected (NotDetected) 03/05/24 18:01 SARS-CoV-2 (PCR) Not Detected (NotDetected) 03/05/24 18:01 Coronavirus NL63 (PCR) Not Detected (NotDetected) 03/05/24 18:01 Human Metapneumovir PCR Not Detected (NotDetected) 03/05/24 18:01 Influenza Type A (PCR) Not Detected (NotDetected) 03/05/24 18:01 Influenza Type B (PCR) Not Detected (NotDetected) 03/05/24 18:01 M. pneumoniae (PCR) Not Detected (NotDetected) 03/05/24 18:01 Parainfluenza 1 (PCR) Not Detected (NotDetected) 03/05/24 18:01 Parainfluenza 2 (PCR) Not Detected (NotDetected) 03/05/24 18:01 Parainfluenza 3 (PCR) Not Detected (NotDetected) 03/05/24 18:01 Parainfluenza 4 (PCR) Not Detected (NotDetected) 03/05/24 18:01 RSV (PCR) Not Detected (NotDetected) 03/05/24 18:01 Entero/Rhino (PCR) Not Detected (NotDetected) 03/05/24 18:01 Impressions Chest X-Ray 03/05/24 16:09 SINGLE VIEW CHEST CLINICAL HISTORY: Atypical chest pain FINDINGS: A PA chest radiograph is compared to study dated 07/30/2022. The heart is enlarged noting atherosclerotic calcification of the thoracic aorta. The pulmonary vasculature is noncongested. There are small pleural effusions with dependent atelectasis. No pneumothorax is seen. The skeletal structures are osteopenic. The bony thorax is grossly intact. Degenerative change is seen in the spine. IMPRESSION: 1. Cardiomegaly without radiographic evidence of congestive failure. 2. Small pleural effusions with dependent atelectasis. ACT 112: Negative or not required by law. Electronically signed by: Mendez Hendrix M.D. 03/05/2024 5:40 PM Chest CTA 03/05/24 19:26 Exam(s): CTA CHEST EXAM: CT Angiography Chest With Intravenous Contrast CLINICAL HISTORY: Reason for exam: PE. TECHNIQUE: Axial computed tomographic angiography images of the chest with intravenous contrast. CTDI is 28.14 mGy and DLP is 1014.35 mGy-cm. Automated exposure control was utilized for the study. A dose lowering technique was utilized adhering to the principles of ALARA. MIP reconstructed images were created and reviewed. COMPARISON: No relevant prior studies available. FINDINGS: Pulmonary arteries: Unremarkable. No pulmonary embolism. Aorta: No acute findings. No thoracic aortic aneurysm. Lungs: Discoid atelectasis seen in the lower lobes. No mass. Pleural space: There are bilateral small pleural effusions. No pneumothorax. Heart: Unremarkable. No cardiomegaly. No significant pericardial effusion. No evidence of RV dysfunction. Mediastinum: Mild mediastinal lymphadenopathy measuring up to 1.1 cm in short axis diameter. Bones/joints: No acute fracture. No dislocation. IMPRESSION: 1. No acute pulmonary embolism 2. Bilateral small pleural effusions Electronically signed by: Rafael Dahl MD 03/05/24 20:57 PM Ordered Studies 03/05/24 19:26 CT for pulmonary embolism PE [CT angio chest PE protocol] Stat Hospital Course (1) Acute CHF: 68-year-old male with past medical history significant for type 2 diabetes, hyperlipidemia, diabetic nephropathy, hypertension, morbid obesity, BPH, sacroiliitis, history of Guerra Parkinson's White syndrome, history of transmetatarsal amputation of right foot presents with shortness of breath. Roxana sanders states has shortness of breath for some time but last 2 weeks getting progressively worse. Last couple of days he could not sleep flat , was getting up and gasping for breath. Walking short distance making him short of breath. When he was gasping for breath he was having chest pressure. Denies any cough. No fevers. Has headaches because he could not sleep well for last few days. Acute on chronic diastolic CHF Type II [place] Shortness of breath with orthopnea and PND --Chest CTA:No acute pulmonary embolism. Bilateral small pleural effusions --Troponin elevation --BNP elevated --ECHO: EF 40 to 45%. Global hypokinesis. Moderate concentric LVH. Frequent PVCs may affect interpretation of LV systolic function, type III diastolic dysfunction. Mild left atrial dilatation. Mild mitral regurgitation. Continue IV Lasix 40 mg twice daily>> transition to oral Lasix 20 mg daily Started on Jardiance and Entresto Monitor I's and O's, daily weight, volume status Appreciate cardiology input May need stress test as outpatient Plan to be discharged home today Needs follow-up with cardiology on discharge PVCs Hypomagnesemia Monitor and replete electrolytes as needed Continue metoprolol succinate increased to 100 mg daily Adjust medications as needed Consider sleep study as outpatient Hypertension Continue metoprolol Triamterene/HCTZ discontinued Also on tamsulosin Monitor and adjust medications as needed Morbid obesity BMI 40 Needs counseling DM II HbA1c 8.2 Continue insulin while hospitalized Hold metformin and Trulicity Monitor BGs Hyperlipidemia On statin BPH Continue finasteride and Flomax H/O Guerra Parkinson's White syndrome Monitor DVT Px: Heparin SQ Code Status Full code Disposition Home Total Time Total Time Spent Total Time Spent (In Minutes): 52 minutes Discharge Plan Discharge Items Patient Disposition: Home - Self-Care Reason For Visit: ACUTE CHF Discharge Diagnosis: Acute on chronic diastolic CHF Premature ventricular contractions Activity: Per Instructions section Exercise/Sports: Gradually increase as tolerated Non-emergency contact: Primary Care Provider and [employer] Call non-emergency contact if: you have any medication questions, your symptoms worsen, your pain is concerning for you and you have a fever Follow-up/Referrals: Breanna Pace PA-C [Physician Manufacturing Job Titles] - 03/10/24 10:30 am Huey Alexandra MD [Primary Care Provider] - (Date & Time 03/11/2024 11:20 AM Provider Huey Alexandra MD [facility] Please note that your previously scheduled appointment on 03/11 at 5:20PM has been cancelled ) Diet: Carb Consistent or DM2 and Heart Healthy Addtl Attending Provider Instructions: Follow-up with your primary care physician on 03/11/2024 11:20 AM Follow-up with your key account coordinator Breanna Pace PA-C on 03/10/2024 at 10:30 AM as scheduled Seek immediate medical attention if your symptoms reoccur or worsen Please take all medications as instructed on discharge list below. Please call if you have any questions or problems. You can reach a [facility] hospitalist on duty at [facility] 24 hours a day by calling [phone] Call your Primary Care doctor if any of the following symptoms or problems start or get worse: * Shortness of breath or difficulty breathing * Wake up at night short of breath * Chest pain * Cough * Swelling of your hands, feet, or legs * More fatigued or tired with your normal activity * Palpitations - sudden fast heart beats WEIGHT * Weigh yourself every morning after using the bathroom. * Use the same scale. * Wear the same amount of clothing. * Write your weight down on a chart. * Call your Primary Care doctor if you gain more than 2-3 pounds in 1-2 days. MEDICATIONS * Use this discharge instruction sheet for medication instructions. * Take your medications at the time your doctor ordered. * Do not skip a dose of your medicines. * If you miss a dose of medicine, take it as soon as possible, but DO NOT DOUBLE A DOSE. * Read your medicine information when you get home. * Know all of the side effects of your medicine. If in doubt, ask your pharmacist * Call your Primary Care doctor's office if you have any side effects. * Be sure all of your doctors know what medicine and herbs you take (including cold, flu, and herbal medicine). Take the following with you to your follow-up doctor appointments: * Weight Chart * Medication List * List of questions Do not drink excessive alcohol, beer or wine. Pending Studies at Discharge: No Stand-Alone Forms: My [facility], Smoking Cessation Medications and DC Order Prescriptions: New furosemide 20 mg Tablet 20 mg PO QAM Qty: 30 1RF Jardiance 10 mg Tablet 10 mg PO DAILY Qty: 30 1RF Entresto 24-26 mg Tablet 1 tab PO BID Qty: 60 1RF metoprolol succinate 100 mg tablet extended release 24 hr 100 mg PO DAILY Qty: 30 1RF Continued atorvastatin 40 mg tablet 40 mg PO DAILY insulin glargine [Lantus U-100 Insulin] 100 unit/mL solution 50 unit SUBCUT DAILY metformin 850 mg tablet 850 mg PO BID clopidogrel 75 mg tablet 75 mg PO DAILY tramadol 50 mg tablet 50 mg PO TID PRN (Reason: Severe Pain (Scale Score 7-10)) tamsulosin 0.4 mg capsule 0.4 mg PO DAILY finasteride 5 mg tablet 5 mg PO DAILY Trulicity 4.5 mg/0.5 mL pen injector 4.5 mg SUBCUT WK Discontinued metoprolol succinate 50 mg tablet extended release 24 hr 50 mg PO DAILY triamterene-hydrochlorothiazid 37.5-25 mg tablet 1 tab PO DAILY Discharge Orders: Discharge Order (Routine); Ordered 03/07/24 Ordered By: Ashish Barrow/Other Patient Handouts: Managing Type 2 Diabetes Admission Data Admit Date/Time: 03/05/24 21:36 Attending Provider: Ashish Jacinto Admit Provider: Son Tian Primary Care Provider: Huey Alexandra Other Providers: Son Tian; Italo Galeano; Breanna Pace
[2024-03-07 11:20] VITALS: BP 112/75; PULSE 90; RESP 21; TEMP 97.5; O2SAT 93
--- NOTE | 2024-03-07 11:56 | Electrocardiogram Report ---
Test Reason : Blood Pressure : */* mmHG Vent. Rate : 111 BPM Atrial Rate : * BPM P-R Int : * ms QRS Dur : 110 ms QT Int : 388 ms P-R-T Axes : * -46 100 degrees QTcB Int : 527 ms Sinus rhythm with frequent atrial and ventricular ectopy Left anterior fascicular block Poor R wave progression, consider anterior ND vs. lead placement vs. LVH Prolonged QT Abnormal ECG Confirmed by Jigar Jackson ([id number]) on 03/07/2024 11:56:00 AM Referred By: REFERRED SELF Confirmed By: Jigar Jackson
[2024-03-08] MEDS ORDERED: EMPAGLIFLOZIN 10 MG TAB PO SCH (09:00)
[2024-03-08] MEDS ORDERED: FUROSEMIDE 20 MG TAB PO SCH (09:00)
== END 2024-03-07 12:37 | disposition home or self-care (01) | DRG 280 ==
LOC: ED 15:52 → SUATTDRO 21:36 → 1E 21:36

== ENCOUNTER 2025-03-26 15:55 | Inpatient (IN) ==
--- NOTE | 2025-03-26 16:07 | Emergency Department Note ---
Impression & Plan Atrial fibrillation with rapid ventricular response, Chest pain, Hypomagnesemia ED Provider Note NAME: OMI MILAN AGE: 69 SEX: M : 1955 ARRIVES VIA: Walk-In INFORMANT: Patient, ED PROVIDER(S): Italo Bryson DO CHIEF COMPLAINT: Palpitations HPI: The patient is a 69-year-old male who presented to the emergency department for an evaluation of palpitations. The patient states he been having on and off symptoms of palpitations fast heart rate as well as chest discomfort. The patient went to see his family doctor today he had an EKG which showed atrial fibrillation. The patient was sent to the emergency department for admission. The patient has a history of WPW with ablation. This was about 25 years ago. He has never had a history of atrial fibrillation. He does take Plavix but no other oral anticoagulants. He states has been compliant with his outpatient medications otherwise. ROS: See above HPI for pertinent positives & negatives. A total of 10 systems reviewed and were otherwise negative. PAST MEDICAL HISTORY: See Below PAST SURGICAL HISTORY: See Below FAMILY HISTORY: See Below SOCIAL HISTORY: See Below HOME MEDICATIONS: See Below ALLERGIES: See Below VITALS: See Below PHYSICAL EXAMINATION: GENERAL: Patient is awake alert in no acute distress patient is resting comfortably and showing no signs of anxiety EYES: The conjunctivae are clear. The pupils are round and reactive. EARS, NOSE, MOUTH AND THROAT: The nose is without any evidence of any deformity. NECK: The neck is nontender and supple. RESPIRATORY: Normal respiratory effort is noted there is no evidence of wheezing rhonchi or rales CARDIOVASCULAR: Tachycardic and irregular heart sounds were noted to auscultation. There is no definite murmur. GASTROINTESTINAL: The abdomen is soft. Abdomen is nontender. MUSCULOSKELETAL/EXTREMITIES: There is no evidence of gross deformity full range of motion is noted in the hips and shoulders. SKIN: There is no obvious evidence of any rash. There are no petechiae, pallor or cyanosis noted. NEUROLOGIC: Patient is awake alert and oriented x3 MEDICAL DECISION MAKING: The patient is a 69-year-old male who presented to the emergency department for an evaluation of palpitations and chest pain. The patient was seen by his primary care physician. The patient was found to be in rapid atrial fibrillation. He was sent to the emergency department for further evaluation. The patient was treated with IV fluids IV magnesium and IV beta-blockers in the emergency department. He was reevaluated multiple times. On reevaluation his blood pressure improved and his pulse rate improved as well. Given his presentation I discussed his condition with the on-call [facility]. They have agreed to evaluate the patient in the emergency department for further management and disposition. Triage Nursing notes reviewed. Prior medical records reviewed Vital Signs: reviewed and remarkable for tachycardia Differential diagnosis: Premature contractions, electrolyte abnormality, cardiac dysrhythmia, thyroid dysfunction, pulmonary embolism, infection, gastrointestinal, as well as other pathologies. ER treatment provided: See below Diagnostics interpreted by me: ECG: EKG was obtained in the emergency department. My interpretation is atrial fibrillation with RVR at 134 bpm. PVCs were noted. Nonspecific ST abnormalities were also appreciated. This was compared to a tracing from March 05, 2024. Atrial fibrillation is replaced sinus rhythm. Cardiac Monitoring: An order was placed for continuous cardiac monitoring. The monitor shows a rate of 110 bpm with atrial fibrillation and RVR. Laboratory studies: As stated above and show below. Imaging studies: See below. Radiographic imaging was reviewed by myself Consultation(s): I discussed this case with Donna who is on-call for the [facility] group. ED COURSE: Procedures: none Critical Care: I have personally spent greater than 35 minutes of critical care time in the direct management of this patient. This includes bedside care, interpretation of diagnostic studies, and testing, discussion with consultants, patient, and family members, and other required patient management activities. This 35 minutes is in excess of all separately billable procedures. Past Med/Surg History Problem List WPW (Hewwy-Lbcviibkr-Vtoua syndrome) Hypomagnesemia (Acute) Chest pain (Acute) Atrial fibrillation with rapid ventricular response (Acute) Chronic diastolic CHF (congestive heart failure) Frequent PVCs Elevated troponin Cardiomyopathy Acute heart failure with mildly reduced ejection fraction (HFmrEF, 41-49%) Acute CHF Elevated brain natriuretic peptide (BNP) level (Acute) Non-ST elevation [place] (NSTEMI) (Acute) PUENTE (dyspnea on exertion) (Acute) Acute exacerbation of CHF (congestive heart failure) (Acute) Cellulitis (Acute) Osteomyelitis of foot, right, acute (Acute) TIA (transient ischemic attack) Stroke-like symptoms (Acute) Chest pain syndrome Prepatellar bursitis S/P TURP Nocturia Substernal chest pain (Acute) DMII (diabetes mellitus, type 2) (Acute) Hypertension (Acute) Dyslipidemia (Acute) Lumbar spinal stenosis DVT prophylaxis Cough Noncompliance with medication regimen (Acute) Greater trochanteric bursitis of right hip Urinary symptom or sign (Acute) Enlarged prostate without lower urinary tract symptoms (luts) (Acute) Osteoarthritis of left knee Osteoarthritis of right hip BPH (benign prostatic hyperplasia) (Acute) Medical History Atypical chest pain IGOR (obstructive sleep apnea) Cannot tolerate device Dry mouth Chronic Morbid obesity with BMI of 45.0-49.9, adult Chronic back pain SOB (shortness of breath) on exertion OVERWEIGHT- CHRONIC AND STABLE Claustrophobia "DOESN'T LIKE SLEEPING ON HIS BACK" Arthritis Gallstones Found incidentally - no current issues Abdominal hernia Stable GERD (gastroesophageal reflux disease) UNDER CONTROL Hypertension History of asthma A CHILD HLD (hyperlipidemia) History of Smlht-Alnnfwvlq-Agfbk (WPW) syndrome S/p ablation- no issues Follows with cardio PRN DM II (diabetes mellitus, type II), controlled Glucose fluctuates Surgical History S/P TURP History of tooth extraction History of tonsillectomy History of cataract surgery RT History of colonoscopy 2020 History of radiofrequency ablation procedure for cardiac arrhythmia AT AGE 29 Family History Other Diabetes Hypertension No family history of adverse response to anesthesia Social History Smoking Status: Never smoker Tobacco Type: Declines Second Hand Exposure: No; Do You Dip or Chew Tobacco: No; Hx Alcohol Use: No Hx Substance Use: No Preferred Language: Spanish Communication Ability: Effective Evaluator Required: No Beliefs That Will Affect Care: None Current Living Situation: Spouse Current Living Situation Comment: and youngest daughter current occupational status: retired Feels Safe at Home: Yes Assistive Devices: Cane and Walker Allergies Allergies Allergy/AdvReac Type Severity Reaction Status Date / Time No Known Allergies Allergy Verified 03/26/25 16:12 Home Meds Home Medications Medication Instructions Recorded Confirmed atorvastatin 40 mg tablet 40 mg PO DAILY 03/05/24 03/26/25 clopidogrel 75 mg tablet 75 mg PO DAILY 03/05/24 03/26/25 dulaglutide 4.5 mg/0.5 mL 4.5 mg subcut WK 03/05/24 03/26/25 subcutaneous pen injector (Trulicity) finasteride 5 mg tablet 5 mg PO DAILY 03/05/24 03/26/25 insulin glargine 100 unit/mL 60 unit subcut HS 03/05/24 03/26/25 subcutaneous solution (Lantus U-100 Insulin) metformin 850 mg tablet 850 mg PO BID 03/05/24 03/26/25 tamsulosin 0.4 mg capsule 0.8 mg PO DAILY 03/05/24 03/26/25 tramadol 50 mg tablet 50 mg PO TID PRN Severe Pain 03/05/24 03/26/25 (Scale Score 7-10) furosemide 20 mg tablet 20 mg PO QAM 03/26/25 03/26/25 Previous Rx's Medication Instructions Recorded metoprolol succinate 200 mg 200 mg PO DAILY #90 tabs 05/28/24 tablet,extended release 24 hr sacubitril 97 mg-valsartan 103 mg 1 tab PO BID #180 tabs 07/23/24 tablet (Entresto) spironolactone 25 mg tablet 25 mg PO DAILY #90 tabs 07/30/24 Results & Data (ED) Vital Signs Vital Signs - 24 hr 03/26/25 15:58 03/26/25 16:09 03/26/25 16:11 Temperature 36.7 C Temperature Source Temporal Artery Scan Pulse Rate 129 H 140 H 137 H Pulse Rate [Apical] Pulse Rate from SpO2 Sensor 130 H Pulse Rhythm [Apical] Respiratory Rate 18 24 Respiratory Effort / Characteristics Non-Labored Respiratory Depth Normal Blood Pressure Blood Pressure [Right Arm] Blood Pressure Mean Blood Pressure Mean [Right Arm] Blood Pressure Position [Right Arm] Pulse Oximetry 98 98 Oxygen Delivery Method Room Air Sepsis Recent Fever Within 48 Hours No Sepsis New/Unexplained Change in Mental Status N/A Sepsis Action Taken by Nursing No Action Required 03/26/25 16:12 03/26/25 16:12 03/26/25 16:12 Temperature Temperature Source Pulse Rate 140 H Pulse Rate [Apical] Pulse Rate from SpO2 Sensor 100 H Pulse Rhythm [Apical] Respiratory Rate 19 Respiratory Effort / Characteristics Respiratory Depth Blood Pressure 104/76 104/76 Blood Pressure [Right Arm] Blood Pressure Mean 80 80 Blood Pressure Mean [Right Arm] Blood Pressure Position [Right Arm] Pulse Oximetry 96 Oxygen Delivery Method Sepsis Recent Fever Within 48 Hours Sepsis New/Unexplained Change in Mental Status Sepsis Action Taken by Nursing 03/26/25 16:12 03/26/25 16:12 03/26/25 16:12 Temperature Temperature Source Pulse Rate Pulse Rate [Apical] Pulse Rate from SpO2 Sensor Pulse Rhythm [Apical] Respiratory Rate Respiratory Effort / Characteristics Respiratory Depth Blood Pressure 104/76 104/76 104/76 Blood Pressure [Right Arm] Blood Pressure Mean 80 80 80 Blood Pressure Mean [Right Arm] Blood Pressure Position [Right Arm] Pulse Oximetry Oxygen Delivery Method Sepsis Recent Fever Within 48 Hours Sepsis New/Unexplained Change in Mental Status Sepsis Action Taken by Nursing 03/26/25 16:13 03/26/25 16:21 03/26/25 16:30 Temperature Temperature Source Pulse Rate 143 H 125 H Pulse Rate [Apical] 141 H Pulse Rate from SpO2 Sensor 120 H 125 H Pulse Rhythm [Apical] Respiratory Rate 19 27 H 24 Respiratory Effort / Characteristics Non-Labored Spontaneous Respiratory Depth Normal Blood Pressure Blood Pressure [Right Arm] 104/76 Blood Pressure Mean Blood Pressure Mean [Right Arm] 85 Blood Pressure Position [Right Arm] Pulse Oximetry 97 97 92 Oxygen Delivery Method Room Air Sepsis Recent Fever Within 48 Hours Sepsis New/Unexplained Change in Mental Status Sepsis Action Taken by Nursing 03/26/25 16:31 03/26/25 16:31 03/26/25 16:31 Temperature Temperature Source Pulse Rate Pulse Rate [Apical] Pulse Rate from SpO2 Sensor Pulse Rhythm [Apical] Respiratory Rate Respiratory Effort / Characteristics Respiratory Depth Blood Pressure 109/87 109/87 109/87 Blood Pressure [Right Arm] Blood Pressure Mean 92 92 92 Blood Pressure Mean [Right Arm] Blood Pressure Position [Right Arm] Pulse Oximetry Oxygen Delivery Method Sepsis Recent Fever Within 48 Hours Sepsis New/Unexplained Change in Mental Status Sepsis Action Taken by Nursing 03/26/25 16:31 03/26/25 16:31 03/26/25 16:42 Temperature Temperature Source Pulse Rate 120 H Pulse Rate [Apical] Pulse Rate from SpO2 Sensor 96 H Pulse Rhythm [Apical] Respiratory Rate 14 Respiratory Effort / Characteristics Respiratory Depth Blood Pressure 109/87 109/87 Blood Pressure [Right Arm] Blood Pressure Mean 92 92 Blood Pressure Mean [Right Arm] Blood Pressure Position [Right Arm] Pulse Oximetry 97 Oxygen Delivery Method Sepsis Recent Fever Within 48 Hours Sepsis New/Unexplained Change in Mental Status Sepsis Action Taken by Nursing 03/26/25 16:51 03/26/25 17:00 03/26/25 17:40 Temperature Temperature Source Pulse Rate 113 H 126 H 131 H Pulse Rate [Apical] Pulse Rate from SpO2 Sensor 73 90 Pulse Rhythm [Apical] Respiratory Rate 19 20 Respiratory Effort / Characteristics Respiratory Depth Blood Pressure 122/87 Blood Pressure [Right Arm] Blood Pressure Mean Blood Pressure Mean [Right Arm] Blood Pressure Position [Right Arm] Pulse Oximetry 94 95 Oxygen Delivery Method Sepsis Recent Fever Within 48 Hours Sepsis New/Unexplained Change in Mental Status Sepsis Action Taken by Nursing 03/26/25 17:43 03/26/25 17:51 03/26/25 18:00 Temperature Temperature Source Pulse Rate 120 H Pulse Rate [Apical] 111 H Pulse Rate from SpO2 Sensor Pulse Rhythm [Apical] Irregular Respiratory Rate 18 Respiratory Effort / Characteristics Non-Labored Spontaneous SOB on Exertion Respiratory Depth Normal Normal Blood Pressure 122/87 Blood Pressure [Right Arm] 136/97 Blood Pressure Mean Blood Pressure Mean [Right Arm] 110 Blood Pressure Position [Right Arm] Semi-fowlers Pulse Oximetry 97 Oxygen Delivery Method Room Air Sepsis Recent Fever Within 48 Hours Sepsis New/Unexplained Change in Mental Status Sepsis Action Taken by Assisted Medications Current Medication List: was personally reviewed by me Laboratory Data Attestation: I reviewed the patient's lab results. 03/26/25 16:10 03/26/25 16:10 Lab Results 03/26/25 03/26/25 Range/Units 16:10 17:27 WBC 13.01 H (4.8-10.8) K/ul RBC 4.73 (4.70-6.10) M/uL Hgb 13.3 L (14.0-18.0) g/dL Hct 39.6 L (42.0-52.0) % MCV 83.7 (80.0-100.0) fL MCH 28.1 (25.0-34.0) pg MCHC 33.6 (32.0-36.0) g/dL RDW Std Deviation 39.7 (36.4-46.3) fL RDW Coeff of Henrry 13.1 (11.5-14.5) % Plt Count 325 (130-400) K/uL MPV 10.7 (9.4-12.4) fL Immature Gran % (Auto) 0.6 % Neut % (Auto) 66.0 % Lymph % (Auto) 25.2 % [place] % (Auto) 5.5 % Eos % (Auto) 1.9 % Baso % (Auto) 0.8 % Neut # (Auto) 8.57 H (1.40-6.50) K/uL Lymph # (Auto) 3.28 (1.20-3.40) K/uL P[place] # (Auto) 0.72 H (0.11-0.59) K/uL Eos # (Auto) 0.25 (0.00-0.50) K/uL Baso # (Auto) 0.11 (0.00-0.20) K/uL Immature Gran # (Auto) 0.08 (0.01-0.20) K/uL PT 11.5 (9.0-12.0) Seconds INR 1.1 (0.9-1.1) APTT 27 (21-31) Seconds PTT Ratio 1.0 Sodium 138 (136-145) mmol/L Potassium 4.0 (3.5-5.1) mmol/L Chloride 107 (98-107) mmol/L Carbon Dioxide 21 (21-32) mmol/L Anion Gap 10 (3-11) BUN 24 H (6-23) mg/dl Creatinine 1.07 (0.6-1.4) mg/dl Est Cr Clr Drug Dosing Not Reportable eGFR 74.65 BUN/Creatinine Ratio 22.4 H (10-20) Glucose 178 H (70-99(Fasting)) mg/dl Calcium 9.1 (8.6-10.3) mg/dl Magnesium 1.6 L (1.7-2.4) mg/dl Total Bilirubin 0.6 (0.2-1.0) mg/dl AST 16 (13-39) U/L ALT 16 (7-52) U/L Alkaline Phosphatase 52 (34-104) U/L Troponin I High Sens 33.5 H (0-20) pg/ml Total Protein 7.1 (6.0-8.3) gm/dl Albumin 3.5 (3.4-5.0) gm/dl Globulin 3.6 (2.5-4.0) gm/dl Albumin/Globulin Ratio 1.0 (0.9-2) TSH 2.023 (0.300-4.500) uIu/ml Administered Medications Discontinued Medications Magnesium Sulfate/Dextrose (Magnesium Sulfate / D5w) 1 gm in 100 mls @ 100 mls/hr IV NOW STA Stop: 03/26/25 17:04 Last Infusion: 03/26/25 17:20 Dose: Infused Documented By: Admin: 03/26/25 16:11 Dose: 100 mls/hr Documented By: JASON Sodium Chloride (Nss) 250 mls @ 999 mls/hr IV .Q16M ONE Stop: 03/26/25 16:30 Last Admin: 03/26/25 17:50 Dose: 999 mls/hr Documented By: SEBASTIEN Sodium Chloride (Nss) 500 mls @ 999 mls/hr IV .Q31M ONE Stop: 03/26/25 17:29 Last Infusion: 03/26/25 17:52 Dose: Infused Documented By: Admin: 03/26/25 17:20 Dose: 999 mls/hr Documented By: JASON Metoprolol Tartrate (Metoprolol Tartrate 1 Mg/Ml Vial) 5 mg IV NOW STA Stop: 03/26/25 16:05 Last Admin: 03/26/25 16:11 Dose: 5 mg Documented By: JASON Metoprolol Tartrate (Metoprolol Tartrate 1 Mg/Ml Vial) 5 mg IV NOW STA Stop: 03/26/25 17:00 Last Admin: 03/26/25 17:51 Dose: 5 mg Documented By: SEBASTIEN Imaging Data Attestation: I personally reviewed and interpreted this imaging study as follows: My Impression: 1 view chest x-ray was obtained in the emergency department. My interpretation is no free air or definite infiltrate, final report below. Radiologist's Impression: Chest X-Ray 03/26/25 16:05 Clinical History: Chest pain Technique: A frontal view of the chest was obtained Comparison is made to the prior examination dated 03/05/2024 Findings: There are no confluent pulmonary infiltrates. The heart is mildly enlarged. No pleural effusion or pneumothorax is seen. There is linear atelectasis or scar in the left midlung There are old healed right rib fractures Impression: 1. Mild cardiomegaly 2. Mild atelectasis or scar in the left midlung Electronically signed by Loi Rodriguez 03-26-2025 5:52 PM Discharge Plan Visit Data Chief Complaint: Cardiac Assessment Stated Complaint: HEART PROBLEMS, SX SINCE SATURDAY, REF BY DR ED Provider: Italo Byrson Discharge Problem: Atrial fibrillation with rapid ventricular response, Chest pain, Hypomagnesemia Patient Disposition: Being Evaluated by Hospitalist Condition: Fair Forms Stand Alone Forms: My [facility] Prescriptions Prescriptions: No Action Entresto 97-103 mg tablet 1 tab PO BID Qty: 180 3RF spironolactone 25 mg tablet 25 mg PO DAILY Qty: 90 3RF metoprolol succinate 200 mg tablet extended release 24 hr 200 mg PO DAILY Qty: 90 3RF atorvastatin 40 mg tablet 40 mg PO DAILY insulin glargine [Lantus U-100 Insulin] 100 unit/mL solution 60 unit SUBCUT HS metformin 850 mg tablet 850 mg PO BID clopidogrel 75 mg tablet 75 mg PO DAILY tramadol 50 mg tablet 50 mg PO TID PRN (Reason: Severe Pain (Scale Score 7-10)) tamsulosin 0.4 mg capsule 0.8 mg PO DAILY finasteride 5 mg tablet 5 mg PO DAILY Trulicity 4.5 mg/0.5 mL pen injector 4.5 mg SUBCUT WK furosemide 20 mg tablet 20 mg PO QAM Referrals Referrals: Huey Alexandra MD [Outside Practitioners] -
[2025-03-26] MEDS: METOPROLOL TARTRATE 1 MG/ML VIAL IV STA ×2 (16:11→17:51)
[2025-03-26] MEDS: MAGNESIUM SULFATE / D5W 1 GM/100 ML BAG IV STA ×2 (16:11→19:41)
[2025-03-26 16:22] LABS: Hematocrit (blood only) 39.6 % (42.0-52.0); Hemoglobin 13.3 g/dL (14.0-18.0); Immature Granulocytes # (auto) 0.08 K/uL (0.01-0.20); Immature Granulocytes % (auto) 0.6 %; Mean Corpuscular Hemoglobin 28.1 pg (25.0-34.0); Mean Corpuscular Volume 83.7 fL (80.0-100.0); Platelet Count 325 K/uL (130-400); RDW Standard Deviation 39.7 fL (36.4-46.3); Red Blood Count 4.73 M/uL (4.70-6.10); White Blood Count 13.01 K/ul (4.8-10.8)
[2025-03-26 16:39] LABS: Alanine Aminotransferase 16 U/L (7-52); Albumin Globulin Ratio 1.0 (0.9-2); Albumin Level 3.5 gm/dl (3.4-5.0); Alkaline Phosphatase 52 U/L (34-104); Anion Gap 10 (3-11); Bilirubin,Total 0.6 mg/dl (0.2-1.0); Blood Urea Nitrogen 24 mg/dl (6-23); Calcium 9.1 mg/dl (8.6-10.3); Carbon Dioxide 21 mmol/L (21-32); Chloride 107 mmol/L (98-107); Globulin 3.6 gm/dl (2.5-4.0); Glucose 178 mg/dl (70-99(Fasting)); Magnesium 1.6 mg/dl (1.7-2.4); Potassium 4.0 mmol/L (3.5-5.1); Sodium 138 mmol/L (136-145); Total Protein 7.1 gm/dl (6.0-8.3)
[2025-03-26 16:53] LABS: Thyroid Stimulating Hormone 2.023 uIu/ml (0.300-4.500)
[2025-03-26 17:19] LABS: INR 1.1 (0.9-1.1); Partial Thromboplastin Time 27 Seconds (21-31); Prothrombin Time 11.5 Seconds (9.0-12.0)
[2025-03-26] MEDS: SODIUM CHLORIDE 0.9% 500 ML IV ONE (17:20)
--- NOTE | 2025-03-26 17:33 | History & Physical Report ---
Date of Service March 26, 2025 Assessment & Plan (1) Atrial fibrillation with rapid ventricular response: (2) Chest pain: (3) History of Yjwho-Ntposgjvn-Luomm (WPW) syndrome: Plan: Patient is 69-year-old male with PMH WPW s/p ablation, chronic HFrEF with im proved EF of 50% on echo in 06/2024, cardiomyopathy, frequent PVCs, HTN, HLD, DM II, TIA, BPH, obesity presented to ER with c/o palpitations, anterior chest pain, exertional SOB started 2 days ago. In ER afebrile, P: 140, R: 19, BP: 104/76, 96% on RA. WBC: 13, TSH:2.0, magnesium: 1.6, Troponin: 33 CXR: Mild cardiomegaly. Mild atelectasis or scar in the left midlung In ER given 500 mL NSS, Initially given metoprolol tartrate 5 mg IV with improvement of HR from 140 to 120's. Additional dose metoprolol tartrate 5mg given with improvement of HR into 1teens. Patient continues to report feels ok at rest and not having palpitations or SOB at rest. States still with anterior chest soreness but has decreased Trend troponin Hold home metoprolol succinate and change to metoprolol tartrate Q6H CHADSVASC:6 Start IV heparin 07/09/2024 echo: EF: 50%, no wall motion abnormalities noted, mild concentric LVH Echo Cardiology consult. Follows with [facility] Cardiology CBC, BMP, magnesium labs in am (4) Hypomagnesemia: Plan: Magnesium: 1.6. Potassium: 4.0 In ER given Magnesium sulfate 1 g IV Replace and monitor magnesium labs (5) DMII (diabetes mellitus, type 2): Plan: Insulin dependent DM II A1c: 8.7 on 03/05/25 Hold home metformin, Trulicity Continue Lantus. Novolog sliding scale as needed (6) Chronic diastolic CHF (congestive heart failure): Plan: History mildly reduced EF 40-45%. Last echo in 06/2024 with EF: 50% Appears euvolemic Continue Lasix, spironolactone (7) Hypertension: Plan: Adjusted metoprolol as above Continue Entresto (8) Dyslipidemia: Plan: Continue atorvastatin (9) History of TIA (transient ischemic attack): Plan: Continue Plavix, atorvastatin (10) BPH (benign prostatic hyperplasia): Plan: Continue tamsulosin, finasteride DVT Prophylaxis On IV heparin Admit telemetry Full Code as per discussion with pt Follows with Dr Martinez for routine care Pt was seen and care coordinated with Dr Thomas. See addendum I spent a total of 70 minutes reviewing notes, outpatient records, labs, medication, coordinating, documenting and providing care for this patient ex cluding time spent in the performance of separately billed services and excluding time spent by another provider/QHP. History of Present Illness Chief Complaint: Palpitations Primary Care Provider: Pro Martinez MD Patient is 69-year-old male with PMH WPW s/p ablation, chronic HFrEF with improved EF of 50% on echo in 06/2024, cardiomyopathy, frequent PVCs, HTN, HLD, DM II, TIA, BPH, obesity presented to ER with c/o palpitations started 2 days ago. Per outpatient chart review seen at PCPs office today for follow-up and had reported he was experiencing chest pain, palpitations and dizziness episodes for the past 2 days. Reported patient had EKG and clinic concerning for A-fib RVR and sent to ER. Patient reports 2 days ago was at [facility] doing laundry when had onset of palpitations, anterior mid chest discomfort that radiated up neck. States was SOB with exertion. Patient reports tried Valsalva maneuver and in 30 minutes palpitations resolved. He states had another episode palpitations that evening lasted approximately 20-30 minutes. He reports took BP at home and SBP in 90's. He states doesn't feel palpitations further but has continued with anterior chest "soreness" and SOB with exertion. At rest reports no SOB. He s tates he feels comfortable at rest. States not feeling lightheaded but more of head discomfort. Denies fever/chills, diaphoresis, N/V/D/C, syncope, vision changes, cough, sore throat, rhinorrhea, abdominal pain, paresthesias, weakness, extremity edema, rashes, urinary symptoms. Discussed patient with ER provider admitting for afib RVR and had reported improved rate control after IV metoprolol Allergies Allergy/AdvReac Type Severity Reaction Status Date / Time No Known Allergies Allergy Verified 03/26/25 16:12 Home Medications Medication Instructions Recorded Confirmed Type atorvastatin 40 mg tablet 40 mg PO DAILY 03/05/24 03/26/25 History clopidogrel 75 mg tablet 75 mg PO DAILY 03/05/24 03/26/25 History dulaglutide 4.5 mg/0.5 mL 4.5 mg subcut WK 03/05/24 03/26/25 History subcutaneous pen injector (Trulicity) finasteride 5 mg tablet 5 mg PO DAILY 03/05/24 03/26/25 History insulin glargine 100 unit/mL 60 unit subcut HS 03/05/24 03/26/25 History subcutaneous solution (Lantus U-100 Insulin) metformin 850 mg tablet 850 mg PO BID 03/05/24 03/26/25 History tamsulosin 0.4 mg capsule 0.8 mg PO DAILY 03/05/24 03/26/25 History tramadol 50 mg tablet 50 mg PO TID PRN Severe Pain 03/05/24 03/26/25 History (Scale Score 7-10) metoprolol succinate 200 mg 200 mg PO DAILY #90 tabs 05/28/24 03/26/25 Rx tablet,extended release 24 hr sacubitril 97 mg-valsartan 103 mg 1 tab PO BID #180 tabs 07/23/24 03/26/25 Rx tablet (Entresto) spironolactone 25 mg tablet 25 mg PO DAILY #90 tabs 07/30/24 03/26/25 Rx furosemide 20 mg tablet 20 mg PO QAM 03/26/25 03/26/25 History Past Med/Surg History Problem List (Updated 03/26/25 @ 19:05 by Molly Breaux PA-C) WPW (Gybqe-Rszcnbvpx-Iujri syndrome) Hypomagnesemia (Acute) Chest pain (Acute) Atrial fibrillation with rapid ventricular response (Acute) Chronic diastolic CHF (congestive heart failure) Frequent PVCs Elevated troponin Cardiomyopathy Acute heart failure with mildly reduced ejection fraction (HFmrEF, 41-49%) Acute CHF Elevated brain natriuretic peptide (BNP) level (Acute) Non-ST elevation IA (NSTEMI) (Acute) PUENTE (dyspnea on exertion) (Acute) Acute exacerbation of CHF (congestive heart failure) (Acute) Cellulitis (Acute) Osteomyelitis of foot, right, acute (Acute) TIA (transient ischemic attack) Stroke-like symptoms (Acute) Chest pain syndrome Prepatellar bursitis S/P TURP Nocturia Substernal chest pain (Acute) DMII (diabetes mellitus, type 2) (Acute) Hypertension (Acute) Dyslipidemia (Acute) Lumbar spinal stenosis DVT prophylaxis Cough Noncompliance with medication regimen (Acute) Greater trochanteric bursitis of right hip Urinary symptom or sign (Acute) Enlarged prostate without lower urinary tract symptoms (luts) (Acute) Osteoarthritis of left knee Osteoarthritis of right hip BPH (benign prostatic hyperplasia) (Acute) Medical History Atypical chest pain IGOR (obstructive sleep apnea) Cannot tolerate device Dry mouth Chronic Morbid obesity with BMI of 45.0-49.9, adult Chronic back pain SOB (shortness of breath) on exertion OVERWEIGHT- CHRONIC AND STABLE Claustrophobia "DOESN'T LIKE SLEEPING ON HIS BACK" Arthritis Gallstones Found incidentally - no current issues Abdominal hernia Stable GERD (gastroesophageal reflux disease) UNDER CONTROL Hypertension History of asthma A CHILD HLD (hyperlipidemia) History of Wkzgu-Qtdlmpqpt-Mmvzv (WPW) syndrome S/p ablation- no issues Follows with cardio PRN DM II (diabetes mellitus, type II), controlled Glucose fluctuates Surgical History S/P TURP History of tooth extraction History of tonsillectomy History of cataract surgery RT History of colonoscopy 2020 History of radiofrequency ablation procedure for cardiac arrhythmia AT AGE 29 Family History Other Diabetes Hypertension No family history of adverse response to anesthesia Social History Smoking Status: Never smoker Tobacco Type: Declines Second Hand Exposure: No; Do You Dip or Chew Tobacco: No; Hx Alcohol Use: No Hx Substance Use: No Preferred Language: Lithuanian Communication Ability: Effective Rural Route Mail Carrier Required: No Beliefs That Will Affect Care: None Current Living Situation: Spouse Current Living Situation Comment: and youngest daughter current occupational status: retired Feels Safe at Home: Yes Assistive Devices: Cane and Walker Review of Systems Review of Systems: All systems reviewed & are unremarkable except as noted in HPI & below Physical Exam Physical Exam: General: no acute distress, obese elderly male Head: normocephalic, atraumatic Eyes: conjunctiva non-injected, anicteric ENT: normal inspection external ears, nose, mucous membranes moist Neck: supple, trachea midline Lungs: clear, no respiratory distress, no wheezing/rhonchi/rales CV: irregularly irregular, rate: 116, trace pretibial edema Abd: protuberant, normal BS, soft, non-tender Ext: no cyanosis, no calf tenderness Neuro: A&O x 3, no focal deficits noted, normal affect Skin: warm, dry Results & Data Results & Data Vital Signs (Past 12 Hours) Vital Signs Temp Pulse Pulse Resp BP BP Pulse Ox 03/26/25 17:00 126 H 20 95 03/26/25 16:51 113 H 19 94 03/26/25 16:42 120 H 14 97 03/26/25 16:31 109/87 03/26/25 16:31 109/87 03/26/25 16:31 109/87 03/26/25 16:31 109/87 03/26/25 16:31 109/87 03/26/25 16:30 125 H 24 92 03/26/25 16:21 143 H 27 H 97 03/26/25 16:13 141 H 19 104/76 97 03/26/25 16:12 104/76 03/26/25 16:12 104/76 03/26/25 16:12 104/76 03/26/25 16:12 104/76 03/26/25 16:12 104/76 03/26/25 16:12 140 H 19 96 03/26/25 16:11 137 H 03/26/25 16:09 140 H 24 98 03/26/25 15:58 36.7 C 129 H 18 98 O2 Del Method 03/26/25 17:00 03/26/25 16:51 03/26/25 16:42 03/26/25 16:31 03/26/25 16:31 03/26/25 16:31 03/26/25 16:31 03/26/25 16:31 03/26/25 16:30 03/26/25 16:21 03/26/25 16:13 Room Air 03/26/25 16:12 03/26/25 16:12 03/26/25 16:12 03/26/25 16:12 03/26/25 16:12 03/26/25 16:12 03/26/25 16:11 03/26/25 16:09 03/26/25 15:58 Room Air Laboratory Results Short CBC 03/26/25 Range/Units 16:10 WBC 13.01 H (4.8-10.8) K/ul Hgb 13.3 L (14.0-18.0) g/dL Hct 39.6 L (42.0-52.0) % Plt Count 325 (130-400) K/uL BMP 03/26/25 16:10 Sodium 138 Potassium 4.0 Chloride 107 Carbon Dioxide 21 BUN 24 H Creatinine 1.07 Glucose 178 H Calcium 9.1 Liver Function 03/26/25 Range/Units 16:10 Total Bilirubin 0.6 (0.2-1.0) mg/dl AST 16 (13-39) U/L ALT 16 (7-52) U/L Alkaline Phosphatase 52 (34-104) U/L Albumin 3.5 (3.4-5.0) gm/dl Diagnostic Findings Chest X-Ray 03/26/25 16:05 Clinical History: Chest pain Technique: A frontal view of the chest was obtained Comparison is made to the prior examination dated 03/05/2024 Findings: There are no confluent pulmonary infiltrates. The heart is mildly enlarged. No pleural effusion or pneumothorax is seen. There is linear atelectasis or scar in the left midlung There are old healed right rib fractures Impression: 1. Mild cardiomegaly 2. Mild atelectasis or scar in the left midlung Electronically signed by Loi Rodriguez 03-26-2025 5:52 PM ECG Additional Comments: atrial fibrillation, rate 134, PVC, LAFB per my interpretation Supervising Physician Co-Signing Physician Notes 69-year-old male with PMH of WPW syndrome status post ablation, HFrEF with improved EF as of June 2024, cardiomyopathy, PVCs, HTN, T2DM, HLD, TIA, BPH, obesity presents to the ED with complaint of palpitation. Patient reports he had 2 episodes of palpitation on Saturday associated with shortness of breath and chest soreness. He then reports having chest soreness with activity thereafter. Today at his PCP office for his regular visit, he mentioned about palpitation, underwent EKG which showed A-fib with RVR with heart rate in 130s per pt. He was sent to the ED. He denies other review of symptoms. Labs reviewed, mild leukocytosis noted likely his baseline. Potassium 4.0, magnesium 1.6, replete total of 2 g today. Troponin 33.5, trend x 3. Will get echo. For A-fib RVR, metoprolol tartrate 50 mg p.o. every 6 hours, 5 mg IV every 4 hours as needed for heart rate 130 and more. [id number] score of 6 [age, CHF, hypertension, DM, TIA], start heparin drip. Cardiology consult, telemetry monitoring. On exam: Room air, no BLE edema, heart rate in 1100-1 110s, irregular irregular. Rest of the examination as above. Total time spent independently: 23 minutes. I have seen and examined the patient and have discussed the case with the provider above. I agree with the assessment and plan as stated.I do not understand
[2025-03-26] MEDS ORDERED: ONDANSETRON INJ 2 MG/ML 2 ML VIAL IV PRN (17:50)
[2025-03-26] MEDS: SODIUM CHLORIDE 0.9% 250 ML IV ONE (17:50)
[2025-03-26] MEDS ORDERED: POLYETHYLENE (MIRALAX) 17 GM PACK PO PRN (17:50)
--- NOTE | 2025-03-26 17:52 | XRay Report ---
Clinical History: Chest pain Technique: A frontal view of the chest was obtained Comparison is made to the prior examination dated 03/05/2024 Findings: There are no confluent pulmonary infiltrates. The heart is mildly enlarged. No pleural effusion or pneumothorax is seen. There is linear atelectasis or scar in the left midlung There are old healed right rib fractures Impression: 1. Mild cardiomegaly 2. Mild atelectasis or scar in the left midlung Electronically signed by Loi Rodriguez 03-26-2025 5:52 PM
[2025-03-26] MEDS ORDERED: CARBOHYDRATES FOR HYPOGLYCEMIA PO PRN (18:14)
[2025-03-26] MEDS ORDERED: DEXTROSE 50% 50 ML SYRINGE IV PRN (18:14)
[2025-03-26] MEDS ORDERED: GLUCAGON FOR INJ 1 MG VIAL SQ PRN (18:14)
[2025-03-26] MEDS ORDERED: GLUCOSE 40% GEL 15 GM TUBE PO PRN (18:14)
[2025-03-26] MEDS ORDERED: GLUCOSE 10 TAB/TUBE PO PRN (18:14)
[2025-03-26] MEDS: Heparin IV Adult Wt-Based Standard *NO* INITIAL Bolus Protocol IV STA (19:25)
[2025-03-26] MEDS: METOPROLOL TARTRATE 25 MG TAB PO ONE (19:25)
[2025-03-26] MEDS: HEPARIN 25000 UNIT/500 ML D5W 25,000 UNITS/500 ML BAG IV SCH (19:34)
[2025-03-26] MEDS: METOPROLOL TARTRATE 50 MG TAB PO STA (19:44)
[2025-03-26] MEDS: ACETAMINOPHEN 325 MG TAB PO PRN (19:47)
[2025-03-26] MEDS ORDERED: METOPROLOL TARTRATE 1 MG/ML VIAL IV PRN (20:00)
[2025-03-26] MEDS ORDERED: PNEUMOCOCCAL VACCINE (PCV20) 20-VAL CONJ-DIP CRM/PF 0.5 ML SYR IM ONE (21:43)
[2025-03-26] MEDS ORDERED: INFLUENZA VACC TS2025-26(65y+)/PF (IIV3) 0.5mL Syr IM ONE (21:43)
[2025-03-26] MEDS: LANTUS PER UNIT CHARGE SQ SCH (22:05)
[2025-03-26] MEDS: INSULIN ASPART PER UNIT CHARGE SC SCH (22:07)
[2025-03-27 02:46] LABS: ANTI-Xa, UFH(UnfractionatedHep 0.41 IU/ml (0.3-0.7)
[2025-03-27] MEDS: METOPROLOL TARTRATE 50 MG TAB PO SCH (04:52)
[2025-03-27 07:07] LABS: Hematocrit (blood only) 39.2 % (42.0-52.0); Hemoglobin 12.9 g/dL (14.0-18.0); Immature Granulocytes # (auto) 0.06 K/uL (0.01-0.20); Immature Granulocytes % (auto) 0.5 %; Mean Corpuscular Hemoglobin 27.9 pg (25.0-34.0); Mean Corpuscular Volume 84.8 fL (80.0-100.0); Platelet Count 304 K/uL (130-400); RDW Standard Deviation 40.3 fL (36.4-46.3); Red Blood Count 4.62 M/uL (4.70-6.10); White Blood Count 10.96 K/ul (4.8-10.8)
[2025-03-27 07:55] LABS: Anion Gap 9.0 (3-11); Blood Urea Nitrogen 21.0 mg/dl (6-23); Calcium 9.3 mg/dl (8.6-10.3); Carbon Dioxide 23.0 mmol/L (21-32); Chloride 108.0 mmol/L (98-107); Creatinine Clr Calc Pharmacy 93.2 ml/min; Glucose 84.0 mg/dl (70-99(Fasting)); Magnesium 1.9 mg/dl (1.7-2.4); Potassium 3.7 mmol/L (3.5-5.1); Sodium 140.0 mmol/L (136-145)
[2025-03-27] MEDS: METOPROLOL TARTRATE 1 MG/ML VIAL IV PRN ×2 (08:33→16:20)
--- NOTE | 2025-03-27 08:36 | Electrocardiogram Report ---
Test Reason : Blood Pressure : */* mmHG Vent. Rate : 134 BPM Atrial Rate : * BPM P-R Int : * ms QRS Dur : 114 ms QT Int : 290 ms P-R-T Axes : * -57 114 degrees QTcB Int : 433 ms Atrial fibrillation with rapid ventricular response with premature ventricular or aberrantly conducte d complexes Left anterior fascicular block Nonspecific ST and T wave abnormality Abnormal ECG When compared with ECG of 05-Mar-2024 21:23, No significant change was found Confirmed by Alistair Pressley ([id number]) on 03/27/2025 8:36:11 AM Referred By: Pro Martinez Confirmed By: Alistair Pressley
[2025-03-27 08:38] LABS: ANTI-Xa, UFH(UnfractionatedHep 0.53 IU/ml (0.3-0.7)
[2025-03-27] MEDS: VALSARTAN/SACUBITRIL 103/97MG TAB PO SCH (08:38)
[2025-03-27] MEDS: FINASTERIDE 5 MG TAB PO SCH (08:38)
[2025-03-27] MEDS: SPIRONOLACTONE 25 MG TAB PO SCH (08:38)
[2025-03-27] MEDS: FUROSEMIDE 20 MG TAB PO SCH (08:38)
[2025-03-27] MEDS: ATORVASTATIN 40 MG TAB PO SCH (08:38)
[2025-03-27] MEDS: TAMSULOSIN HCL 0.4 MG CAP PO SCH (08:39)
[2025-03-27] MEDS: CLOPIDOGREL BISULFATE 75 MG TAB PO SCH (08:39)
--- NOTE | 2025-03-27 10:36 | XCELERA ---
[id number]
--- NOTE | 2025-03-27 12:25 | Cardiology Consultation ---
Date of Consultation March 27, 2025 Assessment & Plan (1) Atrial fibrillation with rapid ventricular response: -Symptoms have improved with control of ventricular response. -Would add IV metoprolol to tartrate 5 mg Q1 hour prn elevated ventricular response. -Increase metoprolol tartrate to 75 mg p.o. every 6 hours. -Could use IV digoxin 0.25 mg every 4 hours x 2. -Agree with intravenous heparin. Convert to a DOAC prior to discharge. (2) Hypertension: -Adequate control currently. (3) Dyslipidemia: -Continue atorvastatin. (4) WPW (Hunbx-Nhbaqeqbo-Ykads syndrome): -s/p radiofrequency ablation, 1985. History of Present Illness Attending Physician: Nicola Alex DO History of Present Illness Mr. Guevara is a 6-year-old male admitted yesterday with atrial fibrillation and a rapid ventricular response. This consultation is ordered to assist in his cardiac management. Of note, patient is well-known to me from the outpatient setting. The patient was in his usual state of health until approximately 2 days prior to presentation. He began to note intermittent palpitations and exertional dyspnea. He presented to the emergency room was found to be in atrial fibrillation with a rapid ventricular response. Magnesium level on arrival was low at 1.6. He received intravenous magnesium along with intravenous metoprolol. Heart rate improved, however, remains in the 100 120 bpm range. The patient does carry history of Pabje-Pxtfduoyy-Vwacw syndrome. He underwent an ablation in 1985. There has been no recurrence of his dysrhythmia. He also carries a history of a resolved nonischemic cardiomyopathy. Left- ventricular ejection fraction on echocardiogram in June 2024 was 50%. Currently, patient is resting comfortably in bed without complaints. He is anxious for hospital discharge. Past medical and surgical history 1. Hypertension 2. Mild LVH 3. Hypercholesterolemia 4. Resolved, nonischemic cardiomyopathy 5. Chronic diastolic CHF 6. WPW [id number] 7. Frequent PVCs 8. Diabetes mellitus 9. GERD 10. BPH 11. Cholelithiasis 12. Lumbar spinal stenosis 13. Intraocular lens implants 14. Tonsillectomy 15. TURP Social history and lives with his Retired No tobacco or alcohol Family history Noncontributory Review of systems A 10 point review of system was undertaken and negative except that described above. Allergies Allergy/AdvReac Type Severity Reaction Status Date / Time No Known Allergies Allergy Verified 03/26/25 16:12 Home Medications Medication Instructions Recorded Confirmed Type atorvastatin 40 mg tablet 40 mg PO DAILY 03/05/24 03/26/25 History clopidogrel 75 mg tablet 75 mg PO DAILY 03/05/24 03/26/25 History dulaglutide 4.5 mg/0.5 mL 4.5 mg subcut WK 03/05/24 03/26/25 History subcutaneous pen injector (Trulicity) finasteride 5 mg tablet 5 mg PO DAILY 03/05/24 03/26/25 History insulin glargine 100 unit/mL 60 unit subcut HS 03/05/24 03/26/25 History subcutaneous solution (Lantus U-100 Insulin) metformin 850 mg tablet 850 mg PO BID 03/05/24 03/26/25 History tamsulosin 0.4 mg capsule 0.8 mg PO DAILY 03/05/24 03/26/25 History tramadol 50 mg tablet 50 mg PO TID PRN Severe Pain 03/05/24 03/26/25 History (Scale Score 7-10) metoprolol succinate 200 mg 200 mg PO DAILY #90 tabs 05/28/24 03/26/25 Rx tablet,extended release 24 hr sacubitril 97 mg-valsartan 103 mg 1 tab PO BID #180 tabs 07/23/24 03/26/25 Rx tablet (Entresto) spironolactone 25 mg tablet 25 mg PO DAILY #90 tabs 07/30/24 03/26/25 Rx furosemide 20 mg tablet 20 mg PO QAM 03/26/25 03/26/25 History Patient History Medical History (Updated 03/26/25 @ 19:05 by Molly Breaux PA-C) History of TIA (transient ischemic attack) Atypical chest pain IGOR (obstructive sleep apnea) Cannot tolerate device Dry mouth Chronic Morbid obesity with BMI of 45.0-49.9, adult Chronic back pain SOB (shortness of breath) on exertion OVERWEIGHT- CHRONIC AND STABLE Claustrophobia "DOESN'T LIKE SLEEPING ON HIS BACK" Arthritis Gallstones Found incidentally - no current issues Abdominal hernia Stable GERD (gastroesophageal reflux disease) UNDER CONTROL Hypertension History of asthma A CHILD HLD (hyperlipidemia) History of Vcdyf-Xnbbspkik-Asaax (WPW) syndrome S/p ablation- no issues Follows with cardio PRN DM II (diabetes mellitus, type II), controlled Glucose fluctuates Surgical History S/P TURP History of tooth extraction History of tonsillectomy History of cataract surgery RT History of colonoscopy 2020 History of radiofrequency ablation procedure for cardiac arrhythmia AT AGE 29 Family History Other Diabetes Hypertension No family history of adverse response to anesthesia Social History Smoking Status: Never smoker Tobacco Type: Declines Second Hand Exposure: No; Do You Dip or Chew Tobacco: No; Hx Alcohol Use: No Hx Substance Use: No Preferred Language: Arabic Communication Ability: Effective Journeyman 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 HEENT exam is negative. Neck is supple with full carotid upstrokes. There are no carotid b ruits. Jugular venous pressure is flat at 90. There is no thyromegaly. Cardiovascular exam reveals an irregular rhythm with distant heart sounds. Lungs are clear without rales, rhonchi or wheezes. Abdomen is obese without bruits. Extremities reveal intact radial artery pulses bilaterally. There is trace pretibial edema. Results & Data Vital Signs (Past 12 Hours) Vital Signs Temp Pulse Pulse Resp BP BP BP 03/27/25 11:08 36.6 C 134 H 21 125/74 03/27/25 10:38 122 H 132/93 03/27/25 10:32 122 H 132/93 03/27/25 08:33 153 H 127/98 03/27/25 08:25 36.3 C L 153 H 19 127/98 03/27/25 08:00 118 H 03/27/25 04:47 36.3 C L 123 H 18 144/98 H Pulse Ox O2 Del Method 03/27/25 11:08 97 Room Air 03/27/25 10:38 03/27/25 10:32 03/27/25 08:33 03/27/25 08:25 97 Room Air 03/27/25 08:00 03/27/25 04:47 95 Room Air PG Care Time/CCT Total # of Minutes Spent Total Time Spent with Patient: Total time spent is greater than 50% in coordination of care (as documented) at patient's floor/unit and/or counseling patient: Coding Level of Care Code 20350 INT INP/OBS CARE 3/75MIN Diagnoses Atrial fibrillation with rapid ventricular response I48.91 Hypertension I10 Dyslipidemia E78.5 WPW (Xywsi-Tlzzcmhyb-Qrmhz syndrome) I45.6
--- NOTE | 2025-03-27 12:30 | Electrocardiogram Report ---
Test Reason : Blood Pressure : */* mmHG Vent. Rate : 124 BPM Atrial Rate : * BPM P-R Int : * ms QRS Dur : 116 ms QT Int : 348 ms P-R-T Axes : * -28 149 degrees QTcB Int : 499 ms Atrial fibrillation with rapid ventricular response with premature ventricular or aberrantly conducte d complexes Nonspecific ST and T wave abnormality Abnormal ECG When compared with ECG of 26-Mar-2025 16:03, (unconfirmed) No significant change was found Confirmed by Italo Galeano ([id number]) on 03/27/2025 12:30:46 PM Referred By: Pro Martinez Confirmed By: Italo Galeano
--- NOTE | 2025-03-27 12:39 | Hospitalist Progress Note ---
Date of Service March 27, 2025 Assessment & Plan (1) Atrial fibrillation with rapid ventricular response: (2) Acute on chronic heart failure with mildly reduced ejection fraction (HFmrEF, 41-49%): (3) Hypomagnesemia: (4) Demand ischemia: (5) DMII (diabetes mellitus, type 2): (6) History of Jsrwc-Zfrewnnmt-Nbdai (WPW) syndrome: (7) IGOR (obstructive sleep apnea): Plan Patient 69-year-old gentleman presents with chest discomfort due to new onset atrial fibrillation with rapid ventricular response. Patient has not responded well to the oral metoprolol started overnight, still with tachycardia Communication with cardiology as to recommendations for rate control in the setting history of WPW. They continue to recommend metoprolol and possibly digoxin. Reviewed cardiology consultation note. Increase oral metoprolol, increase frequency of IV metoprolol, Load with IV digoxin Continue to replace electrolytes Monitor laboratory studies Continue to monitor glucose and cover with insulin Will discontinue heparin and start Eliquis for anticoagulation instead of atrial fibrillation. Admission and Anticipated Discharge Date Admission Date: March 26, 2025 Subjective Patient states that while he is seated or resting he has no chest pain or discomfort. Really cannot sense any palpitations. When he gets up and moves around he feels a little bit of chest pressure. Physical Exam Physical Exam: Constitutional: Alert, nontoxic, no acute distress HEENT: Mucous membranes moist. Lungs: Clear to auscultation, decreased, no wheezes rales or rhonchi CV: S1-S2, irregular, tachycardic Abdomen: Soft, nontender, nondistended Extremities: No significant edema Neuro: No focal deficits Psych: Cooperative, normal mood Results & Data Results & Data Vital Signs (Past 12 Hours) Vital Signs Temp Pulse Pulse Resp BP BP BP 03/27/25 11:08 36.6 C 134 H 21 125/74 03/27/25 10:38 122 H 132/93 03/27/25 10:32 122 H 132/93 03/27/25 08:33 153 H 127/98 03/27/25 08:25 36.3 C L 153 H 19 127/98 03/27/25 08:00 118 H 03/27/25 04:47 36.3 C L 123 H 18 144/98 H Pulse Ox O2 Del Method 03/27/25 11:08 97 Room Air 03/27/25 10:38 03/27/25 10:32 03/27/25 08:33 03/27/25 08:25 97 Room Air 03/27/25 08:00 03/27/25 04:47 95 Room Air Diagnostic Findings Reviewed imaging, laboratory and diagnostic studies. Pertinent findings as below. Echocardiogram reviewed, ejection fraction 45 to 50%, global hypokinesis, no significant change from previous WBCs 10.9 Hemoglobin 12.9 Electrolytes improved, magnesium 1.9 Creatinine 0.94 Troponins reviewed, essentially flat TSH 2.02 EKG, personally reviewed, atrial fibrillation with RVR
[2025-03-27] MEDS: POTASSIUM CHLORIDE CRTAB 20 MEQ TABCR PO STA (12:58)
[2025-03-27] MEDS: DIGOXIN 250 MCG in SYRINGE 9 ML IV STA (12:58)
[2025-03-27] MEDS: MAGNESIUM OXIDE 400 MG TAB PO SCH (13:18)
[2025-03-27] MEDS ORDERED: DIGOXIN IV ONE (17:00)
[2025-03-27] MEDS: DIGOXIN 250 MCG in SYRINGE 9 ML IV ONE (17:24)
[2025-03-27] MEDS: METOPROLOL TARTRATE 25 MG TAB PO SCH (17:24)
[2025-03-27] MEDS: APIXABAN 5 MG TABLET PO SCH (20:23)
[2025-03-27] MEDS: LANTUS PER UNIT CHARGE SQ SCH (22:05)
[2025-03-28 07:26] LABS: Hematocrit (blood only) 40.6 % (42.0-52.0); Hemoglobin 13.1 g/dL (14.0-18.0); Mean Corpuscular Hemoglobin 27.5 pg (25.0-34.0); Mean Corpuscular Volume 85.3 fL (80.0-100.0); Platelet Count 332 K/uL (130-400); RDW Standard Deviation 40.9 fL (36.4-46.3); Red Blood Count 4.76 M/uL (4.70-6.10); White Blood Count 10.32 K/ul (4.8-10.8)
[2025-03-28 07:51] LABS: Anion Gap 7.0 (3-11); Blood Urea Nitrogen 18.0 mg/dl (6-23); Calcium 9.4 mg/dl (8.6-10.3); Carbon Dioxide 23.0 mmol/L (21-32); Chloride 109.0 mmol/L (98-107); Creatinine Clr Calc Pharmacy 85.4 ml/min; Glucose 142.0 mg/dl (70-99(Fasting)); Magnesium 1.8 mg/dl (1.7-2.4); Potassium 4.3 mmol/L (3.5-5.1); Sodium 139.0 mmol/L (136-145)
[2025-03-28] MEDS: DIGOXIN 0.125 MG TAB PO ONE (08:41)
[2025-03-28] MEDS ORDERED: STAT IV Infusion **Titration per Protocol STA (10:13)
--- NOTE | 2025-03-28 10:24 | Hospitalist Progress Note ---
Date of Service March 28, 2025 Assessment & Plan (1) Atrial fibrillation with rapid ventricular response: (2) Acute on chronic heart failure with mildly reduced ejection fraction (HFmrEF, 41-49%): (3) Hypomagnesemia: (4) Demand ischemia: (5) DMII (diabetes mellitus, type 2): (6) History of Rqvdv-Vdhuldmfl-Ikzyc (WPW) syndrome: (7) IGOR (obstructive sleep apnea): Plan Patient with chest discomfort due to atrial fibrillation with rapid ventricular response, difficult to control. Has not really responded much to higher doses of metoprolol, IV doses of metoprolol and digoxin. Patient was given additional oral dose of digoxin this morning continue daily Due to the fact that patient really not responding to metoprolol we will discontinue both oral and IV metoprolol Start IV Cardizem drip, start oral Cardizem and evaluate response. Communication with cardiology, agreeable to this plan of care, may need to consider GAURAV cardioversion tomorrow if continues to be in RVR and not responding to diltiazem. Continue anticoagulation with Eliquis Continue to monitor glucose and coverage with subcutaneous insulin, continue long-acting insulin. Long-acting insulin dose decreased due to some mild hypoglycemia yesterday. Suspect patient's diet here in the hospital much more restrictive when compared to his home diet Monitor electrolytes and renal function Admission and Anticipated Discharge Date Admission Date: March 26, 2025 Subjective Patient denies any chest pain or shortness of breath. He states that he was able to get some rest. Heart rates continue to be rapid especially when he is awake and active. Physical Exam Physical Exam: Constitutional: Alert, nontoxic, no acute distress HEENT: Mucous membranes moist. Lungs: Decreased breath sounds, no wheezes, few crackles at bases CV: S1-S2, irregular, tachycardic Abdomen: Soft, nontender, nondistended Extremities: No significant edema Neuro: No focal deficits Psych: Cooperative, normal mood Results & Data Results & Data Vital Signs (Past 12 Hours) Vital Signs Temp Pulse Pulse Resp BP BP Pulse Ox 03/28/25 08:41 144 H 03/28/25 08:25 36.3 C L 144 H 18 137/90 99 03/28/25 06:04 191 H 03/28/25 03:21 36.4 C L 113 H 20 129/84 96 03/27/25 22:32 36.7 C 96 H 20 141/97 H 96 O2 Del Method 03/28/25 08:41 03/28/25 08:25 Room Air 03/28/25 06:04 03/28/25 03:21 Room Air 03/27/25 22:32 Room Air Diagnostic Findings Reviewed imaging, laboratory and diagnostic studies. Pertinent findings as below. CBC stable Electrolytes stable Creatinine 1.02
[2025-03-28] MEDS ORDERED: METOPROLOL TARTRATE 100 MG TAB PO SCH (11:00)
--- NOTE | 2025-03-28 11:59 | Cardiology Progress Note ---
Date of Service March 28, 2025 Assessment & Plan (1) Atrial fibrillation with rapid ventricular response: Plan: -Minimal symptoms currently. -Agree with increased metoprolol dose. -Agree with digoxin. -Agree with intravenous diltiazem. -Agree with change from IV heparin to Eliquis. -Patient may need a GAURAV/cardioversion tomorrow. -Please keep n.p.o. after midnight. (2) Hypertension: Plan: -Adequate control currently. (3) Dyslipidemia: Plan: -Continue atorvastatin. 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 Admission and Anticipated Discharge Date Admission Date: March 26, 2025 Subjective The patient is resting comfortably in the bedside chair without complaints of chest pain, dyspnea, or palpitations. His daughter is at the bedside. We have discussed his atrial fibrillation at length. Physical Exam Physical Exam: In general this is an obese white male in no acute distress. HEENT exam is negative. Neck is supple with full carotid upstrokes. There are no carotid bruits. Jugular venous pressure is flat at 90. There is no thyromegaly. Cardiovascular exam reveals an irregular rhythm with distant heart sounds. Lungs are clear without rales, rhonchi or wheezes. Abdomen is obese without bruits. Extremities reveal intact radial artery pulses bilaterally. There is trace pretibial edema. Results & Data Vital Signs (Past 12 Hours) Vital Signs Temp Pulse Pulse Resp BP Pulse Ox O2 Del Method 03/28/25 08:41 144 H 03/28/25 08:25 36.3 C L 144 H 18 137/90 99 Room Air 03/28/25 08:00 98 H 03/28/25 06:04 191 H 03/28/25 03:21 36.4 C L 113 H 20 129/84 96 Room Air Diagnostic Findings monitor car operator notes atrial fibrillation with a ventricular response of 100 to 130 bpm. PG Care Time/CCT Total # of Minutes Spent Total Time Spent with Patient: Total time spent is greater than 50% in coordination of care (as documented) at patient's floor/unit and/or counseling patient: Coding Level of Care Code 50285 SUB INP/OBS CARE 3/50MIN Diagnoses Atrial fibrillation with rapid ventricular response I48.91 Hypertension I10 Dyslipidemia E78.5 WPW (Ylvuv-Xhpfexehc-Baqdz syndrome) I45.6
[2025-03-28] MEDS: DIGOXIN 0.125 MG TAB PO SCH (16:11)
[2025-03-29 07:31] LABS: Anion Gap 6.0 (3-11); Blood Urea Nitrogen 19.0 mg/dl (6-23); Calcium 9.3 mg/dl (8.6-10.3); Carbon Dioxide 26.0 mmol/L (21-32); Chloride 108.0 mmol/L (98-107); Creatinine Clr Calc Pharmacy 74.0 ml/min; Glucose 103.0 mg/dl (70-99(Fasting)); Magnesium 1.9 mg/dl (1.7-2.4); Potassium 4.6 mmol/L (3.5-5.1); Sodium 140.0 mmol/L (136-145)
[2025-03-29] MEDS: LANTUS PER UNIT CHARGE SQ ONE (09:40)
--- NOTE | 2025-03-29 12:19 | Hospitalist Progress Note ---
Date of Service March 29, 2025 Assessment & Plan (1) Atrial fibrillation with rapid ventricular response: (2) Acute on chronic heart failure with mildly reduced ejection fraction (HFmrEF, 41-49%): (3) Hypomagnesemia: (4) Demand ischemia: (5) DMII (diabetes mellitus, type 2): (6) History of Kcfdk-Okhmxedoi-Tubxu (WPW) syndrome: (7) GIOR (obstructive sleep apnea): Plan Patient with atrial fibrillation rapid ventricular response much better response to Cardizem. However, still with rapid rates with activity. Transition to long-acting Cardizem Cardiology to eval for possible GAURAV cardioversion today. Continue anticoagulation with Geo Daughter at bedside updated the plan of care. Admission and Anticipated Discharge Date Admission Date: March 28, 2025 Subjective Patient denies chest pain or shortness of breath. States chest tightness with activity is not completely gone. Still having some issues with rapid rates with activity. But at rest rate significantly improved Physical Exam Physical Exam: Constitutional: Alert, nontoxic HEENT: Mucous membranes moist. Lungs: Clear to auscultation, decreased, no wheezes rales or rhonchi CV: S1-S2, irregular Abdomen: Soft, nontender, nondistended Extremities: Some ankle edema Neuro: No focal deficits Psych: Cooperative, normal mood Results & Data Results & Data Vital Signs (Past 12 Hours) Vital Signs Temp Pulse Pulse Resp BP BP Pulse Ox 03/29/25 11:49 65 18 94/52 L 95 03/29/25 08:28 69 143/79 H 96 03/29/25 07:56 36.4 C L 66 18 140/72 95 03/29/25 07:43 03/29/25 07:00 81 03/29/25 02:49 36.4 C L 81 18 127/79 96 O2 Del Method 03/29/25 11:49 Room Air 03/29/25 08:28 Room Air 03/29/25 07:56 Room Air 03/29/25 07:43 Room Air 03/29/25 07:00 03/29/25 02:49 Room Air Diagnostic Findings Reviewed imaging, laboratory and diagnostic studies. Pertinent findings as below. Electrolytes stable Creatinine 1.18
--- NOTE | 2025-03-29 13:37 | Anesthesiology Consultation ---
Date of Service March 29, 2025 Assessment & Plan (1) Encounter for pre-operative examination: Chart Review Chart Review: Acceptable Risk for Surgery and Patient NOT seen in Pre Admission Testing Consults Requested none History Surgery Operation Date: 03/29/25 13:30 Proposed Procedures p Echo Transesophageal - Marin Sabillon MD s Cardioversion - Marin Sabillon MD Height/Weight Height: 5 ft 7 in Weight: 125.4 kg Allergies Allergy/AdvReac Type Severity Reaction Status Date / Time No Known Allergies Allergy Verified 03/26/25 16:12 Medications Home Medications Medication Instructions Recorded Confirmed Last Taken atorvastatin 40 mg tablet 40 mg PO DAILY 03/05/24 03/26/25 03/26/25 clopidogrel 75 mg tablet 75 mg PO DAILY 03/05/24 03/26/25 03/26/25 dulaglutide 4.5 mg/0.5 mL 4.5 mg subcut WK 03/05/24 03/26/25 03/20/25 subcutaneous pen injector (Trulicity) finasteride 5 mg tablet 5 mg PO DAILY 03/05/24 03/26/25 03/26/25 insulin glargine 100 unit/mL 60 unit subcut HS 03/05/24 03/26/25 03/25/25 subcutaneous solution (Lantus U-100 Insulin) metformin 850 mg tablet 850 mg PO BID 03/05/24 03/26/25 03/26/25 tamsulosin 0.4 mg capsule 0.8 mg PO DAILY 03/05/24 03/26/25 03/26/25 tramadol 50 mg tablet 50 mg PO TID PRN Severe Pain 03/05/24 03/26/25 Unknown (Scale Score 7-10) metoprolol succinate 200 mg 200 mg PO DAILY #90 tabs 05/28/24 03/26/25 03/26/25 tablet,extended release 24 hr sacubitril 97 mg-valsartan 103 mg 1 tab PO BID #180 tabs 07/23/24 03/26/25 03/26/25 tablet (Entresto) spironolactone 25 mg tablet 25 mg PO DAILY #90 tabs 07/30/24 03/26/25 03/26/25 furosemide 20 mg tablet 20 mg PO QAM 03/26/25 03/26/25 03/26/25 Active Medications Generic Name Dose Route Start Last Admin Trade Name Freq PRN Reason Stop Dose Admin Acetaminophen 650 mg 03/26/25 17:50 03/27/25 07:40 Acetaminophen 325 Mg Tab PO 04/25/25 17:49 650 mg Q4H PRN Administration Pain or Fever Apixaban 5 mg 03/27/25 21:00 03/29/25 08:34 Apixaban 5 Mg Tablet PO 04/26/25 20:59 5 mg BID ADRIA Administration Atorvastatin Calcium 40 mg 03/27/25 09:00 03/29/25 08:35 Atorvastatin 40 Mg Tab PO 04/26/25 08:59 40 mg DAILY ADRIA Administration Clopidogrel Bisulfate 75 mg 03/27/25 09:00 03/29/25 08:35 Clopidogrel Bisulfate 75 Mg Tab PO 04/26/25 08:59 75 mg DAILY ADRIA Administration Diltiazem HCl 240 mg 03/29/25 09:00 03/29/25 08:33 Diltiazem Hcl 240 Mg Capcr PO 04/28/25 08:59 240 mg QAM ADRIA Administration Finasteride 5 mg 03/27/25 09:00 03/29/25 08:33 Finasteride 5 Mg Tab PO 04/26/25 08:59 5 mg DAILY ADRIA Administration Furosemide 20 mg 03/27/25 09:00 03/29/25 08:35 Furosemide 20 Mg Tab PO 04/26/25 08:59 20 mg QAM ADRIA Administration Diltiazem HCl 125 mg/ Dextrose 125 mls @ 0 mls/hr 03/28/25 10:15 03/29/25 13:19 IV 04/27/25 10:14 0 mg/hr .Q0M ADRIA 0 mls/hr Titration Protocol Insulin Aspart 0 units 03/26/25 21:00 03/29/25 12:04 Insulin Aspart Per Unit Charge SC 04/25/25 20:59 Not Given ACHS ADRIA Magnesium Oxide 400 mg 03/27/25 12:45 03/29/25 08:34 Magnesium Oxide 400 Mg Tab PO 04/26/25 12:44 400 mg BID ADRIA Administration Metoprolol Tartrate 5 mg 03/27/25 12:32 03/27/25 16:20 Metoprolol Tartrate 1 Mg/Ml Vial IV 04/25/25 22:53 5 mg Q1H PRN Administration HR>130 Sacubitril/Valsartan 1 tab 03/27/25 09:00 03/29/25 08:35 Valsartan/Sacubitril 103/97mg Tab PO 04/26/25 08:59 1 tab BID ADRIA Administration Spironolactone 25 mg 03/27/25 09:00 03/29/25 08:34 Spironolactone 25 Mg Tab PO 04/26/25 08:59 25 mg DAILY ADRIA Administration Tamsulosin HCl 0.8 mg 03/27/25 09:00 03/29/25 08:35 Tamsulosin Hcl 0.4 Mg Cap PO 04/26/25 08:59 0.8 mg DAILY ADRIA Administration Past Medical History Medical History (Updated 03/29/25 @ 13:47 by Ronaldo Hidalgo MD) Encounter for pre-operative examination History of TIA (transient ischemic attack) Atypical chest pain IGOR (obstructive sleep apnea) Cannot tolerate device Dry mouth Chronic Morbid obesity with BMI of 45.0-49.9, adult Chronic back pain SOB (shortness of breath) on exertion OVERWEIGHT- CHRONIC AND STABLE Claustrophobia "DOESN'T LIKE SLEEPING ON HIS BACK" Arthritis Gallstones Found incidentally - no current issues Abdominal hernia Stable GERD (gastroesophageal reflux disease) UNDER CONTROL Hypertension History of asthma A CHILD HLD (hyperlipidemia) History of Cqgsv-Gcvxnfhdc-Kuawm (WPW) syndrome S/p ablation- no issues Follows with cardio PRN DM II (diabetes mellitus, type II), controlled Glucose fluctuates Exercise / Class Metabolic Activity III < 4 Walking/Shop/Light housework Past Family History Family History Other Diabetes Hypertension No family history of adverse response to anesthesia Past Surgical History Surgical History S/P TURP History of tooth extraction History of tonsillectomy History of cataract surgery RT History of colonoscopy 2020 History of radiofrequency ablation procedure for cardiac arrhythmia AT AGE 29 Social History Smoking Status: Never smoker Do You Dip or Chew Tobacco: No Hx Alcohol Use: No Hx Substance Use: No substance use type: does not use Physical Exam Vital Signs Last Vital Signs Temp 36.4 C L 03/29/25 07:56 Pulse 128 H 03/29/25 13:33 Resp 18 03/29/25 11:49 BP 94/52 L 03/29/25 11:49 Pulse Ox 95 03/29/25 11:49 O2 Del Method Room Air 03/29/25 11:49 Testing Laboratory Results 03/28/25 06:47 03/29/25 06:45 PT 11.5 Seconds (9.0-12.0) 03/26/25 16:10 INR 1.1 (0.9-1.1) 03/26/25 16:10 APTT 27 Seconds (21-31) 03/26/25 16:10 03/29/25 11:40 POC Glucose 106 H Electrocardiogram Date: 03/26/25 DICTATED BY: Italo Galeano MD Test Reason : Blood Pressure : */* mmHG Vent. Rate : 124 BPM Atrial Rate : * BPM P-R Int : * ms QRS Dur : 116 ms QT Int : 348 ms P-R-T Axes : * -28 149 degrees QTcB Int : 499 ms Atrial fibrillation with rapid ventricular response with premature ventricular or aberrantly conducted complexes Nonspecific ST and T wave abnormality Abnormal ECG When compared with ECG of 26-Mar-2025 16:03, (unconfirmed) No significant change was found Confirmed by Italo Galeano ([id number]) on 03/27/2025 12:30:46 PM
[2025-03-29] MEDS ORDERED: PROPOFOL IV EMULSION 10 MG/ML 20 ML VIAL IV ONE (14:11)
[2025-03-29] MEDS ORDERED: PHENYLEPHRINE 100MCG/ML 5ML SYR ONE (14:11)
[2025-03-29] MEDS ORDERED: LIDOCAINE 2% 2 ML VIAL/AMP(20MG/ML) INFIL ONE (14:11)
--- NOTE | 2025-03-29 14:15 | Cardioversion ---
Date of Service March 29, 2025 PG Electrical Cardioversion Rp Electrical Cardioversion Report Procedure: DC cardioversion (elective) Indication: Atrial fibrillation with rapid ventricular response. Anticoagulation: Therapeutic Eliquis Antiarrhythmic therapy: None Informed written consent: Obtained Timeout: Performed Sedation: Provided by anesthesiology Procedural details: Transesophageal echo was performed. There was no visualized left atrial appendage thrombus. While still sufficiently sedated, 200 J were delivered in a synchronized fashion which successfully converted A-fib with RVR to sinus rhythm. He remained hemodynamically stable without known complication at the time of this note. Plan: 1. Continue anticoagulation therapy without interruption for at least 4 weeks, however indefinite anticoagulation therapy appears indicated. 2. Given reduced LV systolic function, recommend replacing diltiazem p.o. with metoprolol succinate, which he has chronically tolerated. 3. Follow-up closely with his primary vp research, Dr. Galeano. 4. Patient's daughter was personally notified of the cardioversion following today's procedure. Coding Level of Care Code 61044 CARDIOVERSION, ELECTIVE Additional Codes Electrical Cardioversion Report ([id number])
--- NOTE | 2025-03-29 14:58 | Anesthesiology Progress Note ---
Date of Service March 29, 2025 Anesthesia Post Procedure Vital Signs Vital Signs: Temp Pulse Pulse Resp BP BP Pulse Ox 03/29/25 14:44 36.7 C 69 18 123/65 92 03/29/25 14:30 57 L 14 109/57 L 94 03/29/25 14:18 121 H 14 145/94 H 94 03/29/25 14:15 55 L 11 L 101/60 100 03/29/25 13:33 128 H 03/29/25 11:49 65 18 94/52 L 95 03/29/25 08:28 69 143/79 H 96 03/29/25 07:56 36.4 C L 66 18 140/72 95 03/29/25 07:43 03/29/25 07:00 81 03/29/25 02:49 36.4 C L 81 18 127/79 96 03/28/25 22:55 36.3 C L 64 18 128/73 93 03/28/25 21:27 71 120/73 03/28/25 19:29 36.7 C 65 16 114/76 94 03/28/25 16:14 36.8 C 84 19 149/66 H 97 03/28/25 16:11 110 H O2 Del Method 03/29/25 14:44 Room Air 03/29/25 14:30 Room Air 03/29/25 14:18 Room Air 03/29/25 14:15 Room Air 03/29/25 13:33 03/29/25 11:49 Room Air 03/29/25 08:28 Room Air 03/29/25 07:56 Room Air 03/29/25 07:43 Room Air 03/29/25 07:00 03/29/25 02:49 Room Air 03/28/25 22:55 Room Air 03/28/25 21:27 03/28/25 19:29 Room Air 03/28/25 16:14 Room Air 03/28/25 16:11 Transfer of Care Handoff Completed per policy Notes Mental Status: alert / awake / arousable and participated in evaluation Patient Amnestic to Procedure: Yes Nausea / Vomiting: adequately controlled Pain: adequately controlled Airway Patency, RR, SpO2: stable & adequate BP & HR: stable & adequate Hydration State: stable & adequate Anesthetic Complications: no major complications apparent and Pt Satisfied with anesthetic care
[2025-03-29] MEDS: BENZOCAINE/TETRACAIN/BUTAM 50 APPLN/5 GM CAN EXT ONE (15:06)
--- NOTE | 2025-03-29 21:27 | Cardiology Progress Note ---
Date of Service March 29, 2025 Assessment & Plan (1) Persistent atrial fibrillation: (2) Elevated troponin: (3) Cardiomyopathy: (4) Hypertension: (5) Demand ischemia: Plan ASSESSMENT/PLAN: 1. Atrial fibrillation: Asymptomatic currently but presented with palpitations. Despite diltiazem drip, oral diltiazem, and digoxin, heart rate still elevated at times even while in bed. Discussed treatment options. He has been made n.p.o. for possible GAURAV cardioversion today by his primary boiler house supervisor, Dr. Galeano. Risk and benefits of the procedures were discussed with him in detail and he would like to pursue if possible. Continue anticoagulation for stroke risk reduction. Discontinue digoxin. Recommend beta-vicky rather than diltiazem given reduced LV systolic function. 2. Cardiomyopathy: Mildly reduced LV systolic function while in the setting of A-fib with RVR. Recommend resuming metoprolol succinate which he uses at home at 200 mg daily. Discontinue diltiazem. Continue spironolactone and Entresto. He does not appear to be significantly hypervolemic. Lower extremity edema possibly due to venous insufficiency as it seems to be dependent edema. Repeat echo in the outpatient setting once sinus rhythm has been established or at least adequate rate control. 3. Elevated troponin: Likely due to demand ischemia in the setting of A-fib with RVR. Negative myocardial perfusion study on 04/26/2021 4. Hypertension: Blood pressure reasonably controlled. Plan as above. 5. WPW s/p RF ablation in 1985: Follows with Dr. Galeano. 6. Disposition: Plan for transesophageal echo and cardioversion today if no left atrial thrombus noted. Once discharged, follow-up within 1 to 2 weeks with his primary boiler house supervisor, Dr. Galeano. Addendum: GAURAV was performed. No thrombus noted. Cardioversion performed and successfully converted to A-fib to sinus rhythm. Continue anticoagulation without therapy for at least 4 weeks, however indefinite anticoagulation therapy appears indicated. Communicated with primary hospitalist, Dr. Alex, that metoprolol succinate is recommended in place of diltiazem. Highly complex medical issues. Admission and Anticipated Discharge Date Admission Date: March 28, 2025 Subjective He was seen earlier today around noon time. He denies shortness of breath, syncope, near syncope, palpitations. Nursing staff had noted lower extremity edema after sitting for several hours with his feet/legs not elevated. He has been n.p.o. for possible GAURAV cardioversion and was interested in pursuing. He denies ulcers, hematemesis, gastric bypass. He has had issues swallowing meat in the past His daughter was present at the bedside. Physical Exam Physical Exam: Gen.: No acute distress. Alert. HEENT: Anicteric sclera. Neck: No appreciable JVD. Cardiac: Irregularly irregular. Normal S1-S2. No murmurs, rubs, or gallops. Pulmonary: Clear to auscultation bilaterally without wheezes, rales, or rhonchi. Abdomen: Soft, nontender, nondistended, with normoactive bowel sounds. No bruits noted. Extremities: 2+ radial pulses bilaterally. Trace to 1+ bilateral lower extremity edema. No cyanosis. Results & Data Vital Signs (Past 12 Hours) Vital Signs Temp Pulse Pulse Resp BP BP Pulse Ox 03/29/25 13:33 128 H 03/29/25 11:49 65 18 94/52 L 95 03/29/25 08:28 69 143/79 H 96 03/29/25 07:56 36.4 C L 66 18 140/72 95 03/29/25 07:43 03/29/25 07:00 81 03/29/25 02:49 36.4 C L 81 18 127/79 96 O2 Del Method 03/29/25 13:33 03/29/25 11:49 Room Air 03/29/25 08:28 Room Air 03/29/25 07:56 Room Air 03/29/25 07:43 Room Air 03/29/25 07:00 03/29/25 02:49 Room Air Laboratory Results Laboratory Results - last 24 hr 03/29/25 03/29/25 03/29/25 06:45 11:40 15:59 Sodium 140 Potassium 4.6 Chloride 108 H Carbon Dioxide 26 Anion Gap 6 BUN 19 Creatinine 1.18 Est Cr Clr Drug Dosing 74.0 eGFR 66.38 BUN/Creatinine Ratio 16.1 Glucose 103 H POC Glucose 106 H 69 L* Calcium 9.3 Magnesium 1.9 03/29/25 03/29/25 16:00 20:26 Sodium Potassium Chloride Carbon Dioxide Anion Gap BUN Creatinine Est Cr Clr Drug Dosing eGFR BUN/Creatinine Ratio Glucose POC Glucose 74 118 H Calcium Magnesium Diagnostic Findings Telemetry personally reviewed: Atrial fibrillation with normal heart rate at times with episodes of rapid ventricular response. Labs reviewed from 03/29/2025: Stable renal function, normal potassium, normal magnesium. Labs from 03/26/2025 demonstrated normal TSH. Other hospital labs demonstrated elevated high-sensitivity troponin with a peak of 48. Medications Administered Current Inpatient Medications Acetaminophen (Acetaminophen 325 Mg Tab) 650 mg PO Q4H PRN PRN Reason: Pain or Fever Stop: 04/25/25 17:49 Last Admin: 03/27/25 07:40 Dose: 650 mg Apixaban (Apixaban 5 Mg Tablet) 5 mg PO BID ADRIA Stop: 04/26/25 20:59 Last Admin: 03/29/25 08:34 Dose: 5 mg Atorvastatin Calcium (Atorvastatin 40 Mg Tab) 40 mg PO DAILY ADRIA Stop: 04/26/25 08:59 Last Admin: 03/29/25 08:35 Dose: 40 mg Clopidogrel Bisulfate (Clopidogrel Bisulfate 75 Mg Tab) 75 mg PO DAILY ADRIA Stop: 04/26/25 08:59 Last Admin: 03/29/25 08:35 Dose: 75 mg Dextrose (Dextrose 50% 50 Ml Syringe) 25 - 50 ml IV UD PRN; Protocol PRN Reason: Hypoglycemia Protocol Stop: 04/25/25 18:13 Finasteride (Finasteride 5 Mg Tab) 5 mg PO DAILY ADRIA Stop: 04/26/25 08:59 Last Admin: 03/29/25 08:33 Dose: 5 mg Furosemide (Furosemide 20 Mg Tab) 20 mg PO QAM ADRIA Stop: 04/26/25 08:59 Last Admin: 03/29/25 08:35 Dose: 20 mg Glucagon (Glucagon For Inj 1 Mg Vial) 1 mg SQ UD PRN; Protocol PRN Reason: Hypoglycemia Protocol Stop: 04/25/25 18:13 Glucose (Glucose 40% Gel 15 Gm Tube) 15 - 30 gm PO UD PRN; Protocol PRN Reason: Hypoglycemia Protocol Stop: 04/25/25 18:13 Glucose (Glucose 10 Tab/Tube) 4 - 8 tab PO UD PRN; Protocol PRN Reason: Hypoglycemia Protocol Stop: 04/25/25 18:13 Insulin Aspart (Insulin Aspart Per Unit Charge) 0 units SC ACHS ADRIA Stop: 04/25/25 20:59 Last Admin: 03/29/25 20:38 Dose: Not Given Magnesium Oxide (Magnesium Oxide 400 Mg Tab) 400 mg PO BID [facility] Stop: 04/26/25 12:44 Last Admin: 03/29/25 08:34 Dose: 400 mg Metoprolol Succinate (Metoprolol Succ 50mg Ext Rel Tab) 200 mg PO QAM [facility] Stop: 04/29/25 08:59 Metoprolol Tartrate (Metoprolol Tartrate 1 Mg/Ml Vial) 5 mg IV Q1H PRN PRN Reason: HR>130 Stop: 04/25/25 22:53 Last Admin: 03/27/25 16:20 Dose: 5 mg Miscellaneous (Carbohydrates For Hypoglycemia ) 15 - 30 gm PO UD PRN PRN Reason: Hypoglycemia Protocol Stop: 04/25/25 18:13 Ondansetron HCl (Ondansetron Inj 2 Mg/Ml 2 Ml Vial) 4 mg IV Q6H PRN PRN Reason: Nausea Stop: 04/25/25 17:49 Polyethylene Glycol (Polyethylene (Miralax) 17 Gm Pack) 17 gm PO DAILY PRN PRN Reason: Constipation Stop: 04/25/25 17:49 Sacubitril/Valsartan (Valsartan/Sacubitril 103/97mg Tab) 1 tab PO BID [facility] Stop: 04/26/25 08:59 Last Admin: 03/29/25 08:35 Dose: 1 tab Spironolactone (Spironolactone 25 Mg Tab) 25 mg PO DAILY [facility] Stop: 04/26/25 08:59 Last Admin: 03/29/25 08:34 Dose: 25 mg Tamsulosin HCl (Tamsulosin Hcl 0.4 Mg Cap) 0.8 mg PO DAILY [facility] Stop: 04/26/25 08:59 Last Admin: 03/29/25 08:35 Dose: 0.8 mg Tramadol HCl (Tramadol Hcl 50 Mg Tablet) 50 mg PO TID PRN PRN Reason: Severe Pain (Scale Score 7-10) Stop: 04/25/25 18:51 PG Care Time/CCT Total # of Minutes Spent Total Time Spent with Patient: Total time spent is greater than 50% in coordination of care (as documented) at patient's floor/unit and/or counseling patient: Coding Level of Care Code 71054 SUB INP/OBS CARE 3/50MIN Diagnoses Persistent atrial fibrillation I48.19 Elevated troponin R79.89 Cardiomyopathy I42.9 Hypertension I10 Demand ischemia I24.89
[2025-03-30 02:44] VITALS: RESP 19
--- NOTE | 2025-03-30 05:45 | XCELERA ---
[id number] [id number]
[2025-03-30 07:14] LABS: Hematocrit (blood only) 35.6 % (42.0-52.0); Hemoglobin 11.8 g/dL (14.0-18.0); Mean Corpuscular Hemoglobin 28.4 pg (25.0-34.0); Mean Corpuscular Volume 85.8 fL (80.0-100.0); Platelet Count 269 K/uL (130-400); RDW Standard Deviation 40.8 fL (36.4-46.3); Red Blood Count 4.15 M/uL (4.70-6.10); White Blood Count 9.98 K/ul (4.8-10.8)
[2025-03-30 07:31] LABS: Anion Gap 6.0 (3-11); Blood Urea Nitrogen 19.0 mg/dl (6-23); Calcium 9.2 mg/dl (8.6-10.3); Carbon Dioxide 25.0 mmol/L (21-32); Chloride 109.0 mmol/L (98-107); Creatinine Clr Calc Pharmacy 76.7 ml/min; Glucose 127.0 mg/dl (70-99(Fasting)); Magnesium 2.0 mg/dl (1.7-2.4); Potassium 4.3 mmol/L (3.5-5.1); Sodium 140.0 mmol/L (136-145)
[2025-03-30 07:45] VITALS: TEMP 99; O2SAT 98
[2025-03-30] MEDS: METOPROLOL SUCC 50MG EXT REL TAB PO SCH (08:37)
[2025-03-30 10:00] VITALS: BP 156/68; PULSE 81
--- NOTE | 2025-03-30 11:23 | Discharge Summary ---
Discharge Summary Date of Service March 30, 2025 Principal Dx & Hospital Course #1 = Principal Diagnosis (1) Atrial fibrillation with rapid ventricular response: (2) Acute on chronic heart failure with mildly reduced ejection fraction (HFmrEF, 41-49%): (3) Hypomagnesemia: (4) Demand ischemia: (5) DMII (diabetes mellitus, type 2): (6) History of Jsdxl-Jkcnpqjnn-Yfjni (WPW) syndrome: (7) IGOR (obstructive sleep apnea): Plan Patient 69-year-old gentleman presented to the emergency department with chest discomfort found to be in atrial fibrillation with rapid ventricular response. Patient was admitted to the hospital. Initially attempting to control his rates with metoprolol. Patient was given increased dose of oral metoprolol and IV metoprolol. He continued to have significant rapid ventricular response. His c hest discomfort improved with at rest but still was present with any type of activity. Cardiology consultation was obtained. They recommended adding digoxin. Digoxin did help his rate slightly but he continued to have a heart rate greater than 100 and is significantly rapid with any type of activity. Patient was then transition to Cardizem due to nonresponse to the metoprolol. Patient did respond to IV Cardizem and oral Cardizem, however he was still having significant rapid ventricular response with activity. Patient was reevaluated by cardiology. Ultimately has decided that he is a candidate for GAURAV cardioversion. Patient underwent GAURAV cardioversion to sinus rhythm. Post cardioversion he returned to his usual metoprolol dosing and the digoxin was discontinued. Patient was observed overnight. He remained in sinus rhythm. During his hospitalization he initially was started on heparin and then transition to Eliquis in the setting of this new atrial fibrillation. He tolerated this well. On the day of discharge his vital signs were stable. He was in sinus rhythm. He was tolerating his anticoagulation. 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 Notes For Next Care Provider Continue to monitor and manage chronic medical issues Medication Changes From Visit Eliquis added for paroxysmal atrial fibrillation Admission HPI Per Admitting Provider Patient is 69-year-old male with PMH WPW s/p ablation, chronic HFrEF with improved EF of 50% on echo in 06/2024, cardiomyopathy, frequent PVCs, HTN, HLD, DM II, TIA, BPH, obesity presented to ER with c/o palpitations started 2 days ago. Per outpatient chart review seen at PCPs office today for follow-up and had reported he was experiencing chest pain, palpitations and dizziness episodes for the past 2 days. Reported patient had EKG and clinic concerning for A-fib RVR and sent to ER. [facility] had onset of palpitations, anterior mid chest discomfort that radiated up neck. States was SOB with exertion. Patient reports tried Valsalva maneuver and in 30 minutes palpitations resolved. He states had another episode palpitations that evening lasted approximately 20-30 minutes. He reports took BP at home and SBP in 90's. He states doesn't feel palpitations further but has continued with anterior chest "soreness" and SOB with exertion. At rest reports no SOB. He sta ekta he feels comfortable at rest. States not feeling lightheaded but more of head discomfort. Denies fever/chills, diaphoresis, N/V/D/C, syncope, vision changes, cough, sore throat, rhinorrhea, abdominal pain, paresthesias, weakness, extremity edema, rashes, urinary symptoms. Discussed patient with ER provider admitting for afib RVR and had reported improved rate control after IV metoprolol Admission Exam Per Admitting Provider See H&P Discharge Exam Constitutional: Alert HEENT: Mucous membranes moist. Lungs: Clear to auscultation, decreased, no wheezes rales or rhonchi CV: S1-S2, regular Abdomen: Soft, nontender, nondistended Extremities: No significant edema Neuro: No focal deficits Psych: Cooperative, normal mood Updated Medication List Medication Instructions Recorded Confirmed Type atorvastatin 40 mg tablet 40 mg PO DAILY 03/05/24 03/26/25 History clopidogrel 75 mg tablet 75 mg PO DAILY 03/05/24 03/26/25 History dulaglutide 4.5 mg/0.5 mL 4.5 mg subcut WK 03/05/24 03/26/25 History subcutaneous pen injector (Trulicity) finasteride 5 mg tablet 5 mg PO DAILY 03/05/24 03/26/25 History insulin glargine 100 unit/mL 60 unit subcut HS 03/05/24 03/26/25 History subcutaneous solution (Lantus U-100 Insulin) metformin 850 mg tablet 850 mg PO BID 03/05/24 03/26/25 History tamsulosin 0.4 mg capsule 0.8 mg PO DAILY 03/05/24 03/26/25 History tramadol 50 mg tablet 50 mg PO TID PRN Severe Pain 03/05/24 03/26/25 History (Scale Score 7-10) metoprolol succinate 200 mg 200 mg PO DAILY #90 tabs 05/28/24 03/26/25 Rx tablet,extended release 24 hr sacubitril 97 mg-valsartan 103 mg 1 tab PO BID #180 tabs 07/23/24 03/26/25 Rx tablet (Entresto) spironolactone 25 mg tablet 25 mg PO DAILY #90 tabs 07/30/24 03/26/25 Rx furosemide 20 mg tablet 20 mg PO QAM 03/26/25 03/26/25 History apixaban 5 mg tablet (Eliquis) 5 mg PO BID 30 days #60 tabs 03/30/25 Rx Hospital Stay Data Consultations 03/26/25 17:28 ED Decision to Admit Stat 03/26/25 17:50 Consult Cardiology Routine 03/29/25 12:56 Consult Anesthesiology Routine 03/29/25 12:57 Consult Anesthesiology Routine Procedures Performed Operation Date: 03/29/25 13:30 Actual Procedures p Echo Transesophageal - Marin Sabillon MD s Echo Color Flow - Marin Sabillon MD s Echo Doppler Complete - Marin Sabillon MD s Cardioversion - Marin Sabillon MD Diagnostic Imagining Performed Reviewed imaging, laboratory and diagnostic studies. Pertinent findings as below. Personally reviewed post cardioversion EKG, sinus rhythm with frequent PVCs CBC stable, hemoglobin 11.8 Electrolytes within normal range Creatinine 1.14 GAURAV showed mildly dilated left ventricle with ejection fraction of 45 to 50%, no thrombus was identified, mild pulmonary hypertension, mild mitral regurgitation Pending Results Patient Have Any Pending Studies at Discharge: No Discharge Instructions Given to Patient (Per Discharging Provider) Follow-up with cardiology as scheduled Continue medication as prescribed Follow-up with PCP for ongoing management of diabetes Total Time Total Time Spent Total Time Spent (In Minutes): 35
--- NOTE | 2025-03-31 06:34 | Electrocardiogram Report ---
Test Reason : Blood Pressure : */* mmHG Vent. Rate : 83 BPM Atrial Rate : 73 BPM P-R Int : 160 ms QRS Dur : 112 ms QT Int : 372 ms P-R-T Axes : 53 -38 125 degrees QTcB Int : 437 ms Sinus rhythm with Premature supraventricular complexes and with occasional Premature ventricular comp lexes Left axis deviation T wave abnormality, consider lateral ischemia Poor R wave progression, consider anterior NV vs. lead placement vs. LVH Abnormal ECG When compared with ECG of 27-Mar-2025 05:17, Sinus rhythm has replaced Atrial fibrillation Vent. rate has decreased by 41 bpm Confirmed by Marin Sabillon ([id number]) on 03/31/2025 6:33:52 AM Referred By: Pro Martinez Confirmed By: Marin Sabillon
== END 2025-03-30 11:28 | disposition home or self-care (01) | DRG 308 ==
LOC: ED 15:55 → 2S 15:55 → SUATTDRO 17:51 → 2S 21:17